=== PATIENT | female | born 1980 | race Caucasian/White ===

== ENCOUNTER → 2017-10-07 | Outpatient (CLI) | payer BC ==
--- NOTE | 2017-10-12 18:01 | US ---
EXAMINATION TYPE: US abdomen complete DATE OF EXAM: 10/07/2017 COMPARISON: NONE CLINICAL HISTORY: R94.5 Abnormal Results of Liver Function Studies. no symptoms, abn LFT's, cholecyst ectomy EXAM MEASUREMENTS: Liver Length: 15.8 cm Gallbladder Wall: Surgically absent CBD: 0.7 cm Spleen: 10.9 cm Right Kidney: 10.0 x 3.8 x 4.1 cm Left Kidney: 11.9 x 4.8 x 6.0 cm Pancreas: wnl Liver: wnl Gallbladder: Surgically absent Evidence for sonographic Flor's sign: no CBD: wnl Spleen: wnl Right Kidney: wnl Left Kidney: wnl Upper IVC: wnl Abd Aorta: wnl The liver is homogenous. The intrahepatic portion of the IVC and proximal abdominal aorta are within normal limits. Common bile duct is unremarkable. The visualized portions of the pancreas are homog enous. The spleen is unremarkable. Kidneys are symmetric and free of hydronephrosis. No renal lesi ons are seen. IMPRESSION: No significant abnormality is appreciated.
== END | disposition home or self-care (01) ==
LOC: RADUSWWP 08:49
PROVIDERS: ATTEND Internal Medicine
DX: R94.5 Abnormal results of liver function studies (principal)
CPT/HCPCS: 76700

== ENCOUNTER → 2017-11-01 | Outpatient (CLI) | payer BC ==
[2017-11-01 14:41] VITALS: BP 121/81; PULSE 86; TEMP 98.7; BMI 32.9
--- NOTE | 2017-11-01 16:02 | P.HPOB ---
History of Present Illness H&P Date: 11/01/17 Chief Complaint: The patient is here for her routine gynecologic exam. This is a 37-year-old G0 with an LMP at 10/25/2017. She is currently not preventing . 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 She had a history of a borderline malignant left ovarian cyst which was removed by laparotomy in [place] [address] Underwood. No adjuvant treatment was necessary. She was not actively preventing and later started more actively trying to get after her marriage in 2016. She has been with her for 17 years. She had an infertility workup in 2016. She states the semen analysis was normal. Her HSG on 03/29/2016 showed some tubal blockage. She underwent laparoscopic examination on 06/10/2016 and underwent some type of adhesiolysis and some type of mesh material was placed to prevent future adhesions. She does have some left pelvic discomfort around the time of ovulation. Menses are regular every month. She does check for a hormonal surge around the time of ovulation. She has been generally waiting to have sexual intercourse until after the hormonal surge. She did have a normal pap smear on 02/25/2016. She has seen 2 different paper tube grader over the last 2 or 3 years. Most recently she was seen at [facility] for an intrauterine insemination. She did this once and was not successful. Review of Systems She has lost about 40 pounds over the last one or 2 years with diet and exercise. She denies respiratory, cardiac, or G.I. problems. Past Medical History Past Medical History: GERD/Reflux Additional Past Medical History / Comment(s): anxiety. 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 She has no history of STDs. History of Any Multi-Drug Resistant Organisms: None Reported Past Surgical History: Cholecystectomy Additional Past Surgical History / Comment(s): IUI, LAPAROSCOPY WITH FIMBROPLASTY, LAPARSCOPY WITH INTERNAL ADHESIONS. 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 Past Psychological History: Anxiety, Depression Smoking Status: Never smoker Past Alcohol Use History: Rare (20 per year.) Past Drug Use History: None Reported Additional History: She was in 2015 and has been with her partner since approximately 2000. She does not work outside the home. - Past Family History Father Family Medical History: Myocardial Infarction (NM) Mother Family Medical History: Myocardial Infarction (NM) Medications and Allergies Home Medications Medication Instructions Recorded Confirmed Type ALPRAZolam [Xanax] tab PO PRN 11/01/17 History Docusate [Colace] mg PO HS 11/01/17 History Fug-Qtst-Jxksx Acid cap PO DAILY 11/01/17 History [-U Capsule (formulary)] busPIRone HCl [Buspar] mg PO BID 11/01/17 11/01/17 History Allergies Allergy/AdvReac Type Severity Reaction Status Date / Time ciprofloxacin [From Cipro] Allergy Swelling Verified 11/01/17 14:35 ciprofloxacin HCl Allergy Swelling Verified 11/01/17 14:35 [From Cipro] Sulfa (Sulfonamide Allergy Rash/Hives Verified 11/01/17 14:35 Antibiotics) Exam - Vital Signs Vital signs: Vital Signs Temp Pulse BP 11/01/17 14:36 98.7 F 86 121/81 Intake and Output 11/01/17 11/01/17 11/01/17 06:59 14:59 22:59 Other: Weight 81.647 kg Height 5'2", BMI 32.9. This is a well-developed well-nourished white female who is alert and oriented times 3 in no acute distress. HEENT: Within normal limits. NECK: Supple without mass or thyromegaly. CHEST AND LUNGS: Clear to auscultation. HEART: Regular rate and rhythm. BREASTS: Are without mass or discharge. AXILLARY EXAM: Negative for adenopathy. BACK: Negative for CVA tenderness. ABDOMEN: Soft, nontender, without palpable masses. PELVIC EXAM: Normal external genitalia. Cervix and vagina appear normal. There is no unusual discharge. There is no evidence of prolapse. The uterus is midposition, nongravid size and nontender. There a palpable left adnexal mass which is firm and fairly fixed measure and possibly 3 x 3 cm. This is nontender. There are no other palpable adnexal masses or tenderness. RECTAL EXAM: to vaginal exam is negative for mass or tenderness and is negative for occult blood. EXTREMITIES: Nontender. IMPRESSION: 1. 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 2. History of left ovarian cyst which was of low malignant potential which was removed in 2006. 3. Left adnexal mass which seems firm and fairly fixed in measures approximately 3 x 3 cm. Differential diagnosis will include uterine fibroid, ovarian adhesions, ovarian mass and less likely a non-gynecologic mass. PLAN: 1. Pap smear from 02/25/2016 was negative and she has given me a copy of this. 2. Self breast awareness was discussed. 3. Pelvic ultrasound will be scheduled to further evaluate the left adnexal fullness. 4. I have recommended that she continue to follow up with a paper tube grader for her infertility and for her desire to achieve . 5. I have recommended that she not wait until after her LH surge to have sexual intercourse. She should estimate the time of ovulation and begin having sexual intercourse one or 2 days before ovulation. 6. She'll continue to take a multivitamin with folic acid daily. 7. She will return in one year and PRN.
--- NOTE | 2017-11-02 09:08 | P.PN ---
Progress Note - Text Progress Note Date: 11/02/17 The patient has called to let me know that she would like to have a Pap smear done. She believes her mother may have had cervical cancer that required a hysterectomy. The patient did not have a Pap smear done yesterday since she had documentation showing that her Pap smear was negative less than 2 years ago. I told her that the Pap smear she had done in January 2016 still would be considered adequate since cervical cancer is not strongly hereditary in nature. She still would like to have the Pap smear done. She will make an appointment for the Pap smear to be done.
== END | disposition home or self-care (01) ==
LOC: WWCWWP 14:10
PROVIDERS: ATTEND Obstetrics & Gynecology
DX: Z53.9 Procedure and treatment not carried out, unspecified reason (principal)

== ENCOUNTER → 2017-11-29 | Outpatient (CLI) | payer BC ==
--- NOTE | 2017-11-29 15:25 | US ---
EXAMINATION TYPE: US pelvic complete DATE OF EXAM: 11/29/2017 COMPARISON: NONE CLINICAL HISTORY: R19.00 PELVIC MASS LT. Left pelvic mass per physician, left ovarian tumor removed 2 007, 0 TECHNIQUE: . Transabdominal sonographic images of the pelvis were acquired. Transvaginal sonographi c images were medically necessary to better assess the following anatomy: endometrium and ovaries. Date of LMP: 11/24/2017 EXAM MEASUREMENTS: Uterus: 7.8 x 3.8 x 4.4 cm Endometrial Stripe: 0.4 cm Right Ovary: 4.2 x 2.4 x 1.8 cm Left Ovary: 2.0 x 1.3 x 1.5 cm 1. Uterus: anteverted, multiple nabothian cysts 2. Endometrium: wnl 3. Right Ovary: multiple follicles 4. Left Ovary: multiple follicles 5. Bilateral Adnexa: wnl 6. Posterior cul-de-sac: wnl IMPRESSION: Unremarkable pelvic ultrasound with multiple likely physiologic bilateral ovarian follicl es. No recurrent left adnexal mass.
--- NOTE | 2017-11-29 16:08 | P.PN ---
Progress Note - Text Progress Note Date: 11/29/17 The patient was recently here on 11/01/2017 for her routine gynecology exam. Her last Pap smear was negative less than 2 years ago so a Pap smear was not done on 11/01/2017. The patient found out that her mother had cervical cancer and she feels strongly that she would like to have a Pap smear done. Her LMP was 11/22/2017. She is also undergoing a workup for pelvic pain and pelvic ultrasound was done today. Physical exam: vital signs: blood pressure 123/82, height 5'2", weight 182 pounds, temperature and 98.4, pulse 78. This is a well-developed well-nourished white female who is alert and oriented times 3 in no acute distress. Cervix and vagina appeared normal. Impression: 1. 37-year-old female requesting Pap smear testing sooner than recommended because of her mother's history of cervical cancer. 2. Pelvic pain. Please refer to the 11/01/2017 H&P Plan: 1. Pap smear was performed. 2. Await pelvic ultrasound results. 3. She can use vopt-[id number]-[id number] ibuprofen or Aleve as directed PRN.
== END | disposition home or self-care (01) ==
LOC: RADUSWWP 14:09
PROVIDERS: ATTEND Obstetrics & Gynecology
DX: R19.09 Other intra-abdominal and pelvic swelling, mass and lump (principal)
CPT/HCPCS: 76830; 76856

== ENCOUNTER → 2018-02-18 | Outpatient (CLI) | payer BC | LOC: LABWHC1 10:02 | PROVIDERS: ATTEND Obstetrics & Gynecology | DX: E34.9 Endocrine disorder, unspecified (principal) | CPT/HCPCS: 36415; 83001; 83002 ==

== ENCOUNTER 2019-01-16 10:14 | Inpatient (IN) | payer MEDICARE, OTHER ==
[2019-01-16] MEDS ORDERED: CITRIC ACID-SODIUM CITRATE 15 ML CUP PO ONE (10:29)
[2019-01-16] MEDS ORDERED: LACTATED RINGERS 1,000 ML IV ONE (10:29)
[2019-01-16 10:40] VITALS: BMI 42.0
[2019-01-16 10:53] LABS: Basophils % (A) 0 %; Eosinophils # (A) 0.1 k/uL (0-0.7); Eosinophils % (A) 1 %; HCT 35.6 % (34.0-46.0); HGB 11.9 gm/dL (11.4-16.0); Lymphocytes # (A) 1.8 k/uL (1.0-4.8); Lymphocytes % (A) 21 %; MCH 28.5 pg (25.0-35.0); MCHC 33.3 g/dL (31.0-37.0); MCV 85.4 fL (80.0-100.0); Mean Platelet Volume 6.6; Monocytes # (A) 0.6 k/uL (0-1.0); Monocytes % (A) 7 %; Neutrophils # (A) 5.8 k/uL (1.3-7.7); Neutrophils % (A) 69 %; Platelet Count 365 k/uL (150-450); RBC 4.17 m/uL (3.80-5.40); RDW 13.9 % (11.5-15.5); WBC 8.5 k/uL (3.8-10.6)
[2019-01-16] MEDS ORDERED: MORPHINE SULFATE (PF) 0.3 MG/0.3 ML SYR ONE (11:57)
[2019-01-16] MEDS ORDERED: ONDANSETRON 4 MG/2 ML VIAL ONE (11:57)
[2019-01-16] MEDS ORDERED: NALBUPHINE 10 MG/ML (1 ML AMP) ONE (11:57)
[2019-01-16] MEDS ORDERED: PHENYLEPHRINE-0.9% NACL SYG 1 MG/10 ML SYRINGE ONE (11:57)
[2019-01-16] MEDS ORDERED: KETOROLAC 30 MG/ML 1 ML VIAL ONE (11:57)
[2019-01-16] MEDS ORDERED: OXYTOCIN 10 UNIT/ML 1 ML VIAL ONE (11:57)
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
[2019-01-16] MEDS ORDERED: diphenhydrAMINE 25 MG CAP PO PRN (12:52)
[2019-01-16] MEDS ORDERED: ONDANSETRON 4 MG/2 ML VIAL IVP PRN (12:52)
[2019-01-16] MEDS ORDERED: NALOXONE 0.4 MG/ML 1 ML VIAL IV PRN ×2 (12:52→13:29)
[2019-01-16] MEDS ORDERED: MEASLES-MUMPS-RUBELLA VACC/PF 12,500 UNIT/0.5 ML VIAL SQ ONE (12:52)
[2019-01-16] MEDS ORDERED: SIMETHICONE 80 MG CHEWABLE PO PRN (12:52)
[2019-01-16] MEDS ORDERED: diphenhydrAMINE 50 MG/ML 1 ML VIAL IVP PRN ×2 (12:52)
[2019-01-16] MEDS ORDERED: METOCLOPRAMIDE 5 MG/ML 2 ML VIAL IVP PRN (12:52)
[2019-01-16] MEDS ORDERED: ZOLPIDEM 5 MG TAB PO PRN (12:52)
[2019-01-16] MEDS ORDERED: diphenhydrAMINE 50 MG CAP PO PRN (12:52)
[2019-01-16] MEDS ORDERED: HYDROcodone/APAP 5-325MG 1 EACH TAB PO PRN (12:52)
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
[2019-01-16] MEDS ORDERED: OXYTOCIN 20 UNITS/1000 ML NS 1,000 ML IV SCH (13:00)
[2019-01-16] MEDS ORDERED: MORPHINE SULFATE 2 MG/ML SYRINGE IVP PRN (13:29)
[2019-01-16] MEDS ORDERED: NALBUPHINE 10 MG/ML (1 ML AMP) IV PRN (13:29)
[2019-01-16] MEDS: KETOROLAC 30 MG/ML 1 ML VIAL IVP PRN (20:27)
[2019-01-16] MEDS: LACTATED RINGERS 1,000 ML IV SCH ×2 (21:35→21:37)
[2019-01-16] MEDS: SENNOSIDES-DOCUSATE SODIUM 1 EACH TAB PO SCH (21:37)
[2019-01-17 06:50] LABS: Basophils % (A) 0 %; Eosinophils # (A) 0.1 k/uL (0-0.7); Eosinophils % (A) 1 %; Lymphocytes # (A) 1.5 k/uL (1.0-4.8); Lymphocytes % (A) 14 %; MCHC 33.6 g/dL (31.0-37.0); MCV 86.4 fL (80.0-100.0); Mean Platelet Volume 6.7; Monocytes # (A) 0.8 k/uL (0-1.0); Monocytes % (A) 7 %; Neutrophils # (A) 8.4 k/uL (1.3-7.7); Neutrophils % (A) 76 %; Platelet Count 289 k/uL (150-450); RBC 3.35 m/uL (3.80-5.40); RDW 13.9 % (11.5-15.5); WBC 11.1 k/uL (3.8-10.6)
[2019-01-17 07:02] LABS: HGB 9.7 gm/dL (11.4-16.0)
[2019-01-17] MEDS: KETOROLAC 30 MG/ML 1 ML VIAL IVP PRN (07:57)
[2019-01-17] MEDS: SENNOSIDES-DOCUSATE SODIUM 1 EACH TAB PO SCH ×2 (07:58→20:19)
[2019-01-17] MEDS: ACETAMINOPHEN TAB 325 MG TAB PO PRN ×2 (10:57→16:53)
--- NOTE | 2019-01-17 12:09 | P.PN ---
Progress Note - Text Progress Note Date: 01/17/19 Postoperative day 1 status post section under spinal anesthesia, and intrathecal morphine given for postoperative analgesia, patient doing well, there is no anesthesia related complications, Patient had no headache, vital signs stable , Assessment and plan= postop day 1 status post , doing well there is no anesthesia related complication.
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
[2019-01-17] MEDS: IBUPROFEN 600 MG TAB PO PRN ×2 (14:04→20:19)
[2019-01-17] MEDS: LACTATED RINGERS 1,000 ML IV SCH ×2 (22:00→22:01)
[2019-01-18] MEDS: IBUPROFEN 600 MG TAB PO PRN ×2 (05:01→10:51)
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
[2019-01-18 10:12] VITALS: RESP 18; TEMP 98.4
[2019-01-18] MEDS: SENNOSIDES-DOCUSATE SODIUM 1 EACH TAB PO SCH (10:12)
[2019-01-18] MEDS: ACETAMINOPHEN TAB 325 MG TAB PO PRN (14:16)
[2019-01-18 17:45] VITALS: BP 135/78; PULSE 84
== END 2019-01-18 17:49 | disposition home or self-care (01) | DRG 788 ==
LOC: 4FBP 10:14
PROVIDERS: ADMIT Obstetrics & Gynecology; ATTEND Obstetrics & Gynecology
PROC: 3E0134Z Introduction of Serum, Toxoid and Vaccine into Subcutaneous Tissue, Percutaneous Approach (ICD-10-PCS; 2019-01-16)
PROC: 10D00Z1 Extraction of Products of Conception, Low, Open Approach (ICD-10-PCS; principal; 2019-01-16 12:00)
DX: O71.89 Other specified obstetric trauma (principal); Z37.0 Single live birth; Z23 Encounter for immunization; Z28.3 Underimmunization status; Z3A.39 39 weeks gestation of pregnancy; Z62.810 Personal history of physical and sexual abuse in childhood; O99.344 Other mental disorders complicating childbirth; F43.10 Post-traumatic stress disorder, unspecified; F41.9 Anxiety disorder, unspecified; F32.9 Major depressive disorder, single episode, unspecified; O99.62 Diseases of the digestive system complicating childbirth; K21.9 Gastro-esophageal reflux disease without esophagitis; Z79.899 Other long term (current) drug therapy; Z90.49 Acquired absence of other specified parts of digestive tract; Z98.890 Other specified postprocedural states; Z88.2 Allergy status to sulfonamides; Z88.1 Allergy status to other antibiotic agents; Z82.49 Family history of ischemic heart disease and other diseases of the circulatory system
CPT/HCPCS: 85025; 86850; 86900; 86901; 90707

== ENCOUNTER 2020-04-17 10:21 | Inpatient (IN) | payer OTHER, MEDICARE ==
[2020-04-17] MEDS ORDERED: CITRIC ACID-SODIUM CITRATE 15 ML CUP PO ONE (10:31)
[2020-04-17] MEDS ORDERED: LACTATED RINGERS 1,000 ML IV ONE (10:31)
[2020-04-17] MEDS ORDERED: LIDOCAINE 1% (10MG/ML) FOR IV START INTRADERMA PRN (10:31)
[2020-04-17 12:29] LABS: Basophils % (A) 0 %; Eosinophils % (A) 1 %; HCT 36.7 % (34.0-46.0); HGB 11.8 gm/dL (11.4-16.0); Lymphocytes # (A) 1.9 k/uL (1.0-4.8); Lymphocytes % (A) 23 %; MCH 29.7 pg (25.0-35.0); MCHC 32.3 g/dL (31.0-37.0); MCV 92.1 fL (80.0-100.0); Mean Platelet Volume 6.9; Monocytes # (A) 0.5 k/uL (0-1.0); Monocytes % (A) 7 %; Neutrophils # (A) 5.6 k/uL (1.3-7.7); Neutrophils % (A) 69 %; Platelet Count 269 k/uL (150-450); RBC 3.98 m/uL (3.80-5.40); WBC 8.1 k/uL (3.8-10.6)
[2020-04-17] MEDS ORDERED: OXYTOCIN 10 UNIT/ML 1 ML VIAL ONE (15:40)
[2020-04-17] MEDS ORDERED: PHENYLEPHRINE-0.9% NACL SYG 1 MG/10 ML SYRINGE ONE (15:40)
[2020-04-17] MEDS ORDERED: MORPHINE SULFATE (PF) 0.3 MG/0.3 ML SYR ONE (15:40)
[2020-04-17] MEDS ORDERED: NALBUPHINE 10 MG/ML (1 ML AMP) ONE (15:40)
[2020-04-17] MEDS ORDERED: ONDANSETRON 4 MG/2 ML VIAL ONE (15:40)
[2020-04-17] MEDS ORDERED: KETOROLAC 15 MG/ML 1 ML VIAL ONE (15:40)
[2020-04-17] MEDS ORDERED: CELLULOSE,OXIDIZED 1 EACH EACH MISCELLANE ONE (15:55)
--- NOTE | 2020-04-17 16:50 | P.HPOB ---
History of Present Illness H&P Date: 04/17/20 Chief Complaint: Previous section This is a 40 year old 2 para 1001 woman with an estimated due date of 04/23/2020 based on LMP consistent with first trimester ultrasound. She presents for repeat low transverse section and bilateral tubal ligation. Her obstetric history is significant for a previous low transverse section done for a history of pelvic trauma. This was in December 2018. This has been uncomplicated and she and her desire surgical sterility. Laboratory data: Group B strep negative, blood type O+, antibody screen negative, rubella immune, VDRL nonreactive, hepatitis B surface antigen negative, gonorrhea and clinic cultures negative, glucose tolerance testing within normal limits. Obstetric history: Primary low transverse section 2019 at term of a female infant 7 lbs. 14 oz. Review of Systems All systems: negative Past Medical History Past Medical History: GERD/Reflux Additional Past Medical History / Comment(s): anxiety. 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 She has no history of STDs. History of Any Multi-Drug Resistant Organisms: None Reported Past Surgical History: Section (2019), Cholecystectomy Additional Past Surgical History / Comment(s): IUI, LAPAROSCOPY WITH FIMBROPLASTY, LAPARSCOPY WITH INTERNAL ADHESIONS. 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 Past Anesthesia/Blood Transfusion Reactions: No Reported Reaction Past Psychological History: Anxiety Smoking Status: Never smoker Past Alcohol Use History: Rare Past Drug Use History: None Reported - Past Family History Father Family Medical History: Myocardial Infarction ([place]) Mother Family Medical History: Myocardial Infarction ([place]) Medications and Allergies Home Medications Medication Instructions Recorded Confirmed Type Fav-Grro-Aliwe Acid 1 cap PO DAILY 11/01/17 01/16/19 History [-U Capsule (formulary)] Acetaminophen Tab [Tylenol] 650 mg PO Q4HR PRN tab 01/18/19 Rx Ibuprofen [Motrin] 600 mg PO Q6HR PRN tab 01/18/19 Rx Sennosides-Docusate Sodium 2 each PO BID@0800,2000 tab 01/18/19 Rx [Senokot-S] Allergies Allergy/AdvReac Type Severity Reaction Status Date / Time ciprofloxacin [From Cipro] Allergy Swelling Verified 01/16/19 10:29 ciprofloxacin HCl Allergy Swelling Verified 01/16/19 10:29 [From Cipro] Sulfa (Sulfonamide Allergy Rash/Hives Verified 01/16/19 10:29 Antibiotics) Exam Vital Signs Temp Pulse Resp BP 04/17/20 10:30 97.5 F L 91 14 135/86 Intake and Output 04/17/20 04/17/20 04/17/20 06:59 14:59 22:59 Other: # Voids 1 Weight 83.915 kg This is a pleasant, visibly gravid female in no apparent distress. HEENT exam is unremarkable. Her breathing is unlabored. Her heart is a regular rate and rhythm. The abdomen is gravid soft and nontender with no flank pain. Pelvic exam is deferred. heart tones are category 1 and she is not actively laboring. Results Result Diagrams: 04/17/20 11:30 Assessment and Plan (1) Advanced maternal age (AMA) in Current Visit: No Status: Acute Code(s): QKV1803 - SNOMED Code(s): 791068802 (2) History of pelvic trauma Current Visit: No Status: Acute Code(s): Z87.828 - PERSONAL HISTORY OF OTH (HEALED) PHYSICAL INJURY AND TRAUMA SNOMED Code(s): 745441772 (3) History of Current Visit: Yes Status: Acute Code(s): Z98.891 - HISTORY OF UTERINE SCAR FROM PREVIOUS SURGERY SNOMED Code(s): 865546260 Plan: 40-year-old 2 para 1 woman admitted at 39 weeks gestation for repeat low transverse section. She and her have requested and signed c onsents for bilateral tubal ligation. Alternatives for contraception have been reviewed in the office setting and declined. Risks benefits and alternatives to this procedure have been reviewed in detail and consent obtained. She is group B strep negative and Rh+. status currently reassuring by external monitoring
[2020-04-17] MEDS ORDERED: diphenhydrAMINE 50 MG/ML 1 ML VIAL IVP PRN ×2 (16:54)
[2020-04-17] MEDS ORDERED: HYDROcodone/APAP 5-325MG 1 EACH TAB PO PRN (16:54)
[2020-04-17] MEDS ORDERED: METOCLOPRAMIDE 5 MG/ML 2 ML VIAL IVP PRN (16:54)
[2020-04-17] MEDS ORDERED: diphenhydrAMINE 50 MG CAP PO PRN (16:54)
[2020-04-17] MEDS ORDERED: NALOXONE 0.4 MG/ML 1 ML VIAL IV PRN (16:54)
[2020-04-17] MEDS ORDERED: ZOLPIDEM 5 MG TAB PO PRN (16:54)
[2020-04-17] MEDS ORDERED: ONDANSETRON 4 MG/2 ML VIAL IVP PRN (16:54)
[2020-04-17] MEDS ORDERED: diphenhydrAMINE 25 MG CAP PO PRN (16:54)
--- NOTE | 2020-04-17 16:54 | P.OP ---
Date of Procedure: 04/17/20 Preoperative Diagnosis: #1 history of previous low transverse section #2 intrauterine at 39 weeks gestation #3 advanced maternal age #4 desires permanent sterility Postoperative Diagnosis: Same Procedure(s) Performed: Repeat low transverse section with bilateral tubal ligation Anesthesia: spinal Surgeon: Francine Martins Physician Scribe #1: Lenka Cardona Estimated Blood Loss (ml): 300 IV fluids (ml): 800 Urine output (ml): 25 Pathology: none sent Condition: stable Disposition: floor Indications for Procedure: History of previous low transverse section and desires permanent sterility Operative Findings: Female infant in the vertex presentation with nuchal cord 1. Apgars of 9 at 1 minute and 10 at 5 minutes weighing 7 lbs. 9 oz., 3450 g. Absence of left ovary. Otherwise normal-appearing right fallopian to ovary and left fallopian tube. Description of Procedure: After the patient was met preoperatively and all questions were answered, she was taken to the operating room where spinal anesthetic was administered without incident. She was then positioned, prepped and draped in the dorsal supine position with a leftward tilt. Judge catheter was placed. After anesthetic was confirmed adequate, a low transverse skin incision was made following the pre- existing scar. This was carried down to the underlying fascia both sharply and with the electrocautery. The fascia was then incised in the midline and extended bilaterally with the Hollins scissors. With significant scarring of the fascia as well as diastases of the rectus muscles. The superior aspect of the fascial incision was elevated and the underlying rectus muscles dissected off sharply and with the electrocautery. The inferior aspect of the fascial incision was also elevated and the underlying rectus muscles dissected off sharply. These were bluntly and the peritoneum was tented up with hemostats. The peritoneum was entered sharply with the Metzenbaum scissors. The peritoneal incision was extended inferiorly and superiorly with good visualization of the bladder. The bladder blade was placed. The low uterine segment was noted to be extremely thin. A low transverse uterine incision was then made sharply and carried down to the underlying amniotic membranes. Membranes were ruptured and clear fluid was noted. The uterine incision was extended bilaterally bluntly. The 's head was delivered from the incision without difficulty. The nose and mouth were bulb suctioned. The rest of the infant was delivered onto the field without difficulty. And cut and the was taken to the warmer. An intact, three-vessel cord placenta was then manually removed and the uterus was exteriorized. The uterus was cleared of all clot and debris. The uterine incision was delineated with Jarrett clamps. The uterine incision was then closed in a running locked fashion with 0 Vicryl suture. Additional [id number] sutures were placed where necessary along the incision for hemostasis. The right and left fallopian tubes were positively identified and carried out to the fimbriated ends. Of note the left ovary was surgically absent. Filshie clip clips were then applied in the mid ampullary portion of the tubes completely transecting each tube. The uterus was then returned to the abdomen and the gutters were cleared of all clot and debris. The uterine incision was reinspected and Bovie electrocautery was utilized were necessary for hemostasis. The fascial edges, peritoneal edges and rectus mu scles were inspected and Bovie electrocautery utilized were necessary for hemostasis. The fascia was then closed in a running fashion with 0 Vicryl suture. The subcuticular tissue was copiously suction irrigated and Bovie electrocautery utilized were necessary for hemostasis. 3-0 Vicryl suture was utilized to reapproximate the subcuticular tissue. The skin was then closed in a subcutaneous fashion with 4-0 Vicryl suture. All counts reported to me as correct by the operating room staff at the end of the procedure. The patient received antibiotics preoperatively and Pitocin following cord clamp. Mother and were both transported from the room in stable condition.
[2020-04-17] MEDS ORDERED: OXYTOCIN 20 UNITS/1000 ML NS 1,000 ML IV SCH (17:00)
[2020-04-17] MEDS: KETOROLAC 15 MG/ML 1 ML VIAL IVP PRN (22:26)
[2020-04-17] MEDS: LACTATED RINGERS 1,000 ML IV SCH ×2 (22:55→22:56)
[2020-04-17] MEDS: SENNOSIDES-DOCUSATE SODIUM 1 EACH TAB PO SCH (22:56)
[2020-04-18] MEDS: LACTATED RINGERS 1,000 ML IV SCH ×5 (00:09→23:52)
[2020-04-18] MEDS: KETOROLAC 15 MG/ML 1 ML VIAL IVP PRN (05:07)
[2020-04-18 07:00] LABS: Basophils % (A) 0 %; Eosinophils % (A) 0 %; HCT 31.4 % (34.0-46.0); HGB 10.7 gm/dL (11.4-16.0); Lymphocytes # (A) 1.4 k/uL (1.0-4.8); Lymphocytes % (A) 11 %; MCHC 34.2 g/dL (31.0-37.0); MCV 90.7 fL (80.0-100.0); Monocytes # (A) 0.7 k/uL (0-1.0); Monocytes % (A) 6 %; Neutrophils # (A) 10.6 k/uL (1.3-7.7); Neutrophils % (A) 82 %; Platelet Count 258 k/uL (150-450); RBC 3.46 m/uL (3.80-5.40); RDW 12.6 % (11.5-15.5); WBC 12.8 k/uL (3.8-10.6)
--- NOTE | 2020-04-18 07:08 | P.PN ---
Progress Note - Text 04/18/20 656am 20-year-old female status post with spinal Duramorph. Patient seen and evaluated this morning for postop pain control with his VAS of 2, patient had complains of both nausea vomiting and pruritus. Both side effects of Duramorph have subsided, patient doing much better this morning. Pain control to be managed by the art education professor
--- NOTE | 2020-04-18 08:21 | P.PNOBGPC ---
Subjective - Subjective Principal diagnosis: POD 1 Interval history: Nausea overnight, recolved, tolerating gen diet Patient reports: Reports appetite normal, Reports voiding normally (required straight cath x 1), Reports pain well controlled, Reports ambulating normally, Denies nauseated Gilchrist: doing well, bottle feeding Objective - Vital Signs Latest vital signs: Vital Signs Temp Pulse Resp BP Pulse Ox 04/18/20 04:00 98.3 F 76 18 115/79 100 04/17/20 23:00 98.1 F 81 18 129/79 98 04/17/20 18:50 68 16 112/62 98 04/17/20 18:20 71 16 125/67 96 04/17/20 17:51 85 18 120/79 95 04/17/20 17:36 76 16 152/89 100 04/17/20 17:21 84 16 109/65 04/17/20 17:06 90 16 112/61 99 04/17/20 16:51 97.7 F 92 16 122/75 99 04/17/20 10:30 97.5 F L 91 14 135/86 Intake and Output 04/17/20 04/18/20 04/18/20 22:59 06:59 14:59 Intake Total 900 Output Total 1425 900 Balance -525 -900 Intake: IV 900 Output: Urine 225 900 Uretheral (Judge) 500 Estimated Blood Loss 1200 Other: Voiding Method Indwelling Catheter - Exam Extremities: Present: normal, edema. Absent: tenderness Abdomen: Present: normal appearance, soft. Absent: distention, tenderness Incision: Present: normal, dry, dressed Uterus: Present: normal, firm. Absent: tenderness - Labs Labs: Abnormal Lab Results - Last 24 Hours (Table) 04/18/20 Range/Units 06:34 WBC 12.8 H (3.8-10.6) k/uL RBC 3.46 L (3.80-5.40) m/uL Hgb 10.7 L (11.4-16.0) gm/dL Hct 31.4 L (34.0-46.0) % Neutrophils # 10.6 H (1.3-7.7) k/uL Assessment and Plan (1) Advanced maternal age (AMA) in Current Visit: No Status: Acute Code(s): [id number] - SNOMED Code(s): 030185228 (2) History of pelvic trauma Current Visit: No Status: Acute Code(s): Z87.828 - PERSONAL HISTORY OF OTH (HEALED) PHYSICAL INJURY AND TRAUMA SNOMED Code(s): 339670873 (3) History of Current Visit: Yes Status: Acute Code(s): Z98.891 - HISTORY OF UTERINE SCAR FROM PREVIOUS SURGERY SNOMED Code(s): 662249467 (4) Family planning Current Visit: Yes Status: Acute Code(s): Z30.09 - ENCOUNTER FOR OT GENERAL CNSL AND ADVICE ON CONTRACEPTION SNOMED Code(s): 664686588 Plan: POD 1 S/P rpt LTCS and BTL. Recovering well. Routine care.
[2020-04-18] MEDS: SENNOSIDES-DOCUSATE SODIUM 1 EACH TAB PO SCH ×2 (08:24→20:04)
[2020-04-18] MEDS: IBUPROFEN 600 MG TAB PO PRN ×2 (09:40→18:32)
[2020-04-18] MEDS: ACETAMINOPHEN TAB 325 MG TAB PO PRN ×2 (13:18→23:21)
[2020-04-19] MEDS: IBUPROFEN 600 MG TAB PO PRN (04:08)
[2020-04-19 08:45] VITALS: BP 129/83; PULSE 99; RESP 15; TEMP 98
[2020-04-19] MEDS: SENNOSIDES-DOCUSATE SODIUM 1 EACH TAB PO SCH (08:45)
--- NOTE | 2020-04-19 10:58 | P.DS ---
Providers Date of admission: 04/17/20 10:22 Expected date of discharge: 04/19/20 Attending physician: Francine Martins Primary care physician: Stated None - Discharge Diagnosis(es) (1) Advanced maternal age (AMA) in Current Visit: No Status: Acute (2) History of pelvic trauma Current Visit: No Status: Acute (3) History of Current Visit: Yes Status: Acute (4) Family planning Current Visit: Yes Status: Acute Hospital Course: This is a 40-year-old 2 now para 2 woman who was admitted at 39 weeks gestation for planned repeat low transverse section with bilateral tubal ligation. She had an uncomplicated and desired permanent sterility. Please see the admission history and physical for details. Fol lowing admission she went to the operating room where she underwent an uncomplicated repeat low transverse section with bilateral tubal ligation. Findings at the time of surgery were significant for dense abdominal wall adhesions as well as absence of the left ovary. Please see the operative report for details. She had a liveborn female with Apgars of 9 at 1 minute and 10 at 5 minutes weighing 7 lbs. 9 oz. The patient's postoperative course was entirely unremarkable. She did have some difficulty voiding on after a Judge catheter was removed but this did resolve. She had some initial postoperative nausea however this again did resolve and by postoperative day #1 she was ambulating and voiding without difficulty and tolerating a general diet. By postoperative day #2 she continued to do well. Her incision was well healing and her lochia was minimal. Her vital signs were stable. She was using oral pain medications without difficulty. Is bottle feeding. She was therefore discharged home with routine instructions for postoperative care and follow-up. Procedures: Repeat low transverse section and bilateral tubal ligation Patient Condition at Discharge: Good Plan - Discharge Summary Discharge Rx Participant: No New Discharge Prescriptions: New Ibuprofen [Motrin] 600 mg PO Q6HR PRN #30 tab PRN Reason: Mild Pain Or Fever >= 100.5 Acetaminophen Tab [Tylenol] 650 mg PO Q4HR PRN tab PRN Reason: Mild Pain Or Fever >= 100.5 No Action Gsl-Yewb-Nyymx Acid [-U Capsule (formulary)] 1 cap PO DAILY Ibuprofen [Motrin] 600 mg PO Q6HR PRN tab PRN Reason: Mild Pain Or Fever >= 100.5 Sennosides-Docusate Sodium [Senokot-S] 2 each PO BID@0800,2000 tab Acetaminophen Tab [Tylenol] 650 mg PO Q4HR PRN tab PRN Reason: Mild Pain Or Fever >= 100.5 Discharge Medication List Hii-Sfmx-Zayxl Acid [-U Capsule (formulary)] 1 cap PO DAILY 11/01/17 [History] Acetaminophen Tab [Tylenol] 650 mg PO Q4HR PRN tab 01/18/19 [Rx] Ibuprofen [Motrin] 600 mg PO Q6HR PRN tab 01/18/19 [Rx] Sennosides-Docusate Sodium [Senokot-S] 2 each PO BID@0800,1999 tab 01/18/19 [Rx] Acetaminophen Tab [Tylenol] 650 mg PO Q4HR PRN tab 04/19/20 [Rx] Ibuprofen [Motrin] 600 mg PO Q6HR PRN #30 tab 04/19/20 [Rx] Follow up Appointment(s)/Referral(s): Francine Martins MD [STAFF PHYSICIAN] - 2 Weeks Activity/Diet/Wound Care/Special Instructions: Follow-up in 2 weeks after surgery in the office. Call the office with any concerning signs or symptoms including fever greater than 101, severe abdominal pain, heavy vaginal bleeding, signs of wound infection, increased swelling or redness of the lower extremities, signs of depression. No driving for 2 weeks after surgery. No heavy lifting or vigorous activity until reevaluated in the office. No intercourse for 6 weeks after delivery. Discharge Disposition: HOME SELF-CARE
== END 2020-04-19 12:45 | disposition home or self-care (01) | DRG 785 ==
LOC: 4FBP 10:22
PROVIDERS: ADMIT Obstetrics & Gynecology; ATTEND Obstetrics & Gynecology
PROC: 10D00Z1 Extraction of Products of Conception, Low, Open Approach (ICD-10-PCS; principal; 2020-04-17 16:01)
PROC: 0UL70CZ Occlusion of Bilateral Fallopian Tubes with Extraluminal Device, Open Approach (ICD-10-PCS; principal; 2020-04-17 16:01)
DX: O34.211 Maternal care for low transverse scar from previous cesarean delivery (principal); O69.81X0 Labor and delivery complicated by cord around neck, without compression, not applicable or unspecified; O99.344 Other mental disorders complicating childbirth; Z30.2 Encounter for sterilization; Z37.0 Single live birth; Z3A.39 39 weeks gestation of pregnancy; Z82.49 Family history of ischemic heart disease and other diseases of the circulatory system; K66.0 Peritoneal adhesions (postprocedural) (postinfection); F41.9 Anxiety disorder, unspecified; L29.9 Pruritus, unspecified; O99.62 Diseases of the digestive system complicating childbirth; K21.9 Gastro-esophageal reflux disease without esophagitis; Z90.49 Acquired absence of other specified parts of digestive tract; Z88.1 Allergy status to other antibiotic agents; Z88.2 Allergy status to sulfonamides
CPT/HCPCS: 85025; 86850; 86900; 86901

== ENCOUNTER → 2020-09-09 | Outpatient (CLI) | payer OTHER ==
--- NOTE | 2020-09-09 16:28 | CT ---
EXAMINATION TYPE: CT abdomen pelvis w con DATE OF EXAM: 09/09/2020 COMPARISON: None HISTORY: Generalized abdominal pain. CT DLP: 730.1 mGycm Automated exposure control for dose reduction was used. TECHNIQUE: Helical acquisition of images from the lung bases through the pelvis have been completed. CONTRAST: Performed with Oral Contrast and with IV Contrast, patient injected with 100ml mL of Isovue 300. FINDINGS: LUNG BASES: No significant abnormality is appreciated. AORTA: No significant abnormality is appreciated. LIVER/GB: No significant abnormality is appreciated, patient is post cholecystectomy. PANCREAS: No significant abnormality is seen. SPLEEN: No significant abnormality is seen. ADRENALS: No significant abnormality is seen. KIDNEYS: There are some cortical cysts associated with the kidneys, no evident hydronephrosis or asael l calculi REPRODUCTIVE ORGANS: Some cystic foci are associated with what is believed to be the right ovary, at least 2 cysts are suspected, overall measurements are 5.3 x 4 x 4.5 cm, there is likely septation, po ssible thickened wall. Fallopian tubal ligation clips are present BOWEL: Some thickening of the descending colon, sigmoid: May be due to muscular hypertrophy, difficu lt to exclude a mucosal lesion, axial image #60 in the left lower quadrant. The appendix is well aera michael. Loops of bowel present within the anterior aspect of the abdomen, there may be hernia at this le sam, possible prior surgery, somewhat thickened appearance is present along the anterior abdominal wa ll at this level, inflammatory changes or possibly scarring, surgical clip is present in the cul-de-s ac. Some diverticular change noted in the sigmoid colon. Difficult to exclude some surrounding inflam matory change, axial image #68e FREE AIR: No Free Air visible. ASCITES: None visible. PELVIC ADENOPATHY: None visualized. RETROPERITONEAL ADENOPATHY: No Retroperitoneal Adenopathy visible. URINARY BLADDER: No significant abnormality is seen. OSSEOUS STRUCTURES: No significant abnormality is seen. IMPRESSION: POSTOP CHANGES AND NONSPECIFIC FINDINGS DESCRIBED ABOVE. INDETERMINATE OVARIAN CYSTS, CONSIDER ULTRAS OUND FOLLOW-UP. DIVERTICULOSIS, DIFFICULT TO EXCLUDE DIVERTICULITIS.
== END | disposition home or self-care (01) ==
LOC: RADCTMAIN 11:38
PROVIDERS: ATTEND Family Medicine
DX: K57.30 Diverticulosis of large intestine without perforation or abscess without bleeding (principal); Z90.49 Acquired absence of other specified parts of digestive tract
CPT/HCPCS: 74177; Q9967

== ENCOUNTER → 2020-10-08 | Outpatient (CLI) | payer OTHER ==
[2020-10-08 20:14] LABS: Basophils # (A) 0.06 X 10*3/uL (0.00-0.10); Basophils % (A) 0.9 %; Eosinophils # (A) 0.09 X 10*3/uL (0.04-0.35); Eosinophils % (A) 1.4 %; HCT 38.3 % (37.2-46.3); HGB 12.4 g/dL (12.0-15.0); Lymphocytes # (A) 2.38 X 10*3/uL (0.90-5.00); MCH 29.6 pg (27.0-32.0); MCHC 32.4 g/dL (32.0-37.0); MCV 91.4 fL (80.0-97.0); Mean Platelet Volume 9.7 fL (9.5-12.2); Monocytes # (A) 0.67 X 10*3/uL (0.20-1.00); Monocytes % (A) 10.1 %; Neutrophils # (A) 3.41 X 10*3/uL (1.80-7.70); Neutrophils % (A) 51.4 %; Platelet Count 320 X 10*3/uL (140-440); RBC 4.19 X 10*6/uL (4.10-5.20); RDW 12.5 % (11.5-14.5); WBC 6.62 X 10*3/uL (4.50-10.00)
[2020-10-08 22:40] LABS: African American GFR (CKD) 124.7 (60.0-200.0); Albumin 4.4 g/dL (3.80-4.90); Albumin/Globulin Ratio 1.91 (1.60-3.17); Anion Gap 7.9 mmol/L (4.00-12.00); BUN/Creat Ratio 25.71 Ratio (12.00-20.00); Carbon Dioxide 25.1 mmol/L (21.6-31.8); Chol/HDL Ratio 3.1; Globulin 2.3 g/dL (1.6-3.3); LDL Cholesterol,Calculated 88.4 mg/dL (0.0-131.0); Non-African American GFR(CKD) 107.6 (60.0-200.0); Potassium 4.5 mmol/L (3.5-5.5); Total Bilirubin 1.9 mg/dL (0.2-1.2); Total Protein 6.7 g/dL (6.2-8.2); VLDL Calculation 12.6 mg/dL (5.00-40.00)
== END | disposition home or self-care (01) ==
LOC: LABWHC1 12:21
PROVIDERS: ATTEND Family Medicine
DX: Z00.00 Encounter for general adult medical examination without abnormal findings (principal); Z12.31 Encounter for screening mammogram for malignant neoplasm of breast; K43.2 Incisional hernia without obstruction or gangrene; L30.9 Dermatitis, unspecified
CPT/HCPCS: 36415; 80053; 80061; 85025

== ENCOUNTER 2020-11-04 06:19 | Day surgery (SDC) | payer OTHER ==
[2020-11-03 09:36] VITALS: BMI 33.5
[~2020-11-04 06:19] MED LIST: DEXAMETHASONE SOD PHOSPHATE 4 MG/ML 1 ML VIAL IV ONE; LACTATED RINGERS 1,000 ML IV SCH; LIDOCAINE 1% (10MG/ML) FOR IV START INTRADERMA PRN; MIDAZOLAM 2 MG/2 ML VIAL IV PRN; ONDANSETRON 4 MG/2 ML VIAL IVP ONE; Pre Op ABX Message 1 EACH MISC MISCELLANE ONE
[2020-11-04] MEDS ORDERED: HYDROmorphone 0.5 MG/0.5 ML SYRINGE IVP PRN (07:00)
[2020-11-04] MEDS ORDERED: SCOPOLAMINE 1.5MG/72HR PATCH TRANSDERM ONE (07:01)
[2020-11-04] MEDS ORDERED: LIDOCAINE 1% INJ 10MG/ML (20 ML MDV) ONE (07:28)
[2020-11-04] MEDS ORDERED: PROPOFOL 10 MG/ML 20 ML VIAL IV ONE (07:28)
[2020-11-04] MEDS ORDERED: MIDAZOLAM 2 MG/2 ML VIAL ONE (07:28)
[2020-11-04] MEDS ORDERED: fentaNYL (PF) 50 MCG/ML 2 ML AMP ONE (07:28)
[2020-11-04] MEDS ORDERED: KETOROLAC 15 MG/ML 1 ML VIAL ONE (07:28)
[2020-11-04] MEDS ORDERED: LIDOCAINE 1%-EPI 1:100,000 20 ML VIAL SUBMUCOSAL ONE (07:49)
--- NOTE | 2020-11-04 08:04 | P.OP ---
Date of Procedure: 11/04/20 Preoperative Diagnosis: Menorrhagia Postoperative Diagnosis: Same Procedure(s) Performed: Diagnostic hysteroscopy with D&C and NovaSure endometrial ablation Anesthesia: MAC Surgeon: Francine Martins Estimated Blood Loss (ml): 5 IV fluids (ml): 200 Urine output (ml): 200 Pathology: other (Endometrial curettings) Condition: stable Disposition: PACU Indications for Procedure: Menorrhagia Operative Findings: Fluffy endometrium with no gross intracavitary lesions noted Description of Procedure: After the patient was met in preoperative holding and all questions are answered, she was taken to the operating room where anesthetic was administered without incident. She was in positioned, prepped and draped in the dorsal lithotomy position and bimanual examination was performed. The bladder was drained for approximately 200 mL of clear urine. Speculum was placed in the vagina and the cervix was grasped anteriorly with a single-tooth tenaculum. Paracervical block with lidocaine plus epinephrine was placed. The uterus was sounded to 9.5 cm. The cervix and sequentially dilated with Hegar dilators to allow for passage of the diagnostic hysteroscope. Hysteroscope was introduced and the normal intrauterine cavity was appreciated without evidence of gross intracavitary lesions. Hysteroscope was removed and the cervix was further dilated to allow for passage of the small sharp banjo curet. The uterine cavity was 6 circumferentially curettaged to get a outreach representative sample. The curet was removed and the NovaSure ablation device was inserted. Cavity length was 5.5 cm with a width of 3.8 cm. Cavity assessment test was passed. Device was enabled for a treatment cycle of 48 seconds at a power of 115 W. Following cessation of the treatment cycle the device was removed. The hysteroscope was not reintroduced as the valve was leaking and do not provide for adequate a saline infusion. Instruments were then removed from the cervix and the cervix is observed. No active bleeding was noted. Instruments were then removed from the vagina. Patient was awoken from anesthetic and transported recovery area in stable condition. All counts reported to me as correct.
[2020-11-04 08:17] VITALS: TEMP 99.2
[2020-11-04 08:28] VITALS: RESP 16
[2020-11-04] MEDS ORDERED: ONDANSETRON 4 MG/2 ML VIAL ONE (09:42)
[2020-11-04] MEDS ORDERED: ONDANSETRON 4 MG/2 ML VIAL IVP ONE (09:46)
[2020-11-04 10:03] VITALS: BP 130/78; PULSE 85
== END 2020-11-04 11:00 | disposition home or self-care (01) ==
LOC: OR 06:19
PROVIDERS: ATTEND Obstetrics & Gynecology
DX: N92.0 Excessive and frequent menstruation with regular cycle (principal); Z88.1 Allergy status to other antibiotic agents; Z88.2 Allergy status to sulfonamides; E28.2 Polycystic ovarian syndrome; Z98.890 Other specified postprocedural states
CPT/HCPCS: 81025; 88305; 58563; J2250; J1100; J2405; J2001; J3010; J1885; J2704; J1170

== ENCOUNTER → 2020-12-30 | Outpatient (CLI) | payer OTHER ==
[2020-12-31 00:50] LABS: HCT 39.6 % (37.2-46.3); HGB 13.2 g/dL (12.0-15.0); MCHC 33.3 g/dL (32.0-37.0); Mean Platelet Volume 10.1 fL (9.5-12.2); Platelet Count 291 X 10*3/uL (140-440); WBC 7.48 X 10*3/uL (4.50-10.00)
[2020-12-31 04:30] LABS: Hemoglobin A1C 5.2 % (4.0-6.0)
[2020-12-31 06:15] LABS: African American GFR (CKD) 124.7 (60.0-200.0); BUN/Creat Ratio 21.43 Ratio (12.00-20.00); Calcium 9.3 mg/dL (8.7-10.3); Non-African American GFR(CKD) 107.6 (60.0-200.0); Potassium 4.1 mmol/L (3.5-5.5)
== END | disposition home or self-care (01) ==
LOC: LABWHC1 16:10
PROVIDERS: ATTEND Surgery
DX: Z01.818 Encounter for other preprocedural examination (principal)
CPT/HCPCS: 36415; 80048; 82652; 83036; 85027

== ENCOUNTER 2021-09-08 09:16 | Inpatient (IN) | payer OTHER, MEDICARE ==
[2021-09-08 10:12] LABS: Amphetamine Screen,Urine Not Detected (NotDetected); Barbiturate Screen,Urine Not Detected (NotDetected); Benzodiazepines Screen,Urine Not Detected (NotDetected); Cocaine Screen,Urine Not Detected (NotDetected); Methadone Screen, Urine Not Detected (NotDetected); Opiate Screen,Urine Not Detected (NotDetected); Oxycodone Screen, Urine Not Detected (NotDetected); Phencyclidine Screen,Urine Not Detected (NotDetected); Tricyclic Antidepressant,Urine Not Detected (NotDetected); Urn Cannabinoid Scrn Not Detected (NotDetected)
--- NOTE | 2021-09-08 10:41 | ED ---
General Adult HPI - General Chief complaint: Psychiatric Symptoms Stated complaint: Petition Time Seen by Provider: 09/08/21 09:20 Source: patient, police, RN notes reviewed, old records reviewed Mode of arrival: ambulatory Limitations: no limitations - History of Present Illness Initial comments: This is a 41-year-old female who presents to the emergency department because she was making statements that there were ghosts in her house and that the ghosts were moving things in communicating with her and she went to her in-laws house for making these kind of comments talking about the hallucinations and ghosts in the call the graphics artist so that she could come in and get evaluated. Patient denies any suicidal homicidal ideations. Patient also states when she goes to drive through there are spirits there the knee became with her as well and she only recently realized that. Patient denies any physical complaints today. Patient denies any chest pain difficulty breathing first breath per patient denies any fever chills or cough per patient denies abdominal pain patient denies nausea vomiting diarrhea. - Related Data Home Medications Medication Instructions Recorded Confirmed No Known Home Medications 09/08/21 09/08/21 Allergies Allergy/AdvReac Type Severity Reaction Status Date / Time ciprofloxacin [From Cipro] Allergy Swelling Verified 09/08/21 10:23 ciprofloxacin HCl Allergy Swelling Verified 09/08/21 10:23 [From Cipro] Sulfa (Sulfonamide Allergy Rash/Hives Verified 09/08/21 10:23 Antibiotics) Review of Systems ROS Statement: Those systems with pertinent positive or pertinent negative responses have been documented in the HPI. ROS Other: All systems not noted in ROS Statement are negative. Past Medical History Past Medical History: GERD/Reflux Additional Past Medical History / Comment(s): has abd. hernia that will be having surgery on History of Any Multi-Drug Resistant Organisms: None Reported Past Surgical History: Section, Cholecystectomy, Tubal Ligation Additional Past Surgical History / Comment(s): IUI, LAPAROSCOPY WITH FIMBROPLASTY, LAPARSCOPY WITH INTERNAL ADHESIONS. 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 Past Anesthesia/Blood Transfusion Reactions: Postoperative Nausea & Vomiting (PONV) Past Psychological History: Anxiety Smoking Status: Never smoker Past Alcohol Use History: None Reported Past Drug Use History: None Reported - Past Family History Father Family Medical History: Myocardial Infarction ([place]) Mother Family Medical History: Myocardial Infarction ([place]) General Exam - General Exam Comments Initial Comments: GENERAL: Patient is well-developed and well-nourished. Patient is nontoxic and well- hydrated and is in no acute distress. ENT: Neck is soft and supple. No significant lymphadenopathy is noted. Oropharynx is clear. Moist mucous membranes. Neck has full range of motion without eliciting any pain. EYES: The sclera were anicteric and conjunctiva were pink and moist. Extraocular movements were intact and pupils were equal round and reactive to light. Eyelids were unremarkable. PULMONARY: Unlabored respirations. Good breath sounds bilaterally. No audible rales rhonchi or wheezing was noted. CARDIOVASCULAR: There is a regular rate and rhythm without any murmurs gallops or rubs. ABDOMEN: Soft and nontender with normal bowel sounds. SKIN: Skin is clear with no lesions or rashes and otherwise unremarkable. NEUROLOGIC: Patient is alert and oriented x3. Cranial nerves II through XII are grossly intact. Motor and sensory are also intact. Normal speech, volume and content. Symmetrical smile. MUSCULOSKELETAL: Normal extremities with adequate strength and full range of motion. LYMPHATICS: No significant lymphadenopathy is noted PSYCHIATRIC: Patient's states that things are moving in her house because of this.. Patient states her house has coasted and she is asked him to leave nicely but they have not left. Patient also states when she goes to drive shows she now realizes there is communication going on between ghosts in the drive-through and her. Limitations: no limitations Course Vital Signs 09/08/21 09:16 Temperature 98.6 F Pulse Rate 105 H Respiratory 18 Rate Blood Pressure 126/83 O2 Sat by Pulse 100 Oximetry Medical Decision Making - Medical Decision Making EPS evaluated the patient and determined the patient needed to be admitted. Because of patient's insurance patient will have to be transferred out. I filled out a clinical certification to have the patient admitted - Lab Data Lab Results 09/08/21 09/08/21 Range/Units 09:55 09:55 Urine HCG, Qual Not Detected (Not Detectd) Urine Opiates Screen Not Detected (NotDetected) Ur Oxycodone Screen Not Detected (NotDetected) Urine Methadone Screen Not Detected (NotDetected) Ur Propoxyphene Screen Not Detected (NotDetected) Ur Barbiturates Screen Not Detected (NotDetected) U Tricyclic Antidepress Not Detected (NotDetected) Ur Phencyclidine Scrn Not Detected (NotDetected) Ur Amphetamines Screen Not Detected (NotDetected) U Methamphetamines Scrn Not Detected (NotDetected) U Benzodiazepines Scrn Not Detected (NotDetected) Urine Cocaine Screen Not Detected (NotDetected) U Marijuana (THC) Screen Not Detected (NotDetected) Disposition Clinical Impression: Acute psychosis Disposition: TRANSFER TO PSYCH HOSP/UNIT Referrals: Roberto Espinoza MD [Primary Care Provider] - 1-2 days Time of Disposition: 13:29
[2021-09-08 13:29] LABS: Basophils % (A) 0 %; Eosinophils # (A) 0.1 k/uL (0-0.7); Eosinophils % (A) 2 %; HGB 13.8 gm/dL (11.4-16.0); Lymphocytes # (A) 2.3 k/uL (1.0-4.8); Lymphocytes % (A) 30 %; MCH 30.5 pg (25.0-35.0); MCHC 33.7 g/dL (31.0-37.0); MCV 90.4 fL (80.0-100.0); Mean Platelet Volume 6.8; Monocytes # (A) 0.4 k/uL (0-1.0); Monocytes % (A) 5 %; Neutrophils # (A) 4.7 k/uL (1.3-7.7); Neutrophils % (A) 61 %; Platelet Count 312 k/uL (150-450); RBC 4.54 m/uL (3.80-5.40); RDW 12.7 % (11.5-15.5); WBC 7.7 k/uL (3.8-10.6)
[2021-09-08 13:29] LABS: Appearance,Urine Cloudy (Clear); Bacteria,Urine Many /hpf; Bilirubin,Urine Negative (Negative); Blood,Urine Small (Negative); Budding Yeast,Urine Moderate /hpf; Color,Urine Light Yellow; Glucose,Urine (UA) Negative (Negative); Ketones,Urine Negative (Negative); Leukocyte Esterase,Urine Large (Negative); Mucus,Urine Rare /hpf; Nitrite,Urine Negative (Negative); Protein,Urine Negative (Negative); RBC,Urine 15 /hpf (0-5); Specific Gravity,Urine 1.006 (1.001-1.035); Squamous Epithelial Cell,Urine 43 /hpf (0-4); Urobilinogen,Urine <2.0 mg/dL (<2.0); WBC,Urine 12 /hpf (0-5)
[2021-09-08 13:52] LABS: ALT 18 U/L (4-34); AST 24 U/L (14-36); African American GFR (CKD) >90 (>60 ml/min/1.73 sqM); Albumin 4.2 g/dL (3.5-5.0); Alkaline Phosphatase 38 U/L (38-126); Anion Gap 7 mmol/L; Blood Urea Nitrogen 8 mg/dL (7-17); Calcium 9.1 mg/dL (8.4-10.2); Carbon Dioxide 25 mmol/L (22-30); Chloride 107 mmol/L (98-107); Glucose 124 mg/dL (74-99); Non-African American GFR(CKD) >90 (>60 ml/min/1.73 sqM); Potassium 3.9 mmol/L (3.5-5.1); Sodium 139 mmol/L (137-145); Total Bilirubin 2.3 mg/dL (0.2-1.3); Total Protein 7.2 g/dL (6.3-8.2)
[2021-09-08] MEDS ORDERED: ACETAMINOPHEN TAB 325 MG TAB PO PRN (21:34)
[2021-09-08] MEDS ORDERED: HALOPERIDOL LACTATE 5 MG/ML 1 ML VIAL IM PRN (21:34)
[2021-09-08] MEDS ORDERED: LORazepam 1 MG TAB PO PRN (21:34)
[2021-09-08] MEDS ORDERED: LORazepam 2 MG/ML INJ IM PRN (21:38)
[2021-09-08] MEDS ORDERED: haloperidoL 5 MG TAB PO PRN (21:38)
[2021-09-09] MEDS ORDERED: MAG HYDROX/AL HYDROX/SIMETH 30 ML CUP PO PRN
[2021-09-09] MEDS ORDERED: MAGNESIUM HYDROXIDE 2,400 MG/10 ML CUP PO PRN (09:00)
[2021-09-09 09:38] LABS: HDL Cholesterol 49.5 mg/dL (40.00-60.00); Triglycerides 39.4 mg/dL (0.00-149.00)
[2021-09-09 09:49] LABS: Chol/HDL Ratio 2.42 Ratio; LDL Cholesterol,Direct Reflex 64.6 mg/dL (0.00-129.00)
--- NOTE | 2021-09-09 11:22 | P.HP ---
Psychiatric H&P - . H&P Date: 09/09/21 History & Physical: Allergies Allergy/AdvReac Type Severity Reaction Status Date / Time ciprofloxacin [From Cipro] Allergy Swelling Verified 09/08/21 10:23 ciprofloxacin HCl Allergy Swelling Verified 09/08/21 10:23 [From Cipro] Sulfa (Sulfonamide Allergy Rash/Hives Verified 09/08/21 10:23 Antibiotics) Vital Signs Temp 98.2 F 09/08/21 22:50 Pulse 92 09/08/21 22:50 Resp 20 09/08/21 22:50 BP 120/72 09/08/21 22:50 Pulse Ox 100 09/08/21 17:22 Intake & Output 09/08/21 09/09/21 09/09/21 18:59 06:59 18:59 Weight 74.843 kg Laboratory Last Values WBC 7.7 k/uL (3.8-10.6) 09/08/21 13:18 RBC 4.54 m/uL (3.80-5.40) 09/08/21 13:18 Hgb 13.8 gm/dL (11.4-16.0) 09/08/21 13:18 Hct 41.0 % (34.0-46.0) 09/08/21 13:18 MCV 90.4 fL (80.0-100.0) 09/08/21 13:18 MCH 30.5 pg (25.0-35.0) 09/08/21 13:18 MCHC 33.7 g/dL (31.0-37.0) 09/08/21 13:18 RDW 12.7 % (11.5-15.5) 09/08/21 13:18 Plt Count 312 k/uL (150-450) 09/08/21 13:18 MPV 6.8 09/08/21 13:18 Neutrophils % 61 % 09/08/21 13:18 Lymphocytes % 30 % 09/08/21 13:18 Monocytes % 5 % 09/08/21 13:18 Eosinophils % 2 % 09/08/21 13:18 Basophils % 0 % 09/08/21 13:18 Neutrophils # 4.7 k/uL (1.3-7.7) 09/08/21 13:18 Lymphocytes # 2.3 k/uL (1.0-4.8) 09/08/21 13:18 Monocytes # 0.4 k/uL (0-1.0) 09/08/21 13:18 Eosinophils # 0.1 k/uL (0-0.7) 09/08/21 13:18 Basophils # 0.0 k/uL (0-0.2) 09/08/21 13:18 Sodium 139 mmol/L (137-145) 09/08/21 13:18 Potassium 3.9 mmol/L (3.5-5.1) 09/08/21 13:18 Chloride 107 mmol/L (98-107) 09/08/21 13:18 Carbon Dioxide 25 mmol/L (22-30) 09/08/21 13:18 Anion Gap 7 mmol/L 09/08/21 13:18 BUN 8 mg/dL (7-17) 09/08/21 13:18 Creatinine 0.64 mg/dL (0.52-1.04) 09/08/21 13:18 Est GFR (CKD-EPI)AfAm >90 (>60 ml/min/1.73 sqM) 09/08/21 13:18 Est GFR (CKD-EPI)NonAf >90 (>60 ml/min/1.73 sqM) 09/08/21 13:18 Glucose 124 mg/dL (74-99) H 09/08/21 13:[address] Glu mg/dL 104 09/08/21 13:18 Hemoglobin A1c 5.3 % (0.0-6.0) 09/08/21 13:18 Calcium 9.1 mg/dL (8.4-10.2) 09/08/21 13:18 Total Bilirubin 2.3 mg/dL (0.2-1.3) H 09/08/21 13:18 AST 24 U/L (14-36) 09/08/21 13:18 ALT 18 U/L (4-34) 09/08/21 13:18 Alkaline Phosphatase 38 U/L (38-126) 09/08/21 13:18 Total Protein 7.2 g/dL (6.3-8.2) 09/08/21 13:18 Albumin 4.2 g/dL (3.5-5.0) 09/08/21 13:18 Triglycerides 39.40 mg/dL (0.00-149.00) 09/08/21 13:18 Cholesterol 120.00 mg/dL (0.00-200.00) 09/08/21 13:18 LDL Cholesterol Direct 64.60 mg/dL (0.00-129.00) 09/08/21 13:18 LDL Cholesterol, Calc mg/dL (0.0-131.0) 09/08/21 13:18 VLDL Cholesterol, Calc mg/dL (5.00-40.00) 09/08/21 13:18 HDL Cholesterol 49.50 mg/dL (40.00-60.00) 09/08/21 13:18 Cholesterol/HDL Ratio 2.42 Ratio 09/08/21 13:18 TSH 0.283 mIU/L (0.465-4.680) L 09/08/21 13:18 Urine Color Light Yellow 09/08/21 09:55 Urine Appearance Cloudy (Clear) H 09/08/21 09:55 Urine pH 6.0 (5.0-8.0) 09/08/21 09:55 Ur Specific [place] 1.006 (1.001-1.035) 09/08/21 09:55 Urine Protein Negative (Negative) 09/08/21 09:55 Urine Glucose (UA) Negative (Negative) 09/08/21 09:55 Urine Ketones Negative (Negative) 09/08/21 09:55 Urine Blood Small (Negative) H 09/08/21 09:55 Urine Nitrite Negative (Negative) 09/08/21 09:55 Urine Bilirubin Negative (Negative) 09/08/21 09:55 Urine Urobilinogen <2.0 mg/dL (<2.0) 09/08/21 09:55 Ur Leukocyte Esterase Large (Negative) H 09/08/21 09:55 Urine RBC 15 /hpf (0-5) H 09/08/21 09:55 Urine WBC 12 /hpf (0-5) H 09/08/21 09:55 Ur Squamous Epith Cells 43 /hpf (0-4) H 09/08/21 09:55 Urine Bacteria Many /hpf (None) H 09/08/21 09:55 Urine Mucus Rare /hpf (None) H 09/08/21 09:55 Urine Yeast (Budding) Moderate /hpf (None) H 09/08/21 09:55 Urine HCG, Qual Not Detected (Not Detectd) 09/08/21 09:55 Urine Opiates Screen Not Detected (NotDetected) 09/08/21 09:55 Ur Oxycodone Screen Not Detected (NotDetected) 09/08/21 09:55 Urine Methadone Screen Not Detected (NotDetected) 09/08/21 09:55 Ur Propoxyphene Screen Not Detected (NotDetected) 09/08/21 09:55 Ur Barbiturates Screen Not Detected (NotDetected) 09/08/21 09:55 U Tricyclic Antidepress Not Detected (NotDetected) 09/08/21 09:55 Ur Phencyclidine Scrn Not Detected (NotDetected) 09/08/21 09:55 Ur Amphetamines Screen Not Detected (NotDetected) 09/08/21 09:55 U Methamphetamines Scrn Not Detected (NotDetected) 09/08/21 09:55 U Benzodiazepines Scrn Not Detected (NotDetected) 09/08/21 09:55 Urine Cocaine Screen Not Detected (NotDetected) 09/08/21 09:55 U Marijuana (THC) Screen Not Detected (NotDetected) 09/08/21 09:55 Coronavirus (PCR) Not Detected (Not Detectd) 09/08/21 13:05 09/09/21 11:22 IDENTIFYING DATA: Patient is a , unemployed, 41-year-old female with a significant history of anxiety and depression who presents to the hospital for psychotic symptoms. HPI: Patient presented to the hospital on 09/08/2021, brought into the hospital by the [facility] for psychiatric evaluation. The patient was noted to be very anxious and emergency department. She did endorse significant psychotic symptoms to the EPS nurse including hearing and seeing ghosts in her home. She also reported that she was able to communicate with angels and ghosts. As per petition filled out by the mobile crisis team, "Iliana states things were mainly around her home in the middle of the night. She has seen a versus stop. She felt like she was not safe. She has reportedly not slept for over 24 hours. She appeared to be quite disorganized and delusional." The patient was certified and subsequently admitted to the psychiatric unit. Upon admission on the psychiatric unit, the patient has been noted to be very disorganized and responding to internal stimuli by staff. When evaluated by this provider, the patient is grossly disorganized and a poor historian of events leading up to this hospitalization. She reports that she has a difficult time explaining what is going on and instead wishes to "write it out." However, the patient just draws nonsensical shapes and arrows on her paper. The patient does admit that she has been hearing angels and communicating with them. She is currently denying any suicidal or homicidal ideation, intention, and/or plan. She reports no paranoia however does endorse sabianist preoccupation and bizarre delusions. When asked about any previous psychiatric medications, the patient is only able to identify Ativan and Xanax in the past. However the patient's MAPS reveals no medication being prescribed of the last 2 years. The patient is now certified and will continue with inpatient psychiatric hospitalization. As per team meeting, the patient reportedly began experiencing psychotic symptoms after the of her first child. Her psychotic symptoms have been gradually worsening over the last 2 years PAST PSYCHIATRIC HISTORY: Patient states that she has been previously diagnosed with depression and anxiety. The patient is only able to recall being pursued prescribed Ativan and Xanax. Reported prior psychiatric hospitalization here approximately 10 years ago. Patient denies any psychiatric outpatient follow- up. Patient denies any history of suicide attempts in the past. PMH: Past Medical History: GERD/Reflux Additional Past Medical History / Comment(s): has abd. hernia that will be having surgery on History of Any Multi-Drug Resistant Organisms: None Reported Past Surgical History: Section, Cholecystectomy, Tubal Ligation Additional Past Surgical History / Comment(s): IUI, LAPAROSCOPY WITH FIMBROPLASTY, LAPARSCOPY WITH INTERNAL ADHESIONS. 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 Past Anesthesia/Blood Transfusion Reactions: Postoperative Nausea & Vomiting (PONV) Past Psychological History: Anxiety Smoking Status: Never smoker Past Alcohol Use History: None Reported Past Drug Use History: None Reported ALLERGIES: Ciprofloxacin, sulfa CHEMICAL DEPENDENCY HISTORY: Patient denies any tobacco, alcohol, marijuana, or illicit drug use. FAMILY PSYCHIATRIC/SUBSTANCE USE HISTORY: Unable to assess. SOCIAL HISTORY: Patient is to her since 2016. They have 2 children together. Unable to elicit any more information at this time. MENTAL STATUS EXAM: General Appearance: Patient appears to be stated age is alert, directable, and attempts to cooperate. Patient appears to have poor hygiene and grooming. Behavior: Patient is seated without any agitated behavior. Speech: Patient's speech is fluent and nonpressured. Mood/Affect: Patient reports their mood is depressed, affect is congruent and constricted. Suicidality/Homicidality: Patient denies having any homicidal ideation intent or plan. Denies any suicidal ideations intent or plan Perceptions: Patient denies any visual hallucinations and denies any auditory hallucinations Though content/process: There is no evidence of any delusional thought content and thought process is linear and goal-directed. Memory and concentration: AOX3, grossly intact for the purposes of this session. Can spell "WORLD" backwards Judgment and insight: poor STRENGTHS/WEAKNESSES: Strength is that the patient has a duty to children and supportive family. Weakness is that the patient appears to be psychotic with limited insight and judgment. INTELLECT: average IMPRESSIONS: Acute psychosis Rule out schizophrenia PLAN: -Patient is admitted under involuntary status to MHU for stabilization of psychiatric symptoms and safety. A second certification was completed and along with petition will be filed for court. -Medications : We'll start the patient on Invega 3 mg by mouth at bedtime for acute psychosis -Ativan and Haldol PRN for agitation/aggression -Patient was unable to engage in the informed consent conversation regarding her medications due to her overt psychotic symptoms. -Internal Medicine consult to perform medical evaluation and physical. -SW on board for discharge planning. Encourage patient to participate in groups to work on coping skills. 09/09/21 11:22
[2021-09-10] MEDS: PALIPERIDONE 3 MG TAB.ER.24 PO SCH (00:06)
--- NOTE | 2021-09-10 07:17 | P.MDCNMH ---
History of Present Illness H&P Date: 09/09/21 HISTORY OF PRESENT ILLNESS This is a 41-year-old female patient with past medical history of gastro- esophageal reflux disease. She was recently in the hospital on 08/25/2021 which time she presented with chest pain was to follow-up with cardiology appointment on September 07 for stress test and follow-up appointment with Dr. Galdamez on September 14. Patient presented to the emergency center yesterday with complaints of seeing ghosts in her house and that the ghost were moving things and communicating with her. No suicidal or homicidal ideation. Patient was seen in the office last week and also follows regularly with psychologist and discussed need for medications but patient stated that she wanted to wait to a later date. Patient was afebrile and vital signs were stable. Urine drug screen was negative. HCG negative. CBC unremarkable. Electrolytes normal. Renal function normal. Bilirubin 2.3 and other Liver function tests normal. Blood sugar 124. TSH 0.283. Triglycerides 39, cholesterol 120, LDL 64, HDL 49. Urinalysis was a contaminated specimen. Coronavirus PCR not detected. Patient is seen today on the mental health unit. Patient is having difficulty s taying on topic she is complaining of tremors inside but not in her physical body. When asked about taking medications which was discussed in the office she states at a later date. She also complains of her feet hurting in the heels and the balls of the feet bilaterally. REVIEW OF SYSTEMS Constitutional: No fever, no chills, no night sweats. No weight change. No weakness, fatigue or lethargy. No daytime sleepiness. EENT: No headache. No blurred vision or double vision, no loss of vision. No loss of Hearing, no ringing in the ears, no dizziness. No nasal drainage or congestion. No epistaxis. No sore throat. Lungs: No shortness of breath, cough, no sputum production. No wheezing. Cardiovascular: Denies chest pain, no lower extremity edema. No palpitations. No paroxysmal nocturnal dyspnea. No orthopnea. No lightheadedness or dizziness. No syncopal episodes. Abdominal: No abdominal pain. No nausea, vomiting. No diarrhea. No constipation. No bloody or tarry stools. No loss of appetite. Genitourinary: No dysuria, increased frequency, urgency. No urinary retention. Musculoskeletal: No myalgias. No muscle weakness, no gait dysfunction, no fr equent falls. No back pain. No neck pain. Integumentary: No wounds, no lesions. No rash or pruritus. No unusual bruising. No change in hair or nails. Neurologic: No aphasia. No facial droop. No change in mentation. No head injury. No headache. No paralysis. No paresthesia. Psychiatric: No depression. Reports increased anxiety. No mood swings. Reported hallucinations. Endocrine: No abnormal blood sugars. No weight change. No excessive sweating or thirst. No cold intolerance. 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 She was at home with her and 2 young children. FAMILY HISTORY Father at age 62 with history of possible coronary artery disease. Mother is alive in her 60s and patient does not know her mother's medical history. Patient has 1 brother with no major medical problems. She does not have any sisters. She has 2 daughters one year old and 2-year-old. PHYSICAL EXAMINATION Gen: This is a 41-year-old female. Patient is sitting on the edge of the bed in no acute distress. No respiratory distress noted HEENT: Head is atraumatic, normocephalic. Pupils equal, round. Sclerae is anicteric. NECK: Supple. No JVD. No lymphadenopathy. No thyromegaly. LUNGS: Clear to auscultation. No wheezes or rhonchi. No intercostal retractions. HEART: Regular rate and rhythm. No murmur. ABDOMEN: Soft. Bowel sounds are present. No masses. No tenderness. EXTREMITIES: No pedal edema. No calf tenderness. process pedis +2 bilaterally. NEUROLOGICAL: Patient is awake, alert and oriented x3. Cranial nerves 2 through 12 are grossly intact. Patient is currently contact. ASSESSMENT AND PLAN 1. Acute psychosis, rule out schizophrenia. Continue current plan per psychiatry. 2. Recent hospital stay for Chest pain, acute coronary syndrome ruled out, most likely secondary to anxiety. 3. Gastroesophageal reflux disease. 4. Generalized anxiety disorder. DISCHARGE PLAN Home and follow-up in the office one week after discharge. Impression and plan of care have been directed as dictated by the signing physician. Jackie Aguilar nurse practitioner acting as scribe for signing physician. Past Medical History Past Medical History: GERD/Reflux Additional Past Medical History / Comment(s): has abd. hernia that will be having surgery on History of Any Multi-Drug Resistant Organisms: None Reported Past Surgical History: Section, Cholecystectomy, Tubal Ligation Additional Past Surgical History / Comment(s): IUI, LAPAROSCOPY WITH FIMBROPLASTY, LAPARSCOPY WITH INTERNAL ADHESIONS. 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 Past Anesthesia/Blood Transfusion Reactions: Postoperative Nausea & Vomiting (PONV) Past Psychological History: Anxiety Smoking Status: Never smoker Past Alcohol Use History: None Reported Past Drug Use History: None Reported - Past Family History Father Family Medical History: Myocardial Infarction ([place]) Mother Family Medical History: Myocardial Infarction ([place]) Medications and Allergies Home Medications Medication Instructions Recorded Confirmed Type No Known Home Medications 09/08/21 09/08/21 History Allergies Allergy/AdvReac Type Severity Reaction Status Date / Time ciprofloxacin [From Cipro] Allergy Swelling Verified 09/08/21 10:23 ciprofloxacin HCl Allergy Swelling Verified 09/08/21 10:23 [From Cipro] Sulfa (Sulfonamide Allergy Rash/Hives Verified 09/08/21 10:23 Antibiotics) Physical Exam Vitals: Vital Signs Temp Pulse Pulse Resp BP BP Pulse Ox 09/08/21 22:50 98.2 F 92 20 120/72 09/08/21 17:22 98.1 F 92 18 122/79 100 Cranial Nerve Examination - Cranial Nerves Cranial Nerve I- Olfactory: Intact Cranial Nerve II- Optic: Intact Cranial Nerve III- Oculomotor: Intact Cranial Nerve IV- Trochlear: Intact Cranial Nerve V- Trigeminal: Intact Cranial Nerve - Abducens: Intact Cranial Nerve VII- Facial: Intact Cranial Nerve VIII- Auditory: Intact Cranial Nerve IX- Glossopharyngeal: Intact Cranial Nerve X- Vagus: Intact Cranial Nerve XI- Accessory: Intact Cranial Nerve XII- Hypoglossal: Intact Results CBC & Chem 7: 09/08/21 13:18 09/08/21 13:18 Labs: Abnormal Lab Results - Last 24 Hours (Table) 09/08/21 09/08/21 09/08/21 Range/Units 09:55 13:18 13:18 Glucose 124 H (74-99) mg/dL Total Bilirubin 2.3 H (0.2-1.3) mg/dL TSH 0.283 L (0.465-4.680) mIU/L Urine Appearance Cloudy H (Clear) Urine Blood Small H (Negative) Ur Leukocyte Esterase Large H (Negative) Urine RBC 15 H (0-5) /hpf Urine WBC 12 H (0-5) /hpf Ur Squamous Epith Cells 43 H (0-4) /hpf Urine Bacteria Many H (None) /hpf Urine Mucus Rare H (None) /hpf Urine Yeast (Budding) Moderate H (None) /hpf Microbiology - Last 24 Hours (Table) 09/08/21 09:55 Urine Culture - Preliminary Urine,Clean Catch
--- NOTE | 2021-09-10 11:59 | P.PN ---
Progress Note - Text Progress Note Date: 09/10/21 Interval History: Patient was seen wandering the hallways and was directable and agreeable to speak with grant writer in the office. The patient continues to be grossly disorganized. He she is a poor historian of events leading up to this hospitalization. She does admit to auditory and visual hallucinations however remains guarded and does not wish to expand on her symptoms. She appears to be grossly disorganized and has problems comprehending what is told her. She is currently requesting a change in provider as she does not want to take any medications. She as per staff, the patient continues to present as somewhat bizarre. She does continue to present with elevated anxiety and is often apologetic. She has not been taking any medications. She reports no issues regarding her sleep or her appetite. The patient is also endorsing significant paranoia towards her family members. She reports that her mother, , and "external forces" have been acting against her and preventing her from being with her children. Mental Status Exam: General Appearance: Patient appears to be stated age is alert, directable, and cooperative. Behavior: Patient is calmly seated without any agitated behavior. Patient does appear to respond to internal stimuli. Speech: Patient often stutters, is nonsensical. Difficult to follow. Mood/Affect: Mood is anxious. Affect is congruent and nervous. Suicidality/Homicidality: Patient denies any suicidal or homicidal ideation, intention, and/or plan. Perceptions: Patient admits to auditory and visual hallucinations. Though content/process: Patient appears to be grossly disorganized. She also is somewhat paranoid. Memory and concentration: Patient is grossly disorganized and concentration is poor. Judgment and insight: Very poor. Vital Signs Temp 97.8 F 09/10/21 06:50 Pulse 101 H 09/10/21 06:50 Resp 16 09/10/21 06:50 BP 131/71 09/10/21 06:50 Pulse Ox 97 09/10/21 06:50 Assessment Acute psychosis Rule out schizophrenia Plan: -Patient continues to meet criteria for inpatient psychiatric admission for symptom stabilization and safety. The patient has been petitioned and certified. -Medications: Continue Invega 3 mg at bedtime. Patient is currently refusing this medication. We will likely have to wait for a court order. -When necessary Ativan and Haldol for agitation/aggression. -SW on board for discharge planning. Encouraged the patient to participate in milieu.
[2021-09-10 15:20] LABS: T4, Free (Free Thyroxine) 1.56 ng/dL (0.800-1.800)
[2021-09-11] MEDS: PALIPERIDONE 3 MG TAB.ER.24 PO SCH ×2 (01:17→20:58)
--- NOTE | 2021-09-11 11:24 | P.PN ---
Progress Note - Text Progress Note Date: 09/11/21 Interval History: Patient was seen wandering the hallways and was directable and agreeable to speak with commercial lines underwriter in the office. The patient continues to ask for discharge. She continues to state that she is going to work things out with her counselors at [facility] and that she does not need to be admitted. She refuses to acknowledge that she is disorganized and psychotic. She wished to "draw" the events leading up to this hospitalization. During her attempt to do so, she non-sensically lucia two houses and multiple lines between them. She continues to refuse any medications. She reports no suicidal or homicidal ideation. She denies any auditory or visual hallucinations. She reports no issues regarding her sleep or appetite. Mental Status Exam: General Appearance: Patient appears to be stated age is alert, directable, and cooperative. Behavior: Patient is calmly seated without any agitated behavior. Patient does appear to respond to internal stimuli. Speech: Patient speech is nonspontaneous, is nonsensical and difficult to follow. Mood/Affect: Mood is anxious. Affect is congruent and nervous. Suicidality/Homicidality: Patient denies any suicidal or homicidal ideation, intention, and/or plan. Perceptions: Patient denies current auditory or visual hallucinations. Though content/process: Patient appears to be grossly disorganized. Paranoid. Memory and concentration: Patient is grossly disorganized and concentration is poor. Judgment and insight: Very poor. Vital Signs Temp 97.9 F 09/11/21 06:49 Pulse 95 09/11/21 08:56 Resp 20 09/11/21 08:56 BP 116/74 09/11/21 08:56 Pulse Ox 98 09/11/21 06:49 Laboratory Results - Last 24 Hours 09/08/21 13:18 Free T4 1.560 Free T3 pg/mL 3.80 Assessment Acute psychosis Rule out schizophrenia Plan: -Patient continues to meet criteria for inpatient psychiatric admission for symptom stabilization and safety. The patient has been petitioned and certified. -Medications: Continue Invega 3 mg at bedtime. Patient is currently refusing this medication. We will likely have to wait for a court order. -When necessary Ativan and Haldol for agitation/aggression. -SW on board for discharge planning. Encouraged the patient to participate in milieu.
--- NOTE | 2021-09-12 13:22 | P.PN ---
Progress Note - Text Interval history: Patient was seen in the TV room and was directable and agreeable to speak with teletypewriter installer. Continues to report anxiety.. At this time patient denies any suicidal or homicidal ideations intent or plan. Denies any Auditory or visual hallucinations. Patient denies any side effects from the medications and has not been compliant with meds. She was strongly encouraged to take medications, but at this time she is refusing. Mental status exam: General Appearance: [Patient appears to be stated age is alert, directable, and cooperative.] Behavior: [No agitated behavior. Patient is calm and directable] Speech: Patient's speech is fluent and nonpressured. Mood/Affect: Mood is "good", affect is congruent and full range Suicidality/Homicidality: Patient denies having any suicidal or homicidal ideation intent or plan. Perceptions: Patient denies any auditory or visual hallucinations. Though content/process: [There is no evidence of any delusional thought content and thought process is linear and goal-directed.] Memory and concentration: AOX3, grossly intact for the purposes of this session Judgment and insight: Poor Assessment/Plan: Continue with current diagnosis. Patient continues to meet criteria for inpatient psychiatric admission for symptom stabilization and safety.[Patient will be maintained on current psychotropic medication regimen.] Monitor for medication compliance and for any psychotropic medication side effects. Will continue to monitor ongoing response to treatment. Encouraged participation in milieu.
[2021-09-12] MEDS: PALIPERIDONE 3 MG TAB.ER.24 PO SCH (21:13)
--- NOTE | 2021-09-13 14:27 | P.PN ---
Progress Note - Text Interval history: Patient was seen [wandering the hallways] and was directable and agreeable to speak with television script writer. During the interview, she made multiple bizarre and abstract statements. At this time patient denies any suicidal or homicidal ideations intent or plan. Denies any Auditory or visual hallucinations. She was strongly encouraged to take medications but she continues to refuse. She was resistant of walking out of the office and going back to her room. She appeared to be suspicious of her own room. Mental status exam: General Appearance: Seen carrying around abandonment of papers and folders in the hallway. At one point, she was seen lying under her sheets on chairs in the hallway. At another time she was seen sitting in the hallway and crying. Behavior: Bizarre, intrusive Speech: Low volume Mood/Affect: Mood is "really good" affect is not congruent with mood, constricted affect Suicidality/Homicidality: Patient denies having any suicidal or homicidal ideation intent or plan. Perceptions: Patient denies any auditory or visual hallucinations. Though content/process: Appears to have multiple delusions Memory and concentration: AOX3, grossly intact for the purposes of this session Judgment and insight: Poor Assessment/Plan: Continue with current diagnosis. Patient continues to meet criteria for inpatient psychiatric admission for symptom stabilization and safety.[Patient will be maintained on current psychotropic medication regimen.] Monitor for medication compliance and for any psychotropic medication side effects. Will continue to monitor ongoing response to treatment. Encouraged participation in milieu.
[2021-09-13] MEDS: PALIPERIDONE 3 MG TAB.ER.24 PO SCH (21:15)
--- NOTE | 2021-09-14 11:28 | P.PN ---
Progress Note - Text Progress Note Date: 09/14/21 Interval History: Patient was seen wandering the hallways and was directable and agreeable to speak with science writer in the office. The patient continues to present with poor insight, endorsing bizarre delusions, making loose associations (stating her house is in some connection to herself which is why her brought her here), and with a disorganized thought process. She has been noted by staff to respond to internal stimuli. She continues to refuse medications. She firmly believes she is not mentally ill. She is currently denying any suicidal or homicidal ideation, intention, and/or plan. She reports no auditory or visual hallucinations. She continues to state that there are ghosts in her home and that the real crime here is her being brought to the hospital. She is scheduled to meet with her advertising sales executive today. Mental Status Exam: General Appearance: Patient appears to be stated age is alert, directable, and cooperative. Behavior: Patient is calmly seated without any agitated behavior. Patient does appear to respond to internal stimuli. Speech: Patient speech is more spontaneous, however hyperverbal. Nonsensical in speech and difficult to follow. Mood/Affect: Mood is anxious. Affect is congruent and nervous. Suicidality/Homicidality: Patient denies any suicidal or homicidal ideation, intention, and/or plan. Perceptions: Patient denies current auditory or visual hallucinations. Though content/process: Patient appears to be grossly disorganized. Paranoid. L oose associations. Memory and concentration: Patient is grossly disorganized and concentration is poor. Judgment and insight: Very poor. Vital Signs Temp 97.9 F 09/14/21 06:42 Pulse 88 09/14/21 06:42 Resp 18 09/14/21 06:42 BP 132/76 09/14/21 06:42 Pulse Ox 98 09/14/21 06:42 Intake & Output 09/13/21 09/14/21 09/14/21 18:59 06:59 18:59 Weight 71.2 kg Assessment Acute psychosis Rule out schizophrenia Plan: -Patient continues to meet criteria for inpatient psychiatric admission for symptom stabilization and safety. The patient has been petitioned and certified. Scheduled to meet with advertising sales executive today. -Medications: Continue Invega 3 mg at bedtime. Patient is currently refusing this medication. We will likely have to wait for a court order. -When necessary Ativan and Haldol for agitation/aggression. -SW on board for discharge planning. Encouraged the patient to participate in milieu.
[2021-09-14] MEDS: PALIPERIDONE 3 MG TAB.ER.24 PO SCH (22:00)
--- NOTE | 2021-09-15 10:58 | P.PN ---
Progress Note - Text Progress Note Date: 09/15/21 Interval History: Patient was seen wandering the hallways and was directable and agreeable to speak with database report writer in the office. The patient deferred mental health Court however is choosing to not take any medications. She also firmly believes that she is not psychotic. She was informed that we will have to follow demand for court hearing. The patient continues to be quite disorganized and is unable to comprehend what is being told to her. She continues to request a different provider despite this provider asking Dr. Valdez who has declined to change in provider for this patient. She is currently denying any suicidal or homicidal ideation, intention, and/or plan. She is denying any auditory or visual hallucinations. She reports no paranoia or other delusions. As per discussion with the patient's , the patient has been presenting with psychotic symptoms for the past 2 years. He reports that it started with mild paranoia however later progressed to significant concerns for people monitoring her, following her, as well as fear of ghosts. He also reports that she was also experiencing tactile hallucinations of things touching her. The patient is currently refusing medications and we will continue to await a court order. Mental Status Exam: General Appearance: Patient appears to be stated age is alert, directable, and cooperative. Behavior: Patient is calmly seated without any agitated behavior. When observed on the unit, she does appear to respond to internal stimuli. Speech: Patient speech is spontaneous and hyperverbal. Nonsensical in speech and difficult to follow. Mood/Affect: Mood is anxious. Affect is congruent and nervous. Suicidality/Homicidality: Patient denies any suicidal or homicidal ideation, intention, and/or plan. Perceptions: Patient denies current auditory or visual hallucinations. Though content/process: Patient appears to be grossly disorganized. Paranoid. Loose associations. Memory and concentration: Patient is grossly disorganized and concentration is poor. Judgment and insight: Very poor. Vital Signs Temp 98.2 F 09/15/21 07:11 Pulse 79 09/15/21 07:11 Resp 18 09/14/21 06:42 BP 133/76 09/15/21 07:11 Pulse Ox 98 09/15/21 07:11 Assessment Acute psychosis Rule out schizophrenia Plan: -Patient continues to meet criteria for inpatient psychiatric admission for symptom stabilization and safety. The patient has been petitioned and cer tified. The patient deferred however we will follow demand for court hearing as patient continues to refuse medications. -Medications: Continue Invega 3 mg at bedtime. Patient is currently refusing this medication. We will likely have to wait for a court order. -When necessary Ativan and Haldol for agitation/aggression. -SW on board for discharge planning. Encouraged the patient to participate in milieu.
[2021-09-15] MEDS: PALIPERIDONE 3 MG TAB.ER.24 PO SCH (21:47)
--- NOTE | 2021-09-16 12:07 | P.PN ---
Progress Note - Text Progress Note Date: 09/16/21 Interval History: Patient was seen wandering the hallways and was directable and agreeable to speak with designer writer in the office. The patient deferred mental health court however is choosing to not take any medications or participate in psychiatric treatment. Her new court date is scheduled for 09/23/2021. Currently, the patient continues to report that she does not believe she is psychotic. She maintains that she is only anxious. She continues to be nonsensical in her conversation and speech she is difficult to follow and her reasoning does not make sense to this provider. She continues to draw various shapes and homes on the paper in front of her and states that this is the reason why she does not want this provider as her provider. Despite numerous attempts to educate the patient on why she is being treated for psychosis and the symptoms that she has presented with an continues to present with, the patient has poor ability to grasp what is being told to her. She continues to display some response to internal stimuli during the interview. Despite the patient's being present on a conference call with the patient, the patient vehemently denies any need for any psychiatric care for psychosis. Mental Status Exam: General Appearance: Patient appears to be stated age is alert, directable, and cooperative. Behavior: Patient presented with elevated psychomotor activity. The patient appeared to respond to internal stimuli during the interview. Speech: Patient speech is spontaneous and hyperverbal. Nonsensical in speech and difficult to follow. Word finding difficulty. Mood/Affect: Mood is anxious. Affect is congruent and nervous. Suicidality/Homicidality: Patient denies any suicidal or homicidal ideation, intention, and/or plan. Perceptions: Patient denies current auditory or visual hallucinations. Though content/process: Patient appears to be grossly disorganized. Paranoid. Loose associations. Memory and concentration: Patient is grossly disorganized and concentration is poor. Judgment and insight: Very poor Vital Signs Temp 98.3 F 09/16/21 06:37 Pulse 95 09/16/21 06:37 Resp 16 09/16/21 06:37 BP 128/74 09/16/21 06:37 Pulse Ox 98 09/15/21 07:11 Assessment Acute psychosis Rule out schizophrenia Plan: -Patient continues to meet criteria for inpatient psychiatric admission for symptom stabilization and safety. The patient has been petitioned and certifie d. The patient is scheduled for for court hearing on 09/23/2021. -Medications: Continue Invega 3 mg at bedtime. Patient is currently refusing this medication. We continue to wait for a court order. -When necessary Ativan and Haldol for agitation/aggression. -SW on board for discharge planning. Encouraged the patient to participate in milieu.
[2021-09-16] MEDS: PALIPERIDONE 3 MG TAB.ER.24 PO SCH (22:30)
--- NOTE | 2021-09-17 11:27 | P.PN ---
Progress Note - Text Progress Note Date: 09/17/21 Interval History: Patient was seen wandering the hallways and was directable and agreeable to speak with card writer hand in the office. The patient continues to refuse any medications. She continues to display gross disorganization. She has numerous papers with her and states to this provider "do I need a police escort everywhere?" The patient then states that she needs protections in her own home as well as outside her home as she feels multiple family members have been speaking on her behalf "wrongfully." The patient maintains that she does not need any psychiatric care for any psychosis. She reports that her main issue is her anxiety. She continues to refuse any medications. She is otherwise denying any suicidal or homicidal ideation, and/or plan. She is denying any auditory or visual hallucinations. She reports no issues regarding her sleep or her appetite. She continues to refuse any medications. She does report that "Adela speaks to me." She reports that she may try it tonight. Mental Status Exam: General Appearance: Patient appears to be stated age is alert, directable, and cooperative. Behavior: Patient presented with normal psychomotor activity. Continues to draw nonsensically on papers to try to prove a point to this provider. Speech: Patient speech is spontaneous and hyperverbal. Nonsensical in speech and difficult to follow. Word finding difficulty. Mood/Affect: Mood is anxious. Affect is congruent and nervous. Suicidality/Homicidality: Patient denies any suicidal or homicidal ideation, intention, and/or plan. Perceptions: Patient denies current auditory or visual hallucinations. Though content/process: Patient appears to be grossly disorganized. Paranoid. Loose associations. Memory and concentration: Patient is grossly disorganized and concentration is poor. Judgment and insight: Very poor Vital Signs Temp 98.1 F 09/17/21 06:37 Pulse 84 09/17/21 06:37 Resp 16 09/17/21 06:37 BP 127/82 09/17/21 06:37 Pulse Ox 98 09/15/21 07:11 Assessment Acute psychosis Rule out schizophrenia Plan: -Patient continues to meet criteria for inpatient psychiatric admission for symptom stabilization and safety. The patient has been petitioned and certified. The patient is scheduled for for court hearing on 09/23/2021. -This provider asked Dr. Valdez if he was willing to take the patient on as his own patient. Dr Valdez has declined at this time. -Medications: Discontinue Invega. Start Seroquel 100 mg by mouth at bedtime for that process. -When necessary Ativan and Haldol for agitation/aggression. -SW on board for discharge planning. Encouraged the patient to participate in [facility].
[2021-09-17] MEDS: QUEtiapine 100 MG TAB PO SCH (20:54)
--- NOTE | 2021-09-18 11:24 | P.PN ---
Progress Note - Text Progress Note Date: 09/18/21 Interval History: Patient was seen wandering the hallways and was directable and agreeable to speak with technical document writer in the office. The patient continues to refuse any medications. The patient continues to be disorganized. She has difficulty comprehending what is said to her. The patient was informed that she is scheduled for court on Tuesday. However, the patient continues to refuse the idea that she will be having to go to court. She states that she will find other alternatives and other avenues of treatment. She continues to deny the diagnosis of acute psychosis. She firmly believes that she does not need any medications. Mental Status Exam: General Appearance: Patient appears to be stated age is alert, directable, and cooperative. Behavior: Patient presented with normal psychomotor activity. Speech: Patient speech is spontaneous and hyperverbal. Nonsensical in speech and difficult to follow. Word finding difficulty. Mood/Affect: Mood is nervous. Affect is irritable and frustrated. Suicidality/Homicidality: Patient denies any suicidal or homicidal ideation, intention, and/or plan. Perceptions: Patient denies current auditory or visual hallucinations. Though content/process: Patient appears to be grossly disorganized. Paranoid. Loose associations. Memory and concentration: Patient is grossly disorganized and concentration is poor. Judgment and insight: Very poor Vital Signs Temp 97.6 F 09/18/21 06:19 Pulse 81 09/18/21 06:19 Resp 16 09/18/21 06:19 BP 131/86 09/18/21 06:19 Pulse Ox 98 09/18/21 06:19 Intake & Output 09/17/21 09/18/21 09/18/21 18:59 06:59 18:59 Weight 71.2 kg Assessment Acute psychosis Rule out schizophrenia Plan: -Patient continues to meet criteria for inpatient psychiatric admission for symptom stabilization and safety. The patient has been petitioned and certified. The patient is scheduled for for court hearing on 09/23/2021. -This provider asked Dr. Valdez if he was willing to take the patient on as his own patient. Dr. Valdez has respectively declined. -Medications: Continue Seroquel 100 mg at bedtime for mood stabilization. Patient continues to refuse. We will likely have to wait for court order. -When necessary Ativan and Haldol for agitation/aggression. -SW on board for discharge planning. Encouraged the patient to participate in milieu.
[2021-09-18] MEDS: QUEtiapine 100 MG TAB PO SCH (21:00)
--- NOTE | 2021-09-19 19:33 | P.PN ---
Progress Note - Text Progress Note Date: 09/19/21 Interval History: Patient was seen in the conference room. She comes to the assessment with a pile of books and papers, and has made notes. She continues to refuse the Seroquel, and she reports this is because she is open for suggestions to other medications such as medications for anxiety, such as Xanax. She first says she is cautious about taking medications and driving, but later states she doesn't like taking pills at all. She requests a medication that can help her for sleep. She reports she has tried quite a few medications in the past, but has not taken any medications in over a year. She speaks in a soft almost inaudible voice. Her thoughts are disorganized, at times moving to irrelevant topics, and she starts to talk about the unit, about being discrete (her , mother).Thoughts are difficult to follow at times. She was reminded she is scheduled for court on Tuesday. She continues to deny the diagnosis of acute psychosis or schizophrenia. She believes she has a mental illness that is PTSD, but not psychosis. She does not believe she needs medications because she can control her actions. Mental Status Exam: General Appearance: Patient appears to be stated age with average hygiene. Orientation: She is alert, oriented to person, place, time and situation. Behavior: Patient presented with normal psychomotor activity. She is cooperative and polite. Speech: Patient speech is spontaneous with very low tone, almost a whisper. Mood/Affect: Mood is anxious. Affect is congruent. Suicidality/Homicidality: Patient denies any suicidal or homicidal ideation, intention, and/or plan. Perceptions: Patient denies current auditory or visual hallucinations. Though content/process: Poorly disorganized. Paranoid. Loose associations. Memory and concentration: Patient is grossly disorganized and concentration is poor. Judgment and insight: Poor Vital Signs (72 hours) 09/17/21 09/18/21 06:37 06:19 Temperature 98.1 F 97.6 F Pulse Rate [ 84 81 Left] Respiratory 16 16 Rate Blood Pressure 127/82 131/86 [Right Arm] O2 Sat by Pulse 98 Oximetry Assessment: Acute psychosis Rule out schizophrenia Plan: -Patient continues to meet criteria for inpatient psychiatric admission for symptom stabilization and safety. The patient has been petitioned and certified. The patient is scheduled for for court hearing on 09/23/2021. -Medications: Continue Seroquel 100 mg at bedtime for mood stabilization. Patient continues to refuse, but she was encouraged to try the medication for her PTSD. We discussed we will not prescribe Xanax due to the side effects and risk of dependency. -When necessary Ativan and Haldol for agitation/aggression. -SW on board for discharge planning. Encouraged the patient to participate in milieu.
[2021-09-19] MEDS: QUEtiapine 100 MG TAB PO SCH (21:38)
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
[2021-09-20] MEDS: QUEtiapine 100 MG TAB PO SCH (21:32)
--- NOTE | 2021-09-21 11:17 | P.PN ---
Progress Note - Text Progress Note Date: 09/21/21 Interval History: Patient was seen wandering the hallways and was directable and agreeable to speak with marketing writer in her room. The patient continues to refuse any medications. She continues to state that she does not wish to see this provider. Attempts to discuss the patient's diagnosis and care with her are met with resistance as the patient continues to firmly believed that she does not need to be on any medications or need to attend court. The patient continues to state that it is her family that needs to be psychiatrically evaluated and not her. Despite frequent attempts at redirection and education, the patient is unable to be redirected. The patient is not endorsing any suicidal or homicidal ideation, intention, and/or plan. She does however endorse significant paranoia and did admit that she was hearing voices when she was at home. Mental Status Exam: General Appearance: Patient appears to be stated age is alert, directable, and cooperative. Behavior: Patient presented with normal psychomotor activity. Speech: Patient speech is spontaneous and hyperverbal. Mood/Affect: Mood is nervous. Affect is anxious. Suicidality/Homicidality: Patient denies any suicidal or homicidal ideation, intention, and/or plan. Perceptions: Patient denies current auditory or visual hallucinations. Though content/process: Patient appears to be grossly disorganized. Paranoid. Memory and concentration: Patient is grossly disorganized and concentration is poor. Judgment and insight: Very poor Vital Signs Temp 98 F 09/20/21 06:40 Pulse 85 09/20/21 06:40 Resp 16 09/20/21 06:40 BP 126/77 09/20/21 06:40 Pulse Ox 98 09/20/21 06:40 Intake & Output 09/20/21 09/21/21 09/21/21 18:59 06:59 18:59 Weight 72.3 kg Assessment Acute psychosis Rule out schizophrenia Plan: -Patient continues to meet criteria for inpatient psychiatric admission for symptom stabilization and safety. The patient has been petitioned and certified. The patient is scheduled for for court hearing on 09/23/2021. -This provider asked Dr. Valdez if he was willing to take the patient on as his own patient. Dr. Valdez has respectively declined. -Medications: Continue Seroquel 100 mg at bedtime for mood stabilization. Patient continues to refuse. We will likely have to wait for court order. -When necessary Ativan and Haldol for agitation/aggression. -SW on board for discharge planning. Encouraged the patient to participate in milieu.
[2021-09-21] MEDS: QUEtiapine 100 MG TAB PO SCH (20:08)
--- NOTE | 2021-09-22 11:05 | P.PN ---
Progress Note - Text Progress Note Date: 09/22/21 Interval History: Patient was seen wandering the hallways and was directable and agreeable to speak with data analyst report writer in her room. The patient continues to refuse any medications. She continues to report that she does not want to see this psychiatrist despite numerous times being told that no other provider is available. The patient continues to make bizarre connections and loose associations regarding protocols and events around her. She reportedly told therapy staff that she does not want to see this provider due to some connection with Augusto Jacobo. She denies any suicidal or homicidal ideation, intention, and/or plan. She reports no auditory or visual hallucinations. She reports no issues regarding sleep or appetite. Mental Status Exam: General Appearance: Patient appears to be stated age is alert, directable, and cooperative. Behavior: Patient presented with normal psychomotor activity. Speech: Patient speech is spontaneous and minimal today. Refuses any further elaboration. Mood/Affect: Mood is nervous. Affect is anxious. Suicidality/Homicidality: Patient denies any suicidal or homicidal ideation, intention, and/or plan. Perceptions: Patient denies current auditory or visual hallucinations. Though content/process: Patient appears to be grossly disorganized. Paranoid. Memory and concentration: Patient is grossly disorganized and concentration is poor. Judgment and insight: Very poor Vital Signs Temp 98 F 09/20/21 06:40 Pulse 85 09/20/21 06:40 Resp 16 09/20/21 06:40 BP 126/77 09/20/21 06:40 Pulse Ox 98 09/20/21 06:40 Assessment Acute psychosis Rule out schizophrenia Plan: -Patient continues to meet criteria for inpatient psychiatric admission for symptom stabilization and safety. The patient has been petitioned and certified. The patient is scheduled for for court hearing on 09/23/2021. -This provider asked Dr. Valdez if he was willing to take the patient on as his own patient yesterday. Dr. Valdez has respectively declined. -Medications: Continue Seroquel 100 mg at bedtime for mood stabilization. Patient continues to refuse. We will likely have to wait for court order. Consider medication that can be transitioned to SANTA due to patient likely not being adherent with medications in the outpatient setting. -When necessary Ativan and Haldol for agitation/aggression. -SW on board for discharge planning. Encouraged the patient to participate in milieu.
[2021-09-22] MEDS: QUEtiapine 100 MG TAB PO SCH (20:48)
--- NOTE | 2021-09-23 12:51 | P.PN ---
Progress Note - Text Progress Note Date: 09/23/21 Interval History: Patient was seen wandering the hallways however refused to speak to this provider. She attended court this morning. She continues to deny the need for psychiatric care for her psychosis. She denies any psychosis. We will re-attempt to discuss treatment options with the patient tomorrow morning. Mental Status Exam: General Appearance: Patient appears to be stated age is alert however uncooperative. Behavior: Patient presented with normal psychomotor activity. Speech: Patient speech is nonspontaneous and minimal today. Refuses any further elaboration. Mood/Affect: Mood is not assessed. Affect is blunted. Suicidality/Homicidality: Unable to assess. Perceptions: Unable to assess. Though content/process: Unable to assess. Memory and concentration: Unable to assess. Judgment and insight: Very poor Vital Signs Temp 97 F L 09/23/21 07:08 Pulse 85 09/23/21 07:08 Resp 16 09/23/21 07:08 BP 120/73 09/23/21 07:08 Pulse Ox 98 09/20/21 06:40 Assessment Acute psychosis Rule out schizophrenia Plan: -Patient continues to meet criteria for inpatient psychiatric admission for symptom stabilization and safety. The patient has been petitioned and certified. Patient attended court this morning. Awaiting paper work. -This provider asked Dr. Valdez if he was willing to take the patient on as his own patient. Dr. Valdez has respectively declined. -Medications: Discontinue seroquel and start invega for psychosis. Will transition to SANTA invega sustenna. We will await court-order paper work prior to placing IM medications should she refuse her oral meds. -When necessary Ativan and Haldol for agitation/aggression. -SW on board for discharge planning. Encouraged the patient to participate in milieu.
[2021-09-23] MEDS: PALIPERIDONE 3 MG TAB.ER.24 PO SCH (21:28)
[2021-09-24] MEDS ORDERED: flUPHENAZine 2.5 MG/ML (MDV) 10 ML VIAL IM PRN (09:24)
--- NOTE | 2021-09-24 11:53 | P.PN ---
Progress Note - Text Progress Note Date: 09/24/21 Interval History: Patient was seen wandering the hallways and was agreeable to speak with the hand sign writer. The patient continues to be grossly disorganized. She was informed that she is now court ordered for medications however does not appear to grasp the fact that she is now on an order for medications. The patient refuses to participate in the psychiatric interview and terminates the interview early. She did report she did not have any sleep. Mental Status Exam: General Appearance: Patient appears to be stated age is alert however uncooperative. Behavior: Patient presented with normal psychomotor activity. Speech: Patient speech is nonspontaneous and minimal today. Refuses any further elaboration. Mood/Affect: Mood is not assessed. Affect is blunted. Suicidality/Homicidality: Unable to assess. Perceptions: Unable to assess. Though content/process: Unable to assess. Memory and concentration: Unable to assess. Judgment and insight: Very poor. Vital Signs Temp 97.8 F 09/24/21 06:42 Pulse 78 09/24/21 06:42 Resp 16 09/24/21 06:42 BP 137/82 09/24/21 06:42 Pulse Ox 98 09/24/21 06:42 Assessment Acute psychosis Rule out schizophrenia Plan: -Patient continues to meet criteria for inpatient psychiatric admission for symptom stabilization and safety. The patient has been petitioned and certified. Patient attended court this morning. -Medications: Start invega 3 mg at bedtime. Patient is on court-order. If patient refuses, administer prolixin lactate 2.5 mg IM. -When necessary Ativan and Haldol for agitation/aggression. -SW on board for discharge planning. Encouraged the patient to participate in milieu.
[2021-09-25] MEDS: PALIPERIDONE 3 MG TAB.ER.24 PO SCH ×3 (02:08→21:53)
[2021-09-25] MEDS ORDERED: flUPHENAZine 2.5 MG/ML (MDV) 10 ML VIAL IM PRN (10:17)
--- NOTE | 2021-09-25 11:24 | P.PN ---
Progress Note - Text Progress Note Date: 09/25/21 Interval History: Patient was seen resting in bed and was agreeable to speak with data analyst report writer in her room. Currently, the patient is not reporting any suicidal or homicidal ideation, intention, and/or plan. She is denying any auditory or visual hallucinations. She does recall that this is why she was brought to the hospital. She does acknowledge that she was experiencing some psychotic symptoms however continues to firmly believes that she does not require any treatment. Despite informing her that she is under court order for mental health treatment including the initiation medications, the patient continues to deny the need for any antipsychotic medications. She continues to desire a different provider. Mental Status Exam: General Appearance: Patient appears to be stated age is alert, intimately cooperative, and directable. Behavior: Patient presented with normal psychomotor activity. Speech: Patient speech is more fluent, linear, and spontaneous today. Less word finding difficulty. Mood/Affect: Mood is "anxious." Affect is congruent and nervous. Suicidality/Homicidality: Patient denies any suicidal or homicidal ideation. Perceptions: Patient denies any auditory or visual hallucinations. Though content/process: More linear and logical today. Memory and concentration: Grossly intact for the purposes of this session. Judgment and insight: Very poor. Vital Signs Temp 97.8 F 09/24/21 06:42 Pulse 78 09/24/21 06:42 Resp 16 09/24/21 06:42 BP 137/82 09/24/21 06:42 Pulse Ox 98 09/24/21 06:42 Assessment Acute psychosis Rule out schizophrenia Plan: -Patient continues to meet criteria for inpatient psychiatric admission for symptom stabilization and safety. The patient has been petitioned and certified. Patient has been court ordered for mental health treatment. -Medications: Continue invega 3 mg at bedtime. Patient is on court-order. Patient continues to refuse Invega. We will increase the when necessary Prolixin to 5 mg IM should she refuse the Invega. If she is compliant with her oral Invega, consider titration of Invega over the weekend to 6 mg at bedtime. Plan is to transition the patient to a long-acting injectable medication. -When necessary Ativan and Haldol for agitation/aggression. -SW on board for discharge planning. Encouraged the patient to participate in milieu.
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
[2021-09-26] MEDS: PALIPERIDONE 3 MG TAB.ER.24 PO SCH (20:27)
--- NOTE | 2021-09-27 10:43 | P.PN ---
Subjective Progress Note Date: 09/27/21 Principal diagnosis: Psychotic disorder Rule out schizophrenia Rule out bipolar disorder Subjective data: I feel that the in Munoz is making me very depressed and anxious I was like that before also but I believe that the medication may be doing it No I do not want to take any other medication either U can lower the dose of Seroquel [patient is currently not on Seroquel] Objective data: Patient remains in a denial Patient is casually dressed and groomed Affect at this time remains flat Patient denies any suicidal or homicidal ideations or plans Patient remains projective and exhibits limited insight into her problem Problem-solving skills are poor Patient remains very intrusive and continues to knock on the office wanting to talk more about her issues Plan: Patient continues to meet the criteria for inpatient psychiatric hospitalization for safety and stabilization Patient is currently on the petition and certification Patient is not exhibiting any side effects from her current medications and has been started on oral inVega Support and direction given reassurance given about taking the Invega as prescribed and the benefits that we also have from an intramuscular form once the oral dosages established Continue current can support Andres Boston M.D. 09/26/2021 Objective - Vital Signs Vital signs: Vital Signs Temp 98.0 F 09/26/21 07:00 Pulse 97 09/26/21 07:00 Resp 14 09/26/21 07:00 BP 130/64 09/26/21 07:00 Pulse Ox 98 09/24/21 06:42 Intake & Output 09/26/21 09/27/21 09/27/21 18:59 06:59 18:59 Weight 70.1 kg - Labs CBC & Chem 7: 09/08/21 13:18 09/08/21 13:18
[2021-09-27] MEDS: PALIPERIDONE 3 MG TAB.ER.24 PO SCH (20:49)
--- NOTE | 2021-09-28 12:52 | P.PN ---
Progress Note - Text Progress Note Date: 09/28/21 Interval History: Patient was seen resting in bed and was agreeable to speak with inspector automatic typewriter in her room. Currently, the patient expresses that she feels like the medication is causing her to feel more depressed. He reports that she is less optimistic and understands that being in this hospital for so long is causing her to feel very sad. She otherwise denies any suicidal or homicidal ideation, intention, and/or plan. She reports no auditory or visual hallucinations at this time. She denies any overt paranoia however continues to firmly believe that she did not require any medication and that she is not psychotic. She expresses a strong desire to not be placed on any antipsychotic medications. Mental Status Exam: General Appearance: Patient appears to be stated age is alert, cooperative, and directable. Behavior: Patient presented with normal psychomotor activity. Speech: Patient speech is fluent, linear, and spontaneous. Mood/Affect: Mood is "I really do not need to be here." Range of affect has improved. Affect does appear to be anxious. Suicidality/Homicidality: Patient denies any suicidal or homicidal ideation. Perceptions: Patient denies any auditory or visual hallucinations. Though content/process: More linear and logical today. Memory and concentration: Grossly intact for the purposes of this session. Judgment and insight: Very poor. Vital Signs Temp 97.7 F 09/28/21 06:47 Pulse 86 09/28/21 06:47 Resp 16 09/28/21 06:47 BP 126/77 09/28/21 06:47 Pulse Ox 99 09/28/21 06:47 Intake & Output 09/27/21 09/28/21 09/28/21 18:59 06:59 18:59 Weight 70.1 kg Assessment Acute psychosis Rule out schizophrenia Plan: -Patient continues to meet criteria for inpatient psychiatric admission for symptom stabilization and safety. The patient has been petitioned and certified. Patient has been court ordered for mental health treatment. -Medications: Continue invega 3 mg at bedtime which we'll increase to 6 mg with plans to transition her to a long-acting Invega Sustenna. Patient is on court-order. If patient refuses Invega, administer Prolixin 5 mg IM. -When necessary Ativan and Haldol for agitation/aggression. -SW on board for discharge planning. Encouraged the patient to participate in milieu.
[2021-09-28] MEDS ORDERED: PALIPERIDONE 3 MG TAB.ER.24 PO SCH (21:00)
--- NOTE | 2021-09-29 11:42 | P.PN ---
Progress Note - Text Progress Note Date: 09/29/21 Interval History: Patient was seen attending group and was agreeable to speak with automobile service writer in the office. The patient reports that she is feeling tired. She expresses to this provider that she is upset that she is unable to access her psychic diego and that her third eyes closed. She reports that she was piercing able to engage in "guided imagery" and "enter" the beach murals that are present on the unit. The patient however is denying any suicidal or homicidal ideation, intention, and/or plan. She is denying any auditory or visual hallucinations. She is not endorsing any overt paranoia. The patient does express that she feels like she is losing her social supports in the outpatient setting however does acknowledge that she feels less anxious as she is able to socialize with peers on the unit. Mental Status Exam: General Appearance: Patient appears to be stated age is alert, cooperative, and directable. Behavior: Patient presented with normal psychomotor activity. Speech: Patient speech is fluent, linear, and spontaneous. Mood/Affect: Mood is "just tired" Range of affect has improved. Affect is appeared to be somewhat somnolent. Suicidality/Homicidality: Patient denies any suicidal or homicidal ideation. Perceptions: Patient denies any auditory or visual hallucinations. Though content/process: More linear and logical today. Patient does acknowledge some delusional thought processes. Memory and concentration: Grossly intact for the purposes of this session. Judgment and insight: Very poor. Vital Signs Temp 98.2 F 09/29/21 07:08 Pulse 86 09/29/21 07:08 Resp 16 09/28/21 06:47 BP 134/75 09/29/21 07:08 Pulse Ox 100 09/29/21 07:08 Assessment Acute psychosis Rule out schizophrenia Plan: -Patient continues to meet criteria for inpatient psychiatric admission for symptom stabilization and safety. The patient has been petitioned and certified. Patient has been court ordered for mental health treatment. -Medications: Continue Invega 6 mg daily at bedtime plans to transition her to Invega Sustenna. Patient is on court-order. If patient refuses Invega, administer Prolixin 5 mg IM. -When necessary Ativan and Haldol for agitation/aggression. -SW on board for discharge planning. Encouraged the patient to participate in milieu.
[2021-09-29] MEDS ORDERED: PALIPERIDONE 3 MG TAB.ER.24 PO SCH (21:00)
[2021-09-29] MEDS ORDERED: PALIPERIDONE 6 MG TAB.ER.24 PO SCH (21:00)
[2021-09-30 06:40] VITALS: BP 110/66; PULSE 114; RESP 14; TEMP 97.3
[2021-09-30] MEDS ORDERED: PALIPERIDONE IM 234 MG/1.5 ML SYG IM STA (09:58)
--- NOTE | 2021-09-30 10:03 | P.PN ---
Progress Note - Text Progress Note Date: 09/30/21 Interval History: Patient was seen attending group and was agreeable to speak with fiction writer in the office. Currently, the patient is not reporting any suicidal or homicidal ideation, intention, and/or plan. She is not reporting any auditory or visual hallucinations. She denies any paranoia or delusions. She states that she was able to speak with and states that the conversation went well. She remains future oriented and states that she is hoping that she and her can eventually go on vacation. She is currently denying any issues regarding paranoia or ghosts or any other bizarre delusional thought processes. The patient is also able to display improved insight and judgment stating that she was experiencing some bizarre thoughts prior to this admission. Mental Status Exam: General Appearance: Patient appears to be stated age is alert, cooperative, and directable. Behavior: Patient presented with normal psychomotor activity. Speech: Patient speech is fluent, linear, and spontaneous. Mood/Affect: Mood is "feeling pretty good" Range of affect has improved. Affect is euthymic but constricted. Suicidality/Homicidality: Patient denies any suicidal or homicidal ideation. Perceptions: Patient denies any auditory or visual hallucinations. Though content/process: More linear and logical today. No delusional thought content today. Memory and concentration: Grossly intact for the purposes of this session. Judgment and insight: Improving Vital Signs Temp 97.3 F L 09/30/21 06:39 Pulse 114 H 09/30/21 06:39 Resp 14 09/30/21 06:39 BP 110/66 09/30/21 06:39 Pulse Ox 100 09/29/21 07:08 Assessment Schizophrenia Plan: -Patient continues to meet criteria for inpatient psychiatric admission for symptom stabilization and safety. The patient has been petitioned and certified. Patient has been court ordered for mental health treatment. -Medications: We will administer Invega Sustenna 234 mg IM today and discontinue oral Invega. -When necessary Ativan and Haldol for agitation/aggression. -SW on board for discharge planning. Encouraged the patient to participate in milieu.
[2021-10-01 08:27] LABS: Basophils # (A) 0.1 k/uL (0-0.2); Basophils % (A) 1 %; Eosinophils # (A) 0.1 k/uL (0-0.7); Eosinophils % (A) 2 %; HCT 39.6 % (34.0-46.0); HGB 12.8 gm/dL (11.4-16.0); Lymphocytes # (A) 2.2 k/uL (1.0-4.8); Lymphocytes % (A) 27 %; MCH 30.4 pg (25.0-35.0); MCHC 32.2 g/dL (31.0-37.0); MCV 94.5 fL (80.0-100.0); Mean Platelet Volume 7.1; Monocytes # (A) 0.6 k/uL (0-1.0); Monocytes % (A) 7 %; Neutrophils # (A) 5.1 k/uL (1.3-7.7); Neutrophils % (A) 62 %; Platelet Count 268 k/uL (150-450); RBC 4.19 m/uL (3.80-5.40); RDW 12.2 % (11.5-15.5); WBC 8.2 k/uL (3.8-10.6)
[2021-10-01 08:39] LABS: ALT 13 U/L (4-34); AST 17 U/L (14-36); African American GFR (CKD) >90 (>60 ml/min/1.73 sqM); Albumin 3.8 g/dL (3.5-5.0); Alkaline Phosphatase 42 U/L (38-126); Anion Gap 6 mmol/L; Blood Urea Nitrogen 13 mg/dL (7-17); Calcium 8.8 mg/dL (8.4-10.2); Carbon Dioxide 30 mmol/L (22-30); Chloride 101 mmol/L (98-107); Glucose 82 mg/dL (74-99); Non-African American GFR(CKD) >90 (>60 ml/min/1.73 sqM); Potassium 4.4 mmol/L (3.5-5.1); Sodium 137 mmol/L (137-145); Total Protein 6.6 g/dL (6.3-8.2)
[2021-10-01 10:54] VITALS: BMI 28.3
--- NOTE | 2021-10-01 12:06 | P.DS ---
Providers Date of admission: 09/08/21 21:25 Expected date of discharge: 10/01/21 Attending physician: Josue Odom MD Consults: 09/08/21 21:34 Consult Physician Routine Consulting Provider: Roberto Espinoza Consult Reason/Comments: H&P and medical Do you want consulting provider notified?: Yes Primary care physician: Roberto Espinoza - Discharge Diagnosis(es) (1) Schizophrenia Current Visit: Yes Status: Acute Priority: High Hospital Course: Admission HPI: Patient is a , unemployed, 41-year-old female with a significant history of anxiety and depression who presents to the hospital for psychotic symptoms. HPI: Patient presented to the hospital on 09/08/2021, brought into the hospital by the [facility] for psychiatric evaluation. The patient was noted to be very anxious and emergency department. She did endorse significant psychotic symptoms to the EPS nurse including hearing and seeing ghosts in her home. She also reported that she was able to communicate with angels and ghosts. As per petition filled out by the mobile crisis team, "Iliana states things were mainly around her home in the middle of the night. She has seen a versus stop. She felt like she was not safe. She has reportedly not slept for over 24 hours. She appeared to be quite disorganized and delusional." The patient was certified and subsequently admitted to the psychiatric unit. Upon admission on the psychiatric unit, the patient has been noted to be very disorganized and responding to internal stimuli by staff. When evaluated by this provider, the patient is grossly disorganized and a poor historian of events leading up to this hospitalization. She reports that she has a difficult time explaining what is going on and instead wishes to "write it out." However, the patient just draws nonsensical shapes and arrows on her paper. The patient does admit that she has been hearing angels and communicating with them. She is currently denying any suicidal or homicidal ideation, intention, and/or plan. She reports no paranoia however does endorse restoration preoccupation and bizarre delusions. When asked about any previous psychiatric medications, the patient is only able to identify Ativan and Xanax in the past. However the patient's MAPS reveals no medication being prescribed of the last 2 years. The patient is now certified and will continue with inpatient psychiatric hospitalization. As per team meeting, the patient reportedly began experiencing psychotic symptoms after the of her first child. Her psychotic symptoms have been gradually worsening over the last 2 years Patient states that she has been previously diagnosed with depression and anxiety. The patient is only able to recall being pursued prescribed Ativan and Xanax. Reported prior psychiatric hospitalization here approximately 10 years ago. Patient denies any psychiatric outpatient follow-up. Patient denies any history of suicide attempts in the past. Hospital course: Upon admission to the unit patient was initially presenting as grossly di sorganized, responding to internal stimuli, and uncooperative with treatment. The patient was subsequently certified. Despite being certified, the patient continued to refuse any medications and continued to display significant psychotic symptoms while in the milieu. She ended up differing mental health court initially however did not recognize that by refusing her diagnosis and medication, a demand for mental health court had been filed. On 09/23/2021, the patient was court ordered for mental health treatment. She was then started on a regimen of Invega. Initially, the patient refused the oral medication and was administered Prolixin IM. However, the patient then became more adherent with the Invega. Once adherent on the Invega, the patient displayed significant improvement in regards to her target symptoms of psychosis, disorganization, paranoia, and response to internal stimuli. The patient also further developed better insight and judgment regarding her care and her treatment. The patient was that she transition to Invega Sustenna and received her first dose on 09/30/2021. On the day of discharge, the patient is not reporting any suicidal or homicidal ideation, intention, or plan. She is not reporting any auditory or visualizations. She denies any access to firearms or other weapons. She reports no paranoia or other delusions. The patient is not endorsing any significant side effects from medication. Patient was counseled at length on the importance of medication adherence appropriate outpatient follow-up. Although the patient does not have a significant history of substance abuse, she was counseled on abstaining from all substances including alcohol and marijuana. Prior to discharge, family meeting will be arranged by social media campaign manager to answer any depression symptoms should safety. Mental status exam: General Appearance: Patient appears to be stated age is alert, pleasant, and cooperative. Patient is in no acute distress and has fair hygiene and grooming Behavior: Patient is calmly seated without any agitated behavior. Speech: Patient's speech is fluent and nonpressured. Mood/Affect: Patient reports their mood is "much better", affect is congruent and euthymic to bright. Suicidality/Homicidality: Patient denies having any suicidal or homicidal ideation intent or plan. Perceptions: Patient denies any auditory or visual hallucinations. Though content/process: There is no evidence of any delusional thought content and thought process is linear and goal-directed. The patient is future oriented. Memory and concentration: AOX3, grossly intact for the purposes of this session. Can spell "WORLD" backwards correctly. Judgment and insight: Improved with guarded prognosis Vital Signs Temp 97.3 F L 09/30/21 06:39 Pulse 114 H 09/30/21 06:39 Resp 14 09/30/21 06:39 BP 110/66 09/30/21 06:39 Pulse Ox 100 09/29/21 07:08 Intake & Output 09/30/21 10/01/21 10/01/21 18:59 06:59 18:59 Weight 70.1 kg Laboratory Results WBC 8.2 k/uL (3.8-10.6) 10/01/21 07:23 RBC 4.19 m/uL (3.80-5.40) 10/01/21 07:23 Hgb 12.8 gm/dL (11.4-16.0) 10/01/21 07:23 Hct 39.6 % (34.0-46.0) 10/01/21 07:23 MCV 94.5 fL (80.0-100.0) 10/01/21 07:23 MCH 30.4 pg (25.0-35.0) 10/01/21 07:23 MCHC 32.2 g/dL (31.0-37.0) 10/01/21 07:23 RDW 12.2 % (11.5-15.5) 10/01/21 07:23 Plt Count 268 k/uL (150-450) 10/01/21 07:23 MPV 7.1 10/01/21 07:23 Neutrophils % 62 % 10/01/21 07:23 Lymphocytes % 27 % 10/01/21 07:23 Monocytes % 7 % 10/01/21 07:23 Eosinophils % 2 % 10/01/21 07:23 Basophils % 1 % 10/01/21 07:23 Neutrophils # 5.1 k/uL (1.3-7.7) 10/01/21 07:23 Lymphocytes # 2.2 k/uL (1.0-4.8) 10/01/21 07:23 Monocytes # 0.6 k/uL (0-1.0) 10/01/21 07:23 Eosinophils # 0.1 k/uL (0-0.7) 10/01/21 07:23 Basophils # 0.1 k/uL (0-0.2) 10/01/21 07:23 Sodium 137 mmol/L (137-145) 10/01/21 07:23 Potassium 4.4 mmol/L (3.5-5.1) 10/01/21 07:23 Chloride 101 mmol/L (98-107) 10/01/21 07:23 Carbon Dioxide 30 mmol/L (22-30) 10/01/21 07:23 Anion Gap 6 mmol/L 10/01/21 07:23 BUN 13 mg/dL (7-17) 10/01/21 07:23 Creatinine 0.62 mg/dL (0.52-1.04) 10/01/21 07:23 Est GFR (CKD-EPI)AfAm >90 (>60 ml/min/1.73 sqM) 10/01/21 07:23 Est GFR (CKD-EPI)NonAf >90 (>60 ml/min/1.73 sqM) 10/01/21 07:23 Glucose 82 mg/dL (74-99) 10/01/21 07:[address] Glu mg/dL 104 09/08/21 13:18 Hemoglobin A1c 5.3 % (0.0-6.0) 09/08/21 13:18 Calcium 8.8 mg/dL (8.4-10.2) 10/01/21 07:23 Total Bilirubin 1.0 mg/dL (0.2-1.3) 10/01/21 07:23 AST 17 U/L (14-36) 10/01/21 07:23 ALT 13 U/L (4-34) 10/01/21 07:23 Alkaline Phosphatase 42 U/L (38-126) 10/01/21 07:23 Total Protein 6.6 g/dL (6.3-8.2) 10/01/21 07:23 Albumin 3.8 g/dL (3.5-5.0) 10/01/21 07:23 Triglycerides 39.40 mg/dL (0.00-149.00) 09/08/21 13:18 Cholesterol 120.00 mg/dL (0.00-200.00) 09/08/21 13:18 LDL Cholesterol Direct 64.60 mg/dL (0.00-129.00) 09/08/21 13:18 LDL Cholesterol, Calc mg/dL (0.0-131.0) 09/08/21 13:18 VLDL Cholesterol, Calc mg/dL (5.00-40.00) 09/08/21 13:18 HDL Cholesterol 49.50 mg/dL (40.00-60.00) 09/08/21 13:18 Cholesterol/HDL Ratio 2.42 Ratio 09/08/21 13:18 TSH 0.283 mIU/L (0.465-4.680) L 09/08/21 13:18 Free T4 1.560 ng/dL (0.800-1.800) 09/08/21 13:18 Free T3 pg/mL 3.80 pg/mL (2.30-4.20) 09/08/21 13:18 Urine Color Light Yellow 09/08/21 09:55 Urine Appearance Cloudy (Clear) H 09/08/21 09:55 Urine pH 6.0 (5.0-8.0) 09/08/21 09:55 Ur Specific [place] 1.006 (1.001-1.035) 09/08/21 09:55 Urine Protein Negative (Negative) 09/08/21 09:55 Urine Glucose (UA) Negative (Negative) 09/08/21 09:55 Urine Ketones Negative (Negative) 09/08/21 09:55 Urine Blood Small (Negative) H 09/08/21 09:55 Urine Nitrite Negative (Negative) 09/08/21 09:55 Urine Bilirubin Negative (Negative) 09/08/21 09:55 Urine Urobilinogen <2.0 mg/dL (<2.0) 09/08/21 09:55 Ur Leukocyte Esterase Large (Negative) H 09/08/21 09:55 Urine RBC 15 /hpf (0-5) H 09/08/21 09:55 Urine WBC 12 /hpf (0-5) H 09/08/21 09:55 Ur Squamous Epith Cells 43 /hpf (0-4) H 09/08/21 09:55 Urine Bacteria Many /hpf (None) H 09/08/21 09:55 Urine Mucus Rare /hpf (None) H 09/08/21 09:55 Urine Yeast (Budding) Moderate /hpf (None) H 09/08/21 09:55 Urine HCG, Qual Not Detected (Not Detectd) 09/08/21 09:55 Urine Opiates Screen Not Detected (NotDetected) 09/08/21 09:55 Ur Oxycodone Screen Not Detected (NotDetected) 09/08/21 09:55 Urine Methadone Screen Not Detected (NotDetected) 09/08/21 09:55 Ur Propoxyphene Screen Not Detected (NotDetected) 09/08/21 09:55 Ur Barbiturates Screen Not Detected (NotDetected) 09/08/21 09:55 U Tricyclic Antidepress Not Detected (NotDetected) 09/08/21 09:55 Ur Phencyclidine Scrn Not Detected (NotDetected) 09/08/21 09:55 Ur Amphetamines Screen Not Detected (NotDetected) 09/08/21 09:55 U Methamphetamines Scrn Not Detected (NotDetected) 09/08/21 09:55 U Benzodiazepines Scrn Not Detected (NotDetected) 09/08/21 09:55 Urine Cocaine Screen Not Detected (NotDetected) 09/08/21 09:55 U Marijuana (THC) Screen Not Detected (NotDetected) 09/08/21 09:55 Coronavirus (PCR) Not Detected (Not Detectd) 09/08/21 13:05 Impression: Schizophrenia Plan: -Continue with discharge today as patient has improved and stabilized psychiatrically and is not currently an imminent threat to herself and/or others. Patient will remain at chronically elevated risk for harm to self and/or others due to her severity of mental illness. -Continue medications: Invega Sustenna 234 mg IM was administered on 09/30/2021. Next loading dose 156 mg IM is due on 10/07/2021. -Patient was counseled on the need for medication compliance and appropriate follow-up at mental health and also primary care for medical issues. Patient verbalized understanding and agreed. -Social work to arrange for and conduct family meeting to ensure safety upon discharge and answer any questions/concerns. Social work also to arrange for patients follow up appointments with [facility] for psychiatric care along with follow up with primary care provider. -Patient counseled on abstaining from recreational drugs and marijuana and alcohol. Was informed/educated on the adverse effects on their physical and mental health. Patient verbally agreed and understood. -Patient was instructed to return to the hospital or seek immediate medical care if their psychiatric or medical symptoms do worsen or reoccur. -Psychoeducation and supportive therapy provided to patient. Risks and benefits of pharmacological treatment versus the risks and benefits of nontreatment weight and discussed. Informed consent discussion held. Common side effects of psychotropics discussed such as, but not limited to headache, GI disturbance, sexual dysfunction, movement disorders, sedation, and orthostatic hypotension. Life threatening and blackbox warnings of prescribed medications also discussed. Potential risks of operating a vehicle or heavy machinery discussed with patient at length. Advised on importance of compliance and a reliable and responsible manner. Patient advised to review FDA consumer labeling of all medications prior to taking. Patient verbalized understanding of potential risks, and agrees with current treatment plan. Patient advised to medically contact physician/emergency personnel if any acute changes in condition occur. Allergies Allergy/AdvReac Type Severity Reaction Status Date / Time ciprofloxacin [From Cipro] Allergy Swelling Verified 09/08/21 10:23 ciprofloxacin HCl Allergy Swelling Verified 09/08/21 10:23 [From Cipro] Sulfa (Sulfonamide Allergy Rash/Hives Verified 09/08/21 10:23 Antibiotics) Patient Condition at Discharge: Stable Plan - Discharge Summary New Discharge Prescriptions: New Paliperidone IM [Invega Sustenna] 156 mg IM QMONTHLY #1 each Discharge Medication List Paliperidone IM [Invega Sustenna] 156 mg IM QMONTHLY #1 each 10/01/21 [Rx] Follow up Appointment(s)/Referral(s): [facility] [Outside] - 10/06/21 12:00 pm (10/06 @ 12pm- Intake with [facility] at [facility]) Roberto Espinoza MD [Primary Care Provider] - 1 Week Patient Instructions/Handouts: Mood Disorders (DC) Activity/Diet/Wound Care/Special Instructions: Activity and diet as tolerated. Avoid the use of street drugs and alcohol. Take all medications as prescribed. When you are in need of refills on your medications please contact your medical provider and/or outpatient psychiatrist to have this done. Please go to scheduled outpatient appointment for aftercare treatment. If symptoms return or become worse, call the crisis line at and/or go to the nearest emergency room for evaluation Discharge Disposition: HOME SELF-CARE
== END 2021-10-01 12:16 | disposition home or self-care (01) | DRG 885 ==
LOC: EC 09:16 → 3MHU 21:25
PROVIDERS: ADMIT Psychiatry & Neurology Psychiatry; ATTEND Psychiatry & Neurology Psychiatry
DX: F20.9 Schizophrenia, unspecified (principal); F41.9 Anxiety disorder, unspecified; Z82.49 Family history of ischemic heart disease and other diseases of the circulatory system; Z91.14 Patient's other noncompliance with medication regimen; Z20.822 Contact with and (suspected) exposure to COVID-19
CPT/HCPCS: 36415; 80053; 80061; 80306; 81001; 81025; 82075; 83036; 83721; 84439; 84443; 84481; 85025; 87086; 87635; 99285

== ENCOUNTER 2021-10-10 04:56 | Emergency (ER) | payer MEDICARE, OTHER ==
[2021-10-10 05:05] VITALS: BP 128/91; PULSE 88; RESP 18; TEMP 98
--- NOTE | 2021-10-10 05:48 | ED ---
Anxiety HPI - General Chief Complaint: Anxiety Stated Complaint: Anxiety Time Seen by Provider: 10/10/21 05:34 Source: patient Mode of arrival: ambulatory - History of Present Illness Initial Comments: This patient's 41-year-old woman who presents with complaint of amount of anxiety and accompanying insomnia. She states this been going on intermittently for some time though worse tonight. She did try some alcohol but that did not really help. Patient denies having suicidal ideation. Patient occasionally depressed but more concerned with inability to sleep today. MD Complaint: anxiety, other -: days(s) Place: home Previous History of Same: Yes Severity: moderate Quality: similar to prior episodes Provoking factors: none known Improves With: nothing Worsens With: nothing - Related Data Home Medications: Home Medications Medication Instructions Recorded Confirmed Ascorbic Acid [Vitamin C] 500 mg PO DAILY 10/14/21 10/14/21 Previous Rx's Medication Instructions Recorded Paliperidone IM [Invega Sustenna] 156 mg IM QMONTHLY #1 each 10/02/21 Melatonin 3 mg PO HS #15 tablet 10/10/21 Allergies/Adverse Reactions: Allergies Allergy/AdvReac Type Severity Reaction Status Date / Time ciprofloxacin [From Cipro] Allergy Swelling Verified 10/14/21 07:08 ciprofloxacin HCl Allergy Swelling Verified 10/14/21 07:08 [From Cipro] Sulfa (Sulfonamide Allergy Rash/Hives Verified 10/14/21 07:08 Antibiotics) Review of Systems ROS Statement: Those systems with pertinent positive or pertinent negative responses have been documented in the HPI. ROS Other: All systems not noted in ROS Statement are negative. Constitutional: Denies: fever, chills Respiratory: Denies: cough, dyspnea Cardiovascular: Denies: chest pain, palpitations Gastrointestinal: Denies: abdominal pain, vomiting Musculoskeletal: Denies: back pain Neurological: Denies: headache, weakness Psychiatric: Reports: anxiety, depression. Denies: auditory hallucinations, visual hallucinations, homicidal thoughts, suicidal thoughts Past Medical History Past Medical History: GERD/Reflux Additional Past Medical History / Comment(s): has abd. hernia that will be having surgery on History of Any Multi-Drug Resistant Organisms: None Reported Past Surgical History: Section, Cholecystectomy, Tubal Ligation Additional Past Surgical History / Comment(s): IUI, LAPAROSCOPY WITH FIMBROPLASTY, LAPARSCOPY WITH INTERNAL ADHESIONS. 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 Past Anesthesia/Blood Transfusion Reactions: Postoperative Nausea & Vomiting (PONV) Past Psychological History: Anxiety Smoking Status: Never smoker Past Alcohol Use History: None Reported Past Drug Use History: None Reported - Past Family History Father Family Medical History: Myocardial Infarction ([place]) Mother Family Medical History: Myocardial Infarction ([place]) General Exam General appearance: alert, in no apparent distress Head exam: Present: atraumatic, normocephalic Eye exam: Present: normal appearance. Absent: scleral icterus, conjunctival injection Neck exam: Present: normal inspection Respiratory exam: Present: normal lung sounds bilaterally. Absent: respiratory distress, wheezes, rales, rhonchi, stridor Cardiovascular Exam: Present: regular rate, normal rhythm, normal heart sounds. Absent: systolic murmur, diastolic murmur, rubs, gallop GI/Abdominal exam: Present: soft. Absent: distended, tenderness, guarding, re bound, rigid, mass Extremities exam: Present: normal inspection, normal capillary refill. Absent: pedal edema, calf tenderness Back exam: Present: normal inspection. Absent: CVA tenderness (R), CVA tenderness (L) Neurological exam: Present: alert Psychiatric exam: Absent: depressed, agitated, anxious, flat affect, manic, homicidal ideation, suicidal ideation Skin exam: Present: warm, dry, intact, normal color. Absent: rash Course Vital Signs 10/10/21 05:00 Temperature 98 F Pulse Rate 88 Respiratory 18 Rate Blood Pressure 128/91 O2 Sat by Pulse 100 Oximetry Disposition Clinical Impression: Insomnia Disposition: HOME SELF-CARE Condition: Good Instructions (If sedation given, give patient instructions): Insomnia (ED) Prescriptions: Melatonin 3 mg PO HS #15 tablet Is patient prescribed a controlled substance at d/c from ED?: No Referrals: Roberto Espinoza MD [Primary Care Provider] - 1-2 days
== END 2021-10-10 05:52 | disposition home or self-care (01) ==
LOC: EC 04:56
DX: G47.00 Insomnia, unspecified (principal); Z88.1 Allergy status to other antibiotic agents; Z88.2 Allergy status to sulfonamides
CPT/HCPCS: 99283

== ENCOUNTER 2021-10-14 04:50 | Inpatient (IN) | payer OTHER, MEDICARE ==
--- NOTE | 2021-10-14 07:03 | ED ---
General Adult HPI - General Chief complaint: Altered Mental Status Stated complaint: Nausea Time Seen by Provider: 10/14/21 06:07 Source: patient, RN notes reviewed Mode of arrival: wheelchair Limitations: no limitations - History of Present Illness Initial comments: 41-year-old female presents emergency Department with chief complaint of needing psychiatric help. Patient states that she was resent 3 W. Patient states she just doesn't feel right. She isn't having weird thoughts, states that she feels depressed may be anxious. Patient does admit to some alcohol use. Denies any drug abuse. Patient states she did receive invega when She was admitted before. - Related Data Home Medications Medication Instructions Recorded Confirmed Ascorbic Acid [Vitamin C] 500 mg PO DAILY 10/14/21 10/14/21 Previous Rx's Medication Instructions Recorded Paliperidone IM [Invega Sustenna] 156 mg IM QMONTHLY #1 each 10/02/21 Melatonin 3 mg PO HS #15 tablet 10/10/21 Allergies Allergy/AdvReac Type Severity Reaction Status Date / Time ciprofloxacin [From Cipro] Allergy Swelling Verified 10/14/21 07:08 ciprofloxacin HCl Allergy Swelling Verified 10/14/21 07:08 [From Cipro] Sulfa (Sulfonamide Allergy Rash/Hives Verified 10/14/21 07:08 Antibiotics) Review of Systems ROS Statement: Those systems with pertinent positive or pertinent negative responses have been documented in the HPI. ROS Other: All systems not noted in ROS Statement are negative. Past Medical History Past Medical History: GERD/Reflux Additional Past Medical History / Comment(s): has abd. hernia that will be having surgery on History of Any Multi-Drug Resistant Organisms: None Reported Past Surgical History: Section, Cholecystectomy, Tubal Ligation Additional Past Surgical History / Comment(s): IUI, LAPAROSCOPY WITH FIMBROPLASTY, LAPARSCOPY WITH INTERNAL ADHESIONS. 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 Past Anesthesia/Blood Transfusion Reactions: Postoperative Nausea & Vomiting (PONV) Past Psychological History: Anxiety Smoking Status: Never smoker Past Alcohol Use History: None Reported Past Drug Use History: None Reported - Past Family History Father Family Medical History: Myocardial Infarction ([place]) Mother Family Medical History: Myocardial Infarction ([place]) General Exam Limitations: no limitations General appearance: alert, in no apparent distress Head exam: Present: atraumatic, normocephalic, normal inspection Eye exam: Present: normal appearance, PERRL, EOMI. Absent: scleral icterus, conjunctival injection, periorbital swelling ENT exam: Present: normal exam, normal oropharynx, mucous membranes moist Neck exam: Present: normal inspection, full ROM. Absent: tenderness, meningismus, lymphadenopathy Respiratory exam: Present: normal lung sounds bilaterally. Absent: respiratory distress, wheezes, rales, rhonchi, stridor Cardiovascular Exam: Present: regular rate, normal rhythm, normal heart sounds. Absent: systolic murmur, diastolic murmur, rubs, gallop, clicks Neurological exam: Present: alert Psychiatric exam: Present: flat affect Skin exam: Present: warm, dry, intact, normal color. Absent: rash Course Vital Signs 10/14/21 10/14/21 10/14/21 04:52 06:21 07:28 Temperature 98.1 F 98 F Pulse Rate 97 85 83 Respiratory 18 18 16 Rate Blood Pressure 136/84 141/80 126/83 O2 Sat by Pulse 99 98 97 Oximetry Medical Decision Making - Medical Decision Making eps evaluated will be admitted for psychiatric treatment - Lab Data Lab Results 10/14/21 Range/Units 07:08 Urine Opiates Screen Not Detected (NotDetected) Ur Oxycodone Screen Not Detected (NotDetected) Urine Methadone Screen Not Detected (NotDetected) Ur Propoxyphene Screen Not Detected (NotDetected) Ur Barbiturates Screen Not Detected (NotDetected) U Tricyclic Antidepress Not Detected (NotDetected) Ur Phencyclidine Scrn Not Detected (NotDetected) Ur Amphetamines Screen Not Detected (NotDetected) U Methamphetamines Scrn Not Detected (NotDetected) U Benzodiazepines Scrn Not Detected (NotDetected) Urine Cocaine Screen Not Detected (NotDetected) U Marijuana (THC) Screen Not Detected (NotDetected) Disposition Clinical Impression: Psychosis, Schizophrenia Disposition: TRANSFER TO PSYCH HOSP/UNIT Condition: Fair Referrals: Roberto Espinoza MD [Primary Care Provider] - 1-2 days Time of Disposition: 13:55
[2021-10-14 07:25] LABS: Amphetamine Screen,Urine Not Detected (NotDetected); Barbiturate Screen,Urine Not Detected (NotDetected); Benzodiazepines Screen,Urine Not Detected (NotDetected); Cocaine Screen,Urine Not Detected (NotDetected); Methadone Screen, Urine Not Detected (NotDetected); Opiate Screen,Urine Not Detected (NotDetected); Oxycodone Screen, Urine Not Detected (NotDetected); Phencyclidine Screen,Urine Not Detected (NotDetected); Tricyclic Antidepressant,Urine Not Detected (NotDetected); Urn Cannabinoid Scrn Not Detected (NotDetected)
[2021-10-14] MEDS ORDERED: HALOPERIDOL LACTATE 5 MG/ML 1 ML VIAL IM PRN (16:01)
[2021-10-14] MEDS ORDERED: MAG HYDROX/AL HYDROX/SIMETH 30 ML CUP PO PRN (16:01)
[2021-10-14] MEDS ORDERED: LORazepam 1 MG TAB PO PRN (16:01)
[2021-10-14] MEDS ORDERED: MAGNESIUM HYDROXIDE 2,400 MG/10 ML CUP PO PRN (16:01)
[2021-10-14] MEDS ORDERED: ACETAMINOPHEN TAB 325 MG TAB PO PRN (16:01)
[2021-10-14] MEDS ORDERED: LORazepam 2 MG/ML INJ IV PRN (16:07)
[2021-10-14] MEDS ORDERED: PALIPERIDONE IM 156 MG/ML SYG IM SCH (16:30)
[2021-10-15] MEDS: MELATONIN 3 MG TABLET PO PRN ×2 (00:12→20:07)
[2021-10-15 07:14] VITALS: RESP 16
[2021-10-15 07:28] LABS: Basophils % (A) 1 %; Eosinophils # (A) 0.2 k/uL (0-0.7); Eosinophils % (A) 3 %; HCT 36.6 % (34.0-46.0); HGB 11.4 gm/dL (11.4-16.0); Lymphocytes # (A) 2.4 k/uL (1.0-4.8); Lymphocytes % (A) 37 %; MCH 28.9 pg (25.0-35.0); MCHC 31.1 g/dL (31.0-37.0); MCV 92.9 fL (80.0-100.0); Mean Platelet Volume 6.8; Monocytes # (A) 0.4 k/uL (0-1.0); Monocytes % (A) 7 %; Neutrophils # (A) 3.2 k/uL (1.3-7.7); Neutrophils % (A) 50 %; Platelet Count 301 k/uL (150-450); RBC 3.95 m/uL (3.80-5.40); RDW 12.3 % (11.5-15.5); WBC 6.4 k/uL (3.8-10.6)
[2021-10-15 07:44] LABS: ALT 17 U/L (4-34); AST 20 U/L (14-36); African American GFR (CKD) >90 (>60 ml/min/1.73 sqM); Albumin 3.5 g/dL (3.5-5.0); Alkaline Phosphatase 47 U/L (38-126); Anion Gap 4 mmol/L; Blood Urea Nitrogen 14 mg/dL (7-17); Calcium 8.4 mg/dL (8.4-10.2); Carbon Dioxide 29 mmol/L (22-30); Chloride 106 mmol/L (98-107); Glucose 84 mg/dL (74-99); Non-African American GFR(CKD) >90 (>60 ml/min/1.73 sqM); Potassium 4.2 mmol/L (3.5-5.1); Sodium 139 mmol/L (137-145); Total Bilirubin 0.7 mg/dL (0.2-1.3)
[2021-10-15] MEDS: ASCORBIC ACID 500 MG TAB PO SCH (08:30)
[2021-10-15] MEDS: MULTIVITAMINS, THERA 1 EACH TAB PO SCH (08:30)
[2021-10-15] MEDS ORDERED: PALIPERIDONE 3 MG TAB.ER.24 PO STA (09:28)
[2021-10-15] MEDS ORDERED: OLANZapine 10 MG VIAL IM PRN (09:29)
[2021-10-15 11:30] LABS: Chol/HDL Ratio 2.49 Ratio; LDL Cholesterol,Calculated 58.2 mg/dL (0.0-131.0); VLDL Calculation 13.68 mg/dL (5.00-40.00)
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
--- NOTE | 2021-10-15 14:21 | P.MDCNMH ---
History of Present Illness H&P Date: 10/15/21 HISTORY OF PRESENT ILLNESS This is a 41-year-old female patient with past medical history of gastro- esophageal reflux disease and schizophrenia. She was recently hospitalized on the [facility] September 08 through October 01 at which time she was treated for schizophrenia. Patient was now brought in the hospital on court order initiated by her . Patient states that she brought herself to the hospital because she has been arguing with her and she did not want kids to hear their argument. She states she follows in [facility] with Shahida and Dr. Navarrete and that she wants to get off injection and take oral medication for schizophrenia. Note patient was found to be afebrile, heart rate 97, blood pressure 136/84, pulse ox 99% on room air. Urine drug screen was negative. Coronal virus PCR not detected. Triglycerides 60, cholesterol 120, LDL 58, HDL 48. Electrolytes renal function and liver function tests all normal. CBC normal. Patient is seen today on the mental health unit. Patient denies any medical concerns at this time. REVIEW OF SYSTEMS Constitutional: No fever, no chills, no night sweats. No weight change. No weakness, fatigue or lethargy. No daytime sleepiness. EENT: No headache. No blurred vision or double vision, no loss of vision. No loss of Hearing, no ringing in the ears, no dizziness. No nasal drainage or congestion. No epistaxis. No sore throat. Lungs: No shortness of breath, cough, no sputum production. No wheezing. Cardiovascular: Denies chest pain, no lower extremity edema. No palpitations. No paroxysmal nocturnal dyspnea. No orthopnea. No lightheadedness or dizziness. No syncopal episodes. Abdominal: No abdominal pain. No nausea, vomiting. No diarrhea. No constipation. No bloody or tarry stools. No loss of appetite. Genitourinary: No dysuria, increased frequency, urgency. No urinary retention. Musculoskeletal: No myalgias. No muscle weakness, no gait dysfunction, no f requent falls. No back pain. No neck pain. Integumentary: No wounds, no lesions. No rash or pruritus. No unusual bruising. No change in hair or nails. Neurologic: No aphasia. No facial droop. No change in mentation. No head injury. No headache. No paralysis. No paresthesia. Psychiatric: No depression. Reports increased anxiety. No mood swings. Does not state hallucinations. Endocrine: No abnormal blood sugars. No weight change. No excessive sweating or thirst. No cold intolerance. 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 She was at home with her and 2 young children. FAMILY HISTORY Father at age 62 with history of possible coronary artery disease. Mother is alive in her 60s and patient does not know her mother's medical history. Patient has 1 brother with no major medical problems. She does not have any sisters. She has 2 daughters one year old and 2-year-old. PHYSICAL EXAMINATION Gen: This is a 41-year-old female. Patient is sitting in a chair. No respiratory distress noted HEENT: Head is atraumatic, normocephalic. Pupils equal, round. Sclerae is anicteric. NECK: Supple. No JVD. No lymphadenopathy. No thyromegaly. LUNGS: Clear to auscultation. No wheezes or rhonchi. No intercostal retractions. HEART: Regular rate and rhythm. No murmur. ABDOMEN: Soft. Bowel sounds are present. No masses. No tenderness. EXTREMITIES: No pedal edema. No calf tenderness. process pedis +2 bilaterally. NEUROLOGICAL: Patient is awake, alert and oriented x3. Cranial nerves 2 through 12 are grossly intact. ASSESSMENT AND PLAN 1. Acute psychosis, schizophrenia. Continue current plan per psychiatry. 2. Gastroesophageal reflux disease. 3. Generalized anxiety disorder. DISCHARGE PLAN Home and follow-up in the office one week after discharge. Impression and plan of care have been directed as dictated by the signing physician. Jackie Aguilar nurse practitioner acting as scribe for signing physician. Past Medical History Past Medical History: GERD/Reflux Additional Past Medical History / Comment(s): has abd. hernia that will be having surgery on History of Any Multi-Drug Resistant Organisms: None Reported Past Surgical History: Section, Cholecystectomy, Tubal Ligation Additional Past Surgical History / Comment(s): IUI, LAPAROSCOPY WITH FIMBROPLASTY, LAPARSCOPY WITH INTERNAL ADHESIONS. 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 Past Anesthesia/Blood Transfusion Reactions: Postoperative Nausea & Vomiting (PONV) Past Psychological History: Anxiety Smoking Status: Never smoker Past Alcohol Use History: None Reported Past Drug Use History: None Reported - Past Family History Father Family Medical History: Myocardial Infarction ([place]) Mother Family Medical History: Myocardial Infarction ([place]) Medications and Allergies Home Medications Medication Instructions Recorded Confirmed Type Paliperidone IM [Invega Sustenna] 156 mg IM QMONTHLY #1 each 10/02/21 10/14/21 Rx Melatonin 3 mg PO HS #15 tablet 10/10/21 10/14/21 Rx Ascorbic Acid [Vitamin C] 500 mg PO DAILY 10/14/21 10/14/21 History Allergies Allergy/AdvReac Type Severity Reaction Status Date / Time ciprofloxacin [From Cipro] Allergy Swelling Verified 10/14/21 07:08 ciprofloxacin HCl Allergy Swelling Verified 10/14/21 07:08 [From Cipro] Sulfa (Sulfonamide Allergy Rash/Hives Verified 10/14/21 07:08 Antibiotics) Physical Exam Vitals: Vital Signs Temp Pulse Resp BP Pulse Ox 10/15/21 07:14 97.8 F 71 16 95/53 99 10/14/21 17:13 97.8 F 75 12 136/88 100 Intake and Output 10/14/21 10/15/21 10/15/21 22:59 06:59 14:59 Other: Weight 76.7 kg Cranial Nerve Examination - Cranial Nerves Cranial Nerve I- Olfactory: Intact Cranial Nerve II- Optic: Intact Cranial Nerve III- Oculomotor: Intact Cranial Nerve IV- Trochlear: Intact Cranial Nerve V- Trigeminal: Intact Cranial Nerve - Abducens: Intact Cranial Nerve VII- Facial: Intact Cranial Nerve VIII- Auditory: Intact Cranial Nerve IX- Glossopharyngeal: Intact Cranial Nerve X- Vagus: Intact Cranial Nerve XI- Accessory: Intact Cranial Nerve XII- Hypoglossal: Intact Results CBC & Chem 7: 10/15/21 06:32 10/15/21 06:32 Labs: Abnormal Lab Results - Last 24 Hours (Table) 10/15/21 Range/Units 06:32 Total Protein 6.0 L (6.3-8.2) g/dL
[2021-10-16 06:52] VITALS: BP 121/73; PULSE 100; TEMP 97.6
[2021-10-16] MEDS: MULTIVITAMINS, THERA 1 EACH TAB PO SCH (08:28)
[2021-10-16] MEDS: ASCORBIC ACID 500 MG TAB PO SCH (08:28)
[2021-10-16] MEDS ORDERED: PALIPERIDONE 3 MG TAB.ER.24 PO SCH (09:00)
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
== END 2021-10-16 15:16 | disposition home or self-care (01) | DRG 885 ==
LOC: EC 04:50 → 3MHU 15:46
PROVIDERS: ADMIT Psychiatry & Neurology Psychiatry; ATTEND Psychiatry & Neurology Psychiatry
DX: F20.9 Schizophrenia, unspecified (principal); F41.9 Anxiety disorder, unspecified; Z82.49 Family history of ischemic heart disease and other diseases of the circulatory system; Z20.822 Contact with and (suspected) exposure to COVID-19
CPT/HCPCS: 80053; 80061; 80306; 82075; 83036; 84443; 85025; 87635; 99285

== ENCOUNTER 2021-12-08 14:00 | Emergency (ER) | payer OTHER ==
[2021-12-08 14:07] VITALS: RESP 18; TEMP 98.2
--- NOTE | 2021-12-08 15:21 | ED ---
Anxiety HPI - General Chief Complaint: Anxiety Stated Complaint: Anxiety Time Seen by Provider: 12/08/21 14:27 Source: patient Mode of arrival: ambulatory - History of Present Illness Initial Comments: Patient is a 41-year-old female presenting with chief complaint of anxiety. Patient has history of psychosis for which she takes Invega, this is also court- ordered. Patient states that since starting this new medication, she has had increased anxiety. This includes insomnia, restlessness, nightmares. She denies any suicidal or homicidal ideation. Patient is hoping that by coming to the ER today she is able to have her medication switched. Patient follows with [facility], states that she is unable to get a sooner appointment and wants to switch the provider she sees. Denies chest pain, shortness of breath, fever, chills, nausea, vomiting, headache, vision changes, abdominal pain, recent illness or injury. - Related Data Home Medications: Home Medications Medication Instructions Recorded Confirmed Ascorbic Acid [Vitamin C] 500 mg PO DAILY 10/14/21 10/14/21 Previous Rx's Medication Instructions Recorded Melatonin 3 mg PO HS #15 tablet 10/10/21 Paliperidone IM [Invega Sustenna] 156 mg IM QMONTHLY #1 each 10/16/21 Paliperidone [Invega] 9 mg PO DAILY 6 Days 10/16/21 diphenhydrAMINE [Benadryl] 25 mg PO HS PRN #20 capsule 12/08/21 Allergies/Adverse Reactions: Allergies Allergy/AdvReac Type Severity Reaction Status Date / Time ciprofloxacin [From Cipro] Allergy Swelling Verified 12/08/21 14:07 ciprofloxacin HCl Allergy Swelling Verified 12/08/21 14:07 [From Cipro] Sulfa (Sulfonamide Allergy Rash/Hives Verified 12/08/21 14:07 Antibiotics) Review of Systems ROS Statement: Those systems with pertinent positive or pertinent negative responses have been documented in the HPI. ROS Other: All systems not noted in ROS Statement are negative. Past Medical History Past Medical History: GERD/Reflux Additional Past Medical History / Comment(s): has abd. hernia that will be having surgery on History of Any Multi-Drug Resistant Organisms: None Reported Past Surgical History: Section, Cholecystectomy, Tubal Ligation Additional Past Surgical History / Comment(s): IUI, LAPAROSCOPY WITH FIMBROPLASTY, LAPARSCOPY WITH INTERNAL ADHESIONS. 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 Past Anesthesia/Blood Transfusion Reactions: Postoperative Nausea & Vomiting (PONV) Past Psychological History: Anxiety Smoking Status: Never smoker Past Alcohol Use History: None Reported Past Drug Use History: None Reported - Past Family History Father Family Medical History: Myocardial Infarction (VT) Mother Family Medical History: Myocardial Infarction (VT) General Exam Limitations: no limitations General appearance: alert, in no apparent distress Head exam: Present: atraumatic, normocephalic, normal inspection Eye exam: Present: normal appearance, EOMI. Absent: scleral icterus, periorbital swelling Neck exam: Present: normal inspection Respiratory exam: Present: normal lung sounds bilaterally. Absent: respiratory distress, wheezes, rales, rhonchi, stridor Cardiovascular Exam: Present: regular rate, normal rhythm, normal heart sounds. Absent: systolic murmur, diastolic murmur, rubs, gallop, clicks Neurological exam: Present: alert, oriented X3, CN II-XII intact Psychiatric exam: Present: normal affect, normal mood Skin exam: Present: warm, dry, intact, normal color. Absent: rash Course Vital Signs 12/08/21 12/08/21 14:02 16:44 Temperature 98.2 F Pulse Rate 68 70 Respiratory 18 18 Rate Blood Pressure 114/82 116/81 O2 Sat by Pulse 99 98 Oximetry Medical Decision Making - Medical Decision Making Patient is a 41-year-old female presenting with chief complaint of anxiety. Patient states that this started after starting Invega. She is unable to get into [facility] sooner. She denies any suicidal or homicidal ideation. Physical examination is WNL. Patient is provided with prescription for Benadryl for anxiety. Instructed to take in the evening, may cause drowsiness do not take before driving or operating heavy machinery. Patient is instructed to call her provider at [facility] and her electro mechanical technologist in order to get her appointment moved up sooner. Report back to ER with any new or worsening symptoms. Discussed return parameters answered all questions. Patient conveyed verbal understanding and agreed to the plan. My attending is Dr. Castro Disposition Clinical Impression: Anxiety Disposition: HOME SELF-CARE Condition: Good Instructions (If sedation given, give patient instructions): Generalized Anxiety Disorder (ED), Insomnia (ED) Additional Instructions: Follow-up with PCP in one to 2 days. Follow up with [facility] as soon as possible, patient currently sees Augie Brenner, but states that she is working with her manager case management to switch providers, patient should follow up as soon as possible. Report back to ER with any new or worsening symptoms, including but not limited to thoughts of harming yourself or others. Take medication as prescribed. Medication may cause drowsiness, do not take before driving or operating heavy machinery. Prescriptions: diphenhydrAMINE [Benadryl] 25 mg PO HS PRN #20 capsule PRN Reason: Anxiety Is patient prescribed a controlled substance at d/c from ED?: No Referrals: Roberto Espinoza MD [Primary Care Provider] - 1-2 days Time of Disposition: 15:21
[2021-12-08 17:12] VITALS: BP 116/81; PULSE 70
== END 2021-12-08 16:44 | disposition home or self-care (01) ==
LOC: EC 14:00
DX: F41.9 Anxiety disorder, unspecified (principal); Z82.49 Family history of ischemic heart disease and other diseases of the circulatory system; Z88.2 Allergy status to sulfonamides; Z88.1 Allergy status to other antibiotic agents
CPT/HCPCS: 82075

== ENCOUNTER 2021-12-10 12:19 | Emergency (ER) | payer OTHER ==
--- NOTE | 2021-12-10 14:18 | ED ---
General Adult HPI - General Chief complaint: Psychiatric Symptoms Stated complaint: Anxiety Time Seen by Provider: 12/10/21 13:43 Source: patient, RN notes reviewed Mode of arrival: ambulatory Limitations: no limitations - History of Present Illness Initial comments: Patient is a pleasant 41-year-old female presenting to the emergency department with concerns with anxiety. Patient has chronic anxiety. Patient states she also has chronic palpitations. Patient states she never told before that she has palpitations. Patient states they have overall been mild and remained mild at this time. Patient states palpitations usually worsen when her anxiety worsens. No chest pain. No dyspnea. Patient has been trying new medication for anxiety and does have follow-up appointment with [facility]. Patient did try Benadryl without much improvement. Patient denies suicidal thoughts - Related Data Home Medications Medication Instructions Recorded Confirmed Ascorbic Acid [Vitamin C] 500 mg PO DAILY 10/14/21 10/14/21 Previous Rx's Medication Instructions Recorded Melatonin 3 mg PO HS #15 tablet 10/10/21 Paliperidone IM [Invega Sustenna] 156 mg IM QMONTHLY #1 each 10/16/21 Paliperidone [Invega] 9 mg PO DAILY 6 Days 10/16/21 diphenhydrAMINE [Benadryl] 25 mg PO HS PRN #20 capsule 12/08/21 Allergies Allergy/AdvReac Type Severity Reaction Status Date / Time ciprofloxacin [From Cipro] Allergy Swelling Verified 12/10/21 13:27 ciprofloxacin HCl Allergy Swelling Verified 12/10/21 13:27 [From Cipro] Sulfa (Sulfonamide Allergy Rash/Hives Verified 12/10/21 13:27 Antibiotics) Review of Systems ROS Statement: Those systems with pertinent positive or pertinent negative responses have been documented in the HPI. ROS Other: All systems not noted in ROS Statement are negative. Constitutional: Denies: fever Eyes: Denies: eye pain ENT: Denies: ear pain Respiratory: Denies: cough Cardiovascular: Reports: as per HPI, palpitations. Denies: chest pain Endocrine: Denies: fatigue Gastrointestinal: Denies: abdominal pain Genitourinary: Denies: dysuria Skin: Denies: rash Neurological: Denies: weakness Psychiatric: Reports: as per HPI, anxiety. Denies: homicidal thoughts, suicidal thoughts Past Medical History Past Medical History: GERD/Reflux Additional Past Medical History / Comment(s): has abd. hernia that will be having surgery on History of Any Multi-Drug Resistant Organisms: None Reported Past Surgical History: Section, Cholecystectomy, Tubal Ligation Additional Past Surgical History / Comment(s): IUI, LAPAROSCOPY WITH FIM BROPLASTY, LAPARSCOPY WITH INTERNAL ADHESIONS. 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 Past Anesthesia/Blood Transfusion Reactions: Postoperative Nausea & Vomiting (PONV) Past Psychological History: Anxiety Smoking Status: Never smoker Past Alcohol Use History: None Reported Past Drug Use History: None Reported - Past Family History Father Family Medical History: Myocardial Infarction ([place]) Mother Family Medical History: Myocardial Infarction ([place]) General Exam Limitations: no limitations General appearance: alert, in no apparent distress Head exam: Present: atraumatic Eye exam: Present: normal appearance Neck exam: Present: normal inspection Respiratory exam: Present: normal lung sounds bilaterally Cardiovascular Exam: Present: regular rate, normal rhythm, normal heart sounds. Absent: bradycardia, tachycardia, irregular rhythm GI/Abdominal exam: Present: soft. Absent: tenderness Extremities exam: Present: normal inspection. Absent: calf tenderness Neurological exam: Present: alert Psychiatric exam: Present: normal affect, normal mood Skin exam: Present: normal color Course Vital Signs 12/10/21 13:25 Temperature 98.2 F Pulse Rate 82 Respiratory 16 Rate Blood Pressure 120/77 O2 Sat by Pulse 99 Oximetry EKG Findings - EKG Comments: EKG Findings:: Sinus rhythm with rate of 85. NM 164. QRS 92. QT 343. QTC 386. Normal axis. Normal QRS. No acute ST change. Medical Decision Making - Medical Decision Making Patient seen by mental health services who agrees with plan with discharge. Mobile crisis will follow up with patient tomorrow. - Lab Data Lab Results 12/10/21 12/10/21 Range/Units 13:30 13:30 Urine Color Yellow Urine Appearance Cloudy H (Clear) Urine pH 6.5 (5.0-8.0) Ur Specific Ald[place] 1.018 (1.001-1.035) Urine Protein Negative (Negative) Urine Glucose (UA) Negative (Negative) Urine Ketones Negative (Negative) Urine Blood Trace H (Negative) Urine Nitrite Negative (Negative) Urine Bilirubin Negative (Negative) Urine Urobilinogen <2.0 (<2.0) mg/dL Ur Leukocyte Esterase Large H (Negative) Urine RBC 5 (0-5) /hpf Urine WBC 99 H (0-5) /hpf Urine WBC Clumps Rare H (None) /hpf Ur Squamous Epith Cells 6 H (0-4) /hpf Amorphous Sediment Rare H (None) /hpf Urine Bacteria Rare H (None) /hpf Urine Mucus Rare H (None) /hpf Urine HCG, Qual Not Detected (Not Detectd) Urine Opiates Screen Not Detected (NotDetected) Ur Oxycodone Screen Not Detected (NotDetected) Urine Methadone Screen Not Detected (NotDetected) Ur Propoxyphene Screen Not Detected (NotDetected) Ur Barbiturates Screen Not Detected (NotDetected) U Tricyclic Antidepress Not Detected (NotDetected) Ur Phencyclidine Scrn Not Detected (NotDetected) Ur Amphetamines Screen Not Detected (NotDetected) U Methamphetamines Scrn Not Detected (NotDetected) U Benzodiazepines Scrn Not Detected (NotDetected) Urine Cocaine Screen Not Detected (NotDetected) U Marijuana (THC) Screen Not Detected (NotDetected) Disposition Clinical Impression: Acute anxiety Disposition: HOME SELF-CARE Condition: Stable Instructions (If sedation given, give patient instructions): Generalized Anxiety Disorder (ED) Additional Instructions: Please follow-up tomorrow with crisis unit. Please follow-up with primary care physician in the next couple days for recheck. Return for thoughts of self- harm, worsening or changing symptoms or other concerns. Is patient prescribed a controlled substance at d/c from ED?: No Referrals: Roberto Espinoza MD [Primary Care Provider] - 1-2 days Time of Disposition: 18:06
[2021-12-10 14:37] LABS: Amorphous Sediment,Urine Rare /hpf; Appearance,Urine Cloudy (Clear); Bacteria,Urine Rare /hpf; Bilirubin,Urine Negative (Negative); Blood,Urine Trace (Negative); Color,Urine Yellow; Glucose,Urine (UA) Negative (Negative); Ketones,Urine Negative (Negative); Leukocyte Esterase,Urine Large (Negative); Mucus,Urine Rare /hpf; Nitrite,Urine Negative (Negative); PH, Urine 6.5 (5.0-8.0); Protein,Urine Negative (Negative); RBC,Urine 5 /hpf (0-5); Specific Gravity,Urine 1.018 (1.001-1.035); Squamous Epithelial Cell,Urine 6 /hpf (0-4); Urobilinogen,Urine <2.0 mg/dL (<2.0); WBC,Urine 99 /hpf (0-5)
[2021-12-10 14:52] LABS: Amphetamine Screen,Urine Not Detected (NotDetected); Barbiturate Screen,Urine Not Detected (NotDetected); Benzodiazepines Screen,Urine Not Detected (NotDetected); Cocaine Screen,Urine Not Detected (NotDetected); Methadone Screen, Urine Not Detected (NotDetected); Opiate Screen,Urine Not Detected (NotDetected); Oxycodone Screen, Urine Not Detected (NotDetected); Phencyclidine Screen,Urine Not Detected (NotDetected); Tricyclic Antidepressant,Urine Not Detected (NotDetected); Urn Cannabinoid Scrn Not Detected (NotDetected)
[2021-12-10] MEDS ORDERED: LORazepam 1 MG TAB PO STA (18:06)
[2021-12-10 18:22] VITALS: BP 122/78; PULSE 78; RESP 18; TEMP 98.3
== END 2021-12-10 18:21 | disposition home or self-care (01) ==
LOC: EC 12:19
DX: F41.9 Anxiety disorder, unspecified (principal); Z88.2 Allergy status to sulfonamides; Z88.5 Allergy status to narcotic agent; Z88.6 Allergy status to analgesic agent
CPT/HCPCS: 80306; 81001; 81025; 82075; 87086; 93005; 99285

== ENCOUNTER 2021-12-30 15:26 | Emergency (ER) | payer OTHER ==
[2021-12-30 15:36] VITALS: BP 120/85; RESP 16; TEMP 98
[2021-12-30 18:54] VITALS: PULSE 74
[2021-12-30 19:03] LABS: Basophils # (A) 0.1 k/uL (0-0.2); Basophils % (A) 1 %; Eosinophils # (A) 0.1 k/uL (0-0.7); Eosinophils % (A) 2 %; HCT 40.4 % (34.0-46.0); HGB 13.2 gm/dL (11.4-16.0); Lymphocytes # (A) 2.7 k/uL (1.0-4.8); Lymphocytes % (A) 36 %; MCH 28.9 pg (25.0-35.0); MCHC 32.6 g/dL (31.0-37.0); MCV 88.7 fL (80.0-100.0); Mean Platelet Volume 6.7; Monocytes # (A) 0.5 k/uL (0-1.0); Monocytes % (A) 6 %; Neutrophils # (A) 4.2 k/uL (1.3-7.7); Neutrophils % (A) 54 %; Platelet Count 308 k/uL (150-450); RBC 4.55 m/uL (3.80-5.40); RDW 12.5 % (11.5-15.5); WBC 7.7 k/uL (3.8-10.6)
[2021-12-30 19:11] LABS: Partial Thromboplastin Time 24.2 sec (22.0-30.0)
[2021-12-30 19:14] LABS: ALT 15 U/L (4-34); AST 21 U/L (14-36); African American GFR (CKD) >90 (>60 ml/min/1.73 sqM); Albumin 4.7 g/dL (3.5-5.0); Alkaline Phosphatase 75 U/L (38-126); Anion Gap 10 mmol/L; Blood Urea Nitrogen 13 mg/dL (7-17); Calcium 9.7 mg/dL (8.4-10.2); Carbon Dioxide 26 mmol/L (22-30); Chloride 102 mmol/L (98-107); Glucose 116 mg/dL (74-99); Lipase 67 U/L (23-300); Non-African American GFR(CKD) >90 (>60 ml/min/1.73 sqM); Potassium 3.8 mmol/L (3.5-5.1); Sodium 138 mmol/L (137-145); Total Protein 7.7 g/dL (6.3-8.2)
--- NOTE | 2021-12-30 19:46 | XR ---
EXAMINATION TYPE: XR chest 2V DATE OF EXAM: 12/30/2021 COMPARISON: 08/24/2021 HISTORY: Chest pain TECHNIQUE: FINDINGS: Heart and mediastinum are normal. Lungs are clear. Diaphragm is normal. Bony thorax appears normal. IMPRESSION: Normal chest. No change.
--- NOTE | 2021-12-30 21:09 | ED ---
General Adult HPI - General Chief complaint: Chest Pain Stated complaint: Chest Pain Time Seen by Provider: 12/30/21 18:29 Source: patient, RN notes reviewed, old records reviewed Mode of arrival: wheelchair Limitations: no limitations - History of Present Illness Initial comments: 41 -year-old female presenting with anxiety, and chest pain. Patient's states that she's been having some arguments with her . She has been seeing [facility] regarding her anxiety and depression. She's not suicidal. She states the chest pain comes when she is having an argument with her . She does feel safe at home. She has an appointment to see a psychiatrist on Tuesday regarding possible medications. She is currently started on Wellbutrin 2 days prior. - Related Data Home Medications Medication Instructions Recorded Confirmed Ascorbic Acid [Vitamin C] 500 mg PO DAILY 10/14/21 10/14/21 Previous Rx's Medication Instructions Recorded Melatonin 3 mg PO HS #15 tablet 10/10/21 Paliperidone IM [Invega Sustenna] 156 mg IM QMONTHLY #1 each 10/16/21 Paliperidone [Invega] 9 mg PO DAILY 6 Days 10/16/21 diphenhydrAMINE [Benadryl] 25 mg PO HS PRN #20 capsule 12/08/21 Allergies Allergy/AdvReac Type Severity Reaction Status Date / Time ciprofloxacin [From Cipro] Allergy Swelling Verified 12/30/21 15:36 ciprofloxacin HCl Allergy Swelling Verified 12/30/21 15:36 [From Cipro] Sulfa (Sulfonamide Allergy Rash/Hives Verified 12/30/21 15:36 Antibiotics) Review of Systems ROS Statement: Those systems with pertinent positive or pertinent negative responses have been documented in the HPI. ROS Other: All systems not noted in ROS Statement are negative. Past Medical History Past Medical History: GERD/Reflux Additional Past Medical History / Comment(s): has abd. hernia that will be having surgery on History of Any Multi-Drug Resistant Organisms: None Reported Past Surgical History: Section, Cholecystectomy, Tubal Ligation Additional Past Surgical History / Comment(s): IUI, LAPAROSCOPY WITH FIMBROPLASTY, LAPARSCOPY WITH INTERNAL ADHESIONS. 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 Past Anesthesia/Blood Transfusion Reactions: Postoperative Nausea & Vomiting (PONV) Past Psychological History: Anxiety Smoking Status: Never smoker Past Alcohol Use History: None Reported Past Drug Use History: None Reported - Past Family History Father Family Medical History: Myocardial Infarction ([place]) Mother Family Medical History: Myocardial Infarction ([place]) General Exam Limitations: no limitations General appearance: alert, in no apparent distress Head exam: Present: atraumatic, normocephalic Eye exam: Present: normal appearance, PERRL ENT exam: Present: normal exam Neck exam: Present: normal inspection. Absent: tenderness, meningismus Respiratory exam: Present: normal lung sounds bilaterally. Absent: respiratory distress, wheezes Cardiovascular Exam: Present: regular rate, normal rhythm GI/Abdominal exam: Present: soft. Absent: distended, tenderness, guarding Extremities exam: Present: normal inspection, normal capillary refill. Absent: pedal edema Neurological exam: Present: alert, oriented X3, CN II-XII intact. Absent: motor sensory deficit Psychiatric exam: Present: depressed, flat affect. Absent: suicidal ideation Skin exam: Present: warm, dry, intact. Absent: cyanosis, diaphoretic Course Vital Signs 12/30/21 12/30/21 15:34 18:48 Temperature 98 F Pulse Rate 85 Pulse Rate [ 74 Stator Tester ] Respiratory 16 Rate Blood Pressure 120/85 O2 Sat by Pulse 98 Oximetry EKG Findings - EKG Comments: EKG Findings:: EKG sinus rhythm, rate of 89, NC interval 175, QRS duration 89, QTC [address] segment elevation. Medical Decision Making - Medical Decision Making 41-year-old female presenting with anxiety and depression. Patient is not suicidal. She did voice some chest pain associated with her symptoms. I did obtain EKG, chest x-ray, laboratory testing. This workup is negative. I discussed the possibility of being evaluated by the EPS nurse and the patient declines at this time. She does not voice any suicidal thoughts or or plan. She states she has an appointment with her psychiatrist on Tuesday. She's given strict return parameters. - Lab Data Result diagrams: 12/30/21 18:46 12/30/21 18:46 Lab Results 12/30/21 12/30/21 12/30/21 Range/Units 18:46 18:46 18:46 WBC 7.7 (3.8-10.6) k/uL RBC 4.55 (3.80-5.40) m/uL Hgb 13.2 (11.4-16.0) gm/dL Hct 40.4 (34.0-46.0) % MCV 88.7 (80.0-100.0) fL MCH 28.9 (25.0-35.0) pg MCHC 32.6 (31.0-37.0) g/dL RDW 12.5 (11.5-15.5) % Plt Count 308 (150-450) k/uL MPV 6.7 Neutrophils % 54 % Lymphocytes % 36 % Monocytes % 6 % Eosinophils % 2 % Basophils % 1 % Neutrophils # 4.2 (1.3-7.7) k/uL Lymphocytes # 2.7 (1.0-4.8) k/uL Monocytes # 0.5 (0-1.0) k/uL Eosinophils # 0.1 (0-0.7) k/uL Basophils # 0.1 (0-0.2) k/uL PT 11.0 (9.0-12.0) sec INR 1.0 (<1.2) APTT 24.2 (22.0-30.0) sec Sodium 138 (137-145) mmol/L Potassium 3.8 (3.5-5.1) mmol/L Chloride 102 (98-107) mmol/L Carbon Dioxide 26 (22-30) mmol/L Anion Gap 10 mmol/L BUN 13 (7-17) mg/dL Creatinine 0.57 (0.52-1.04) mg/dL Est GFR (CKD-EPI)AfAm >90 (>60 ml/min/1.73 sqM) Est GFR (CKD-EPI)NonAf >90 (>60 ml/min/1.73 sqM) Glucose 116 H (74-99) mg/dL Calcium 9.7 (8.4-10.2) mg/dL Magnesium 2.0 (1.6-2.3) mg/dL Total Bilirubin 1.0 (0.2-1.3) mg/dL AST 21 (14-36) U/L ALT 15 (4-34) U/L Alkaline Phosphatase 75 (38-126) U/L Troponin I (0.000-0.034) ng/mL NT-Pro-B Natriuret Pep pg/mL Total Protein 7.7 (6.3-8.2) g/dL Albumin 4.7 (3.5-5.0) g/dL Lipase 67 (23-300) U/L 12/30/21 12/30/21 Range/Units 18:46 18:46 WBC (3.8-10.6) k/uL RBC (3.80-5.40) m/uL Hgb (11.4-16.0) gm/dL Hct (34.0-46.0) % MCV (80.0-100.0) fL MCH (25.0-35.0) pg MCHC (31.0-37.0) g/dL RDW (11.5-15.5) % Plt Count (150-450) k/uL MPV Neutrophils % % Lymphocytes % % Monocytes % % Eosinophils % % Basophils % % Neutrophils # (1.3-7.7) k/uL Lymphocytes # (1.0-4.8) k/uL Monocytes # (0-1.0) k/uL Eosinophils # (0-0.7) k/uL Basophils # (0-0.2) k/uL PT (9.0-12.0) sec INR (<1.2) APTT (22.0-30.0) sec Sodium (137-145) mmol/L Potassium (3.5-5.1) mmol/L Chloride (98-107) mmol/L Carbon Dioxide (22-30) mmol/L Anion Gap mmol/L BUN (7-17) mg/dL Creatinine (0.52-1.04) mg/dL Est GFR (CKD-EPI)AfAm (>60 ml/min/1.73 sqM) Est GFR (CKD-EPI)NonAf (>60 ml/min/1.73 sqM) Glucose (74-99) mg/dL Calcium (8.4-10.2) mg/dL Magnesium (1.6-2.3) mg/dL Total Bilirubin (0.2-1.3) mg/dL AST (14-36) U/L ALT (4-34) U/L Alkaline Phosphatase (38-126) U/L Troponin I <0.012 (0.000-0.034) ng/mL NT-Pro-B Natriuret Pep 34 pg/mL Total Protein (6.3-8.2) g/dL Albumin (3.5-5.0) g/dL Lipase (23-300) U/L Disposition Clinical Impression: Anxiety Disposition: HOME SELF-CARE Condition: Fair Instructions (If sedation given, give patient instructions): Anxiety (ED) Is patient prescribed a controlled substance at d/c from ED?: No Referrals: Roberto Espinoza MD [Primary Care Provider] - 1-2 days Time of Disposition: 21:09
== END 2021-12-30 21:36 | disposition home or self-care (01) ==
LOC: EC 15:26
DX: F41.9 Anxiety disorder, unspecified (principal); K21.9 Gastro-esophageal reflux disease without esophagitis; Z88.1 Allergy status to other antibiotic agents; Z88.2 Allergy status to sulfonamides; Z79.899 Other long term (current) drug therapy
CPT/HCPCS: 36415; 71046; 80053; 83690; 83735; 83880; 84484; 85025; 85610; 85730; 93005; 99285

== ENCOUNTER 2023-01-01 15:16 | Inpatient (IN) | payer OTHER, MEDICARE ==
--- NOTE | 2023-01-01 15:40 | ED ---
General Adult HPI - General Chief complaint: Psychiatric Symptoms Stated complaint: Mental health eval Time Seen by Provider: 01/01/23 15:27 Source: patient, EMS, RN notes reviewed Mode of arrival: EMS Limitations: no limitations - History of Present Illness Initial comments: 42-year-old female presents to the emergency department for psychiatric evalua tion. She states that she has had increased anxiety and depression recently. She states that her is telling her that she has to listen to her 2 and 3-year-old children. She reports hearing voices that are not there. She denies suicidal ideation, homicidal ideation. She states that she has previously been hospitalized for her mental health. She is not currently taking any medications for her mental health. - Related Data Home Medications Medication Instructions Recorded Confirmed Semaglutide [Wegovy] 1.7 mg SQ LANDAVERDE 01/01/23 01/01/23 Triamcinolone 0.1% Cream [Kenalog 1 applicatio TOPICAL BID PRN 01/01/23 01/01/23 0.1% Cream] Allergies Allergy/AdvReac Type Severity Reaction Status Date / Time ciprofloxacin [From Cipro] Allergy Swelling Verified 01/01/23 20:21 ciprofloxacin HCl Allergy Swelling Verified 01/01/23 20:21 [From Cipro] Sulfa (Sulfonamide Allergy Rash/Hives Verified 01/01/23 20:21 Antibiotics) Review of Systems ROS Statement: Those systems with pertinent positive or pertinent negative responses have been documented in the HPI. ROS Other: All systems not noted in ROS Statement are negative. Past Medical History Past Medical History: GERD/Reflux Additional Past Medical History / Comment(s): has abd. hernia that will be having surgery on History of Any Multi-Drug Resistant Organisms: None Reported Past Surgical History: Section, Cholecystectomy, Tubal Ligation Additional Past Surgical History / Comment(s): IUI, LAPAROSCOPY WITH FIMBROPLASTY, LAPARSCOPY WITH INTERNAL ADHESIONS. 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 Past Anesthesia/Blood Transfusion Reactions: Postoperative Nausea & Vomiting (PONV) Past Psychological History: Anxiety Smoking Status: Never smoker Past Alcohol Use History: None Reported Past Drug Use History: None Reported - Past Family History Father Family Medical History: Myocardial Infarction ([place]) Mother Family Medical History: Myocardial Infarction ([place]) General Exam Limitations: no limitations General appearance: alert, in no apparent distress, anxious Head exam: Present: atraumatic, normocephalic, normal inspection Eye exam: Present: normal appearance, PERRL, EOMI. Absent: scleral icterus, conjunctival injection, periorbital swelling ENT exam: Present: normal exam, mucous membranes moist Neck exam: Present: normal inspection. Absent: tenderness, meningismus, lymphadenopathy Respiratory exam: Present: normal lung sounds bilaterally. Absent: respiratory distress, wheezes, rales, rhonchi, stridor Cardiovascular Exam: Present: regular rate, normal rhythm, normal heart sounds. Absent: systolic murmur, diastolic murmur, rubs, gallop, clicks GI/Abdominal exam: Present: soft, normal bowel sounds. Absent: distended, tenderness, guarding, rebound, rigid Extremities exam: Present: normal inspection, full ROM, normal capillary refill. Absent: tenderness, pedal edema, joint swelling, calf tenderness Back exam: Present: normal inspection Neurological exam: Present: alert, oriented X3 Psychiatric exam: Present: normal affect, normal mood Skin exam: Present: warm, dry, intact, normal color. Absent: rash Course Vital Signs 01/01/23 15:18 Temperature 98.7 F Pulse Rate 105 H Respiratory 18 Rate Blood Pressure 134/95 O2 Sat by Pulse 98 Oximetry Medical Decision Making - Medical Decision Making Was pt. sent in by a medical professional or institution ([facility], SPECIMEN PROCESSOR, urgent care, hospital, or shelter...) When possible be specific @ -No Did you speak to anyone other than the patient for history (EMS, parent, family, police, friend...)? What history was obtained from this source @ -No Did you review nursing and triage notes (agree or disagree)? Why? @ -I reviewed and agree with nursing and triage notes Were old charts reviewed (outside hosp., previous admission, EMS record, old EKG, old radiological studies, urgent care reports/EKG's, shelter records)? Report findings @ -No old charts were reviewed Differential Diagnosis (chest pain, altered mental status, abdominal pain women, abdominal pain men, vaginal bleeding, weakness, fever, dyspnea, syncope, headache, dizziness, GI bleed, back pain, seizure, CVA, palpatations, mental health, musculoskeletal)? @ -Differential Mental Health Depression, anxiety, bipolar, psychosis, schizophrenia, borderline personality, situational depression, adjustment disorder, behavioral disorder, brain tumor, malingering, substance abuse, encephalopathy, medication reaction, dementia, hypothyroidism, degenerative neurologic disorder, lupus.... This is not meant to be all-inclusive list EKG interpreted by me (3pts min.). @ -None X-rays interpreted by me (1pt min.). @ -None done CT interpreted by me (1pt min.). @ -None done U/S interpreted by me (1pt. min.). @ -None done What testing was considered but not performed or refused? (CT, X-rays, U/S, labs)? Why? @ -None What meds were considered but not given or refused? Why? @ -None Did you discuss the management of the patient with other professionals (professionals i.e. , PA, SPECIMEN PROCESSOR, lab, RT, psych nurse, high school social science teacher, mobile patrol officer, teacher, development officer, case management rn)? Give summary @ -No Was smoking cessation discussed for >3mins.? @ -No Was critical care preformed (if so, how long)? @ -No Were there social determinants of health that impacted care today? How? (Homelessness, low income, unemployed, alcoholism, drug addiction, transportation, low edu. Level, literacy, decrease access to med. care, care home, rehab)? @ -No Was there de-escalation of care discussed even if they declined (Discuss DNR or withdrawal of care, Hospice)? DNR status @ -No What co-morbidities impacted this encounter? (DM, HTN, Smoking, COPD, CAD, Cancer, CVA, ARF, Chemo, Hep., AIDS, mental health diagnosis, sleep apnea, morbid obesity)? @ -None Was patient admitted / discharged? Hospital course, mention meds given and route, prescriptions, significant lab abnormalities, going to OR and other p ertinent info. @ -Admitted. Patient presented emergency department with chief complaint of needing a psychiatric evaluation. Upon evaluation, patient is to be hearing voices that are not present. Patient denies suicidal, homicidal ideation. Patient evaluated by EPS nurse and inpatient admission was recommended. Undiagnosed new problem with uncertain prognosis? @ -No Drug Therapy requiring intensive monitoring for toxicity (Heparin, Nitro, Insulin, Cardizem)? @ -No Were any procedures done? @ -No Diagnosis/symptom? @ -Hallucinations Acute, or Chronic, or Acute on Chronic? @ -Acute Uncomplicated (without systemic symptoms) or Complicated (systemic symptoms)? @ -default Side effects of treatment? @ -No Exacerbation, Progression, or Severe Exacerbation? @ -No Poses a threat to life or bodily function? How? (Chest pain, [place], [place], pneumonia, PE, COPD, DKA, ARF, appy, cholecystitis, CVA, Diverticulitis, Homicidal, Suicidal, threat to staff... and all critical care pts) @ -No - Lab Data Lab Results 01/01/23 01/01/23 Range/Units 18:13 21:58 Urine Opiates Screen Not Detected (NotDetected) Ur Oxycodone Screen Not Detected (NotDetected) Urine Methadone Screen Not Detected (NotDetected) Ur Propoxyphene Screen Not Detected (NotDetected) Ur Barbiturates Screen Not Detected (NotDetected) U Tricyclic Antidepress Not Detected (NotDetected) Ur Phencyclidine Scrn Not Detected (NotDetected) Ur Amphetamines Screen Not Detected (NotDetected) U Methamphetamines Scrn Not Detected (NotDetected) U Benzodiazepines Scrn Not Detected (NotDetected) Urine Cocaine Screen Not Detected (NotDetected) U Marijuana (THC) Screen Not Detected (NotDetected) Coronavirus (PCR) Not Detected (Not Detectd) Disposition Clinical Impression: Auditory hallucinations Disposition: ADMITTED IP TO THIS [facility] Condition: Stable
[2023-01-01 18:35] LABS: Amphetamine Screen,Urine Not Detected (NotDetected); Barbiturate Screen,Urine Not Detected (NotDetected); Benzodiazepines Screen,Urine Not Detected (NotDetected); Cocaine Screen,Urine Not Detected (NotDetected); Methadone Screen, Urine Not Detected (NotDetected); Opiate Screen,Urine Not Detected (NotDetected); Oxycodone Screen, Urine Not Detected (NotDetected); Phencyclidine Screen,Urine Not Detected (NotDetected); Tricyclic Antidepressant,Urine Not Detected (NotDetected); Urn Cannabinoid Scrn Not Detected (NotDetected)
[2023-01-01] MEDS ORDERED: diphenhydrAMINE 25 MG CAP PO PRN (23:43)
[2023-01-01] MEDS ORDERED: HALOPERIDOL LACTATE 5 MG/ML 1 ML VIAL IM PRN (23:43)
[2023-01-01] MEDS ORDERED: MAGNESIUM HYDROXIDE 2,400 MG/30 ML CUP PO PRN (23:43)
[2023-01-01] MEDS ORDERED: IBUPROFEN 600 MG TAB PO PRN (23:43)
[2023-01-01] MEDS ORDERED: haloperidoL 5 MG TAB PO PRN (23:43)
[2023-01-01] MEDS ORDERED: LORazepam 2 MG/ML INJ IM PRN (23:51)
[2023-01-02 04:42] LABS: Amorphous Sediment,Urine Few /hpf; Appearance,Urine Turbid (Clear); Bilirubin,Urine Negative (Negative); Blood,Urine Negative (Negative); Color,Urine Light Red; Glucose,Urine (UA) Negative (Negative); Ketones,Urine 1+ (Negative); Leukocyte Esterase,Urine Small (Negative); Mucus,Urine Many /hpf; Nitrite,Urine Negative (Negative); PH, Urine 5.5 (5.0-8.0); Protein,Urine 1+ (Negative); Specific Gravity,Urine 1.027 (1.001-1.035); Urobilinogen,Urine <2.0 mg/dL (<2.0); WBC,Urine 3 /hpf (0-5)
[2023-01-02 13:13] LABS: Basophils % (A) 1 %; Eosinophils # (A) 0.1 k/uL (0-0.7); Eosinophils % (A) 1 %; HCT 37.7 % (34.0-46.0); HGB 13.5 gm/dL (11.4-16.0); Lymphocytes # (A) 2.2 k/uL (1.0-4.8); Lymphocytes % (A) 24 %; MCH 30.4 pg (25.0-35.0); MCHC 35.8 g/dL (31.0-37.0); MCV 84.9 fL (80.0-100.0); Mean Platelet Volume 8.3; Monocytes # (A) 0.7 k/uL (0-1.0); Monocytes % (A) 8 %; Neutrophils # (A) 5.9 k/uL (1.3-7.7); Neutrophils % (A) 66 %; Platelet Count 286 k/uL (150-450); RBC 4.44 m/uL (3.80-5.40); RDW 13.3 % (11.5-15.5); WBC 8.9 k/uL (3.8-10.6)
[2023-01-02 13:29] LABS: ALT 45 U/L (4-34); AST 34 U/L (14-36); African American GFR (CKD) >90 (>60 ml/min/1.73 sqM); Albumin 4.9 g/dL (3.5-5.0); Alkaline Phosphatase 63 U/L (38-126); Anion Gap 12 mmol/L; Bilirubin, Delta 0.3 mg/dL (0.0-0.2); Bilirubin,Unconjugated 1.2 mg/dL (0.0-1.1); Blood Urea Nitrogen 12 mg/dL (7-17); Calcium 9.3 mg/dL (8.4-10.2); Carbon Dioxide 22 mmol/L (22-30); Chloride 107 mmol/L (98-107); Glucose 114 mg/dL (74-99); Non-African American GFR(CKD) >90 (>60 ml/min/1.73 sqM); Potassium 3.5 mmol/L (3.5-5.1); Sodium 141 mmol/L (137-145); Total Bilirubin 1.5 mg/dL (0.2-1.3); Total Protein 8.1 g/dL (6.3-8.2)
--- NOTE | 2023-01-02 14:50 | P.CONS ---
History of Present Illness - Reason for Consult Consult date: 01/02/23 - History of Present Illness This is a 42-year-old female with medical history of acid reflux, abdominal hernia with surgical repair, and also has a gynecological history, has anxiety denies any smoking history and reports occasional alcohol use. She presents to Hospital for psychiatric evaluation reporting increased anxiety and depression. Patient describes feeling overwhelmed and not having a social life for herself a nd also her and her together without her children. She feels their family support and also her are overbearing and tell her what to do. Patient stays home with her 2 and 3 year old children and reports rarely getting any alone time for herself. Per medical record, patient reports hearing voices that she feels are not there. She is denying any suicidal or homicidal ideations. Patient has been hospitalized previously for her mental health in the past. During assessment patient is vague not wanting to elaborate further when asked about hearing voices. Patient does appear to be staring off and looking up at the ceiling during examination. She usually sees Dr. Espinoza and discussed with patient if she prefers to speak to her PCP he is back tomorrow. CBC is normal. Glucose is 114, total bili elevated at 1.5, ALT of 45. Urinalysis is turbid with 1+ protein 1+ ketones and small leukocyte esterase. Urine for toxicology is negative Covid is negative. REVIEW OF SYSTEMS: CONSTITUTIONAL: No fever, no malaise, no fatigue. HEENT: No recent visual problems or hearing problems. Denied any sore throat. CARDIOVASCULAR: No chest pain, orthopnea, PND, no palpitations, no syncope. PULMONARY: No shortness of breath, no cough, no hemoptysis. GASTROINTESTINAL: No diarrhea, no nausea, no vomiting, no abdominal pain. NEUROLOGICAL: No headaches, no weakness, no numbness. HEMATOLOGICAL: Denies any bleeding or petechiae. GENITOURINARY: Denies any burning micturition, frequency, or urgency. MUSCULOSKELETAL/RHEUMATOLOGICAL: Denies any joint pain, swelling, or any muscle pain. ENDOCRINE: Denies any polyuria or polydipsia. The rest of the 14-point review of systems is negative. PHYSICAL EXAMINATION: GENERAL: The patient is alert and oriented x3, not in any acute distress. Well developed, well nourished. HEENT: Pupils are round and equally reacting to light. EOMI. No scleral icterus. No conjunctival pallor. Normocephalic, atraumatic. No pharyngeal erythema. No thyromegaly. CARDIOVASCULAR: S1 and S2 present. No murmurs, rubs, or gallops. PULMONARY: Chest is clear to auscultation, no wheezing or crackles. ABDOMEN: Soft, nontender, nondistended, normoactive bowel sounds. No palpable organomegaly. MUSCULOSKELETAL: No joint swelling or deformity. EXTREMITIES: No cyanosis, clubbing, or pedal edema. NEUROLOGICAL: Gross neurological examination did not reveal any focal deficits. SKIN: No rashes. Assessment Anxiety and depression Psychoses with auditory hallucinations History of gastroesophageal reflux disease Abdominal hernia with surgical repair Hyperbilirubinemia GI prophylaxis Early ambulation Full Code Plan Resume appropriate home medications Follow up Bilirubin level Labs and medical history reviewed Pending psychiatric evaluation Thank you for this consultation we will follow along as needed this hospital stay The impression and plan of care has been dictated by Melissa Israel, Nurse Practitioner as directed. Dr. Anjelica MD I have performed a history and physical examination and medical decision making of this patient, discussed the same with the dictator, and agree with the dictators assessment and plan as written, documented as a scribe. Based on total visit time, I have performed more than 50% of this visit. Past Medical History Past Medical History: GERD/Reflux Additional Past Medical History / Comment(s): has abd. hernia that will be having surgery on History of Any Multi-Drug Resistant Organisms: None Reported Past Surgical History: Section, Cholecystectomy, Hernia Repair, Tubal Ligation Additional Past Surgical History / Comment(s): IUI, LAPAROSCOPY WITH FIMBROPLASTY, LAPARSCOPY WITH INTERNAL ADHESIONS. 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 Past Anesthesia/Blood Transfusion Reactions: Postoperative Nausea & Vomiting (PONV) Past Psychological History: Anxiety Smoking Status: Never smoker Past Alcohol Use History: Occasional Past Drug Use History: None Reported - Past Family History Father Family Medical History: Myocardial Infarction ([place]) Mother Family Medical History: Myocardial Infarction ([place]) Medications and Allergies Home Medications Medication Instructions Recorded Confirmed Type Semaglutide [Wegovy] 1.7 mg SQ LANDAVERDE 01/01/23 01/01/23 History Triamcinolone 0.1% Cream [Kenalog 1 applicatio TOPICAL BID PRN 01/01/23 01/01/23 History 0.1% Cream] Allergies Allergy/AdvReac Type Severity Reaction Status Date / Time ciprofloxacin [From Cipro] Allergy Swelling Verified 01/01/23 20:21 ciprofloxacin HCl Allergy Swelling Verified 01/01/23 20:21 [From Cipro] Sulfa (Sulfonamide Allergy Rash/Hives Verified 01/01/23 20:21 Antibiotics) Physical Exam Vitals: Vital Signs Temp Pulse Pulse Resp BP BP Pulse Ox 01/02/23 03:26 97.9 F 105 H 18 162/80 99 01/02/23 01:02 106 H 18 137/87 100 01/01/23 15:18 98.7 F 105 H 18 134/95 98 Intake and Output 01/01/23 01/02/23 01/02/23 22:59 06:59 14:59 Other: Weight 90.718 kg 90.2 kg 90.3 kg Results CBC & Chem 7: 01/02/23 12:00 01/02/23 12:00 Labs: Abnormal Lab Results - Last 24 Hours (Table) 01/01/23 01/02/23 Range/Units 18:13 12:00 Glucose 114 H (74-99) mg/dL Total Bilirubin 1.5 H (0.2-1.3) mg/dL Unconjugated Bilirubin 1.2 H (0.0-1.1) mg/dL Delta Bilirubin 0.3 H (0.0-0.2) mg/dL ALT 45 H (4-34) U/L Urine Appearance Turbid H (Clear) Urine Protein 1+ H (Negative) Urine Ketones 1+ H (Negative) Ur Leukocyte Esterase Small H (Negative) Amorphous Sediment Few H (None) /hpf Urine Mucus Many H (None) /hpf Assessment and Plan Time with Patient: Less than 30
--- NOTE | 2023-01-02 16:21 | P.HP ---
Psychiatric H&P - . H&P Date: 01/02/23 History & Physical: Allergies Allergy/AdvReac Type Severity Reaction Status Date / Time ciprofloxacin [From Cipro] Allergy Swelling Verified 01/01/23 20:21 ciprofloxacin HCl Allergy Swelling Verified 01/01/23 20:21 [From Cipro] Sulfa (Sulfonamide Allergy Rash/Hives Verified 01/01/23 20:21 Antibiotics) Vital Signs Temp 97.9 F 01/02/23 03:26 Pulse 105 H 01/02/23 03:26 Resp 18 01/02/23 03:26 BP 162/80 01/02/23 03:26 Pulse Ox 99 01/02/23 03:26 FiO2 Intake & Output 01/01/23 01/02/23 01/02/23 18:59 06:59 18:59 Weight 90.718 kg 90.2 kg 90.3 kg Laboratory Last Values WBC 8.9 k/uL (3.8-10.6) 01/02/23 12:00 RBC 4.44 m/uL (3.80-5.40) 01/02/23 12:00 Hgb 13.5 gm/dL (11.4-16.0) 01/02/23 12:00 Hct 37.7 % (34.0-46.0) 01/02/23 12:00 MCV 84.9 fL (80.0-100.0) 01/02/23 12:00 MCH 30.4 pg (25.0-35.0) 01/02/23 12:00 MCHC 35.8 g/dL (31.0-37.0) 01/02/23 12:00 RDW 13.3 % (11.5-15.5) 01/02/23 12:00 Plt Count 286 k/uL (150-450) 01/02/23 12:00 MPV 8.3 01/02/23 12:00 Neutrophils % 66 % 01/02/23 12:00 Lymphocytes % 24 % 01/02/23 12:00 Monocytes % 8 % 01/02/23 12:00 Eosinophils % 1 % 01/02/23 12:00 Basophils % 1 % 01/02/23 12:00 Neutrophils # 5.9 k/uL (1.3-7.7) 01/02/23 12:00 Lymphocytes # 2.2 k/uL (1.0-4.8) 01/02/23 12:00 Monocytes # 0.7 k/uL (0-1.0) 01/02/23 12:00 Eosinophils # 0.1 k/uL (0-0.7) 01/02/23 12:00 Basophils # 0.0 k/uL (0-0.2) 01/02/23 12:00 Sodium 141 mmol/L (137-145) 01/02/23 12:00 Potassium 3.5 mmol/L (3.5-5.1) 01/02/23 12:00 Chloride 107 mmol/L (98-107) 01/02/23 12:00 Carbon Dioxide 22 mmol/L (22-30) 01/02/23 12:00 Anion Gap 12 mmol/L 01/02/23 12:00 BUN 12 mg/dL (7-17) 01/02/23 12:00 Creatinine 0.62 mg/dL (0.52-1.04) 01/02/23 12:00 Est GFR (CKD-EPI)AfAm >90 (>60 ml/min/1.73 sqM) 01/02/23 12:00 Est GFR (CKD-EPI)NonAf >90 (>60 ml/min/1.73 sqM) 01/02/23 12:00 Glucose 114 mg/dL (74-99) H 01/02/23 12:00 Calcium 9.3 mg/dL (8.4-10.2) 01/02/23 12:00 Total Bilirubin 1.5 mg/dL (0.2-1.3) H 01/02/23 12:00 Conjugated Bilirubin 0.0 mg/dL (0.0-0.3) 01/02/23 12:00 Unconjugated Bilirubin 1.2 mg/dL (0.0-1.1) H 01/02/23 12:00 Delta Bilirubin 0.3 mg/dL (0.0-0.2) H 01/02/23 12:00 AST 34 U/L (14-36) 01/02/23 12:00 ALT 45 U/L (4-34) H 01/02/23 12:00 Alkaline Phosphatase 63 U/L (38-126) 01/02/23 12:00 Total Protein 8.1 g/dL (6.3-8.2) 01/02/23 12:00 Albumin 4.9 g/dL (3.5-5.0) 01/02/23 12:00 TSH Cancelled 01/02/23 12:00 Urine Color Light Red 01/01/23 18:13 Urine Appearance Turbid (Clear) H 01/01/23 18:13 Urine pH 5.5 (5.0-8.0) 01/01/23 18:13 Ur Specific Darby 1.027 (1.001-1.035) 01/01/23 18:13 Urine Protein 1+ (Negative) H 01/01/23 18:13 Urine Glucose (UA) Negative (Negative) 01/01/23 18:13 Urine Ketones 1+ (Negative) H 01/01/23 18:13 Urine Blood Negative (Negative) 01/01/23 18:13 Urine Nitrite Negative (Negative) 01/01/23 18:13 Urine Bilirubin Negative (Negative) 01/01/23 18:13 Urine Urobilinogen <2.0 mg/dL (<2.0) 01/01/23 18:13 Ur Leukocyte Esterase Small (Negative) H 01/01/23 18:13 Urine WBC 3 /hpf (0-5) 01/01/23 18:13 Amorphous Sediment Few /hpf (None) H 01/01/23 18:13 Urine Mucus Many /hpf (None) H 01/01/23 18:13 Urine HCG, Qual Not Detected (Not Detectd) 01/01/23 18:13 Urine Opiates Screen Not Detected (NotDetected) 01/01/23 18:13 Ur Oxycodone Screen Not Detected (NotDetected) 01/01/23 18:13 Urine Methadone Screen Not Detected (NotDetected) 01/01/23 18:13 Ur Propoxyphene Screen Not Detected (NotDetected) 01/01/23 18:13 Ur Barbiturates Screen Not Detected (NotDetected) 01/01/23 18:13 U Tricyclic Antidepress Not Detected (NotDetected) 01/01/23 18:13 Ur Phencyclidine Scrn Not Detected (NotDetected) 01/01/23 18:13 Ur Amphetamines Screen Not Detected (NotDetected) 01/01/23 18:13 U Methamphetamines Scrn Not Detected (NotDetected) 01/01/23 18:13 U Benzodiazepines Scrn Not Detected (NotDetected) 01/01/23 18:13 Urine Cocaine Screen Not Detected (NotDetected) 01/01/23 18:13 U Marijuana (THC) Screen Not Detected (NotDetected) 01/01/23 18:13 Coronavirus (PCR) Not Detected (Not Detectd) 01/01/23 21:58 01/02/23 15:22 42-year-old female presents to the emergency department for psychiatric evaluation. She states that she has had increased anxiety and depression recently. However when I talked to her she didn't emphasize anxiety but rambles softly in peculiar ways. When I went to see her she asked if she might go on use the bathroom. It didn't me almost a minute to figure out what she was saying because she talks of softly and asked his in peculiar way. I said that was fine but come right back and leave the door open 10 minutes later to go looking for her she had wandered off and was talking to one of the staff. Subjective: She states that her is telling her that she has to, " list en to her 2 and 3-year-old children." (I think this means that he noticed she wasn't paying attention to them and their needs because she was spacey and per She reports hearing voices that are not there. When I tried to clarify what she means by voices she gets soft spoken and can't seem to adjust that, she uses words in peculiar ways and says that the voices are giving her information about her true self but could not explain what she meant by that. She could not say whether the voices troubled her not whether they told her to do things or not whether they were her own voice or someone else. She denies suicidal ideation, homicidal ideation. She states that she has previously been hospitalized for her mental health. She is not currently taking any medications for her mental health. Substance use: denies any smoking history and reports occasional alcohol use. She presents to Hospital for psychiatric evaluation reporting increased anxiety and depression. Patient describes feeling overwhelmed and not having a social life for herself and also her and her together without her children. She feels their family support and also her are overbearing and tell her wha t to do. Patient stays home with her 2 and 3 year old children and reports rarely getting any alone time for herself. Per medical record, patient reports hearing voices that she feels are not there. She is denying any suicidal or homicidal ideations. Patient has been hospitalized previously for her mental health in the past. During assessment patient is vague not wanting to elaborate further when asked about hearing voices. Patient does appear to be staring off and looking up at the ceiling during examination. Past medications include: She acknowledges that she has been on multiple medication but when I gave a list of possibilities she said, "does sound possibly familiar." She could not tell me about any past hospitalizations but eluded to vaguely to things happening like that. I asked if she had been taking medicines recently and maybe stop them and got a vague answer of maybe a few months ago she might have. She does not want to take medicine at this time she thinks that she has simply undersocialized and needs time. Social history: The patient reports that her dad at 62 but she doesn't know why. Her parents when she was in high school. They have 2 children the patient and a younger brother ,she gets along well with her mother ,does not talk to her brother much. She is and has 2 children daughters 3 and 2. He works as a fire alarm person. She says she does not know she had a normal or early development. She finished high school no she lives with her and children in a house with finish she does not work outside the h ome she does not have friends or hobbies although she does make some crafts for around the house. Mental status exam: She could remember one of 3 objects after 3 minutes seems have a lot of trouble keeping her mind on anything issue task or questions. When her asked her the name the Libretto she made confabulatory, answers about not watching TV and being focused on the children so she does not know politics. When asked to name the Libretto she had no idea. When asked her to subtract 7 from 93 she could not and made excuses about being poor at math in school. She could subtract 7 from 10 I had her spell world forward and she did okay when I asked her to spell it backwards she did not even start. Cats and snakes she thought for a while and said their animals and then mumbled something about tales . When asked her how we should apply the saying the grass looks greener on the other side of the fence. She said "don't limit her options" this very abstract answer which doesn't fit with the fact that she can't remember basic information. Eye contact is poor she's a student softly to be hurting can't seem to quit gait and station is fine self-care is minimal she has a lot of trouble staying on topic. Assessment: This is hard to establish the patient has peculiar mix of cognitive function problems that seem more organic but she is so vague is hard to determine the nature of her possibly psychotic experiences and then she gives a great abstract answer to a proverb.. She denies having used any kind of drugs or substances that could explain the peculiar symptoms. And no question she needs to be in a safe in prior meant be observed protective and evaluated if she is clearly out of tune with what is going on around her and what is expected of her. Diagnosis: psychosis NOS I think she needs an antipsychotic it would he helpful to know what is been tried in the past if anything helped. And was side effects she had. Currently she refuses medication saying she just needs to socialize. I think it's okay to observe her for another day to see if being in this environment socializing and sleeping and needing if the symptoms start to clear and also to give us a chance to talk her into taking a medicine.
[2023-01-02] MEDS: LORazepam 1 MG TAB PO PRN (18:34)
[2023-01-03] MEDS: LORazepam 1 MG TAB PO PRN (07:55)
[2023-01-03] MEDS: ARIPiprazole 5 MG TAB PO SCH (12:10)
--- NOTE | 2023-01-03 13:23 | P.PN ---
Subjective Progress Note Date: 01/03/23 This is a 42-year-old female with medical history of acid reflux, abdominal hernia with surgical repair, and also has a gynecological history, has anxiety denies any smoking history and reports occasional alcohol use. She presents to Hospital for psychiatric evaluation reporting increased anxiety and depression. Patient describes feeling overwhelmed and not having a social life for herself and also her and her together without her children. She feels their family support and also her are overbearing and tell her what to do. Patient stays home with her 2 and 3 year old children and reports rarely getting any alone time for herself. Per medical record, patient reports hearing voices that she feels are not there. She is denying any suicidal or homicidal ideations. Patient has been hospitalized previously for her mental health in the past. During assessment patient is vague not wanting to elaborate further when asked about hearing voices. Patient does appear to be staring off and looking up at the ceiling during examination. She usually sees Dr. Espinoza and discussed with patient if she prefers to speak to her PCP he is back tomorrow. CBC is normal. Glucose is 114, total bili elevated at 1.5, ALT of 45. Urinalysis is turbid with 1+ protein 1+ ketones and small leukocyte esterase. Urine for toxicology is negative Covid is negative. Patient is seen today in follow-up on the mental health unit. She has been seen by psychiatry and medications have been adjusted. Blood pressure 134/80, heart rate 105, afebrile, pulse ox 99% on room air. Hemoglobin A1c 5.2. TSH 0.849. PHYSICAL EXAMINATION: GENERAL: The patient is alert and oriented x3, not in any acute distress. Well developed, well nourished. HEENT: Pupils are round and equally reacting to light. EOMI. No scleral icterus. No conjunctival pallor. Normocephalic, atraumatic. No pharyngeal erythema. No thyromegaly. CARDIOVASCULAR: S1 and S2 present. No murmurs, rubs, or gallops. PULMONARY: Chest is clear to auscultation, no wheezing or crackles. ABDOMEN: Soft, nontender, nondistended, normoactive bowel sounds. No palpable organomegaly. MUSCULOSKELETAL: No joint swelling or deformity. EXTREMITIES: No cyanosis, clubbing, or pedal edema. NEUROLOGICAL: Gross neurological examination did not reveal any focal deficits. SKIN: No rashes. Assessment Anxiety and depression Psychoses with auditory hallucinations History of gastroesophageal reflux disease Abdominal hernia with surgical repair Hyperbilirubinemia GI prophylaxis Early ambulation Full Code Plan Continue current plan per psychiatry At time of discharge, patient will follow-up in the office in one to 2 weeks. Impression and plan of care have been directed as dictated by the signing physician. Jackie Aguilar nurse practitioner acting as scribe for signing physician. Objective - Vital Signs Vital signs: Vital Signs Temp 97.9 F 01/02/23 03:26 Pulse 105 H 01/03/23 05:03 Resp 18 01/03/23 05:03 BP 134/80 01/03/23 05:03 Pulse Ox 99 01/03/23 05:03 FiO2 Intake & Output 01/02/23 01/03/23 01/03/23 18:59 06:59 18:59 Weight 90.3 kg - Labs CBC & Chem 7: 01/02/23 12:00 01/02/23 12:00 Labs: Abnormal Lab Results - Last 24 Hours (Table) 01/02/23 Range/Units 12:00 Glucose 114 H (74-99) mg/dL Total Bilirubin 1.5 H (0.2-1.3) mg/dL Unconjugated Bilirubin 1.2 H (0.0-1.1) mg/dL Delta Bilirubin 0.3 H (0.0-0.2) mg/dL ALT 45 H (4-34) U/L
--- NOTE | 2023-01-03 13:36 | P.PN ---
Progress Note - Text Progress Note Date: 01/03/23 Interval History: Patient was seen wandering the hallways and was directable and agreeable to sp eak with functional tester typewriters in the office. Patient was fairly persistent in speaking with functional tester typewriters in the office today. She appeared to have fairly poor insight and poor judgment. She spoke about not wanting to take medications and wanting to "see how things shoe turner". She states that the over the weekend doctor did not recommend medication for her. She spoke about having "bizarre thoughts" and also racing thoughts and intrusive thoughts as well however is fairly vague and minimize them. She did admit to having heard voices that were intrusive to her however when asked more about them she states that "they were just like my thoughts". She was agreeable to try Abilify today and trazodone at nighttime for poor sleep, appetite is fair. At this time patient denies any suicidal or homical ideations, intent or plan. Patient denies any current auditory, visual hallucinations. Patient denies any side effects from the medications and has been compliant with meds. Mental Status Exam: General Appearance: Patient appears to be mildly overweight, stated age is alert, directable, and superficially cooperative. Behavior: Patient is calmly seated without any agitated behavior. Superficial and guarded Speech: Patient's speech is fluent and nonpressured. Mood/Affect: Mood is improving mildly, affect is congruent and constricted. Suicidality/Homicidality: Patient denies having any suicidal or homicidal ideation intent or plan. Perceptions: Patient denies any visual hallucinations and denies any auditory hallucinations Though content/process: There is no evidence of any delusional thought content and thought process is linear and goal-directed. Focused on her symptoms and minimizing them. Memory and concentration: AOX3, grossly intact for the purposes of this session Judgment and insight: Poor Assessment Psychosis unspecified Plan: -Patient continues to meet criteria for inpatient psychiatric admission for symptom stabilization and safety. Patient has not signed medication consent and was placed in patient's chart. she is voluntary on the unit currently. -Medications: Start Abilify by mouth 2.5 mg daily for mood stabilization/psychosis, trazodone 50 mg daily at bedtime for insomnia/mood. -When necessary Ativan and Haldol for agitation/aggression. -NRT - not needed as patient does not smoke -SW on board for discharge planning. Encouraged the patient to participate in milieu.
[2023-01-03] MEDS: traZODone HCL 50 MG TAB PO SCH (22:59)
[2023-01-04] MEDS: ARIPiprazole 5 MG TAB PO SCH (09:24)
--- NOTE | 2023-01-04 13:06 | P.PN ---
Progress Note - Text Progress Note Date: 01/04/23 Interval History: Patient was seen wandering the hallways and was directable and agreeable to sp eak with proposal writer in the office. Patient continues to be fairly persistent in speaking with proposal writer today. She was carrying around her belongings with her in a bed in. She claims that she expressed concerns about her medications and when asked what she states that "my therapist didn't talk to me yesterday enough and he left the room". He she made several bizarre statements, was illogical and loose associations. She appeared to have very poor insight into her condition and need for treatment. She refused her medications this morning and believes that she does not need medications. She claims that she is "working my on my abilities to communicate with people" and beleives that hse has a special power. she also was endorsing hearing voices however was fairly gaurded about what it was saying to her. she claims that her poor sleep, appetite is fair. At this time patient denies any suicidal or homical ideations, intent or plan. Patient denies any current auditory, visual hallucinations. Patient denies any side effects from the medications and has been compliant with meds. Mental Status Exam: General Appearance: Patient appears to be mildly overweight, stated age is alert, directable, and superficially cooperative. Behavior: Patient is calmly seated without any agitated behavior. Superficial and guarded Speech: Patient's speech is fluent and nonpressured. Mood/Affect: Mood is improving mildly, affect is congruent and constricted. Suicidality/Homicidality: Patient denies having any suicidal or homicidal ideation intent or plan. Perceptions: Patient denies any current visual hallucinations and denies any auditory hallucinations Though content/process: bizarre, loose associtations, delusional. Memory and concentration: AOX3, grossly intact for the purposes of this session Judgment and insight: Poor Assessment Psychosis unspecified Plan: -Patient continues to meet criteria for inpatient psychiatric admission for symptom stabilization and safety. Patient has not signed medication consent and was placed in patient's chart. she is voluntary on the unit currently. -Medications: increase Abilify by mouth 5 mg daily for mood stabilization/psychosis, trazodone 50 mg daily at bedtime for insomnia/mood. patient is refusing medications. -When necessary Ativan and Haldol for agitation/aggression. -NRT - not needed as patient does not smoke -SW on board for discharge planning. Encouraged the patient to participate in milieu. due to patient not agreeing to treatment and refusing meds and having poor insight and judgment will go ahead and file for involutary today.
[2023-01-04] MEDS ORDERED: TRIAMCINOLONE 0.1% CREAM 80 GM TUBE TOPICAL PRN (19:45)
[2023-01-04] MEDS: traZODone HCL 50 MG TAB PO SCH (20:59)
[2023-01-04] MEDS: LORazepam 1 MG TAB PO PRN (23:31)
[2023-01-05] MEDS: ARIPiprazole 5 MG TAB PO SCH (08:01)
[2023-01-05] MEDS ORDERED: traZODone HCL 50 MG TAB PO PRN (09:11)
--- NOTE | 2023-01-05 09:19 | P.PN ---
Progress Note - Text Progress Note Date: 01/05/23 Interval History: Patient was seen wandering the hallways carrying her items/belongings with her and was directable and agreeable to speak with entry writer in the office. Patient claims that she was in goal setting this morning. she continues to ramble, loose associations, continues to have limited insight/superficial. she states that she slept a bit better last night. we spoke about the court process and deferral as well. she states that she staretd taking the medications last night and this mo rning. she continues beleives that hse has a special power. At this time patient denies any suicidal or homical ideations, intent or plan. Patient denies any current auditory, visual hallucinations. Patient denies any side effects from the medications and has been compliant with meds. Mental Status Exam: General Appearance: Patient appears to be mildly overweight, stated age is alert, directable, and superficially cooperative. Behavior: Patient is calmly seated without any agitated behavior. Superficial. bizarre. Speech: Patient's speech is fluent and nonpressured. rambling Mood/Affect: Mood is improving mildly, affect is congruent and constricted. Suicidality/Homicidality: Patient denies having any suicidal or homicidal ideation intent or plan. Perceptions: Patient denies any current visual hallucinations and denies any auditory hallucinations Though content/process: bizarre, loose associtations, delusional, improving mildly Memory and concentration: AOX3, grossly intact for the purposes of this session Judgment and insight: Poor, improving mildly Assessment: Psychosis unspecified likely schizophrenia Plan: -Patient continues to meet criteria for inpatient psychiatric admission for symptom stabilization and safety. Patient has not signed medication consent and was placed in patient's chart.currently. -Medications: Abilify by mouth 5 mg daily for mood stabilization/psychosis, trazodone 50 mg daily at bedtime for insomnia/mood + 50 mg prn -When necessary Ativan and Haldol for agitation/aggression. -NRT - not needed as patient does not smoke -SW on board for discharge planning. Encouraged the patient to participate in milieu. currently awaiting court date and deferral date with contract attorney as pt is currently involuntary.
--- NOTE | 2023-01-05 10:21 | P.PN ---
Progress Note - Text Progress Note Date: 01/05/23 Interval History: Patient was seen wandering the hallways carrying her items/belongings with her and was directable and agreeable to speak with service writer in the office. Patient claims that she was in goal setting this morning. she continues to ramble, loose associations, continues to have limited insight/superficial. she states that she slept a bit better last night. we spoke about the court process and deferral as well. she states that she staretd taking the medications last night and this mo rning. she continues beleives that hse has a special power and continues to ramble, bizarre content. she was focused on discharge and minimizing her need for treatment and to be in the hospital. At this time patient denies any suicidal or homical ideations, intent or plan. Patient denies any current auditory, visual hallucinations. Patient denies any side effects from the medications and has been compliant with meds. Mental Status Exam: General Appearance: Patient appears to be mildly overweight, stated age is alert, directable, and superficially cooperative. Behavior: Patient is calmly seated without any agitated behavior. Superficial. bizarre. Speech: Patient's speech is fluent and nonpressured. rambling Mood/Affect: Mood is improving mildly, affect is congruent and constricted. Suicidality/Homicidality: Patient denies having any suicidal or homicidal ideation intent or plan. Perceptions: Patient denies any current visual hallucinations and denies any auditory hallucinations Though content/process: bizarre, loose associtations, delusional, improving mildly. minimizing Memory and concentration: AOX3, grossly intact for the purposes of this session Judgment and insight: Poor, improving mildly Assessment: Psychosis unspecified likely schizophrenia Plan: -Patient continues to meet criteria for inpatient psychiatric admission for symptom stabilization and safety. Patient has not signed medication consent and was placed in patient's chart.currently. -Medications: Abilify by mouth 5 mg daily for mood stabilization/psychosis, trazodone 50 mg daily at bedtime for insomnia/mood + 50 mg prn -When necessary Ativan and Haldol for agitation/aggression. -NRT - not needed as patient does not smoke -SW on board for discharge planning. Encouraged the patient to participate in milieu. currently awaiting court date and deferral date with corporate associate attorney as pt is currently involuntary.
[2023-01-05] MEDS: traZODone HCL 50 MG TAB PO SCH ×2 (20:00→21:40)
[2023-01-06] MEDS: ARIPiprazole 5 MG TAB PO SCH (07:44)
--- NOTE | 2023-01-06 13:02 | P.PN ---
Progress Note - Text Progress Note Date: 01/06/23 Interval History: Patient was seen wandering the hallways carrying her items/belongings with her and was directable and agreeable to speak with technical proposal writer in the office. Patient was also noted to be fairly bizarre and hallways, covering her face with pieces of paper and standing in the hallway bizarrely. Patient continues to ramble, was tangential and loose associations. She continues to have very poor insight and judgment. She also has a fairly hesitant in her speech and not able to fully communicate how she is feeling. She brought up a concern about possibly wanting to move "closer to the nurse's desk". She continues to state that she believes that she has special diego. she was focused on discharge and minimizing her need for treatment and to be in the hospital however did state that she still able to take her medications. At this time patient denies any suicidal or homical ideations, intent or plan. Patient denies any current auditory, visual hallucinations. Patient denies any side effects from the medications and has been compliant with meds. Mental Status Exam: General Appearance: Patient appears to be mildly overweight, stated age is alert, directable, and superficially cooperative. Behavior: Patient is calmly seated without any agitated behavior. Superficial. bizarre. Speech: Patient's speech is fluent and nonpressured. rambling Mood/Affect: Mood is improving mildly, affect is congruent and constricted. Suicidality/Homicidality: Patient denies having any suicidal or homicidal ideation intent or plan. Perceptions: Patient denies any current visual hallucinations and denies any auditory hallucinations Though content/process: bizarre, loose associtations, delusional, improving mildly. minimizing Memory and concentration: AOX3, grossly intact for the purposes of this session Judgment and insight: Poor Assessment: Psychosis unspecified likely schizophrenia Plan: -Patient continues to meet criteria for inpatient psychiatric admission for symptom stabilization and safety. Patient has not signed medication consent and was placed in patient's chart.currently. -Medications: increase Abilify by mouth 10 mg daily for mood stabilization/psychosis, increase trazodone 100 mg daily at bedtime for insomnia/mood -When necessary Ativan and Haldol for agitation/aggression. -NRT - not needed as patient does not smoke -SW on board for discharge planning. Encouraged the patient to participate in milieu. patient deferred with her physician support coordinator.
[2023-01-06] MEDS ORDERED: traZODone HCL 100 MG TAB PO SCH (21:00)
[2023-01-06] MEDS: LORazepam 1 MG TAB PO PRN (22:41)
[2023-01-07] MEDS ORDERED: ARIPiprazole 5 MG TAB PO SCH (09:00)
[2023-01-07] MEDS ORDERED: ARIPiprazole 10 MG TAB PO SCH (09:00)
--- NOTE | 2023-01-07 11:22 | P.PN ---
Progress Note - Text Progress Note Date: 01/07/23 Interval History: Patient was seen near the nurses desk and was directable and agreeable to speak with technical writer in the office. Patient continues to demonstrate bizarre behaviors in the hallways and yesterday was seen holding a folder covering her face standing in the corner. She states that she is having a difficult time on the unit and states that the medications are making her feel nauseous. She claims that she wants to go home and states that she does not believe that she needs medications. She continues to focus on her outpatient provider claiming that she does not need anything. She continues to be fairly hesitant and soft tone in her speech. Denying any depression or anxiety at this time. Continues to believe that she has "special abilities" her first fairly guarded and vague when trying to explain them. states that she needed to take an ativan last night for sleep. At this time patient denies any suicidal or homical ideations, intent or plan. Patient denies any current auditory, visual hallucinations. Patient denies any side effects from the medications and has been compliant with meds. Mental Status Exam: General Appearance: Patient appears to be mildly overweight, stated age is alert, directable, and superficially cooperative. Behavior: Patient is calmly seated without any agitated behavior. Superficial. bizarre. Speech: Patient's speech is fluent and nonpressured. rambling Mood/Affect: Mood is improving mildly, affect is congruent and constricted. Suicidality/Homicidality: Patient denies having any suicidal or homicidal ideation intent or plan. Perceptions: Patient denies any current visual hallucinations and denies any auditory hallucinations Though content/process: bizarre, loose associtations, delusional, improving mildly. minimizing Memory and concentration: AOX3, grossly intact for the purposes of this session Judgment and insight: Poor Assessment: Psychosis unspecified likely schizophrenia Plan: -Patient continues to meet criteria for inpatient psychiatric admission for symptom stabilization and safety. Patient has not signed medication consent and was placed in patient's chart.currently. -Medications: d/c Abilify due to possible nausea and poor efficacy and replace with prolixin po 2.5 mg bid for mood stabilization/psychosis and increase as tolerated, plan will be to transition patient onto a SANTA to ensure compliance, increase trazodone 150 mg daily at bedtime for insomnia/mood -When necessary Ativan and Haldol for agitation/aggression. -NRT - not needed as patient does not smoke -SW on board for discharge planning. Encouraged the patient to participate in milieu. patient deferred with her litigation attorney, if patient is refusing treatment again then will need to go ahead and file demand for hearing. patient will need to be transitioned onto SANTA prior to d/c
[2023-01-07] MEDS: traZODone HCL 50 MG TAB PO SCH (22:42)
[2023-01-08] MEDS: LORazepam 1 MG TAB PO PRN (01:06)
[2023-01-08] MEDS: traZODone HCL 50 MG TAB PO SCH (01:38)
--- NOTE | 2023-01-08 18:02 | P.PN ---
Progress Note - Text Progress Note Date: 01/08/23 Interval history: Patient was seen wandering the hallways while carrying a pink bucket of her belongings. She speaks in a very soft tone, appears suspicious and paranoid, however she denies this and claims she is doing "really well". When asked about auditory or visual hallucinations, she deflects and states she just wants to talk to her outpatient psychiatrist. There is concern she may be attending to internal stimuli but is trying to minimize this. She has been noncompliant with her oral Prolixin, and reports she would like "more discussion" about the medication with her outpatient psychiatrist (Dr. Lee Vela). We discussed that since today is a weekend it is unlikely she can get in touch with Dr. Vela until Tuesday. Her thought process is perseverative and she appears to fixate on contacting Dr. Vela. We reviewed the indication and side effects of Prolixin. We discussed that since she deferred, if she continues to refuse her oral medications then a demand for hearing will be filed. At this time patient denies any suicidal or homicidal ideation, intent or plan. Mental status exam: General Appearance: Patient appears to be stated age, is alert, directable, and superficially cooperative. Behavior: No agitated behavior. Patient appears suspicious and paranoid. She is walking in the hallways carrying a bucket of her belongings. Speech: Patient's speech is fluent, speaks is soft low tone and non-pressured. Mood/Affect: Mood is "really well", affect is congruent and constricted. Suicidality/Homicidality: Patient denies having any suicidal or homicidal ideation intent or plan. Perceptions: Unable to fully assess due to lack of cooperation with this questions, however there is concern she is attending to internal stimuli. Though content/process: There is evidence of paranoid delusional thought content and thought process is perseverative. Memory and concentration: AOX3, grossly intact for the purposes of this session Judgment and insight: poor Assessment/Plan: Continue with current diagnosis. Patient continues to meet criteria for inpatient psychiatric admission for symptom stabilization and safety. Patient will be maintained on current psychotropic medication regimen. Encouraged compliance with oral Prolixin. If she continues to be noncompliant with her Prolixin, then demand for hearing can be filed on Tuesday. Monitor for medication compliance and for any psychotropic medication side effects. Will continue to monitor ongoing response to treatment. Encouraged participation in milieu.] []
[2023-01-09] MEDS: traZODone HCL 50 MG TAB PO SCH ×2 (05:41→22:16)
[2023-01-09] MEDS: SEMAGLUTIDE 1.7 MG/0.75 ML SQ SCH (09:45)
--- NOTE | 2023-01-09 18:50 | P.PN ---
Progress Note - Text Progress Note Date: 01/09/23 Interval history: Patient was seen isolating to her room and was agreeable to speak with headline writer. She speaks in a very soft tone, appears suspicious and paranoid, however she claims she is "really well" again today. She denies SI/HI, and when asked about auditory or visual hallucinations she does not answer the question and deflects to talking about "dialect" with her outpatient psychiatrist. She was reminded that today is Tuesday and we would likely be unable to reach her outpatient psychiatrist at [facility]. There is concern she may be attending to internal stimuli but is trying to minimize this. She continues to be noncompliant with her oral Prolixin. Her thought process is perseverative. Mental status exam: General Appearance: Patient appears to be stated age, is alert, directable, and superficially cooperative. Behavior: No agitated behavior. Patient appears suspicious and paranoid. Isolates to her room. Speech: Patient's speech is fluent, speaks is soft low tone and non-pressured. Mood/Affect: Mood is "really well", affect is congruent and constricted. Suicidality/Homicidality: Patient denies having any suicidal or homicidal ideation intent or plan. Perceptions: Unable to fully assess due to lack of cooperation with this question, however there is concern she is attending to internal stimuli. Though content/process: There is evidence of paranoid delusional thought content and thought process is perseverative. Memory and concentration: AOX3, grossly intact for the purposes of this session Judgment and insight: poor Assessment/Plan: Continue with current diagnosis. Patient continues to meet criteria for inpatient psychiatric admission for symptom stabilization and safety. Patient will be maintained on current psychotropic medication regimen. Encouraged compliance with oral Prolixin. If she continues to be noncompliant with her Prolixin, then demand for hearing can be filed on Tuesday. Monitor for medication compliance and for any psychotropic medication side effects. Will continue to monitor ongoing response to treatment. Encouraged participation in milieu.
[2023-01-09] MEDS ORDERED: MELATONIN 5 MG TABLET PO PRN (22:11)
--- NOTE | 2023-01-10 14:05 | P.PN ---
Progress Note - Text Progress Note Date: 01/10/23 Interval history: Patient was seen isolating to her room and was agreeable to speak with telegraphic typewriter installer. She continues to be noncompliant with medications, speaks in a very soft tone, appears suspicious and paranoid. She appears to be attending to internal stimuli at times, with concern for thought blocking. When asked about auditory and visual hallucinations today, she continues to talk around the question without answering it, states "I've been told to speak .... stated unnatural... I don't know who to share with.... learning new capabilities... prefer to stay in the hear and now." She denies SI/HI. She reports her has not been letting her speak to their children and he hangs up the phone on her. Her insight continues to be poor; she claims she does not have a mental illness. She continues to talk about wanting "dialect" with her outpatient psychiatrist, who she claims told her previously she does not need mental health medications. Mental status exam: General Appearance: Patient appears to be stated age, is alert, directable. Behavior: No agitated behavior. Patient appears suspicious and paranoid. Isolates to her room. Speech: Patient's speech is fluent, speaks is soft low tone and non-pressured. Mood/Affect: Mood is "really well", affect is congruent and constricted. Suicidality/Homicidality: Patient denies having any suicidal or homicidal ideation intent or plan. Perceptions: She appears to be attending to internal stimuli with concern for thought blocking, however she continues to avoid directly answering whether she is having AVH. Though content/process: There is evidence of paranoid delusional thought content and thought process is perseverative. Memory and concentration: AOX3, grossly intact for the purposes of this session Judgment and insight: poor Assessment/Plan: Continue with current diagnosis. Patient continues to meet criteria for inpatient psychiatric admission for symptom stabilization and safety. Patient will be maintained on current psychotropic medication regimen. Encouraged compliance with oral Prolixin. Demand for hearing to be filed with the court due to noncompliance with treatment. Monitor for medication compliance and for any psychotropic medication side effects. Will continue to monitor ongoing response to treatment. Encouraged participation in milieu.
[2023-01-10] MEDS: traZODone HCL 50 MG TAB PO SCH ×2 (21:21→21:23)
--- NOTE | 2023-01-11 15:01 | P.PN ---
Progress Note - Text Progress Note Date: 01/11/23 Interval history: Patient was seen at the nurse's station today and was agreeable to speak with pattern chart writer. She continues to be noncompliant with medications, speaks in a very soft tone, appears suspicious and paranoid. She appears to be attending to internal stimuli at times, with perseverative and concrete thought process. She answers most questions, except when asked about auditory and visual hallucinations again today, she again is vague and deflects, and says I don't know who to talk about that to..." She denies SI/HI. Her insight continues to be poor; she claims she does not have a mental illness and is noncompliant with her antipsychotics, states she only wants to take melatonin. Mental status exam: General Appearance: Patient appears to be stated age, is alert, directable. Behavior: No agitated behavior. Patient appears suspicious and paranoid. Speech: Patient's speech is fluent, speaks is soft low tone and non-pressured. Mood/Affect: Mood is "really well", affect is congruent and blunted. Suicidality/Homicidality: Patient denies having any suicidal or homicidal ideation intent or plan. Perceptions: She appears to be attending to internal stimuli with concern for thought blocking, however she continues to avoid directly answering whether she is having AVH. Though content/process: There is evidence of paranoid delusional thought content and thought process is perseverative, somewhat concrete. Memory and concentration: AOX3, grossly intact for the purposes of this session Judgment and insight: poor Assessment/Plan: Continue with current diagnosis. Patient continues to meet criteria for inpatient psychiatric admission for symptom stabilization and safety. Patient will be maintained on current psychotropic medication regimen. Encouraged compliance with oral Prolixin. Demand for hearing has been filed with the court due to noncompliance with treatment. Awaiting court date. Monitor for medication compliance and for any psychotropic medication side effects. Will continue to monitor ongoing response to treatment. Encouraged participation in milieu.
[2023-01-11] MEDS: traZODone HCL 50 MG TAB PO SCH (21:45)
[2023-01-12] MEDS ORDERED: LORazepam 1 MG TAB PO STA (13:29)
--- NOTE | 2023-01-12 15:43 | P.PN ---
Progress Note - Text Progress Note Date: 01/12/23 Interval history: Patient was seen isolating to her room today, was laying in bed and appeared to be in distress. She appears paranoid and attending to internal stimuli. She reports tactile hallucinations of "sensations of cutting her hands and arms". She abruptly gets up to go to the bathroom and repeatedly washes her arms and legs. She asks me to stay back. She continues to be noncompliant with medications, speaks in a very soft tone, appears suspicious and paranoid. She denies SI/HI. Her insight continues to be poor. She was given Ativan 2mg po x 1 for anxious distress. She refused the Haldol 5 mg po. She slept only 4 hours last night. Mental status exam: General Appearance: Patient appears to be stated age, is alert. Behavior: No appears distress, paranoid and suspicious. Speech: Patient's speech is fluent, speaks is soft low tone and non-pressured. Mood/Affect: Mood is anxious, affect is congruent and blunted. Suicidality/Homicidality: Patient denies having any suicidal or homicidal ideation intent or plan. Perceptions: She appears to be attending to internal stimuli, and is reporting tactile hallucinations of sensations of being cut on her arms and legs. Though content/process: There is evidence of paranoid delusional thought content and thought process is perseverative, somewhat concrete. Memory and concentration: AOX3, grossly intact for the purposes of this session Judgment and insight: poor Assessment/Plan: Continue with current diagnosis. Patient continues to meet criteria for inpatient psychiatric admission for symptom stabilization and safety. Patient will be maintained on current psychotropic medication regimen. Encouraged compliance with oral Prolixin. Haldol/Ativan PRN for agitation, severe psychosis or severe anxiety. Demand for hearing has been filed with the court due to noncompliance with treatment. Awaiting court date. Monitor for medication compliance and for any psychotropic medication side effects. Will continue to monitor ongoing response to treatment. Encouraged participation in milieu.
[2023-01-12] MEDS: traZODone HCL 50 MG TAB PO SCH (21:55)
[2023-01-13] MEDS: MAG HYDROX/AL HYDROX/SIMETH 30 ML CUP PO PRN (08:41)
--- NOTE | 2023-01-13 09:43 | P.PN ---
Progress Note - Text Progress Note Date: 01/13/23 Interval History: Patient was seen near the nurses desk and was fairly persistent wanting to speak to copywriter this morning and was directable and agreeable to speak with copywriter in the office. Patient continues to ramble at times, continues to be focused on not needing medications and wanting to go home. She continues to minimize her need for treatment. She states that she is going to miss her daughter's birthday. She continues to state that her outpatient psychiatrist does not believe she needs medications. Continues to ramble at times, loose associations. Very poor insight and judgment. Patient has been refusing medications. Denying any depression or anxiety at this time. Continues to believe that she has "special abilities". states that she needed to take an ativan last night for sleep or for his refusing other medications. At this time patient denies any suicidal or homical ideations, intent or plan. Patient denies any current auditory, visual hallucinations. Patient denies any side effects from the medications and has been compliant with meds. Mental Status Exam: General Appearance: Patient appears to be mildly overweight, stated age is alert, directable, and superficially cooperative. Behavior: Patient is calmly seated without any agitated behavior. Superficial. bizarre. Speech: Patient's speech is fluent and nonpressured. rambling Mood/Affect: Mood is improving mildly, affect is congruent and constricted. Suicidality/Homicidality: Patient denies having any suicidal or homicidal ideation intent or plan. Perceptions: Patient denies any current visual hallucinations and denies any auditory hallucinations Though content/process: bizarre, loose associtations, delusional. minimizing need for treatment. Memory and concentration: AOX3, grossly intact for the purposes of this session Judgment and insight: Poor Assessment: Schizophrenia Plan: -Patient continues to meet criteria for inpatient psychiatric admission for symptom stabilization and safety. Patient has not signed medication consent and was placed in patient's chart.currently. -Medications: continue prolixin po 2.5 mg bid for mood stabilization/psychosis, will be to transition patient onto a SANTA to ensure compliance, trazodone 150 mg daily at bedtime for insomnia/mood. patient is refusing medications -When necessary Ativan and Haldol for agitation/aggression. -NRT - not needed as patient does not smoke -SW on board for discharge planning. Encouraged the patient to participate in milieu. awaiting court hearing date set for jan 19. patient will need to be transitioned onto [facility] prior to d/c
[2023-01-13] MEDS: traZODone HCL 50 MG TAB PO SCH (20:45)
--- NOTE | 2023-01-14 10:11 | P.PN ---
Progress Note - Text Progress Note Date: 01/14/23 Interval History: Patient was seen near the nurses desk and in group earlier this morning and was directable and agreeable to speak with business writer in the office. Patient continues to ramble and speak in a soft tone of voice. Patient continues to state that she does not need medications and has been refusing meds at this time. she continues to focus on her phone priviledges and for now states that she is worried about her kids well being. she states that she did not sleep well last night. she c ontinues to ramble at times, loose associations. Very poor insight and judgment. Continues to believe that she has "special abilities". At this time patient denies any suicidal or homical ideations, intent or plan. Patient denies any current auditory, visual hallucinations. Patient denies any side effects from the medications and has been compliant with meds. Mental Status Exam: General Appearance: Patient appears to be mildly overweight, stated age is alert, directable, and superficially cooperative. Behavior: Patient is calmly seated without any agitated behavior. Superficial. bizarre. Speech: Patient's speech is fluent and nonpressured. rambling, soft tone of voice. Mood/Affect: Mood is improving mildly, affect is congruent and constricted. Suicidality/Homicidality: Patient denies having any suicidal or homicidal ideation intent or plan. Perceptions: Patient denies any current visual hallucinations and denies any auditory hallucinations Though content/process: bizarre, loose associtations, delusional. minimizing need for treatment. Memory and concentration: AOX3, grossly intact for the purposes of this session Judgment and insight: chronically poor Assessment: Schizophrenia Plan: -Patient continues to meet criteria for inpatient psychiatric admission for symptom stabilization and safety. Patient has not signed medication consent and was placed in patient's chart.currently. -Medications: continue prolixin po 2.5 mg bid for mood stabilization/psychosis, will be to transition patient onto a SANTA to ensure compliance, trazodone 150 mg daily at bedtime for insomnia/mood. patient is refusing medications -When necessary Ativan and Haldol for agitation/aggression. -NRT - not needed as patient does not smoke -SW on board for discharge planning. Encouraged the patient to participate in milieu. awaiting court hearing date set for jan 19. patient will need to be transitioned onto [facility] prior to d/c
[2023-01-14] MEDS: LORazepam 1 MG TAB PO PRN ×2 (11:46→21:50)
[2023-01-14] MEDS: MAG HYDROX/AL HYDROX/SIMETH 30 ML CUP PO PRN (20:03)
[2023-01-14] MEDS: traZODone HCL 50 MG TAB PO SCH (20:49)
--- NOTE | 2023-01-15 12:12 | P.PN ---
Subjective Progress Note Date: 01/15/23 Principal diagnosis: Assessment: Schizophrenia Rule out personality disorder unspecified Rule out obsessive-compulsive disorder Patient Name: Iliana Blanton Date of : 78 Patient Status: Inpatient Attending Provider: Grady Valdez Date: 01/15/23 Follow-up by Andres Boston M.D. Interval History: Patient was seen where she was initially seated in the group room and was brought out for an assessment Patient continues to ramble and speak in a soft tone of voice. Patient continues to show a long sheet of the notes that she has taken down which was about how the psychiatrist and the nursing staff and improvement in interaction with the staff and that she admits several suggestions about the changes that we should be making on the unit She is in wanted to have her phone privileges changed and states that they were restricted Patient is unable to focus on any questions asked and continues to only demand response to the notes she had written about the changes that needs to be made she continues to focus on her phone priviledges and for now . she continues to ramble at times, loose associations. Very poor insight and judgment. . At this time patient denies any suicidal or homical ideations, intent or plan. Patient denies any current auditory, visual hallucinations. Patient denies any side effects from the medications and has been compliant with meds. Mental Status Exam: General Appearance: Patient appears to be mildly overweight, stated age is alert, directable, and superficially cooperative. Behavior: Patient is calmly seated without any agitated behavior. Speech: Patient's speech is fluent and nonpressured. rambling, soft tone of voice. Mood/Affect: Mood is flat, affect is congruent and constricted. Suicidality/Homicidality: Patient denies having any suicidal or homicidal ideation intent or plan. Perceptions: Patient denies any current visual hallucinations and denies any auditory hallucinations Though content/process: bizarre, loose associtations, delusional. minimizing need for treatment. Memory and concentration: AOX3, grossly intact for the purposes of this session Judgment and insight: chronically poor Assessment: Schizophrenia Plan: -Patient continues to meet criteria for inpatient psychiatric admission for symptom stabilization and safety. Patient has not signed medication consent and was placed in patient's chart.currently. -Medications: continue prolixin po 2.5 mg bid for mood stabilization/psychosis, will be to transition patient onto a SANTA to ensure compliance, trazodone 150 mg daily at bedtime for insomnia/mood. patient is refusing medications -When necessary Ativan and Haldol for agitation/aggression. -NRT - not needed as patient does not smoke -SW on board for discharge planning. Encouraged the patient to participate in milieu. awaiting court hearing date set for jan 19. patient will need to be transitioned onto [facility] prior to d/c Andres Boston M.D. 01/15/2023 Objective - Vital Signs Vital signs: Vital Signs Temp 97.2 F L 01/14/23 12:45 Pulse 102 H 01/15/23 05:40 Resp 18 01/14/23 21:56 BP 145/85 01/15/23 05:40 Pulse Ox 98 01/14/23 21:56 FiO2 - Labs CBC & Chem 7: 01/02/23 12:00 01/02/23 12:00
[2023-01-15] MEDS: MAG HYDROX/AL HYDROX/SIMETH 30 ML CUP PO PRN (12:18)
[2023-01-15] MEDS: traZODone HCL 50 MG TAB PO SCH (22:24)
[2023-01-16] MEDS: MAG HYDROX/AL HYDROX/SIMETH 30 ML CUP PO PRN (06:01)
[2023-01-16] MEDS: SEMAGLUTIDE 1.7 MG/0.75 ML SQ SCH (08:44)
--- NOTE | 2023-01-16 09:28 | P.PN ---
Subjective Progress Note Date: 01/16/23 Principal diagnosis: Assessment: Schizophrenia Rule out personality disorder unspecified Rule out obsessive-compulsive disorder Patient Name: Iliana Blanton Date of : 78 Patient Status: Inpatient Attending Provider: Grady Valdez Date: 01/16/23 Follow-up by Andres Boston M.D. Interval History: Patient was standing in the group room by herself stating out of the window when she was approach for this discussion Patient continues to whisper and seemed to be suspicious anxious and worried about someone hearing the conversation When asked about her phone privileges issue patient stated that she was calling the wellness check people on her 2 children because she was concerned about their safety Patient however continues to rationalize intellectualize She continues to whisper and was difficult to follow the conversation She is in wanted to have her phone privileges changed and states that they were restricted Patient is unable to focus on any questions asked and continues to only demand response to the notes she had written about the changes that needs to be made she continues to focus on her phone priviledges and for now . she continues to ramble at times, loose associations. Very poor insight and judgment. . At this time patient denies any suicidal or homical ideations, intent or plan. Patient denies any current auditory, visual hallucinations. Patient denies any side effects from the medications and has been compliant with meds. Mental Status Exam: General Appearance: Patient appears to be mildly overweight, stated age is alert, directable, and superficially cooperative. Behavior: Patient is calmly seated without any agitated behavior. Speech: Patient's speech is fluent and nonpressured. rambling, soft tone of voice. Mood/Affect: Mood is flat, affect is congruent and constricted. Suicidality/Homicidality: Patient denies having any suicidal or homicidal ideation intent or plan. Perceptions: Patient denies any current visual hallucinations and denies any auditory hallucinations Though content/process: bizarre, loose associtations, delusional. minimizing nee d for treatment. Memory and concentration: AOX3, grossly intact for the purposes of this session Judgment and insight: chronically poor Assessment: Schizophrenia Plan: -Patient continues to meet criteria for inpatient psychiatric admission for symptom stabilization and safety. Patient has not signed medication consent and was placed in patient's chart.currently. -Medications: continue prolixin po 2.5 mg bid for mood stabilization/psychosis, will be to transition patient onto a SANTA to ensure compliance, trazodone 150 mg daily at bedtime for insomnia/mood. patient is refusing medications -When necessary Ativan and Haldol for agitation/aggression. -NRT - not needed as patient does not smoke -SW on board for discharge planning. Encouraged the patient to participate in milieu. awaiting court hearing date set for jan 19. patient will need to be transitioned onto [facility] prior to d/c Andres Boston M.D. 01/16/2023 Objective - Vital Signs Vital signs: Vital Signs Temp 97.7 F 01/16/23 06:03 Pulse 94 01/16/23 06:03 Resp 18 01/16/23 06:03 BP 112/75 01/16/23 06:03 Pulse Ox 98 01/14/23 21:56 FiO2 - Labs CBC & Chem 7: 01/02/23 12:00 01/02/23 12:00
[2023-01-16] MEDS: traZODone HCL 50 MG TAB PO SCH (23:09)
[2023-01-17] MEDS: MAG HYDROX/AL HYDROX/SIMETH 30 ML CUP PO PRN ×2 (00:33→09:37)
[2023-01-17] MEDS ORDERED: LORazepam 0.5 MG TAB PO PRN (10:19)
--- NOTE | 2023-01-17 12:12 | P.PN ---
Progress Note - Text Progress Note Date: 01/17/23 Interval History: Patient was seen near the nurses desk this morning and was directable and agre eable to speak with repairer typewriter in the office. Patient states that she talk with the patient's right advocate about her phone privileges. She continues to be focused on calling her family however did not explain why. She continues to have very poor insight and judgment. He continues to refuse medications and believe that she does not need treatment. She continues to focus on discharge as well. Soft tone of voice and rambling. Patient continues to exhibit as are behaviors and gestures in the hallway. At this time patient denies any suicidal or homical ideations, intent or plan. Patient denies any current auditory, visual hallucinations. Patient denies any side effects from the medications and has been compliant with meds. Mental Status Exam: General Appearance: Patient appears to be mildly overweight, stated age is alert, directable, and superficially cooperative. Behavior: Patient is calmly seated without any agitated behavior. Superficial. bizarre. Speech: Patient's speech is fluent and nonpressured. rambling, soft tone of voice. Mood/Affect: Mood is improving mildly, affect is congruent and constricted. Suicidality/Homicidality: Patient denies having any suicidal or homicidal ideation intent or plan. Perceptions: Patient denies any current visual hallucinations and denies any auditory hallucinations Though content/process: bizarre, loose associtations, delusional. minimizing need for treatment. Memory and concentration: AOX3, grossly intact for the purposes of this session Judgment and insight: chronically poor Assessment: Schizophrenia Plan: -Patient continues to meet criteria for inpatient psychiatric admission for symptom stabilization and safety. Patient has not signed medication consent and was placed in patient's chart.currently. -Medications: continue prolixin po 2.5 mg bid for mood stabilization/psychosis, will be to transition patient onto a SANTA to ensure compliance, trazodone 150 mg daily at bedtime for insomnia/mood. patient is refusing medications -When necessary Ativan and Haldol for agitation/aggression. -NRT - not needed as patient does not smoke -SW on board for discharge planning. Encouraged the patient to participate in milieu. awaiting court hearing date set for tuejan 19. patient will need to be transitioned onto [facility] prior to d/c
[2023-01-17] MEDS: traZODone HCL 50 MG TAB PO SCH (21:46)
--- NOTE | 2023-01-18 09:25 | P.PN ---
Progress Note - Text Progress Note Date: 01/18/23 Interval History: Patient was seen near the nurses desk this morning and was directable and agre eable to speak with comic writer in the office. Patient claims that she slept fairly last night and denied any overnight issues. She continues to speak quietly and carries all her belongings with her. she continues to be vague about hearing voices and does not answer the question directly. She continues to be focused on calling her family however did not explain why. She continues to have very poor insight and judgment. sHe continues to refuse medications and believe that she does not need treatment. Soft tone of voice and rambling. Patient continues to exhibit as are behaviors and gestures in the hallway. At this time patient denies any suicidal or homical ideations, intent or plan. Patient denies any current auditory, visual hallucinations. Patient denies any side effects from the medications and has been compliant with meds. Mental Status Exam: General Appearance: Patient appears to be mildly overweight, stated age is alert, directable, and superficially cooperative. Behavior: Patient is calmly seated without any agitated behavior. Superficial. bizarre. Speech: Patient's speech is fluent and nonpressured. rambling, soft tone of voice. Mood/Affect: Mood is "anxious", affect is congruent and constricted. Suicidality/Homicidality: Patient denies having any suicidal or homicidal ideation intent or plan. Perceptions: Patient denies any current visual hallucinations and denies any auditory hallucinations Though content/process: bizarre, loose associtations, delusional. minimizing need for treatment. Memory and concentration: AOX3, grossly intact for the purposes of this session Judgment and insight: chronically poor Assessment: Schizophrenia Plan: -Patient continues to meet criteria for inpatient psychiatric admission for symptom stabilization and safety. Patient has not signed medication consent and was placed in patient's chart.currently. -Medications: continue prolixin po 2.5 mg bid for mood stabilization/psychosis, will be to transition patient onto a SANTA to ensure compliance, trazodone 150 mg daily at bedtime for insomnia/mood. patient is refusing medications -When necessary Ativan and Haldol for agitation/aggression. -NRT - not needed as patient does not smoke -SW on board for discharge planning. Encouraged the patient to participate in milieu. awaiting court hearing date set for tuejan 19. patient will need to be transitioned onto [facility] prior to d/c
[2023-01-18] MEDS: traZODone HCL 50 MG TAB PO SCH (20:15)
[2023-01-19] MEDS ORDERED: flUPHENAZine 2.5 MG/ML (MDV) 10 ML VIAL IM PRN (10:42)
--- NOTE | 2023-01-19 11:55 | P.PN ---
Progress Note - Text Progress Note Date: 01/19/23 Interval History: Patient was seen near the nurses desk this morning and was covering her ears and facing the dunbar. she attended court and then was directable and agreeable to speak with keno writer / runner in the office. She continues to demonstrate very poor insight and judgment about her treatment and medications. she beelived that the curriculum coach only told her to go to [facility]. She continues to focus on a misdiagnosis and not needing medications. Patient claims that she slept fairly last night and denied any overnight issues. she continues to refuse the meds. Soft tone of voice and rambling. Patient continues to exhibit as are behaviors and gestures in the hallway. At this time patient denies any suicidal or homical ideations, intent or plan. Patient denies any current auditory, visual hallucinations. Patient denies any side effects from the medications and has been compliant with meds. Mental Status Exam: General Appearance: Patient appears to be mildly overweight, stated age is alert, directable, and superficially cooperative. Behavior: Patient is calmly seated without any agitated behavior. Superficial. bizarre. Speech: Patient's speech is fluent and nonpressured. rambling, soft tone of voice. Mood/Affect: Mood is "the same", affect is congruent and constricted. Suicidality/Homicidality: Patient denies having any suicidal or homicidal ideation intent or plan. Perceptions: Patient denies any current visual hallucinations and denies any auditory hallucinations Though content/process: bizarre, loose associations, delusional. minimizing need for treatment. Memory and concentration: AOX3, grossly intact for the purposes of this session Judgment and insight: chronically poor Assessment: Schizophrenia Plan: -Patient continues to meet criteria for inpatient psychiatric admission for symptom stabilization and safety. Patient has not signed medication consent and was placed in patient's chart -Medications: continue prolixin po 2.5 mg bid for mood stabilization/psychosis. If patient refuses PO then will give IM prolixin as per court order. will eventually transition patient onto a SANTA to ensure compliance, trazodone 100 mg daily at bedtime for insomnia/mood -When necessary Ativan and Haldol for agitation/aggression. -NRT - not needed as patient does not smoke -SW on board for discharge planning. Encouraged the patient to participate in milieu. patient was given court order for mental health treatment on 01/19
[2023-01-19] MEDS: traZODone HCL 100 MG TAB PO SCH ×2 (21:30→21:47)
[2023-01-20] MEDS: MAG HYDROX/AL HYDROX/SIMETH 30 ML CUP PO PRN (09:42)
--- NOTE | 2023-01-20 11:53 | P.PN ---
Progress Note - Text Progress Note Date: 01/20/23 Interval History: Patient was seen near the nurses desk holding several papers in a folder this morning and was agreeable to speak in the office. she attended court and then was directable and agreeable to speak with medical technical writer in the office. She continues to demonstrate very poor insight and judgment about her treatment and medications however did state that she begin taking the medications last night. She is not reporting any side effects at this time. Continues to be fairly focused on calling her family and states that she did get into an argument with her . She continues to be wandering around and staying near the nurse's desk. She appears to be less delusional today, mildly more focused on conversation and questions. Patient claims that she slept fairly last night and denied any overnight issues. Soft tone of voice and rambling. Patient continues to exhibit as are behaviors and gestures in the hallway. At this time patient denies any suicidal or homical ideations, intent or plan. Patient denies any current auditory, visual hallucinations. Patient denies any side effects from the medications and has been compliant with meds. Mental Status Exam: General Appearance: Patient appears to be mildly overweight, stated age is alert, directable, and superficially cooperative. Behavior: Patient is calmly seated without any agitated behavior. Superficial. bizarre. Speech: Patient's speech is fluent and nonpressured. rambling, soft tone of voice. Mood/Affect: Mood is "ok", affect is congruent and constricted, improving mildly. Suicidality/Homicidality: Patient denies having any suicidal or homicidal ideation intent or plan. Perceptions: Patient denies any current visual hallucinations and denies any auditory hallucinations Though content/process: bizarre, delusional, improving mildly. minimizing need for treatment. Memory and concentration: AOX3, grossly intact for the purposes of this session Judgment and insight: chronically poor, improving mildly Assessment: Schizophrenia Plan: -Patient continues to meet criteria for inpatient psychiatric admission for symptom stabilization and safety. Patient has not signed medication consent and was placed in patient's chart -Medications: increase prolixin po 3 mg bid for mood stabilization/psychosis. If patient refuses PO then will give IM prolixin as per court order. will eventually transition patient onto a SANTA to ensure compliance, trazodone 100 mg daily at bedtime for insomnia/mood -When necessary Ativan and Haldol for agitation/aggression. -NRT - not needed as patient does not smoke -SW on board for discharge planning. Encouraged the patient to participate in milieu. patient was given court order for mental health treatment on 01/19. patient is still psychiatrically unstable.
[2023-01-20] MEDS: traZODone HCL 100 MG TAB PO SCH (20:38)
--- NOTE | 2023-01-21 10:27 | P.PN ---
Progress Note - Text Progress Note Date: 01/21/23 Interval History: Patient was seen near the nurses desk once again this morning carrying several papers with her. She was agreeable to speak to music writer today. She was immediately concerned about her dose of Prolixin. She claims that she only took "2.5" Last night and refused to take the full dose. She states that she has several "ideas" and showed several drawings and writings to music writer. She attempted to explain them however the date did not make sense. Patient continues to ramble at times, speaks in a soft tone of voice. She continues to demonstrate very poor insight and judgment about her treatment and medications. She is not reporting any side effects at this time. Continues to be fairly focused on calling her family and states that she did get into an argument with her and wants her phone restriction lifted. patient states that she did not sleep well last night. Soft tone of voice and rambling. At this time patient denies any suicidal or homical ideations, intent or plan. Patient denies any current visual hallucinations. when asked about AH, she avoided the question and rambled illogically. Patient denies any side effects from the medications and has been compliant with meds. Mental Status Exam: General Appearance: Patient appears to be mildly overweight, stated age is alert, directable, and superficially cooperative. Behavior: Patient is calmly seated without any agitated behavior. Superficial. bizarre. Speech: Patient's speech is fluent and nonpressured. rambling, soft tone of voice. Mood/Affect: Mood is "fine", affect is congruent and constricted Suicidality/Homicidality: Patient denies having any suicidal or homicidal ideation intent or plan. Perceptions: Patient denies any current visual hallucinations and avoids responding to question about AH. Though content/process: bizarre, delusional, improving mildly. minimizing need for treatment. Memory and concentration: AOX3, grossly intact for the purposes of this session Judgment and insight: chronically poor, improving mildly Assessment: Schizophrenia Plan: -Patient continues to meet criteria for inpatient psychiatric admission for symptom stabilization and safety. Patient has not signed medication consent and was placed in patient's chart -Medications: prolixin po 3 mg bid for mood stabilization/psychosis, continue to increase over the weekend as tolerated. If patient refuses PO then will give IM prolixin as per court order. will eventually transition patient onto a SANTA to ensure compliance, increase trazodone 150 mg daily at bedtime for insomnia/mood -When necessary Ativan and Haldol for agitation/aggression. -NRT - not needed as patient does not smoke -SW on board for discharge planning. Encouraged the patient to participate in milieu. patient was given court order for mental health treatment on 01/19. patient is still psychiatrically unstable, continue to work on improving this.
[2023-01-21] MEDS: MAG HYDROX/AL HYDROX/SIMETH 30 ML CUP PO PRN ×2 (12:26→16:39)
[2023-01-21] MEDS: traZODone HCL 50 MG TAB PO SCH (20:15)
[2023-01-22] MEDS: MAG HYDROX/AL HYDROX/SIMETH 30 ML CUP PO PRN (08:34)
--- NOTE | 2023-01-22 14:03 | P.PN ---
Subjective Progress Note Date: 01/22/23 Principal diagnosis: Assessment: Schizophrenia Rule out personality disorder unspecified Rule out obsessive-compulsive disorder Patient Name: Iliana Blanton Date of : 78 Patient Status: Inpatient Attending Provider: Grady Valdez Date: 01/22/23 Follow-up by Dr. Andres Boston M.D. Patient continues to wander around and appears to be wearing the same clothes that I had seen her in from last week Although he had completed privacy in her room and there was no interruption patient continues to demand that she wanted to be seen in a private room once again this morning carrying several papers with her. Patient continues to ramble at times, speaks in a soft tone of voice. She continues to demonstrate very poor insight and judgment about her treatment and medications. Continues to be fairly focused on calling her family and states that she needs to have a ride arranged to go back home as she is being discharged Tuesday . Soft tone of voice and rambling. At this time patient denies any suicidal or homical ideations, intent or plan. Mental Status Exam: General Appearance: Patient appears to be mildly overweight, stated age is alert, directable, and superficially cooperative. Behavior: Patient is calmly seated without any agitated behavior. Superficial. bizarre. Speech: Patient's speech is fluent and nonpressured. rambling, soft tone of voice. Mood/Affect: Mood is "fine", affect is congruent and constricted Suicidality/Homicidality: Patient denies having any suicidal or homicidal ideation intent or plan. Perceptions: Patient denies any current visual hallucinations and avoids responding to question about AH. Though content/process: bizarre, delusional, improving mildly. minimizing need for treatment. Memory and concentration: AOX3, grossly intact for the purposes of this session Judgment and insight: chronically poor, improving mildly Assessment: Schizophrenia Plan: -Patient continues to meet criteria for inpatient psychiatric admission for symptom stabilization and safety. Patient has not signed medication consent and was placed in patient's chart -Medications: prolixin po 3 mg bid for mood stabilization/psychosis, continue to increase over the weekend as tolerated. If patient refuses PO then will give IM prolixin as per court order. will eventually transition patient onto a SANTA to ensure compliance, increase trazodone 150 mg daily at bedtime for insomnia/mood -When necessary Ativan and Haldol for agitation/aggression. -NRT - not needed as patient does not smoke -SW on board for discharge planning. Encouraged the patient to participate in milieu. patient was given court order for mental health treatment on 01/19. patient is still psychiatrically unstable, continue to work on improving this. Andres Boston M.D. 01/22/2023 Objective - Vital Signs Vital signs: Vital Signs Temp 97.9 F 01/22/23 06:00 Pulse 96 01/22/23 06:00 Resp 19 01/22/23 06:00 BP 126/73 01/22/23 06:00 Pulse Ox 98 01/22/23 06:00 FiO2 - Labs CBC & Chem 7: 01/02/23 12:00 01/02/23 12:00
[2023-01-22] MEDS: traZODone HCL 50 MG TAB PO SCH (20:31)
[2023-01-23] MEDS: SEMAGLUTIDE 1.7 MG/0.75 ML SQ SCH (08:00)
--- NOTE | 2023-01-23 10:15 | P.PN ---
Subjective Progress Note Date: 01/23/23 Principal diagnosis: Assessment: Schizophrenia Rule out personality disorder unspecified Rule out obsessive-compulsive disorder Patient Name: Iliana Blanton Date of : 78 Patient Status: Inpatient Attending Provider: Grady Valdez Date: 01/23/23 Follow-up by Dr. Andres Boston M.D. Subjective data: The patient appears less irritable today and was more cooperative Patient agreed to talk to his writer producer in her room Patient continues to wear the same clothes but the hygiene appears to be fair she appears to be neatly groomed Patient reports that she was never told that she was going to be discharged on Tuesday She also reports that she carries her paper work around because she is concerned about other patients wandering and coming into her room She'll however appears to be much more cooperative and less irritable and paranoid Mental Status Exam: General Appearance: Patient appears to be mildly overweight, stated age is alert, directable, and superficially cooperative. Behavior: Patient is calmly seated without any agitated behavior. Superficial. bizarre. Speech: Patient's speech is fluent and nonpressured. rambling, soft tone of voice. Mood/Affect: Mood is "fine", affect is congruent and constricted Suicidality/Homicidality: Patient denies having any suicidal or homicidal ideation intent or plan. Perceptions: Patient denies any current visual hallucinations and avoids responding to question about AH. Though content/process: bizarre, delusional, improving mildly. minimizing need for treatment. Remains paranoid and projective Memory and concentration: AOX3, grossly intact for the purposes of this session Judgment and insight: chronically poor, improving mildly Assessment: Schizophrenia Plan: -Patient continues to meet criteria for inpatient psychiatric admission for symptom stabilization and safety. Patient has not signed medication consent and was placed in patient's chart -Medications: prolixin po 3 mg bid for mood stabilization/psychosis, continue to increase over the weekend as tolerated. If patient refuses PO then will give IM prolixin as per court order. will eventually transition patient onto a SANTA to ensure compliance, increase trazodone 150 mg daily at bedtime for insomnia/mood -When necessary Ativan and Haldol for agitation/aggression. -NRT - not needed as patient does not smoke -SW on board for discharge planning. Encouraged the patient to participate in milieu. patient was given court order for mental health treatment on 01/19. patient is still psychiatrically unstable, continue to work on improving this. Andres Boston M.D. 01/23/2023 Objective - Vital Signs Vital signs: Vital Signs Temp 97.6 F 01/23/23 06:44 Pulse 100 01/23/23 06:44 Resp 16 01/23/23 06:44 BP 127/81 01/23/23 06:44 Pulse Ox 98 01/22/23 06:00 FiO2 - Labs CBC & Chem 7: 01/02/23 12:00 01/02/23 12:00
[2023-01-23] MEDS: traZODone HCL 50 MG TAB PO SCH (19:36)
[2023-01-24 07:25] VITALS: PULSE 103; TEMP 97.8
[2023-01-24] MEDS: ACETAMINOPHEN TAB 325 MG TAB PO PRN ×2 (09:37→20:11)
[2023-01-24] MEDS ORDERED: fluPHENAZine DECANOATE 25 MG/ML 5ML MDV IM ONE ×2 (10:28→12:31)
--- NOTE | 2023-01-24 10:43 | P.PN ---
Progress Note - Text Progress Note Date: 01/24/23 Interval History: Patient was seen near the nurses desk today and also wandering the hallways. She was agreeable to speak to technical writer and editor today. She denied any problems of the weekend. She appears to be more directable during conversation less bizarre and more appropriate. We spoke more about her medications and she is agreeable to "give it a chance to work". He spoke about transitioning to a long-acting injection which patient is okay with as long as she does not have to do it herself. She asked again about the phone restrictions and technical writer and editor claims that we will be discontinuing it for now. Patient appears to be talking to her and states that they're doing well. She was fairly focused on discharge today. Claims that she is sleeping fairly throughout the night. She is not reporting any side effects at this time. Soft tone of voice and rambling however this is improving. At this time patient denies any suicidal or homical ideations, intent or plan. Patient denies any current visual or auditory hallucinations. Patient denies any side effects from the medications and has been compliant with meds. Mental Status Exam: General Appearance: Patient appears to be mildly overweight, stated age is alert, directable, and more cooperative today. Behavior: Patient is calmly seated without any agitated behavior. Improving and more cooperative. Speech: Patient's speech is fluent and nonpressured. rambling, soft tone of voice, improving Mood/Affect: Mood is "good", affect is congruent Suicidality/Homicidality: Patient denies having any suicidal or homicidal ideation intent or plan. Perceptions: Patient denies any current visual hallucinations and denies any auditory hallucinations. Though content/process: More goal oriented, logical. Continues to ramble at times. Memory and concentration: AOX3, grossly intact for the purposes of this session Judgment and insight: chronically poor, improving mildly Assessment: Schizophrenia Plan: -Patient continues to meet criteria for inpatient psychiatric admission for symptom stabilization and safety. Patient has not signed medication consent and was placed in patient's chart -Medications: continue prolixin po 3 mg bid for mood stabilization/psychosis. If patient refuses PO then will give IM prolixin as per court order. will order SANTA today Prolixin D 25 mg IM to ensure compliance, trazodone 150 mg daily at bedtime for insomnia/mood -When necessary Ativan and Haldol for agitation/aggression. -NRT - not needed as patient does not smoke -SW on board for discharge planning. Encouraged the patient to participate in milieu. patient was given court order for mental health treatment on 01/19. patient is improving psychiatrically and is taking medications. will give Santa today. will d/c phone restrictions and SW to prepare for likely discharge tomorrow back home.
[2023-01-24] MEDS: traZODone HCL 50 MG TAB PO SCH (20:12)
[2023-01-25 06:54] VITALS: BP 121/73; RESP 19
[2023-01-25 08:11] VITALS: BMI 35.5
[2023-01-25] MEDS: MAG HYDROX/AL HYDROX/SIMETH 30 ML CUP PO PRN (08:52)
--- NOTE | 2023-01-25 10:03 | P.DS ---
Providers Date of admission: 01/01/23 23:29 Expected date of discharge: 01/25/23 Attending physician: Grady Valdez MD Consults: 01/01/23 23:43 Consult Physician Routine Consulting Provider: Roberto Espinoza Consult Reason/Comments: H and P and medical follow up Do you want consulting provider notified?: Yes, Notify in am Primary care physician: Roberto Espinoza - Discharge Diagnosis(es) (1) Schizophrenia Current Visit: Yes Status: Acute Priority: High Hospital Course: Admission HPI: Admission note was completed by junior technical writer "42-year-old female presents to the emergency department for psychiatric evaluation. She states that she has had increased anxiety and depression recently. However when I talked to her she didn't emphasize anxiety but rambles softly in peculiar ways. When I went to see her she asked if she might go on use the bathroom. It didn't me almost a minute to figure out what she was saying because she talks of softly and asked his in peculiar way. I said that was fine but come right back and leave the door open 10 minutes later to go looking for her she had wandered off and was talking to one of the staff. She states that her is telling her that she has to, " listen to her 2 and 3-year-old children." (I think this means that he noticed she wasn't paying attention to them and their needs because she was spacey and per She reports hearing voices that are not there. When I tried to clarify what she means by voices she gets soft spoken and can't seem to adjust that, she uses words in peculiar ways and says that the voices are giving her information about her true self but could not explain what she meant by that. She could not say whether the voices troubled her not whether they told her to do things or not whether they were her own voice or someone else. She denies suicidal ideation, homicidal ideation. She states that she has previously been hospitalized for her mental health. She is not currently taking any medications for her mental health. denies any smoking history and reports occasional alcohol use. She presents to Hospital for psychiatric evaluation reporting increased anxiety and depression. Patient describes feeling overwhelmed and not having a social life for herself and also her and her together without her children. She feels their family support and also her are overbearing and tell her what to do. Patient stays home with her 2 and 3 year old children and reports rarely getting any alone time for herself. Per medical record, patient reports hearing voices that she feels are not there. She is denying any suicidal or homicidal ideations. Patient has been hospitalized previously for her mental health in the past. During assessment patient is vague not wanting to elaborate further when asked about hearing voices. Patient does appear to be staring off and looking up at the ceiling during examination." Hospital course: Upon admission to the unit patient was admitted involuntarily on a petition and certificate and a second certificate was completed and faxed with the courts. Patient ended up going through the court process and ended up having a mental health treatment in order started while on the unit. Patient was initially bizarre, uncooperative and refusing medications however with time in treatment she got along well with other patients on the unit and followed unit protocol. Patient was compliant with the medications and denied any side effects throughout hospital course. Patient was started on trazodone and increased the dose of 150 mg daily at bedtime for insomnia/mood. Prolixin by mouth 3 mg twice a day for psychosis, was given Prolixin D 25 mg IM on 01/24 to ensure compliance and will be due for next dose on 02/07. Patient spoke of her stressors and engaged in therapy both group and individual. Patient was also seen by medical team for history and physical exam. Throughout the course of the hospitalization patient gradually improved with regards to mood, anxiety, psychosis, bizarre behaviors, sleep and returned back to their baseline level of functioning. On the day of discharge patient denied any suicidal or homicidal ideations intent or plan denied any auditory or visual hallucinations. Patient endorsed wanting to live for her health and her kids. The patient denied any access to guns or weapons. Patient denied any paranoia and did not endorse any delusions. Patient does not have a significant history of substance abuse and was counseled on abstaining from all substances including alcohol and marijuana. Patient was also counseled on the medications and need for regular compliance and was encouraged to follow-up with their outpatient appointment for mental health and also for primary care. Prior to discharge a family meeting will be arranged by director of social work to answer any questions and ensure safety upon discharge. Patient will be discharged back home today with close following and monitoring by [facility]. Mental status exam: General Appearance: Patient appears to be stated age is alert, pleasant, and cooperative. Patient is in no acute distress and has improved hygiene and grooming Behavior: Patient is calmly seated without any agitated behavior. Speech: Patient's speech is fluent and nonpressured. Mood/Affect: Patient reports their mood is "good", affect is congruent and euthymic. Suicidality/Homicidality: Patient denies having any suicidal or homicidal ideation intent or plan. Perceptions: Patient denies any auditory or visual hallucinations. Though content/process: There is no evidence of any delusional thought content and thought process is linear and goal-directed. more future oriented Memory and concentration: AOX3, grossly intact for the purposes of this session. Can spell "WORLD" backwards correctly. Judgment and insight: chronically poor, however has improved with guarded prognosis Impression: Schizophrenia Plan: -Continue with discharge today as patient has improved and stabilized psychiatrically and is not currently an imminent threat to herself and/or others. Patient will remain at chronically elevated risk for harm to self and/or others due to her chronically poor insight and judgment. -Continue medications: Trazodone 150 mg daily at bedtime for insomnia/mood, Prolixin D 25 mg IM last dose given on 01/24 and next dose to be given at [facility] on 02/07. Patient to continue on with by mouth Prolixin 2 mg twice a day for 3 more days then discontinue. -Patient was counseled on the need for medication compliance and appropriate follow-up at mental health and also primary care for medical issues. Patient verbalized understanding and agreed. -Social work to arrange for and conduct family meeting to ensure safety upon discharge and answer any questions/concerns. Social work also to arrange for patients follow up appointments with [facility] for psychiatric care along with follow up with primary care provider. -Patient counseled on abstaining from recreational drugs and marijuana and alcohol. Was informed/educated on the adverse effects on their physical and mental health. Patient verbally agreed and understood. -Patient was instructed to return to the hospital or seek immediate medical care if their psychiatric or medical symptoms do worsen or reoccur. Allergies Allergy/AdvReac Type Severity Reaction Status Date / Time ciprofloxacin [From Cipro] Allergy Swelling Verified 01/01/23 20:21 ciprofloxacin HCl Allergy Swelling Verified 01/01/23 20:21 [From Cipro] Sulfa (Sulfonamide Allergy Rash/Hives Verified 01/01/23 20:21 Antibiotics) Laboratory Results WBC 8.9 k/uL (3.8-10.6) 01/02/23 12:00 RBC 4.44 m/uL (3.80-5.40) 01/02/23 12:00 Hgb 13.5 gm/dL (11.4-16.0) 01/02/23 12:00 Hct 37.7 % (34.0-46.0) 01/02/23 12:00 MCV 84.9 fL (80.0-100.0) 01/02/23 12:00 MCH 30.4 pg (25.0-35.0) 01/02/23 12:00 MCHC 35.8 g/dL (31.0-37.0) 01/02/23 12:00 RDW 13.3 % (11.5-15.5) 01/02/23 12:00 Plt Count 286 k/uL (150-450) 01/02/23 12:00 MPV 8.3 01/02/23 12:00 Neutrophils % 66 % 01/02/23 12:00 Lymphocytes % 24 % 01/02/23 12:00 Monocytes % 8 % 01/02/23 12:00 Eosinophils % 1 % 01/02/23 12:00 Basophils % 1 % 01/02/23 12:00 Neutrophils # 5.9 k/uL (1.3-7.7) 01/02/23 12:00 Lymphocytes # 2.2 k/uL (1.0-4.8) 01/02/23 12:00 Monocytes # 0.7 k/uL (0-1.0) 01/02/23 12:00 Eosinophils # 0.1 k/uL (0-0.7) 01/02/23 12:00 Basophils # 0.0 k/uL (0-0.2) 01/02/23 12:00 Sodium 141 mmol/L (137-145) 01/02/23 12:00 Potassium 3.5 mmol/L (3.5-5.1) 01/02/23 12:00 Chloride 107 mmol/L (98-107) 01/02/23 12:00 Carbon Dioxide 22 mmol/L (22-30) 01/02/23 12:00 Anion Gap 12 mmol/L 01/02/23 12:00 BUN 12 mg/dL (7-17) 01/02/23 12:00 Creatinine 0.62 mg/dL (0.52-1.04) 01/02/23 12:00 Est GFR (CKD-EPI)AfAm >90 (>60 ml/min/1.73 sqM) 01/02/23 12:00 Est GFR (CKD-EPI)NonAf >90 (>60 ml/min/1.73 sqM) 01/02/23 12:00 Glucose 114 mg/dL (74-99) H 01/02/23 12:[address] Glu mg/dL 103 mg/dL 01/03/23 06:57 Hemoglobin A1c 5.2 % (<=6.0) 01/03/23 06:57 Calcium 9.3 mg/dL (8.4-10.2) 01/02/23 12:00 Total Bilirubin 1.5 mg/dL (0.2-1.3) H 01/02/23 12:00 Conjugated Bilirubin 0.0 mg/dL (0.0-0.3) 01/02/23 12:00 Unconjugated Bilirubin 1.2 mg/dL (0.0-1.1) H 01/02/23 12:00 Delta Bilirubin 0.3 mg/dL (0.0-0.2) H 01/02/23 12:00 AST 34 U/L (14-36) 01/02/23 12:00 ALT 45 U/L (4-34) H 01/02/23 12:00 Alkaline Phosphatase 63 U/L (38-126) 01/02/23 12:00 Total Protein 8.1 g/dL (6.3-8.2) 01/02/23 12:00 Albumin 4.9 g/dL (3.5-5.0) 01/02/23 12:00 TSH 0.849 mIU/L (0.465-4.680) 01/03/23 06:57 Urine Color Light Red 01/01/23 18:13 Urine Appearance Turbid (Clear) H 01/01/23 18:13 Urine pH 5.5 (5.0-8.0) 01/01/23 18:13 Ur Specific [place] 1.027 (1.001-1.035) 01/01/23 18:13 Urine Protein 1+ (Negative) H 01/01/23 18:13 Urine Glucose (UA) Negative (Negative) 01/01/23 18:13 Urine Ketones 1+ (Negative) H 01/01/23 18:13 Urine Blood Negative (Negative) 01/01/23 18:13 Urine Nitrite Negative (Negative) 01/01/23 18:13 Urine Bilirubin Negative (Negative) 01/01/23 18:13 Urine Urobilinogen <2.0 mg/dL (<2.0) 01/01/23 18:13 Ur Leukocyte Esterase Small (Negative) H 01/01/23 18:13 Urine WBC 3 /hpf (0-5) 01/01/23 18:13 Amorphous Sediment Few /hpf (None) H 01/01/23 18:13 Urine Mucus Many /hpf (None) H 01/01/23 18:13 Urine HCG, Qual Not Detected (Not Detectd) 01/01/23 18:13 Urine Opiates Screen Not Detected (NotDetected) 01/01/23 18:13 Ur Oxycodone Screen Not Detected (NotDetected) 01/01/23 18:13 Urine Methadone Screen Not Detected (NotDetected) 01/01/23 18:13 Ur Propoxyphene Screen Not Detected (NotDetected) 01/01/23 18:13 Ur Barbiturates Screen Not Detected (NotDetected) 01/01/23 18:13 U Tricyclic Antidepress Not Detected (NotDetected) 01/01/23 18:13 Ur Phencyclidine Scrn Not Detected (NotDetected) 01/01/23 18:13 Ur Amphetamines Screen Not Detected (NotDetected) 01/01/23 18:13 U Methamphetamines Scrn Not Detected (NotDetected) 01/01/23 18:13 U Benzodiazepines Scrn Not Detected (NotDetected) 01/01/23 18:13 Urine Cocaine Screen Not Detected (NotDetected) 01/01/23 18:13 U Marijuana (THC) Screen Not Detected (NotDetected) 01/01/23 18:13 Coronavirus (PCR) Not Detected (Not Detectd) 01/01/23 21:58 Vital Signs Temp 97.8 F 08/29/23 06:53 Pulse 103 H 01/25/23 06:53 Resp 19 01/25/23 06:53 BP 121/73 01/25/23 06:53 Pulse Ox 96 01/25/23 06:53 FiO2 Intake & Output 01/24/23 01/25/23 01/25/23 18:59 06:59 18:59 Weight 88.1 kg Patient Condition at Discharge: Stable Plan - Discharge Summary Discharge Rx Participant: No New Discharge Prescriptions: New Ibuprofen [Motrin] 600 mg PO Q6HR PRN tab PRN Reason: Moderate Pain (Scale 4 To 6) fluPHENAZine [Prolixin] 2 mg PO BID 3 Days #12 tab Melatonin 5 mg PO HS PRN 30 Days #30 tab PRN Reason: Insomnia traZODone HCL 150 mg PO HS 30 Days #30 tablet Acetaminophen Tab [Tylenol] 650 mg PO Q4HR PRN tab PRN Reason: Mild Pain (Scale 1 To 3) fluPHENAZine decanoate [Prolixin Decanoate] 0 mg IM Q14D #1 each Continue Semaglutide [Wegovy] 1.7 mg SQ [place] Triamcinolone 0.1% Cream [Kenalog 0.1% Cream] 1 applicatio TOPICAL BID PRN PRN Reason: PSORIASIS Discharge Medication List Semaglutide [Wegovy] 1.7 mg SQ LAN[place]VERDE 01/01/23 [History] Triamcinolone 0.1% Cream [Kenalog 0.1% Cream] 1 applicatio TOPICAL BID PRN 01/01/23 [History] Acetaminophen Tab [Tylenol] 650 mg PO Q4HR PRN tab 01/25/23 [Rx] Ibuprofen [Motrin] 600 mg PO Q6HR PRN tab 01/25/23 [Rx] Melatonin 5 mg PO HS PRN 30 Days #30 tab 01/25/23 [Rx] fluPHENAZine [Prolixin] 2 mg PO BID 3 Days #12 tab 01/25/23 [Rx] fluPHENAZine decanoate [Prolixin Decanoate] 0 mg IM Q14D #1 each 01/25/23 [Rx] traZODone HCL 150 mg PO HS 30 Days #30 tablet 01/25/23 [Rx] Follow up Appointment(s)/Referral(s): [facility] [Outside] - 02/01/23 9:30 am (with [facility]) Roberto Espinoza MD [Primary Care Provider] - 1-2 days Activity/Diet/Wound Care/Special Instructions: Avoid the use of street drugs and alcohol. Take all medications as prescribed. When you are in need of refills on your medications, please contact your medical provider and/or outpatient psychiatrist/provider to have this done. Please go to your scheduled outpatient appointment for aftercare treatment. If symptoms return or become worse, call the crisis line at and/or go to the nearest emergency room for evaluation. National Suicide Hotline 687. Discharge Disposition: HOME SELF-CARE
== END 2023-01-25 14:42 | disposition home or self-care (01) | DRG 885 ==
LOC: EC 15:16 → 3MHU 23:29
PROVIDERS: ADMIT Psychiatry & Neurology Psychiatry; ATTEND Psychiatry & Neurology Psychiatry
DX: F20.9 Schizophrenia, unspecified (principal); E80.6 Other disorders of bilirubin metabolism; F32.A Depression, unspecified; K21.9 Gastro-esophageal reflux disease without esophagitis; F41.9 Anxiety disorder, unspecified; T43.3X6A Underdosing of phenothiazine antipsychotics and neuroleptics, initial encounter; G47.00 Insomnia, unspecified; Z20.822 Contact with and (suspected) exposure to COVID-19; Z91.148 Patient's other noncompliance with medication regimen for other reason; Z91.128 Patient's intentional underdosing of medication regimen for other reason; Z88.2 Allergy status to sulfonamides; Z88.1 Allergy status to other antibiotic agents; Z82.49 Family history of ischemic heart disease and other diseases of the circulatory system; Z79.899 Other long term (current) drug therapy; Z28.311 Partially vaccinated for COVID-19
CPT/HCPCS: 80053; 80306; 81001; 81025; 82075; 82248; 83036; 84443; 85025; 87635; 99285

== ENCOUNTER 2023-02-17 09:17 | Emergency (ER) | payer OTHER, MEDICARE ==
[2023-02-17 09:30] VITALS: TEMP 97.9
[2023-02-17] MEDS ORDERED: SODIUM CHLORIDE 0.9% 1,000 ML IV STA (10:04)
[2023-02-17] MEDS ORDERED: ONDANSETRON 4 MG/2 ML VIAL IVP STA (10:04)
[2023-02-17 10:44] LABS: Basophils % (A) 0 %; Eosinophils % (A) 0 %; HCT 40.3 % (34.0-46.0); HGB 13.5 gm/dL (11.4-16.0); Lymphocytes # (A) 1.4 k/uL (1.0-4.8); Lymphocytes % (A) 26 %; MCH 29.1 pg (25.0-35.0); MCHC 33.5 g/dL (31.0-37.0); MCV 86.9 fL (80.0-100.0); Monocytes # (A) 0.3 k/uL (0-1.0); Monocytes % (A) 6 %; Neutrophils # (A) 3.6 k/uL (1.3-7.7); Neutrophils % (A) 65 %; Platelet Count 251 k/uL (150-450); RBC 4.64 m/uL (3.80-5.40); RDW 12.7 % (11.5-15.5); WBC 5.5 k/uL (3.8-10.6)
[2023-02-17 10:46] LABS: Appearance,Urine Cloudy (Clear); Bilirubin,Urine Negative (Negative); Blood,Urine Negative (Negative); Color,Urine Yellow; Glucose,Urine (UA) Negative (Negative); Ketones,Urine Negative (Negative); Leukocyte Esterase,Urine Negative (Negative); Mucus,Urine Many /hpf; Nitrite,Urine Negative (Negative); PH, Urine 6.5 (5.0-8.0); Protein,Urine 1+ (Negative); RBC,Urine 3 /hpf (0-5); Specific Gravity,Urine 1.034 (1.001-1.035); Squamous Epithelial Cell,Urine 8 /hpf (0-4); WBC,Urine 3 /hpf (0-5)
[2023-02-17 10:52] VITALS: RESP 18
[2023-02-17 11:03] LABS: ALT 38 U/L (4-34); AST 37 U/L (14-36); African American GFR (CKD) >90 (>60 ml/min/1.73 sqM); Albumin 4.1 g/dL (3.5-5.0); Alkaline Phosphatase 62 U/L (38-126); Anion Gap 8 mmol/L; Blood Urea Nitrogen 7 mg/dL (7-17); Calcium 9.1 mg/dL (8.4-10.2); Carbon Dioxide 28 mmol/L (22-30); Chloride 103 mmol/L (98-107); Glucose 98 mg/dL (74-99); Lipase 74 U/L (23-300); Non-African American GFR(CKD) >90 (>60 ml/min/1.73 sqM); Sodium 139 mmol/L (137-145); Total Protein 7.3 g/dL (6.3-8.2)
[2023-02-17] MEDS ORDERED: METOCLOPRAMIDE 5 MG/ML 2 ML VIAL IVP STA (11:24)
[2023-02-17 12:08] VITALS: PULSE 84
--- NOTE | 2023-02-17 13:01 | ED ---
Allergic Reaction HPI - General Chief complaint: Allergic Reaction Stated complaint: Allergic Reaction to Meds Time Seen by Provider: 02/17/23 09:40 Source: patient Mode of arrival: ambulatory Limitations: no limitations - History of Present Illness Initial Comments: Patient is a 42-year-old female who presents to the emergency department for vomiting. Patient believes she is having a reaction to a new medication Prolixin she started a couple days ago. Her last dose was yesterday morning which was a half tab. Patient reports hives on her chest yesterday which has since resolved. She has had intermittent vomiting for the past couple days, nonbloody, nonbilious. She denies abdominal pain. Denies fever and chills. Denies upper respiratory symptoms. Denies chest pain and shortness of breath. - Related Data Home Medications Medication Instructions Recorded Confirmed Semaglutide [Wegovy] 1.7 mg SQ LANDAVERDE 01/01/23 01/01/23 Triamcinolone 0.1% Cream [Kenalog 1 applicatio TOPICAL BID PRN 01/01/23 01/01/23 0.1% Cream] Previous Rx's Medication Instructions Recorded Acetaminophen Tab [Tylenol] 650 mg PO Q4HR PRN tab 01/25/23 Ibuprofen [Motrin] 600 mg PO Q6HR PRN tab 01/25/23 Melatonin 5 mg PO HS PRN 30 Days #30 tab 01/25/23 fluPHENAZine [Prolixin] 2 mg PO BID 3 Days #12 tab 01/25/23 fluPHENAZine decanoate [Prolixin 0 mg IM Q14D #1 each 01/25/23 Decanoate] traZODone HCL 150 mg PO HS 30 Days #30 tablet 01/25/23 Ondansetron Odt [Zofran Odt] 4 mg PO Q8HR PRN #10 tab 02/17/23 Allergies Allergy/AdvReac Type Severity Reaction Status Date / Time ciprofloxacin [From Cipro] Allergy Swelling Verified 02/17/23 09:26 ciprofloxacin HCl Allergy Swelling Verified 02/17/23 09:26 [From Cipro] Sulfa (Sulfonamide Allergy Rash/Hives Verified 02/17/23 09:26 Antibiotics) Review of Systems ROS Statement: Those systems with pertinent positive or pertinent negative responses have been documented in the HPI. ROS Other: All systems not noted in ROS Statement are negative. Past Medical History Past Medical History: GERD/Reflux Additional Past Medical History / Comment(s): has abd. hernia that will be having surgery on History of Any Multi-Drug Resistant Organisms: None Reported Past Surgical History: Section, Cholecystectomy, Hernia Repair, Tubal Ligation Additional Past Surgical History / Comment(s): IUI, LAPAROSCOPY WITH FIMBROPLASTY, LAPARSCOPY WITH INTERNAL ADHESIONS. 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 Past Anesthesia/Blood Transfusion Reactions: Postoperative Nausea & Vomiting (PONV) Past Psychological History: Anxiety Smoking Status: Never smoker Past Alcohol Use History: Occasional Past Drug Use History: None Reported - Past Family History Father Family Medical History: Myocardial Infarction ([place]) Mother Family Medical History: Myocardial Infarction ([place]) General Exam Limitations: no limitations General appearance: alert Eye exam: Present: normal appearance, PERRL, EOMI. Absent: scleral icterus, conjunctival injection, periorbital swelling Respiratory exam: Present: normal lung sounds bilaterally. Absent: respiratory distress, wheezes, rales, rhonchi, stridor Cardiovascular Exam: Present: regular rate, normal rhythm, normal heart sounds. Absent: systolic murmur, diastolic murmur, rubs, gallop, clicks GI/Abdominal exam: Present: soft, normal bowel sounds. Absent: distended, tenderness, guarding, rebound, rigid Neurological exam: Present: alert Psychiatric exam: Present: normal affect, normal mood Skin exam: Present: warm, dry, intact, normal color. Absent: rash Course Vital Signs 02/17/23 02/17/23 02/17/23 09:26 10:45 12:04 Temperature 97.9 F Pulse Rate 97 77 84 Respiratory 16 18 18 Rate Blood Pressure 175/93 99/79 117/81 O2 Sat by Pulse 98 97 100 Oximetry Medical Decision Making - Medical Decision Making Was pt. sent in by a medical professional or institution (, PA, COUNTER HELP, urgent care, hospital, or penitentiary...) When possible be specific @ -No Did you speak to anyone other than the patient for history (EMS, parent, family, police, friend...)? What history was obtained from this source @ -No Did you review nursing and triage notes (agree or disagree)? Why? @ -I reviewed and agree with nursing and triage notes Were old charts reviewed (outside hosp., previous admission, EMS record, old EKG, old radiological studies, urgent care reports/EKG's, penitentiary records)? Report findings @ -No old charts were reviewed Differential Diagnosis (chest pain, altered mental status, abdominal pain women, abdominal pain men, vaginal bleeding, weakness, fever, dyspnea, syncope, headache, dizziness, GI bleed, back pain, seizure, CVA, palpatations, mental health)? @ -Anaphylaxis, ALLERGIC reaction, medication reaction. This list is not meant to be all-inclusive EKG interpreted by me (3pts min.). @ -As above X-rays interpreted by me (1pt min.). @ -None done CT interpreted by me (1pt min.). @ -None done U/S interpreted by me (1pt. min.). @ -None done What testing was considered but not performed or refused? (CT, X-rays, U/S, labs)? Why? @ -None What meds were considered but not given or refused? Why? @ -None Did you discuss the management of the patient with other professionals (professionals i.e. , PA, COUNTER HELP, lab, RT, psych nurse, social scientist, batch unit treater, teacher, regulatory compliance officer, correctional case manager)? Give summary @ -No Was smoking cessation discussed for >3mins.? @ -No Was critical care preformed (if so, how long)? @ -No Were there social determinants of health that impacted care today? How? (Homelessness, low income, unemployed, alcoholism, drug addiction, transportation, low edu. Level, literacy, decrease access to med. care, residential, rehab)? @ -No Was there de-escalation of care discussed even if they declined (Discuss DNR or withdrawal of care, Hospice)? DNR status @ -No What co-morbidities impacted this encounter? (DM, HTN, Smoking, COPD, CAD, Cancer, CVA, ARF, Chemo, Hep., AIDS, mental health diagnosis, sleep apnea, morbid obesity)? @ -[None] Was patient admitted / discharged? Hospital course, mention meds given and route, prescriptions, significant lab abnormalities, going to OR and other pertinent info. @ -42-year-old presenting with vomiting after new medication. Laboratory studies obtained. There is minimal elevation of ALT and AST, 37 and 38 respectively. Patient does not have abdominal tenderness or pain. There is no leukocytosis. Patient given fluid bolus and Zofran she did not have any further episodes of vomiting but continues to feel nauseous. She was then given Reglan with improvement. Patient is stable medical condition for discharge. She is advised to not take this medication and will follow up with her primary care provider and [facility] for further management Undiagnosed new problem with uncertain prognosis? @ -[No] Drug Therapy requiring intensive monitoring for toxicity (Heparin, Nitro, Insulin, Cardizem)? @ -[No] Were any procedures done? @ -[No] Diagnosis/symptom? @ -Medication reaction, vomiting Acute, or Chronic, or Acute on Chronic? @Acute Uncomplicated (without systemic symptoms) or Complicated (systemic symptoms)? @ -[Uncomplicated Side effects of treatment? @ -[No] Exacerbation, Progression, or Severe Exacerbation? @ -[No] Poses a threat to life or bodily function? How? (Chest pain, [place], [place], pneumonia, PE, COPD, DKA, ARF, appy, cholecystitis, CVA, Diverticulitis, Homicidal, Suicidal, threat to staff... and all critical care pts) @ -[No] Dr. Hicks is my attending - Lab Data Result diagrams: 02/17/23 10:18 02/17/23 10:18 Lab Results 02/17/23 02/17/23 02/17/23 Range/Units 10:18 10:18 10:18 WBC 5.5 (3.8-10.6) k/uL RBC 4.64 (3.80-5.40) m/uL Hgb 13.5 (11.4-16.0) gm/dL Hct 40.3 (34.0-46.0) % MCV 86.9 (80.0-100.0) fL MCH 29.1 (25.0-35.0) pg MCHC 33.5 (31.0-37.0) g/dL RDW 12.7 (11.5-15.5) % Plt Count 251 (150-450) k/uL MPV 7.0 Neutrophils % 65 % Lymphocytes % 26 % Monocytes % 6 % Eosinophils % 0 % Basophils % 0 % Neutrophils # 3.6 (1.3-7.7) k/uL Lymphocytes # 1.4 (1.0-4.8) k/uL Monocytes # 0.3 (0-1.0) k/uL Eosinophils # 0.0 (0-0.7) k/uL Basophils # 0.0 (0-0.2) k/uL Sodium 139 (137-145) mmol/L Potassium 4.0 (3.5-5.1) mmol/L Chloride 103 (98-107) mmol/L Carbon Dioxide 28 (22-30) mmol/L Anion Gap 8 mmol/L BUN 7 (7-17) mg/dL Creatinine 0.60 (0.52-1.04) mg/dL Est GFR (CKD-EPI)AfAm >90 (>60 ml/min/1.73 sqM) Est GFR (CKD-EPI)NonAf >90 (>60 ml/min/1.73 sqM) Glucose 98 (74-99) mg/dL Calcium 9.1 (8.4-10.2) mg/dL Total Bilirubin 1.0 (0.2-1.3) mg/dL AST 37 H (14-36) U/L ALT 38 H (4-34) U/L Alkaline Phosphatase 62 (38-126) U/L Total Protein 7.3 (6.3-8.2) g/dL Albumin 4.1 (3.5-5.0) g/dL Lipase 74 (23-300) U/L Urine Color Yellow Urine Appearance Cloudy H (Clear) Urine pH 6.5 (5.0-8.0) Ur Specific [place]field 1.034 (1.001-1.035) Urine Protein 1+ H (Negative) Urine Glucose (UA) Negative (Negative) Urine Ketones Negative (Negative) Urine Blood Negative (Negative) Urine Nitrite Negative (Negative) Urine Bilirubin Negative (Negative) Urine Urobilinogen 4.0 (<2.0) mg/dL Ur Leukocyte Esterase Negative (Negative) Urine RBC 3 (0-5) /hpf Urine WBC 3 (0-5) /hpf Ur Squamous Epith Cells 8 H (0-4) /hpf Urine Mucus Many H (None) /hpf Urine HCG, Qual (Not Detectd) 02/17/23 Range/Units 10:18 WBC (3.8-10.6) k/uL RBC (3.80-5.40) m/uL Hgb (11.4-16.0) gm/dL Hct (34.0-46.0) % MCV (80.0-100.0) fL MCH (25.0-35.0) pg MCHC (31.0-37.0) g/dL RDW (11.5-15.5) % Plt Count (150-450) k/uL MPV Neutrophils % % Lymphocytes % % Monocytes % % Eosinophils % % Basophils % % Neutrophils # (1.3-7.7) k/uL Lymphocytes # (1.0-4.8) k/uL Monocytes # (0-1.0) k/uL Eosinophils # (0-0.7) k/uL Basophils # (0-0.2) k/uL Sodium (137-145) mmol/L Potassium (3.5-5.1) mmol/L Chloride (98-107) mmol/L Carbon Dioxide (22-30) mmol/L Anion Gap mmol/L BUN (7-17) mg/dL Creatinine (0.52-1.04) mg/dL Est GFR (CKD-EPI)AfAm (>60 ml/min/1.73 sqM) Est GFR (CKD-EPI)NonAf (>60 ml/min/1.73 sqM) Glucose (74-99) mg/dL Calcium (8.4-10.2) mg/dL Total Bilirubin (0.2-1.3) mg/dL AST (14-36) U/L ALT (4-34) U/L Alkaline Phosphatase (38-126) U/L Total Protein (6.3-8.2) g/dL Albumin (3.5-5.0) g/dL Lipase (23-300) U/L Urine Color Urine Appearance (Clear) Urine pH (5.0-8.0) Ur Specific [place] (1.001-1.035) Urine Protein (Negative) Urine Glucose (UA) (Negative) Urine Ketones (Negative) Urine Blood (Negative) Urine Nitrite (Negative) Urine Bilirubin (Negative) Urine Urobilinogen (<2.0) mg/dL Ur Leukocyte Esterase (Negative) Urine RBC (0-5) /hpf Urine WBC (0-5) /hpf Ur Squamous Epith Cells (0-4) /hpf Urine Mucus (None) /hpf Urine HCG, Qual Not Detected (Not Detectd) Disposition Clinical Impression: Medication reaction, Vomiting Disposition: HOME SELF-CARE Condition: Good Instructions (If sedation given, give patient instructions): Anaphylaxis (ED) Additional Instructions: Take medication as directed. Please follow-up with your primary care provider and H in 1-2 days. Return to the emergency department if you experience new, concerning, or worsening symptoms. Prescriptions: Ondansetron Odt [Zofran Odt] 4 mg PO Q8HR PRN #10 tab PRN Reason: Nausea Is patient prescribed a controlled substance at d/c from ED?: No Referrals: Roberto Espinoza MD [Primary Care Provider] - 1-2 days
[2023-02-17 13:17] VITALS: BP 127/87
== END 2023-02-17 13:22 | disposition home or self-care (01) ==
LOC: EC 09:17
DX: R11.10 Vomiting, unspecified (principal); T43.3X5A Adverse effect of phenothiazine antipsychotics and neuroleptics, initial encounter; Z86.59 Personal history of other mental and behavioral disorders; Z88.2 Allergy status to sulfonamides; Z88.1 Allergy status to other antibiotic agents; Z90.49 Acquired absence of other specified parts of digestive tract
CPT/HCPCS: 36415; 80053; 83690; 85025; 81001; 81025; 99283; 96374; 96375; 96361; J2765; J2405

== ENCOUNTER 2023-10-20 10:47 | Inpatient (IN) | payer OTHER, MEDICARE ==
[2023-10-20] MEDS: ZIPRASIDONE 20 MG VIAL IM STA (11:20)
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
[2023-10-20] MEDS ORDERED: LORazepam 2 MG/ML INJ IM PRN (16:31)
[2023-10-20] MEDS: ZIPRASIDONE 40 MG CAP PO SCH (20:26)
[2023-10-20] MEDS: ACETAMINOPHEN TAB 325 MG TAB PO PRN (22:56)
[2023-10-21] MEDS: LORazepam 1 MG TAB PO PRN (00:57)
[2023-10-21 08:19] LABS: Appearance,Urine Cloudy (Clear); Bacteria,Urine Rare /hpf; Bilirubin,Urine Negative (Negative); Blood,Urine Trace (Negative); Budding Yeast,Urine Few /hpf; Color,Urine Yellow; Glucose,Urine (UA) Negative (Negative); Hyaline Casts,Urine 9 /lpf (0-2); Ketones,Urine 4+ (Negative); Leukocyte Esterase,Urine Large (Negative); Mucus,Urine Many /hpf; Nitrite,Urine Negative (Negative); Protein,Urine 1+ (Negative); RBC,Urine 26 /hpf (0-5); Specific Gravity,Urine 1.039 (1.001-1.035); Squamous Epithelial Cell,Urine 24 /hpf (0-4); WBC,Urine 77 /hpf (0-5)
[2023-10-21 08:46] LABS: Amphetamine Screen,Urine Not Detected (NotDetected); Barbiturate Screen,Urine Not Detected (NotDetected); Benzodiazepines Screen,Urine Detected (NotDetected); Cocaine Screen,Urine Not Detected (NotDetected); Methadone Screen, Urine Not Detected (NotDetected); Opiate Screen,Urine Not Detected (NotDetected); Oxycodone Screen, Urine Not Detected (NotDetected); Phencyclidine Screen,Urine Not Detected (NotDetected); Tricyclic Antidepressant,Urine Not Detected (NotDetected); Urn Cannabinoid Scrn Not Detected (NotDetected)
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
[2023-10-21 09:21] LABS: ALT 33 U/L (4-34); AST 40 U/L (14-36); African American GFR (CKD) >90 (>60 ml/min/1.73 sqM); Albumin 4.2 g/dL (3.5-5.0); Alkaline Phosphatase 66 U/L (38-126); Anion Gap 8 mmol/L; Blood Urea Nitrogen 16 mg/dL (7-17); Calcium 8.8 mg/dL (8.4-10.2); Carbon Dioxide 22 mmol/L (22-30); Chloride 109 mmol/L (98-107); Glucose 83 mg/dL (74-99); Non-African American GFR(CKD) >90 (>60 ml/min/1.73 sqM); Potassium 3.4 mmol/L (3.5-5.1); Sodium 139 mmol/L (137-145); Total Bilirubin 1.2 mg/dL (0.2-1.3); Total Protein 7.2 g/dL (6.3-8.2)
[2023-10-21 09:25] LABS: Basophils % (A) 1 %; Eosinophils % (A) 1 %; HCT 37.2 % (34.0-46.0); HGB 12.3 gm/dL (11.4-16.0); Lymphocytes # (A) 0.9 k/uL (1.0-4.8); Lymphocytes % (A) 17 %; MCV 87.9 fL (80.0-100.0); Mean Platelet Volume 7.9; Monocytes # (A) 0.6 k/uL (0-1.0); Monocytes % (A) 12 %; Neutrophils # (A) 3.7 k/uL (1.3-7.7); Neutrophils % (A) 68 %; Platelet Count 231 k/uL (150-450); RBC 4.23 m/uL (3.80-5.40); RDW 12.8 % (11.5-15.5); WBC 5.4 k/uL (3.8-10.6)
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
[2023-10-21] MEDS: ZIPRASIDONE 20 MG CAP PO SCH (21:37)
--- NOTE | 2023-10-22 18:59 | P.PN ---
Progress Note - Text Progress Note Date: 10/22/23 Interval history: Patient was seen wandering the hallways and hanging around the nurse's station, and was directable and agreeable to speak with loan underwriter. She quickly derails into talking about Wellbutrin and is fixated on getting Wellbutrin, reports she has taken this before and feels it benefits her, has notes written on sheets of paper that she constantly refers to. She is currently prescribed Geodon 20 mg QHS however she feels she does not need the Geodon, and has poor insight into her psychosis. At this time patient denies any suicidal or homicidal ideation, intent or plan. Denies any auditory or visual hallucinations. Patient has been compliant with meds, denies EPS, reports some dry mouth. Mental status exam: General Appearance: Patient appears to be stated age, obese, dressed in clean casual attire Behavior: No agitated behavior. Polite, but difficult to redirect away from the topic of Wellbutrin. Speech: Patient's speech is fluent and non-pressured. Mood/Affect: Mood is "good", affect is congruent and constricted. Suicidality/Homicidality: Patient denies having any suicidal or homicidal ideation intent or plan. Perceptions: Patient denies any auditory or visual hallucinations. Though content/process: There is evidence of delusional thought content. Thought process derails and fixated on Wellbutrin. Memory and concentration: AOX3, grossly intact for the purposes of this session Judgment and insight: Very poor Assessment/Plan: Continue with current diagnosis. Patient continues to meet criteria for inpatient psychiatric admission for symptom stabilization and safety. Patient will be maintained on current psychotropic medication regimen. She is only interested in Wellbutrin which would not benefit her at this time. Continue Geodon 20 mg QHS for psychosis. Monitor for medication compliance and for any psychotropic medication side effects. Will continue to monitor ongoing response to treatment. Encouraged participation in milieu.
--- NOTE | 2023-10-23 20:48 | P.PN ---
Progress Note - Text Progress Note Date: 10/23/23 Interval history: Patient was seen isolating to her room and was directable and agreeable to speak with curriculum writer. She quickly derails into talking about her list of concerns, including having been on Wellbutrin in the past and not liking the Geodon because she doesn't think she needs it or has psychosis. She is polite, has not been agitated, however she has poor insight into her mental illness. At this time patient denies any suicidal or homicidal ideation, intent or plan. Denies any auditory or visual hallucinations. Patient has been compliant with meds, denies EPS, reports some dry mouth. Mental status exam: General Appearance: Patient appears to be stated age, obese, dressed in clean casual attire Behavior: No agitated behavior. Polite, but difficult to redirect away from the topic of Wellbutrin. Speech: Patient's speech is fluent and non-pressured. Mood/Affect: Mood is "good", affect is congruent and constricted. Suicidality/Homicidality: Patient denies having any suicidal or homicidal ideation intent or plan. Perceptions: Patient denies any auditory or visual hallucinations. Though content/process: There is evidence of delusional thought content. Thought process derails and fixated on Wellbutrin. Memory and concentration: AOX3, grossly intact for the purposes of this session Judgment and insight: Very poor Assessment/Plan: Continue with current diagnosis. Patient continues to meet criteria for inpatient psychiatric admission for symptom stabilization and safety. Patient will be maintained on current psychotropic medication regimen. She is only interested in Wellbutrin which would not benefit her at this time. Continue Geodon 20 mg QHS for psychosis; she refuses dose increase. Start Cepacol lozenges for dry mouth. Monitor for medication compliance and for any psychotropic medication side effects. Will continue to monitor ongoing response to treatment. Encouraged participation in milieu.
[2023-10-23] MEDS: [UNRECOGNIZED DRUG - OTHER] SQ SCH (23:56)
[2023-10-23] MEDS: TIRZEPATIDE SQ SCH (23:56)
--- NOTE | 2023-10-24 11:24 | P.PN ---
Progress Note - Text Progress Note Date: 10/24/23 Interval history: Patient was seen isolating to her room and was directable and agreeable to speak with sheet writer. She presents as very disorganized today. Bizarre at times, closing her eyes and stiffening out her body. She states she is good today. She was wearing earplugs, and states she makes use of tools that are provided to her by the staff. Patient has no focus, or concentration abilities today, and if very tangential. Community Theater Actor spoke with patient regarding starting her on Abilify, patient agreeable, with a plan to transition onto a SANTA. At this time patient denies any suicidal or homicidal ideation, intent or plan. Denies any auditory or visual hallucinations. Patient has been compliant with meds,denies side effects. Mental status exam: General Appearance: Patient appears to be stated age, obese, dressed in clean casual attire Behavior: No agitated behavior. Polite, but difficult to redirect bizzare. Speech: Patient's speech is fluent and non-pressured. tangential Mood/Affect: Mood is "good", affect is congruent and constricted. Suicidality/Homicidality: Patient denies having any suicidal or homicidal ideation intent or plan. Perceptions: Patient denies any auditory or visual hallucinations. Though content/process: There is evidence of delusional thought content. D isorganized, Thought process derails and fixated on Wellbutrin. Memory and concentration: AOX3, grossly intact for the purposes of this session Judgment and insight: Very poor Assessment: Schizophrenia poor compliance with medical care Plan: -Patient continues to meet criteria for inpatient psychiatric admission for symptom stabilization and safety. Patient has signed adult voluntary form and me dication consent and was placed in patient's chart. -Medications: d/c Geodon add Abilify po 5mg po for psychosis, add trazodone 50mg po qhs for sleep -When necessary Ativan and Haldol for agitation/aggression. -NRT - nonsmoker -SW on board for discharge planning. Encouraged the patient to participate in milieu. plan will be to transition patient onto SANTA to help ensure compliance
[2023-10-24] MEDS: ARIPiprazole 5 MG TAB PO SCH (12:28)
[2023-10-24] MEDS: traZODone HCL 50 MG TAB PO SCH (21:31)
[2023-10-24] MEDS: ZIPRASIDONE 20 MG VIAL IM PRN (21:45)
--- NOTE | 2023-10-25 10:20 | P.PN ---
Progress Note - Text Progress Note Date: 10/25/23 Interval history: Patient was seen in the [facility] and was directable and agreeable to speak with justin briggs. She continues to present as very disorganized. Continues to be bizarre at times, appears to be responding to internal stimuli. Picking at stuff on a blank wall, making hand gestures. She states she is good today. She was wearing earplugs, and states that they help keep her calm. Weathercaster spoke with patient regarding patient refusing her Abilify this morning, patient willing to take medication, after magnetic tape typewriter operator explained the other medication was discontinued. Plan to transition patient onto SANTA prior to discharge At this time patient denies any suicidal or homicidal ideation, intent or plan. Denies any auditory or visual hallucinations. Patient has been compliant with meds,denies side effects. Mental status exam: General Appearance: Patient appears to be stated age, obese, dressed in clean casual attire Behavior: No agitated behavior. Polite, but difficult to redirect bizarre. Speech: Patient's speech is fluent and non-pressured. tangential Mood/Affect: Mood is "good", affect is congruent and constricted. Suicidality/Homicidality: Patient denies having any suicidal or homicidal ideation intent or plan. Perceptions: Patient denies any auditory or visual hallucinations. Though content/process: There is evidence of delusional thought content. Disorganized, Thought process derails and fixated on medications. evidence of paranoia. Memory and concentration: AOX3, grossly intact for the purposes of this session Judgment and insight: Very poor Assessment: Schizophrenia poor compliance with medical care Plan: -Patient continues to meet criteria for inpatient psychiatric admission for symptom stabilization and safety. Patient has signed adult voluntary form and medication consent and was placed in patient's chart. -Medications: Abilify po 5mg po for psychosis, trazodone 50mg po qhs for sleep -When necessary Ativan and Haldol for agitation/aggression. -SW on board for discharge planning. Encouraged the patient to participate in milieu. plan will be to transition patient onto SANTA to help ensure compliance. will consider switching patient to involuntary status if she is refusing medications.
[2023-10-25 11:08] LABS: African American GFR (CKD) >90 (>60 ml/min/1.73 sqM); Anion Gap 9 mmol/L; Blood Urea Nitrogen 10 mg/dL (7-17); Calcium 9.4 mg/dL (8.4-10.2); Carbon Dioxide 23 mmol/L (22-30); Chloride 106 mmol/L (98-107); Glucose 103 mg/dL (74-99); Non-African American GFR(CKD) >90 (>60 ml/min/1.73 sqM); Potassium 3.3 mmol/L (3.5-5.1); Sodium 138 mmol/L (137-145)
[2023-10-25] MEDS: POTASSIUM CHLORIDE ER 20 MEQ TAB.ER PO STA (19:34)
[2023-10-25] MEDS: MAG HYDROX/AL HYDROX/SIMETH 355 ML BOTTLE PO PRN (22:26)
[2023-10-25 22:47] LABS: Chol/HDL Ratio 3.43 Ratio; LDL Cholesterol,Calculated 84.3 mg/dL (0.0-131.0)
[2023-10-26] MEDS ORDERED: ONDANSETRON 4 MG TAB PO PRN (11:14)
--- NOTE | 2023-10-26 11:18 | P.PN ---
Progress Note - Text Progress Note Date: 10/26/23 Interval history: Patient was seen in her room and was directable and agreeable to speak with justin briggs. Patient was sitting on the floor in a corner of her room, she stated she is utilizing her time the best way she can. She states that she is overstimulated. She continues to present as very disorganized. Continues to be bizarre at times, appears to be responding to internal stimuli. Walking around the unit at times, and appearing to watch things that are not there. She states she is good today. Yesterday, she complained of nausea, with emesis. Turret Punch Press Operator spoke with patient about changing her medications to help with the side effects. Patient agreeable. Plan to transition patient onto SANTA prior to discharge. At this time patient denies any suicidal or homicidal ideation, intent or plan. Denies any auditory or visual hallucinations. Patient has been compliant with meds. Mental status exam: General Appearance: Patient appears to be stated age, obese, dressed in clean casual attire Behavior: No agitated behavior. Polite, but difficult to redirect bizarre. bizarre at times Speech: Patient's speech is fluent and non-pressured. tangential Mood/Affect: Mood is "good", affect is congruent and constricted. Suicidality/Homicidality: Patient denies having any suicidal or homicidal ideation intent or plan. Perceptions: Patient denies any auditory or visual hallucinations. Though content/process: There is evidence of delusional thought content. Disorganized, Thought process derails and fixated on medications. evidence of paranoia. Memory and concentration: AOX3, grossly intact for the purposes of this session Judgment and insight: Very poor Assessment: Schizophrenia poor compliance with medical care Plan: -Patient continues to meet criteria for inpatient psychiatric admission for symptom stabilization and safety. Patient has signed adult voluntary form and medication consent and was placed in patient's chart. -Medications: d/c Abilify, add Haldol 2mg po bid for psychosis, add cogentin 0.5mg bid for EPS symptoms. trazodone 50mg po qhs for sleep -zofran prn for nausea -When necessary Ativan and Haldol for agitation/aggression. -SW on board for discharge planning. Encouraged the patient to participate in milieu. plan will be to transition patient onto SANTA to help ensure compliance. will consider switching patient to involuntary status if she is refusing medications.
[2023-10-26] MEDS: BENZTROPINE MESYLATE 0.5 MG TAB PO SCH (21:47)
--- NOTE | 2023-10-27 09:35 | P.PN ---
Progress Note - Text Progress Note Date: 10/27/23 Interval history: Patient was seen in the hallway and was directable and agreeable to speak with specification writer. Patient was holding some belongings stating that she is about to get into the shower. Patient has been refusing her medications, because she does not have the knowledge of the medications. Compound Machine Operator explained the medications to the patient yesterday, and reiterated to the patient how important medication compliance is. Patient verbalized understanding. Patient is still displaying disorganized thought content, and states she needs to go home because her needs to go to work. Patient has not been compliant with medications, will consider filing a second cert with the courts. Plan to transition patient onto SANTA prior to discharge. At this time patient denies any suicidal or homicidal ideation, intent or plan. Denies any auditory or visual hallucinations. Patient has not been compliant with meds. Patient denies nausea today. Patient offers no other complaints. Mental status exam: General Appearance: Patient appears to be stated age, obese, dressed in clean casual attire Behavior: No agitated behavior. Polite, but difficult to redirect bizarre. bizarre at times Speech: Patient's speech is fluent and non-pressured. tangential Mood/Affect: Mood is "ok", affect is congruent and constricted. Suicidality/Homicidality: Patient denies having any suicidal or homicidal ideation intent or plan. Perceptions: Patient denies any auditory or visual hallucinations. Though content/process: There is evidence of delusional thought content. Disorganized, Thought process derails and fixated on medications. evidence of paranoia. Memory and concentration: AOX3, grossly intact for the purposes of this session Judgment and insight: Very poor Assessment: Schizophrenia poor compliance with medical care Plan: -Patient continues to meet criteria for inpatient psychiatric admission for symptom stabilization and safety. Patient has signed adult voluntary form and medication consent and was placed in patient's chart. -Medications: Haldol 2mg po bid for psychosis, cogentin 0.5mg bid for EPS symptoms. trazodone 50mg po qhs for sleep -zofran prn for nausea -When necessary Ativan and Haldol for agitation/aggression. -SW on board for discharge planning. Encouraged the patient to participate in milieu. plan will be to transition patient onto SANTA to help ensure compliance. will consider switching patient to involuntary status if she is refusing medications.
[2023-10-27] MEDS: BENZOCAINE/MENTHOL LOZENG 1 EACH LOZENGE MUCOUS MEM PRN (10:21)
--- NOTE | 2023-10-28 10:25 | P.PN ---
Progress Note - Text Progress Note Date: 10/28/23 Interval history: Patient was seen in the hallway and was directable and agreeable to speak with investigative writer. Patient continues to ramble at times, is illogical. She answered only some questions appropriately. Continues to have disorganized thoughts. Hygiene and grooming have been improving. She continues to have very poor insight and judgment, continues to be refusing medications at this time. States that she is sleeping at nighttime. She was focused on discharge. Claims her appetite is fair. Member Of Technical Staff spoke with patient about completing the certificates and petition and awaiting deferral and court date, she was agreeable to this. At this time patient denies any suicidal or homicidal ideation, intent or plan. Denies any auditory or visual hallucinations. Patient has not been compliant with meds. Patient denies nausea today. Patient offers no other complaints. Mental status exam: General Appearance: Patient appears to be stated age, mildly obese, dressed in clean casual attire Behavior: No agitated behavior. Polite, but difficult to redirect bizarre. bizarre at times Speech: Patient's speech is fluent and non-pressured. tangential Mood/Affect: Mood is "ok", affect is congruent and constricted. Suicidality/Homicidality: Patient denies having any suicidal or homicidal andree ation intent or plan. Perceptions: Patient denies any auditory or visual hallucinations. Though content/process: There is evidence of delusional thought content. Disorganized, Thought process derails and fixated on medications. evidence of paranoia. Memory and concentration: AOX3, grossly intact for the purposes of this session Judgment and insight: Very poor Assessment: Schizophrenia poor compliance with medical care Plan: -Patient continues to meet criteria for inpatient psychiatric admission for symptom stabilization and safety. completed 2 clinical certs and petition and currently awaiting deferral and court date. -Medications: Haldol 2mg po bid for psychosis, cogentin 0.5mg bid for EPS symptoms. trazodone 50mg po qhs for sleep. She is refusing medications. -zofran prn for nausea -When necessary Ativan and Haldol for agitation/aggression. -SW on board for discharge planning. Encouraged the patient to participate in milieu. plan will be to transition patient onto [facility]A to help ensure compliance. Currently awaiting deferral and court date.
--- NOTE | 2023-10-29 14:18 | P.PN ---
Subjective Progress Note Date: 10/29/23 Principal diagnosis: Assessment: Schizophrenia Patient Name: Iliana Blanton Date of : 78 Patient Status: Inpatient Attending Provider: Grady Valdez Date: 10/29/2023 initialization Date: 10/28/23 08:42 Interval history: Patient was seen in the hallway and was directable and agreeable to speak with justin briggs. Asked about why she was in the hospital patient was unable to give any specific answers she continues to report about her filing for divorce and that she was unwilling to accept that She however could never respond to the specific questions asked Patient continues to ramble at times, is illogical. Continues to have disorganized thoughts. . She continues to have very poor insight and judgment, continues to be refusing medications at this time. She was focused on discharge. . denies any suicidal or homicidal ideation, intent or plan Denies any auditory or visual hallucinations. Mental status exam: General Appearance: Patient appears to be stated age, mildly obese, dressed in clean casual attire Behavior: No agitated behavior. Polite, but difficult to redirect bizarre. bizarre at times Speech: Patient's speech is fluent and non-pressured. tangential monotone Mood/Affect: Mood is "ok", affect is congruent and constricted. Suicidality/Homicidality: Patient denies having any suicidal or homicidal ideation intent or plan. Perceptions: Patient denies any auditory or visual hallucinations. Though content/process: There is evidence of delusional thought content. Disorganized, Thought process derails and fixated on medications. evidence of paranoia. Memory and concentration: AOX3, grossly intact for the purposes of this session Judgment and insight: Very poor Assessment: Schizophrenia poor compliance with medical care Plan: Agree with the current treatment plan -Patient continues to meet criteria for inpatient psychiatric admission for symptom stabilization and safety. completed 2 clinical certs and petition and currently awaiting deferral and court date. -Medications: Haldol 2mg po bid for psychosis, cogentin 0.5mg bid for EPS symptoms. trazodone 50mg po qhs for sleep. Of note however patient is not taking any medications -zofran prn for nausea -When necessary Ativan and Haldol for agitation/aggression. -SW on board for discharge planning. Encouraged the patient to participate in milieu. plan will be to transition patient [facility] to help ensure compliance. Currently awaiting deferral and court date. Andres Boston MD Objective - Vital Signs Vital signs: Vital Signs Temp 97.3 F L 10/29/23 06:00 Pulse 82 10/29/23 06:00 Resp 20 10/29/23 06:00 BP 138/69 10/29/23 06:00 Pulse Ox 100 10/29/23 06:00 FiO2 - Labs CBC & Chem 7: 10/21/23 08:03 10/25/23 10:24
[2023-10-29] MEDS: IBUPROFEN 600 MG TAB PO PRN (22:56)
--- NOTE | 2023-10-30 09:25 | P.PN ---
Subjective Progress Note Date: 10/30/23 Principal diagnosis: Assessment: Schizophrenia Patient Name: Iliana Blanton Date of : 78 Patient Status: Inpatient Attending Provider: Grady Valdez Date: 10/30/23 initialization Date: 10/28/23 08:42 Interval history: Patient was seen in in her room was directable and agreeable to speak with telegraphic typewriter repairer. Has much difficulty in focusing to the questions asked She was repeatedly asked about if she needs medication and treatment and that if she has any type of medical problems She only continued to talk about her and this situation related to their issues at home and her 's behavior but would not talk about her own personal issues or problems Asked about why she was in the hospital patient was unable to give any specific answers she continues to report about her filing for divorce and that she was unwilling to accept that She however could never respond to the specific questions asked Patient continues to ramble at times, is illogical. Continues to have disorganized thoughts. . She continues to have very poor insight and judgment, continues to be refusing medications at this time. She was focused on discharge. . denies any suicidal or homicidal ideation, intent or plan Denies any auditory or visual hallucinations. Mental status exam: General Appearance: Patient appears to be stated age, mildly obese, dressed in clean casual attire Behavior: No agitated behavior. Polite, but difficult to redirect bizarre. bizarre at times Speech: Patient's speech is fluent and non-pressured. tangential monotone Mood/Affect: Mood is "ok", affect is congruent and constricted. Suicidality/Homicidality: Patient denies having any suicidal or homicidal ideation intent or plan. Perceptions: Patient denies any auditory or visual hallucinations. Though content/process: There is evidence of delusional thought content. Disorganized, Thought process derails and fixated on medications. evidence of paranoia. Memory and concentration: AOX3, grossly intact for the purposes of this session Judgment and insight: Very poor Assessment: Schizophrenia poor compliance with medical care Plan: Agree with the current treatment plan -Patient continues to meet criteria for inpatient psychiatric admission for symptom stabilization and safety. completed 2 clinical certs and petition and currently awaiting deferral and court date. -Medications: Haldol 2mg po bid for psychosis, cogentin 0.5mg bid for EPS symptoms. trazodone 50mg po qhs for sleep. Of note however patient is not taking any medications -zofran prn for nausea -When necessary Ativan and Haldol for agitation/aggression. -SW on board for discharge planning. Encouraged the patient to participate in milieu. plan will be to transition patient [facility] to help ensure compliance. Currently awaiting deferral and court date. Andres Boston MD Objective - Vital Signs Vital signs: Vital Signs Temp 97.8 F 10/30/23 05:07 Pulse 109 H 10/30/23 05:07 Resp 16 10/30/23 05:07 BP 141/85 10/30/23 05:07 Pulse Ox 100 10/29/23 06:00 FiO2 - Labs CBC & Chem 7: 10/21/23 08:03 10/25/23 10:24
--- NOTE | 2023-10-31 10:05 | P.PN ---
Progress Note - Text Progress Note Date: 10/31/23 Interval history: Patient was seen in group, and was directable and agreeable to speak with software writer in the hallway. Patient states that she is "quite well" today. Patient stated that she would like to be seen by the other psychiatrist. Patient stated that her has resources that she would like to use. She states that she does not want to take the medications. She continues to have very poor insight and judgment, continues to be refusing medications at this time. States that she is sleeping at nighttime. Claims her appetite is fair. Continues to ramble at times. At this time patient denies any suicidal or homicidal ideation, intent or plan. Denies any auditory or visual hallucinations. Patient has not been compliant with meds. Patient denies nausea today. Patient offers no other complaints. Mental status exam: General Appearance: Patient appears to be stated age, mildly obese, dressed in clean casual attire Behavior: No agitated behavior. Polite, but difficult to redirect Speech: Patient's speech is fluent and non-pressured. tangential Mood/Affect: Mood is "quite well", affect is congruent and constricted. Suicidality/Homicidality: Patient denies having any suicidal or homicidal ideation intent or plan. Perceptions: Patient denies any auditory or visual hallucinations. Though content/process: There is evidence of delusional thought content. Disorganized, Thought process derails and fixated on medications. evidence of paranoia. Memory and concentration: AOX3, grossly intact for the purposes of this session Judgment and insight: Very poor Assessment: Schizophrenia poor compliance with medical care Plan: -Patient continues to meet criteria for inpatient psychiatric admission for symptom stabilization and safety. completed 2 clinical certs and petition and currently awaiting deferral and court date. -Medications: Haldol 2mg po bid for psychosis, cogentin 0.5mg bid for EPS symptoms. trazodone 50mg po qhs for sleep. She is refusing medications. -zofran prn for nausea -When necessary Ativan and Haldol for agitation/aggression. -SW on board for discharge planning. Encouraged the patient to participate in milieu. plan will be to transition patient [facility] to help ensure compliance. Currently awaiting deferral and court date.
--- NOTE | 2023-11-01 10:16 | P.PN ---
Progress Note - Text Progress Note Date: 11/01/23 Interval history: Patient was seen in the hallway, and stated that she talked to legal represen keanu, and stated that she would not talk to instructional writer today. she had her ear plugs in her ears today and was asked to remove them for a minute and complied. It has been noted by nursing staff that patient has been responding to internal stimuli. Talking to the dunbar, etc. she spoke with the corporate attorney yesterday and signed the deferral however has not since been taking any medications. Mental status exam: General Appearance: Patient appears to be stated age, mildly obese, dressed in clean casual attire Behavior: No agitated behavior. Polite, noted to be responding to internal stimuli by nursing staff Speech: Patient's speech is fluent and non-pressured. Mood/Affect: Mood is unable to be assessed. affect is congruent and constricted. Suicidality/Homicidality: unable to assess Perceptions:unable to assess Though content/process: There is evidence of delusional thought content. Disorganized, evidence of paranoia, responding to internal stimuli Memory and concentration: AOX3, grossly intact for the purposes of this session Judgment and insight: Very poor Assessment: Schizophrenia poor compliance with medical care Plan: -Patient continues to meet criteria for inpatient psychiatric admission for symptom stabilization and safety. completed 2 clinical certs and petition and currently awaiting deferral and court date. -Medications: Haldol 2mg po bid for psychosis, cogentin 0.5mg bid for EPS symptoms. trazodone 50mg po qhs for sleep. She is refusing medications. -zofran prn for nausea -When necessary Ativan and Haldol for agitation/aggression. -SW on board for discharge planning. Encouraged the patient to participate in milieu. plan will be to transition patient [facility] to help ensure compliance. Patient did defer with her corporate attorney, however, is still refusing medications. Will have SW file a demand
--- NOTE | 2023-11-02 10:30 | P.PN ---
Progress Note - Text Progress Note Date: 11/02/23 Interval history: Patient was seen in the hallway, and grant writer asked the patient if she would like to talk. Patient politely refused, and said "no thank you". Engraver Rubber reminded the patient that this was the allotted time to speak with grant writer, and patient continued to politely refuse. Patient did sign a deferral with her mergers and acquisitions attorney on 10/30/22, but has since refused all medications and assessments with grant writer since then. Patient has been seen responding to internal stimuli by staff, picking things out of the air, talking to the dunbar, and making bizarre gestures. Mental status exam: General Appearance: Patient appears to be stated age, mildly obese, dressed in clean casual attire Behavior: No agitated behavior. Polite, noted to be responding to internal stimuli by nursing staff Speech: Patient's speech is fluent and non-pressured. quiet tone Mood/Affect: Mood is unable to be assessed. affect is congruent and constricted. Suicidality/Homicidality: unable to assess Perceptions:unable to assess Though content/process: There is evidence of delusional thought content. Disorganized, evidence of paranoia, responding to internal stimuli Memory and concentration: AOX3, grossly intact for the purposes of this session Judgment and insight: Very poor Assessment: Schizophrenia poor compliance with medical care Plan: -Patient continues to meet criteria for inpatient psychiatric admission for symptom stabilization and safety. completed 2 clinical certs and petition and currently awaiting deferral and court date. -Medications: Haldol 2mg po bid for psychosis, cogentin 0.5mg bid for EPS symptoms. trazodone 50mg po qhs for sleep. She is refusing medications. -zofran prn for nausea -When necessary Ativan and Haldol for agitation/aggression. -SW on board for discharge planning. Encouraged the patient to participate in milieu. plan will be to transition patient [facility] to help ensure compliance. Patient did defer with her mergers and acquisitions attorney on 10/30, however, is still refusing medications. SW filed a demand for hearing.
--- NOTE | 2023-11-03 10:56 | P.PN ---
Progress Note - Text Progress Note Date: 11/03/23 Interval history: Patient was seen in her room, and sports writer asked the patient if she would like to talk. Patient politely refused, and stated that she has discussed issues with her legal representation, and she does not want to talk to this sports writer today. Patient did sign a deferral with her document review attorney on 10/30/22, but has since refused all medications and assessments with sports writer since then. Patient continues to respond to internal stimuli, and converses with herself, and makes bizarre facial and body movements. Patients demand for hearing was filed, and her hearing is 11/08. Mental status exam: General Appearance: Patient appears to be stated age, mildly obese, dressed in clean casual attire Behavior: No agitated behavior. Polite, noted to be responding to internal stimuli by nursing staff Speech: Patient's speech is fluent and non-pressured. quiet tone Mood/Affect: Mood is unable to be assessed. affect is congruent and constricted. Suicidality/Homicidality: unable to assess Perceptions: unable to assess Though content/process: There is evidence of delusional thought content. Diso rganized, evidence of paranoia, responding to internal stimuli Memory and concentration: AOX3, grossly intact for the purposes of this session Judgment and insight: Very poor Assessment: Schizophrenia poor compliance with medical care Plan: -Patient continues to meet criteria for inpatient psychiatric admission for symptom stabilization and safety. completed 2 clinical certs and petition and currently awaiting deferral and court date. -Medications: Haldol 2mg po bid for psychosis, cogentin 0.5mg bid for EPS symptoms. trazodone 50mg po qhs for sleep. She is refusing medications. -zofran prn for nausea -When necessary Ativan and Haldol for agitation/aggression. -SW on board for discharge planning. Encouraged the patient to participate in milieu. plan will be to transition patient [facility] to help ensure compliance. Patient did defer with her document review attorney on 10/30, however, is still refusing medications. SW filed a demand for hearing. Hearing scheduled for 11/08
[2023-11-03 16:23] LABS: Appearance,Urine Cloudy (Clear); Bacteria,Urine Few /hpf; Bilirubin,Urine Negative (Negative); Blood,Urine Negative (Negative); Budding Yeast,Urine Occasional /hpf; Color,Urine Colorless; Glucose,Urine (UA) Negative (Negative); Ketones,Urine Negative (Negative); Leukocyte Esterase,Urine Negative (Negative); Mucus,Urine Rare /hpf; Nitrite,Urine Negative (Negative); PH, Urine 7.5 (5.0-8.0); Protein,Urine Negative (Negative); RBC,Urine 5 /hpf (0-5); Squamous Epithelial Cell,Urine 7 /hpf (0-4); Urobilinogen,Urine <2.0 mg/dL (<2.0); WBC,Urine 1 /hpf (0-5)
--- NOTE | 2023-11-04 10:03 | P.PN ---
Progress Note - Text Progress Note Date: 11/04/23 Interval history: Patient was seen in the hallway, and was agreeable to briefly speak with fiction and nonfiction writer prose. Patient is talking in almost a silent whisper. She asked about talking to her curriculum developer, fiction and nonfiction writer prose let her know that her demand hearing is on the . Patient did not want to speak any more after that. She stated she had no questions. Patient did sign a deferral with her curriculum developer on 10/30/22, but has since refused all medications since then. Patient continues to respond to internal stimuli, and converses with herself, and makes bizarre facial and body movements. Patients demand for hearing was filed, and her hearing is 11/08. Mental status exam: General Appearance: Patient appears to be stated age, mildly obese, dressed in clean casual attire Behavior: No agitated behavior. Polite, noted to be responding to internal stimuli by nursing staff Speech: Patient's speech is fluent and non-pressured. quiet tone Mood/Affect: Mood is unable to be assessed. affect is congruent and constricted. Suicidality/Homicidality: denies SI/HI Perceptions: Patient denies any visual hallucinations and denies any auditory hallucinations Though content/process: There is evidence of delusional thought content. Disorganized, evidence of paranoia, responding to internal stimuli Memory and concentration: AOX3, grossly intact for the purposes of this session Judgment and insight: Very poor Assessment: Schizophrenia poor compliance with medical care Plan: -Patient continues to meet criteria for inpatient psychiatric admission for symptom stabilization and safety. -Medications: Haldol 2mg po bid for psychosis, cogentin 0.5 mg bid for EPS symptoms. trazodone 50 mg po qhs for sleep. She is refusing medications. -zofran prn for nausea -When necessary Ativan and Haldol for agitation/aggression -SW on board for discharge planning. Encouraged the patient to participate in milieu. plan will be to transition patient [facility] to help ensure compliance. Patient did defer with her curriculum developer on 10/30, however, is still refusing medications. Demand for hearing scheduled for 11/08
--- NOTE | 2023-11-05 09:35 | P.PN ---
Subjective Progress Note Date: 11/05/23 Principal diagnosis: Assessment: Schizophrenia Patient Name: Iliana Blanton Date of : 78 Patient Status: Inpatient Attending Provider: Grady Valdez Date: 11/05/23 initialization Date: 10/28/23 08:42 Interval history: Patient was seen in in the hallway and agreeable to speak with technical document writer. Has much difficulty in focusing to the questions asked Patient remains somewhat withdrawn and superficial She spoke in an extremely soft voice which was difficult to hear Patient continues to ramble at times, is illogical. Continues to have disorganized thoughts. . She continues to have very poor insight and judgment, continues to be refusing medications at this time. Again she was focused on discharge. . denies any suicidal or homicidal ideation, intent or plan Denies any auditory or visual hallucinations. Mental status exam: General Appearance: Patient appears to be stated age, mildly obese, dressed in clean casual attire Behavior: No agitated behavior. Polite, but difficult to redirect bizarre. bizarre at times Speech: Patient's speech is fluent and non-pressured. tangential monotone Mood/Affect: Mood is "ok", affect is congruent and constricted. Suicidality/Homicidality: Patient denies having any suicidal or homicidal ideation intent or plan. Perceptions: Patient denies any auditory or visual hallucinations. Though content/process: There is evidence of delusional thought content. Disorganized, Thought process derails and fixated on medications. evidence of paranoia. Memory and concentration: AOX3, grossly intact for the purposes of this session Judgment and insight: Very poor Assessment: Schizophrenia poor compliance with medical care Plan: Patient continues to meet criteria for inpatient psychiatric admission for symptom stabilization and safety. -Medications: Haldol 2mg po bid for psychosis, cogentin 0.5 mg bid for EPS symptoms. trazodone 50 mg po qhs for sleep. She is refusing medications. -zofran prn for nausea -When necessary Ativan and Haldol for agitation/aggression -SW on board for discharge planning. Encouraged the patient to participate in milieu. plan will be to transition patient [facility] to help ensure compliance. Patient did defer with her attorney lawyer on 10/30, however, is still refusing medications. Demand for hearing scheduled for 11/08 Andres Boston MD Objective - Vital Signs Vital signs: Vital Signs Temp 98.1 F 11/04/23 06:00 Pulse 95 11/05/23 06:45 Resp 16 11/04/23 06:00 BP 136/79 11/05/23 06:45 Pulse Ox 99 11/04/23 06:00 FiO2 - Labs CBC & Chem 7: 10/21/23 08:03 10/25/23 10:24
--- NOTE | 2023-11-06 09:15 | P.PN ---
Subjective Progress Note Date: 11/06/23 Principal diagnosis: Assessment: Schizophrenia Patient Name: Iliana Blanton Date of : 78 Patient Status: Inpatient Attending Provider: Grady Valdez Date: 11/06/23 initialization Date: 10/28/23 08:42 Interval history: Patient was seen in in the hallway and agreeable to speak with insurance writer. Patient was walking in the hallway and wanted to to be in a private place will be moved to the dining room Patient continues to whisper her answers and stops talking when anyone passes by Patient was very polite and cooperative she stated that she is not going to take any of her medications except as needed Ativan Patient also then asked my opinion but when suggested that she take all her other medications stated that she is not going to take them but that she will respect my opinion Patient remains passive aggressive in interaction Overall remains very polite and apologized if she took too much of my time Insight into her problem is remains poor hygiene appears to be fair Mental status exam: General Appearance: Patient appears to be stated age, mildly obese, dressed in clean casual attire Behavior: No agitated behavior. Polite, but difficult to redirect bizarre. bizarre at times Speech: Patient's speech is fluent and non-pressured. tangential monotone Mood/Affect: Mood is "ok", affect is congruent and constricted. Suicidality/Homicidality: Patient denies having any suicidal or homicidal ideation intent or plan. Perceptions: Patient denies any auditory or visual hallucinations. Though content/process: There is evidence of delusional thought content. Disorganized, Thought process derails and fixated on medications. evidence of paranoia. Memory and concentration: AOX3, grossly intact for the purposes of this session Judgment and insight: Very poor Assessment: Schizophrenia poor compliance with medical care Plan: Patient continues to meet criteria for inpatient psychiatric admission for symptom stabilization and safety. -Medications: Haldol 2mg po bid for psychosis, cogentin 0.5 mg bid for EPS symptoms. trazodone 50 mg po qhs for sleep. She is refusing medications. -zofran prn for nausea -When necessary Ativan and Haldol for agitation/aggression -SW on board for discharge planning. Encouraged the patient to participate in milieu. plan will be to transition patient [facility] to help ensure compliance. Patient did defer with her insurance attorney on 10/30, however, is still refusing medications. Demand for hearing scheduled for 11/08 Andres Boston MD Objective - Vital Signs Vital signs: Vital Signs Temp 98.1 F 11/06/23 06:25 Pulse 94 11/06/23 06:25 Resp 16 11/06/23 06:25 BP 145/84 11/06/23 06:25 Pulse Ox 99 11/06/23 06:25 FiO2 - Labs CBC & Chem 7: 10/21/23 08:03 10/25/23 10:24
--- NOTE | 2023-11-07 11:21 | P.PN ---
Progress Note - Text Progress Note Date: 11/07/23 Interval history: Patient was seen in the hallway, and was not agreeable to speak with technical proposal writer. Patient stated that she wanted to only speak with her state's attorney, and not this technical proposal writer. On approach, patient appeared to be responding to internal stimuli. Making gestures with her hands at the wall, and whispering to herself. She stated she had no questions. Patient did sign a deferral with her state's attorney on 10/30/22, but has since refused all medications since then. Patient continues to respond to internal stimuli, and converses with herself, and makes bizarre facial and body movements. Patients demand for hearing was filed, and her hearing is 11/08. Mental status exam: General Appearance: Patient appears to be stated age, mildly obese, dressed in clean casual attire Behavior: No agitated behavior. Polite, responding to internal stimuli Speech: Patient's speech is fluent and non-pressured. quiet tone Mood/Affect: Mood is unable to be assessed. affect is congruent and constricted. Suicidality/Homicidality: Unable to assess Perceptions: unable to assess Though content/process: There is evidence of delusional thought content. Disorganized, evidence of paranoia, responding to internal stimuli Memory and concentration: AOX3, grossly intact for the purposes of this session Judgment and insight: Very poor Assessment: Schizophrenia poor compliance with medical care Plan: -Patient continues to meet criteria for inpatient psychiatric admission for symptom stabilization and safety. -Medications: Haldol 2mg po bid for psychosis, cogentin 0.5 mg bid for EPS symptoms. trazodone 50 mg po qhs for sleep. She is refusing medications. -zofran prn for nausea -When necessary Ativan and Haldol for agitation/aggression -SW on board for discharge planning. Encouraged the patient to participate in milieu. plan will be to transition patient onto [facility] to help ensure compliance. Patient did defer with her state's attorney on 10/30, however, is still refusing medications. Demand for hearing scheduled for 11/08
--- NOTE | 2023-11-08 10:21 | P.PN ---
Progress Note - Text Progress Note Date: 11/08/23 Interval history: Patient was seen in the hallway, and was not agreeable to speak with curriculum writer. Patient spoke in a whisper. She only stated that she knows of her hearing tomorrow, and she does not want to speak to curriculum writer today. Patient continues to be noted to be responding to internal stimuli. Speaking to herself, and making hand gestures. She stated she had no questions. Patient did sign a deferral with her franchise manager on 10/30/22, but has since refused all medications since then. Patient continues to respond to internal stimuli, and converses with herself, and makes bizarre facial and body movements. Patients demand for hearing was filed, and her hearing is 11/08. Mental status exam: General Appearance: Patient appears to be stated age, mildly obese, dressed in clean casual attire Behavior: No agitated behavior. Polite, responding to internal stimuli Speech: Patient's speech is fluent and non-pressured. quiet tone Mood/Affect: Mood is unable to be assessed. affect is congruent and constricted. Suicidality/Homicidality: Unable to assess Perceptions: unable to assess Though content/process: There is evidence of delusional thought content. Disorganized, evidence of paranoia, responding to internal stimuli Memory and concentration: AOX3, grossly intact for the purposes of this session Judgment and insight: Very poor Assessment: Schizophrenia poor compliance with medical care Plan: -Patient continues to meet criteria for inpatient psychiatric admission for symptom stabilization and safety. -Medications: Haldol 2mg po bid for psychosis, cogentin 0.5 mg bid for EPS symptoms. trazodone 50 mg po qhs for sleep. She is refusing medications. -zofran prn for nausea -When necessary Ativan and Haldol for agitation/aggression -SW on board for discharge planning. Encouraged the patient to participate in milieu. plan will be to transition patient onto [facility] to help ensure compliance. Patient did defer with her franchise manager on 10/30, however, is still refusing medications. Demand for hearing scheduled for 11/08
[2023-11-09 09:50] LABS: Basophils % (A) 0 %; Eosinophils # (A) 0.1 k/uL (0-0.7); Eosinophils % (A) 1 %; HCT 38.1 % (34.0-46.0); HGB 12.5 gm/dL (11.4-16.0); Lymphocytes # (A) 1.8 k/uL (1.0-4.8); Lymphocytes % (A) 24 %; MCH 29.6 pg (25.0-35.0); MCHC 32.9 g/dL (31.0-37.0); MCV 89.9 fL (80.0-100.0); Mean Platelet Volume 7.3; Monocytes # (A) 0.5 k/uL (0-1.0); Monocytes % (A) 7 %; Neutrophils # (A) 4.8 k/uL (1.3-7.7); Neutrophils % (A) 66 %; Platelet Count 326 k/uL (150-450); RBC 4.24 m/uL (3.80-5.40); RDW 13.4 % (11.5-15.5); WBC 7.3 k/uL (3.8-10.6)
[2023-11-09 10:01] LABS: African American GFR (CKD) >90 (>60 ml/min/1.73 sqM); Anion Gap 8 mmol/L; Blood Urea Nitrogen 16 mg/dL (7-17); Calcium 9.3 mg/dL (8.4-10.2); Carbon Dioxide 28 mmol/L (22-30); Chloride 104 mmol/L (98-107); Glucose 125 mg/dL (74-99); Non-African American GFR(CKD) >90 (>60 ml/min/1.73 sqM); Potassium 3.8 mmol/L (3.5-5.1); Sodium 140 mmol/L (137-145)
[2023-11-09] MEDS ORDERED: traZODone HCL 50 MG TAB PO PRN (11:55)
[2023-11-09] MEDS ORDERED: OLANZapine 10 MG VIAL IM PRN (11:59)
--- NOTE | 2023-11-09 11:59 | P.PN ---
Progress Note - Text Progress Note Date: 11/09/23 Interval history: Patient was seen in the hallway after court today. Patient was given a mental health order today and will be signed by the digital analyst later on today. When asked to reflect back on the court today she was very evasive about the mental health order and wanted to speak about different details of the meeting. She claims that she is feeling "a bit clear" today. She claims that she is feeling more optimistic, was willing to speak today about medications, she was given the choice between haloperidol and Abilify due to her intolerance of other medications. She opted to try the Abilify today. She continues to whisper softly and has been noted to be responding to internal stimuli in the hallways. At this time she is denying any auditory or visual hallucinations, denying any suicidal homicidal ideations intent or plan. Mental status exam: General Appearance: Patient appears to be stated age, mildly obese, dressed in clean casual attire Behavior: No agitated behavior. Polite, responding to internal stimuli. More cooperative today. Speech: Patient's speech is fluent and non-pressured. quiet tone Mood/Affect: Mood is unable to be assessed. affect is congruent and constricted. Suicidality/Homicidality: Denies Perceptions: Denies Though content/process: There is evidence of delusional thought content. Disorganized, evidence of paranoia, improving mildly Memory and concentration: AOX3, grossly intact for the purposes of this session Judgment and insight: Very poor Assessment: Schizophrenia poor compliance with medical care Plan: -Patient continues to meet criteria for inpatient psychiatric admission for symptom stabilization and safety. -Medications: Start Abilify p.o. 2.5 mg daily for mood stabilization/psychosis. If patient refuses this then please give IM Zyprexa. Trazodone 50 mg po qhs as needed for sleep. -When necessary Ativan and Haldol for agitation/aggression -SW on board for discharge planning. Encouraged the patient to participate in milieu. plan will be to transition patient onto [facility] to help ensure compliance. Patient was placed on a court order today, 11/09/23, plan to transition onto [facility] prior to discharge to ensure compliance.
[2023-11-09] MEDS: ARIPiprazole 5 MG TAB PO SCH (12:07)
[2023-11-09] MEDS: MAGNESIUM HYDROXIDE 2,400 MG/30 ML CUP PO PRN (12:55)
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
[2023-11-09] MEDS: SENNOSIDES-DOCUSATE SODIUM 1 EACH TAB PO SCH (15:56)
[2023-11-10] MEDS: HYDROCORTISONE SUPPOSITORY 25 MG SUPP RECTAL SCH (08:33)
[2023-11-10] MEDS: ARIPiprazole 5 MG TAB PO ONE (10:29)
--- NOTE | 2023-11-10 10:29 | P.PN ---
Progress Note - Text Progress Note Date: 11/10/23 Interval history: Patient was seen in the hallway, and agreeable to speak with race and sports book writer. Patient was put on a mental health order on 11/08, and has since been compliant with medications. She continues to whisper softly and has been noted to be responding to internal stimuli in the hallways however this is mildly improving. She stated that she is good today, and "having a clarity of things". Patient has a variety of questions regarding the medication, and what she should be doing on the unit. Inspector Screen Printing answered the questions the patient had. Inspector Screen Printing informed patient that we would be increasing her abilify, patient was agreeable. Patient reports sleeping well at night, and having a good appetite. She is caring for her ADL's appropriately. Patient is attending groups. At this time she is denying any auditory or visual hallucinations, denying any suicidal homicidal ideations intent or plan. Mental status exam: General Appearance: Patient appears to be stated age, mildly obese, dressed in clean casual attire Behavior: No agitated behavior. Polite, responding to internal stimuli. More cooperative today. Speech: Patient's speech is fluent and non-pressured. quiet tone Mood/Affect: Mood is "pretty good". affect is congruent and constricted. mildly improving Suicidality/Homicidality: Denies SI/HI Perceptions: Denies AH/VH Though content/process: There is evidence of delusional thought content. Disorganized, evidence of paranoia, improving mildly Memory and concentration: AOX3, grossly intact for the purposes of this session Judgment and insight: poor, improving mildly Assessment: Schizophrenia poor compliance with medical care Plan: -Patient continues to meet criteria for inpatient psychiatric admission for symptom stabilization and safety. -Medications: increase Abilify p.o. 5 mg daily for mood stabilization/psychosis. plan to transition patient onto [facility] prior to d/c. If patient refuses this then please give IM Zyprexa. Trazodone 50 mg po qhs as needed for sleep. -When necessary Ativan and Haldol for agitation/aggression -SW on board for discharge planning. Encouraged the patient to participate in milieu. plan will be to transition patient onto [facility] to help ensure compliance. Patient was placed on a court order 11/09/23
[2023-11-11] MEDS: ARIPiprazole 5 MG TAB PO SCH (08:44)
--- NOTE | 2023-11-11 10:23 | P.PN ---
Progress Note - Text Progress Note Date: 11/11/23 Interval history: Patient was seen in the hallway, and agreeable to speak with sports writer. Patient was put on a mental health order on 11/08, and has since been compliant with medications. She continues to whisper softly. She stated that she is very well today, Patient has a variety of questions regarding the medication, and how the dosage titrates up. Steel Rigger answered her questions. Patient was agreeable. patient appears to be more logical in her thought process today. Patient reports sleeping well at night, and having a good appetite. She is concerned about her children and , and stated she wants to be home to take care of them.Patient is attending groups. At this time she is denying any auditory or visual hallucinations, denying any suicidal homicidal ideations intent or plan. Mental status exam: General Appearance: Patient appears to be stated age, mildly obese, dressed in clean casual attire Behavior: No agitated behavior. Polite, More cooperative today. Speech: Patient's speech is fluent and non-pressured. quiet tone Mood/Affect: Mood is "pretty good". affect is congruent and constricted. mildly improving Suicidality/Homicidality: Denies SI/HI Perceptions: Denies AH/VH Though content/process: There is evidence of delusional thought content improving mildly. less evidence of paranoia, improving mildly Memory and concentration: AOX3, grossly intact for the purposes of this session Judgment and insight: poor, improving mildly Assessment: Schizophrenia poor compliance with medical care Plan: -Patient continues to meet criteria for inpatient psychiatric admission for symptom stabilization and safety Medications: increase Abilify p.o. 7.5mg daily starting tomorrow for mood stabilization/psychosis. plan to transition patient onto [facility] prior to d/c. If patient refuses this then please give IM Zyprexa. Trazodone 50 mg po qhs as needed for sleep -When necessary Ativan and Haldol for agitation/aggression -SW on board for discharge planning. Encouraged the patient to participate in milieu. plan will be to transition patient onto [facility] to help ensure compliance. Patient was placed on a court order 11/09/23. Likely d/c back home next week, after transitioning onto [facility]
--- NOTE | 2023-11-12 07:43 | P.PN ---
Subjective Progress Note Date: 11/12/23 Principal diagnosis: Schizophrenia Subjective: She seems think the medicines are beneficial she wanted make sure that he was increased today the way she was told it was going to be she was wondering about using something other than Ativan but says she has tried hydroxyzine in the past and didn't do any good. She says she slept well appetite is good and no restlessness no constipation no dry mouth no concerns with the medication. Objective: The patient talks so softly that even though she is 3 feet away I can barely understand anything she sets even when I pointed this out she did not talk louder. She had good eye contact alert came readily when I asked her for an interview wanted to know who I was all which was appropriate. No evidence of responding to voices. So far as I can tell her responses fit the questions she just had this frustratingly soft voice. Assessment: I get the sense that the soft voices some form of protection. She denies paranoia or hallucinations but seems to be positive about the medications. Plan: Have patient go to groups continue medication work on post discharge plans she says that she knows she needs better coping skills that she is going to do well after discharge Objective - Vital Signs Vital signs: Vital Signs Temp 97.3 F L 11/12/23 06:00 Pulse 84 11/12/23 06:00 Resp 16 11/12/23 06:00 BP 145/81 11/12/23 06:00 Pulse Ox 100 11/12/23 06:00 FiO2 - Labs CBC & Chem 7: 11/09/23 08:43 11/09/23 08:43
[2023-11-12] MEDS: ARIPiprazole 15 MG TAB PO SCH (08:51)
[2023-11-12] MEDS: LORazepam 0.5 MG TAB PO PRN (09:18)
--- NOTE | 2023-11-13 08:02 | P.PN ---
Subjective Progress Note Date: 11/13/23 Principal diagnosis: Schizophrenia Subjective: She seems think the medicines are beneficial she wanted make sure that he was increased today the way she was told it was going to be. She was wondering about using something other than Ativan but says she has tried hydroxyzine in the past and didn't do any good. She'll be willing to try gabapentin but wanted to wait and talk to her attending about that. She says she slept well, appetite is good, and no restlessness no constipation no dry mouth no concerns with the medication. Objective: The patient talks so softly that even though she is 3 feet away. I can barely understand anything she says, even when I pointed this out she did not talk louder. Her voice was perhaps slightly louder than yesterday and she has a pleasant smile. She had good eye contact alert came readily when I asked her for an interview wanted to know who I was all which was appropriate. No evidence of responding to voices. So far as I can tell her responses fit the questions she just had this frustratingly soft voice. Assessment: I get the sense that the soft is some form of protection. She denies paranoia or hallucinations but seems to be positive about the medications she still complains of a little too much anxiety and wouldn't mind increasing the Abilify because she feels that has helped. Plan: Increase Abilify to 10. Have patient go to groups continue medication work on post discharge plans she says that she knows she needs better coping skills that she is going to do well after discharge Objective - Vital Signs Vital signs: Vital Signs Temp 97.7 F 11/13/23 06:56 Pulse 86 11/13/23 06:56 Resp 16 11/13/23 06:56 BP 147/85 11/13/23 06:56 Pulse Ox 97 11/13/23 06:56 FiO2 - Labs CBC & Chem 7: 11/09/23 08:43 11/09/23 08:43
[2023-11-13] MEDS: ARIPiprazole 10 MG TAB PO SCH (09:06)
--- NOTE | 2023-11-14 12:10 | P.PN ---
Progress Note - Text Progress Note Date: 11/14/23 Interval history: Patient was seen in the hallway, and agreeable to speak with expert medical writer. Patient was put on a mental health order on 11/08, and has since been compliant with medications. She continues to whisper softly. She stated that she is very well today. Patient was agreeable to start [facility] today. patient appears to be more logical in her thought process today. Patient reports sleeping well at night, and having a good appetite. She spoke about having some anxiety during the day, she was able to try Vistaril today. Patient is attending groups. At this time she is denying any auditory or visual hallucinations, denying any suicidal homicidal ideations intent or plan. Mental status exam: General Appearance: Patient appears to be stated age, mildly obese, dressed in clean casual attire Behavior: No agitated behavior. Polite, More cooperative today. Speech: Patient's speech is fluent and non-pressured. quiet tone Mood/Affect: Mood is "pretty good". affect is congruent and constricted. mildly improving Suicidality/Homicidality: Denies SI/HI Perceptions: Denies AH/VH Though content/process: There is no evidence of delusional thought content improving mildly. less evidence of paranoia, improving mildly. Focused on medications. Memory and concentration: AOX3, grossly intact for the purposes of this session Judgment and insight: improving mildly Assessment: Schizophrenia poor compliance with medical care Plan: -Patient continues to meet criteria for inpatient psychiatric admission for symptom stabilization and safety Medications:Abilify p.o. 10mg daily for 14 days for mood stabilization/psychosis PO end day 11/28/23. Give Abilify Maintena 400mg IM today, 11/14/23, next dose due 12/12/23. If patient refuses this then please give IM Zyprexa. Trazodone 50 mg po qhs as needed for sleep. Add visteral prn for anxiety -When necessary Ativan and Haldol for agitation/aggression -SW on board for discharge planning. Encouraged the patient to participate in milieu. Patient was placed on a court order 11/09/23. Likely d/c back home Tuesday.
[2023-11-14] MEDS: ARIPiprazole IM 400 MG VIAL (NO COST) PHARMACY STOCK IM ONE (13:13)
[2023-11-14] MEDS: ARIPiprazole IM SYRINGE 400 MG (NO CHARGE) PHARMACY STOCK IM ONE (13:40)
[2023-11-15 05:53] VITALS: RESP 18
[2023-11-15 09:01] VITALS: BMI 37.4
--- NOTE | 2023-11-15 09:04 | P.PN ---
Progress Note - Text Progress Note Date: 11/15/23 Interval history: Patient was seen in the hallway, and agreeable to speak with senior grant writer in the of [facility]. Patient was put on a mental health order on 11/08, and has since been compliant with medications. Patient received her SANTA injection on 11/13. patient appears to be more logical in her thought process today. Patient reports sleeping well at night, and having a good appetite. She spoke about having some anxiety during the day, senior grant writer encouraged patient to utilize the visteral for anxiety, because senior grant writer will not prescribe ativan for the patient to go home on. Patient verbalized understanding. appears to be improving in her thought process. Patient is attending groups. At this time she is denying any auditory or visual hallucinations, denying any suicidal homicidal ideations intent or plan. Mental status exam: General Appearance: Patient appears to be stated age, mildly obese, dressed in clean casual attire Behavior: No agitated behavior. Polite, More cooperative today. Speech: Patient's speech is fluent and non-pressured. quiet tone, mildly improving Mood/Affect: Mood is "pretty good". affect is congruent and constricted. mildly improving Suicidality/Homicidality: Denies SI/HI Perceptions: Denies AH/VH Though content/process: There is no evidence of delusional thought content improving mildly. thought process is improving Memory and concentration: AOX3, grossly intact for the purposes of this session Judgment and insight: improving mildly Assessment: Schizophrenia poor compliance with medical care Plan: -Patient continues to meet criteria for inpatient psychiatric admission for symptom stabilization and safety Medications : Abilify p.o. 10mg daily for 14 days for mood stabilization/psychosis PO end day 11/28/23. Abilify Maintena 400mg IM, 11/14/23, next dose due 12/12/23. If patient refuses this then please give IM Zyprexa. Trazodone 50 mg po qhs as needed for sleep. visteral prn for anxiety -When necessary Ativan and Haldol for agitation/aggression -SW on board for discharge planning. Encouraged the patient to participate in milieu. Patient was placed on a court order 11/09/23. Discharge back home tomorrow.
[2023-11-16 06:19] VITALS: BP 122/76; PULSE 101; TEMP 98.1
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
[2023-11-16] MEDS: hydrOXYzine pamoate 25 MG CAP PO PRN (11:27)
== END 2023-11-16 16:15 | disposition home or self-care (01) | DRG 885 ==
LOC: EC 10:47 → 3MHU 16:27
PROVIDERS: ADMIT Psychiatry & Neurology Psychiatry; ATTEND Psychiatry & Neurology Psychiatry
DX: F20.9 Schizophrenia, unspecified (principal); T74.91XA Unspecified adult maltreatment, confirmed, initial encounter; K21.00 Gastro-esophageal reflux disease with esophagitis, without bleeding; K64.9 Unspecified hemorrhoids; Y07.010 Husband, current, perpetrator of maltreatment and neglect; Z91.148 Patient's other noncompliance with medication regimen for other reason; Z91.199 Patient's noncompliance with other medical treatment and regimen due to unspecified reason; Z11.52 Encounter for screening for COVID-19
CPT/HCPCS: 80048; 80053; 80061; 80306; 81001; 81025; 82075; 83036; 84443; 85025; 87635; 96372; 99285

== ENCOUNTER 2024-01-04 00:26 | Inpatient (IN) | payer OTHER, MEDICARE ==
[2024-01-04] MEDS ORDERED: LORazepam 1 MG TAB ONE ×2 (01:19→08:49)
[2024-01-04] MEDS ORDERED: SERTRALINE 25 MG TAB ONE (12:36)
[2024-01-04] MEDS ORDERED: PROPRANOLOL 20 MG TAB ONE (12:36)
[2024-01-05] MEDS ORDERED: SERTRALINE 50 MG TAB ONE (08:10)
[2024-01-06] MEDS ORDERED: SERTRALINE 50 MG TAB ONE (08:01)
[2024-01-06] MEDS ORDERED: PROPRANOLOL 20 MG TAB ONE (08:01)
== END 2024-01-06 14:10 | disposition home or self-care (01) | DRG 885 ==
LOC: 3MHU 00:26 → UNDOADMIN 00:26 → 3NCARDOBS 00:26 → UNDODISIN 01-06 14:10
PROVIDERS: ADMIT Psychiatry & Neurology Psychiatry; ATTEND Psychiatry & Neurology Psychiatry
DX: F20.9 Schizophrenia, unspecified (principal); R45.851 Suicidal ideations; F32.A Depression, unspecified; Z88.1 Allergy status to other antibiotic agents; Z88.2 Allergy status to sulfonamides
CPT/HCPCS: 80053; 84443; 85025; 87635; 99285

== ENCOUNTER → 2024-03-09 | Outpatient (CLI) | payer OTHER, MEDICARE ==
[2024-03-09 15:24] LABS: ALT 14 U/L (8-44); AST 22 U/L (13-35); Albumin 4.8 g/dL (3.8-4.9); Albumin/Globulin Ratio 1.55 Ratio (1.60-3.17); Alkaline Phosphatase 79 U/L (41-126); BUN/Creat Ratio 20.43 Ratio (12.00-20.00); Blood Urea Nitrogen 14.3 mg/dL (9.0-27.0); Calcium 9.4 mg/dL (8.7-10.3); Carbon Dioxide 23.3 mmol/L (21.6-31.8); Chloride 106 mmol/L (96-109); Chol/HDL Ratio 4.43 Ratio; Globulin 3.1 g/dL (1.6-3.3); Glucose 81 mg/dL (70-110); LDL Cholesterol,Calculated 143.4 mg/dL (0.0-131.0); Potassium 4.2 mmol/L (3.5-5.5); Sodium 141 mmol/L (135-145); Total Bilirubin 1.2 mg/dL (0.3-1.2); Total Protein 7.9 g/dL (6.2-8.2)
[2024-03-09 15:49] LABS: Basophils # (A) 0.08 X 10*3/uL (0.00-0.10); Basophils % (A) 1.4 %; Eosinophils % (A) 1.7 %; HCT 40.4 % (37.2-46.3); HGB 13.1 g/dL (12.0-15.0); Lymphocytes # (A) 2.17 X 10*3/uL (0.90-5.00); Lymphocytes % (A) 37.2 %; MCH 28.9 pg (27.0-32.0); MCHC 32.4 g/dL (32.0-37.0); Mean Platelet Volume 9.5 FL (9.5-12.2); Monocytes # (A) 0.54 X 10*3/uL (0.20-1.00); Monocytes % (A) 9.2 %; NRBC Per 100 WBC 0 X 10*3/uL (0.00-0.01); Neutrophils # (A) 2.93 X 10*3/uL (1.80-7.70); Neutrophils % (A) 50.2 %; Platelet Count 265 X 10*3/uL (140-440); RBC 4.54 X 10*6/uL (4.10-5.20); RDW 12.8 % (11.5-14.5); WBC 5.84 X 10*3/uL (4.50-10.00)
== END | disposition home or self-care (01) ==
LOC: LABWHC1 09:08
PROVIDERS: ATTEND Internal Medicine
CPT/HCPCS: 36415; 80053; 80061; 83036; 84443; 85025

== ENCOUNTER → 2024-03-20 | Outpatient (CLI) | payer OTHER, MEDICARE ==
--- NOTE | 2024-03-21 11:10 | MM ---
Reason for Exam: Screening (asymptomatic). Last mammogram was performed 10 year(s) and 0 month(s) ago. Patient History: Menarche at age 13. Currently using Hormonal Contraceptives, beginning at age 31 for 1 year. Risk Values: Jeri 5 year model risk: 0.5%. NCI Lifetime model risk: 6.5%. Prior Study Comparison: 03/08/2013 Bilateral Diagnostic Mammogram, [facility]. 03/11/2014 Bilateral Diagnostic Mammogram, [facility]. Tissue Density: The breasts are heterogeneously dense, which may obscure small masses. Findings: Analyzed By CAD. There is no suspicious group of microcalcifications or new suspicious mass in either breast. Overall Assessment: Negative, BI-RAD 1 Management: Screening Mammogram of both breasts in 1 year. . Patient should continue monthly self-breast exams. A clinical breast exam by your physician is recommended on an annual basis. This exam should not preclude additional follow-up of suspicious palpable abnormalities. Note on Jeri scores and lifetime risk: 1. A Jeri score greater than 3% is considered moderate risk. If this is the case, consider specialist referral to assess eligibility for a risk reducing agent. 2. If overall lifetime risk for the development of breast cancer is 20% or higher, the patient may qualify for future screening with alternating mammogram and breast MRI. [facility], , 03/21/2024 11:07 AM. Electronically signed and approved by: Salazar Lamb M.D. Radiologis
== END | disposition home or self-care (01) ==
LOC: RADMAMWWP 11:28
PROVIDERS: ATTEND Internal Medicine
CPT/HCPCS: 77067

== ENCOUNTER 2024-07-31 09:26 | Emergency (ER) | payer OTHER, MEDICARE ==
[2024-07-31 09:30] VITALS: TEMP 98.2
--- NOTE | 2024-07-31 10:32 | ED ---
General Adult HPI - General Chief complaint: GI Bleed Stated complaint: rectal bleeding Time Seen by Provider: 07/31/24 09:54 Source: patient, RN notes reviewed Mode of arrival: ambulatory Limitations: no limitations - History of Present Illness Initial comments: 44-year-old female presents to the emergency department for evaluation of rectal bleeding. Patient states that this has been going on since April. She notes that it is intermittent. She denies any known triggers. She also admits to lower abdominal pain/cramping. This seems to be associated with the bleeding. She denies fever, chills, nausea, vomiting. Denies any family history of IBD. - Related Data Home Medications Medication Instructions Recorded Confirmed Atorvastatin [Lipitor] 40 mg PO DAILY 07/31/24 07/31/24 Multivitamins, Thera [Multivitamin 1 tab PO DAILY 07/31/24 07/31/24 (formulary)] Allergies Allergy/AdvReac Type Severity Reaction Status Date / Time ciprofloxacin [From Cipro] Allergy Anaphylaxis, Verified 07/31/24 09:47 tongue swelling ciprofloxacin HCl Allergy Anaphylaxis, Verified 07/31/24 09:47 [From Cipro] tongue swelling Sulfa (Sulfonamide Allergy Rash/Hives Verified 07/31/24 09:47 Antibiotics) Review of Systems ROS Statement: Those systems with pertinent positive or pertinent negative responses have been documented in the HPI. ROS Other: All systems not noted in ROS Statement are negative. Past Medical History Past Medical History: GERD/Reflux Additional Past Medical History / Comment(s): has abd. hernia that will be having surgery on History of Any Multi-Drug Resistant Organisms: None Reported Past Surgical History: Section, Cholecystectomy, Hernia Repair, Tubal Ligation, Uterine Ablation Additional Past Surgical History / Comment(s): IUI, LAPAROSCOPY WITH FIMBROPLASTY, LAPARSCOPY WITH INTERNAL ADHESIONS. 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 Past Anesthesia/Blood Transfusion Reactions: Postoperative Nausea & Vomiting (PONV) Past Psychological History: Anxiety Smoking Status: Never smoker Past Alcohol Use History: Occasional Past Drug Use History: None Reported - Past Family History Father Family Medical History: Myocardial Infarction ([place]) Mother Family Medical History: Myocardial Infarction ([place]) General Exam Limitations: no limitations General appearance: alert, in no apparent distress Head exam: Present: atraumatic, normocephalic, normal inspection Eye exam: Present: normal appearance, PERRL, EOMI. Absent: scleral icterus, conjunctival injection, periorbital swelling ENT exam: Present: normal exam, mucous membranes moist Respiratory exam: Present: normal lung sounds bilaterally. Absent: respiratory distress, wheezes, rales, rhonchi, stridor Cardiovascular Exam: Present: regular rate, normal rhythm, normal heart sounds. Absent: systolic murmur, diastolic murmur, rubs, gallop, clicks GI/Abdominal exam: Present: soft, normal bowel sounds. Absent: distended, tenderness, guarding, rebound, rigid Extremities exam: Present: normal inspection, full ROM, normal capillary refill. Absent: tenderness, pedal edema, joint swelling, calf tenderness Neurological exam: Present: alert, oriented X3 Psychiatric exam: Present: normal affect, normal mood Skin exam: Present: warm, dry, intact, normal color. Absent: rash Course Vital Signs 07/31/24 07/31/24 09:27 12:46 Temperature 98.2 F Pulse Rate 100 86 Respiratory 20 18 Rate Blood Pressure 160/110 144/87 O2 Sat by Pulse 98 100 Oximetry Medical Decision Making - Medical Decision Making Was pt. sent in by a medical professional or institution (, PA, GROCERY DEPARTMENT MANAGER, urgent care, hospital, or [place] health care facility...) When possible be specific @ -No Did you speak to anyone other than the patient for history (EMS, parent, family, police, friend...)? What history was obtained from this source @ -No Did you review nursing and triage notes (agree or disagree)? Why? @ -I reviewed and agree with nursing and triage notes Were old charts reviewed (outside hosp., previous admission, EMS record, old EKG, old radiological studies, urgent care reports/EKG's, [place] health care facility records)? Report findings @ -No old charts were reviewed Differential Diagnosis (chest pain, altered mental status, abdominal pain women, abdominal pain men, vaginal bleeding, weakness, fever, dyspnea, syncope, headache, dizziness, GI bleed, back pain, seizure, CVA, palpatations, mental health, musculoskeletal)? @ -Differential Abdominal Pain Women: Appendicitis, Cholecystitis, diverticulosis, ischemic bowel, pancreatitis, hepatitis, UTI, gastroenteritis, AAA, incarcerated hernia, bowel obstruction, constipation, inflammatory bowel, hepatitis, peptic ulcer disease, splenic infarction, perforated viscus, vulvitis, ovarian torsion, PID, kidney stone, placenta abruption, this is not meant to be an all-inclusive list EKG interpreted by me (3pts min.). @ -None X-rays interpreted by me (1pt min.). @ -None done CT interpreted by me (1pt min.). @ -CT abdomen pelvis shows no acute process, colonic diverticulosis U/S interpreted by me (1pt. min.). @ -None done What testing was considered but not performed or refused? (CT, X-rays, U/S, labs)? Why? @ -None What meds were considered but not given or refused? Why? @ -None Did you discuss the management of the patient with other professionals (professionals i.e. , PA, GROCERY DEPARTMENT MANAGER, lab, RT, psych nurse, neonatal social worker, matchbook assembler, teacher, marine safety officer, casework supervisor)? Give summary @ -No Was smoking cessation discussed for >3mins.? @ -No Was critical care preformed (if so, how long)? @ -No Were there social determinants of health that impacted care today? How? (Homelessness, low income, unemployed, alcoholism, drug addiction, transportation, low edu. Level, literacy, decrease access to med. care, prison, rehab)? @ -No Was there de-escalation of care discussed even if they declined (Discuss DNR or withdrawal of care, Hospice)? DNR status @ -No What co-morbidities impacted this encounter? (DM, HTN, Smoking, COPD, CAD, Cancer, CVA, ARF, Chemo, Hep., AIDS, mental health diagnosis, sleep apnea, morbid obesity)? @ -None Was patient admitted / discharged? Hospital course, mention meds given and route, prescriptions, significant lab abnormalities, going to OR and other pertinent info. @ -Discharge. Patient presented emergency department for evaluation of abdominal pain and rectal bleeding.Laboratory studies obtained revealing no significant leukocytosis, hemoglobin 12.9; CMP nonactionable; UA shows 2+ k etones, 21 RBCs present, [address] abdomen pelvis was obtained revealing no acute process but colonic diverticulosis was present. Advised that this was likely the cause of the bleeding. Patient will be discharged home. Patient understanding and agreeable with plan. Patient stable at time of discharge. Case discussed with Dr. Damer Undiagnosed new problem with uncertain prognosis? @ -No Drug Therapy requiring intensive monitoring for toxicity (Heparin, Nitro, Insulin, Cardizem)? @ -No Were any procedures done? @ -No Diagnosis/symptom? @ -diverticulosis, rectal bleeding Acute, or Chronic, or Acute on Chronic? @ -acute Uncomplicated (without systemic symptoms) or Complicated (systemic symptoms)? @ -uncomplicated Side effects of treatment? @ -No Exacerbation, Progression, or Severe Exacerbation? @ -No Poses a threat to life or bodily function? How? (Chest pain, [place], [place], pneumonia, PE, COPD, DKA, ARF, appy, cholecystitis, CVA, Diverticulitis, Homicidal, Suicidal, threat to staff... and all critical care pts) @ -No - Lab Data Result diagrams: 07/31/24 10:34 07/31/24 10:34 Lab Results 07/31/24 07/31/24 07/31/24 Range/Units 10:34 10:34 11:09 WBC 6.7 (3.8-10.6) k/uL RBC 4.54 (3.80-5.40) m/uL Hgb 12.9 (11.4-16.0) gm/dL Hct 39.5 (34.0-46.0) % MCV 87.1 (80.0-100.0) fL MCH 28.5 (25.0-35.0) pg MCHC 32.8 (31.0-37.0) g/dL RDW 12.9 (11.5-15.5) % Plt Count 354 (150-450) k/uL MPV 6.8 Neutrophils % 53 % Lymphocytes % 34 % Monocytes % 8 % Eosinophils % 1 % Basophils % 1 % Neutrophils # 3.6 (1.3-7.7) k/uL Lymphocytes # 2.3 (1.0-4.8) k/uL Monocytes # 0.6 (0-1.0) k/uL Eosinophils # 0.1 (0-0.7) k/uL Basophils # 0.1 (0-0.2) k/uL Sodium 138 (137-145) mmol/L Potassium 4.1 (3.5-5.1) mmol/L Chloride 103 (98-107) mmol/L Carbon Dioxide 20 L (22-30) mmol/L Anion Gap 15 mmol/L BUN 14 (7-17) mg/dL Creatinine 0.54 (0.52-1.04) mg/dL Est GFR (CKD-EPI)AfAm >90 (>60 ml/min/1.73 sqM) Est GFR (CKD-EPI)NonAf >90 (>60 ml/min/1.73 sqM) Glucose 97 (74-99) mg/dL Calcium 9.4 (8.4-10.2) mg/dL Total Bilirubin 1.9 H (0.2-1.3) mg/dL AST 37 H (14-36) U/L ALT 33 (4-34) U/L Alkaline Phosphatase 62 (38-126) U/L Total Protein 8.1 (6.3-8.2) g/dL Albumin 4.9 (3.5-5.0) g/dL Amylase 43 (30-110) U/L Lipase 66 (23-300) U/L Urine Color Yellow Urine Appearance Cloudy H (Clear) Urine pH 5.5 (5.0-8.0) Ur Specific [place] 1.037 H (1.001-1.035) Urine Protein Trace H (Negative) Urine Glucose (UA) Negative (Negative) Urine Ketones 2+ H (Negative) Urine Blood Negative (Negative) Urine Nitrite Negative (Negative) Urine Bilirubin Negative (Negative) Urine Urobilinogen <2.0 (<2.0) mg/dL Ur Leukocyte Esterase Negative (Negative) Urine RBC 21 H (0-5) /hpf Urine WBC 4 (0-5) /hpf Ur Squamous Epith Cells 16 H (0-4) /hpf Urine Bacteria Few H (None) /hpf Urine Mucus Moderate H (None) /hpf Urine Yeast (Budding) Few H (None) /hpf Urine HCG, Qual (Not Detectd) 07/31/24 Range/Units 11:09 WBC (3.8-10.6) k/uL RBC (3.80-5.40) m/uL Hgb (11.4-16.0) gm/dL Hct (34.0-46.0) % MCV (80.0-100.0) fL MCH (25.0-35.0) pg MCHC (31.0-37.0) g/dL RDW (11.5-15.5) % Plt Count (150-450) k/uL MPV Neutrophils % % Lymphocytes % % Monocytes % % Eosinophils % % Basophils % % Neutrophils # (1.3-7.7) k/uL Lymphocytes # (1.0-4.8) k/uL Monocytes # (0-1.0) k/uL Eosinophils # (0-0.7) k/uL Basophils # (0-0.2) k/uL Sodium (137-145) mmol/L Potassium (3.5-5.1) mmol/L Chloride (98-107) mmol/L Carbon Dioxide (22-30) mmol/L Anion Gap mmol/L BUN (7-17) mg/dL Creatinine (0.52-1.04) mg/dL Est GFR (CKD-EPI)AfAm (>60 ml/min/1.73 sqM) Est GFR (CKD-EPI)NonAf (>60 ml/min/1.73 sqM) Glucose (74-99) mg/dL Calcium (8.4-10.2) mg/dL Total Bilirubin (0.2-1.3) mg/dL AST (14-36) U/L ALT (4-34) U/L Alkaline Phosphatase (38-126) U/L Total Protein (6.3-8.2) g/dL Albumin (3.5-5.0) g/dL Amylase (30-110) U/L Lipase (23-300) U/L Urine Color Urine Appearance (Clear) Urine pH (5.0-8.0) Ur Specific [place] (1.001-1.035) Urine Protein (Negative) Urine Glucose (UA) (Negative) Urine Ketones (Negative) Urine Blood (Negative) Urine Nitrite (Negative) Urine Bilirubin (Negative) Urine Urobilinogen (<2.0) mg/dL Ur Leukocyte Esterase (Negative) Urine RBC (0-5) /hpf Urine WBC (0-5) /hpf Ur Squamous Epith Cells (0-4) /hpf Urine Bacteria (None) /hpf Urine Mucus (None) /hpf Urine Yeast (Budding) (None) /hpf Urine HCG, Qual Not Detected (Not Detectd) Disposition Clinical Impression: Diverticulosis, Rectal bleeding Disposition: HOME SELF-CARE Condition: Stable Instructions (If sedation given, give patient instructions): Gastrointestinal Bleeding (ED) Additional Instructions: Please follow up for a colonoscopy. Return to the emergency department for new or worsening symptoms. Is patient prescribed a controlled substance at d/c from ED?: No Referrals: Roberto Espinoza MD [Primary Care Provider] - 1-2 days Lisa Wallace MD [STAFF PHYSICIAN] - 1-2 days
[2024-07-31 10:51] LABS: Basophils # (A) 0.1 k/uL (0-0.2); Basophils % (A) 1 %; Eosinophils # (A) 0.1 k/uL (0-0.7); Eosinophils % (A) 1 %; HCT 39.5 % (34.0-46.0); HGB 12.9 gm/dL (11.4-16.0); Lymphocytes # (A) 2.3 k/uL (1.0-4.8); Lymphocytes % (A) 34 %; MCH 28.5 pg (25.0-35.0); MCHC 32.8 g/dL (31.0-37.0); MCV 87.1 fL (80.0-100.0); Mean Platelet Volume 6.8; Monocytes # (A) 0.6 k/uL (0-1.0); Monocytes % (A) 8 %; Neutrophils # (A) 3.6 k/uL (1.3-7.7); Neutrophils % (A) 53 %; Platelet Count 354 k/uL (150-450); RBC 4.54 m/uL (3.80-5.40); RDW 12.9 % (11.5-15.5); WBC 6.7 k/uL (3.8-10.6)
--- NOTE | 2024-07-31 11:08 | CT ---
EXAMINATION TYPE: CT abdomen pelvis w con CT DLP: 1443.6 mGycm, Automated exposure control for dose reduction was used. DATE OF EXAM: 07/31/2024 11:01 AM COMPARISON: CT abdomen pelvis 09/09/2020 CLINICAL INDICATION:Female, 44 years old with history of abd pain, rectal bleeding; Rectal bleeding TECHNIQUE: Standard CT of the abdomen and pelvis following the administration of 100 cc of Isovue 3 00 IV contrast material. Coronal and sagittal reformats were performed. FINDINGS: LOWER CHEST: Unremarkable ABDOMEN LIVER: Focal fatty infiltration adjacent to the falciform ligament in segment IVb GALLBLADDER AND BILE DUCTS: The gallbladder is surgically absent. No biliary ductal dilatation. PANCREAS: Unremarkable. SPLEEN: Unremarkable. ADRENAL GLANDS: Unremarkable. KIDNEYS AND URETERS: No evidence of hydronephrosis or renal calculus. The kidneys enhance symmetrical ly. Couple bilateral renal cysts. Contrast is demonstrated within both collecting systems on the nallely yed phase. PELVIS BLADDER: Unremarkable REPRODUCTIVE: Anteverted uterus with bilateral tubal ligation clips. Cystic changes within the right ovary. ABDOMEN & PELVIS STOMACH AND BOWEL: Stomach and duodenum are unremarkable. No focal bowel wall thickening or surroundi ng inflammatory changes. The appendix is within normal limits. No hyperdense material identified with in the colon to suggest active GI bleed. Few scattered colonic diverticula without evidence for acute diverticulitis. No evidence of bowel obstruction. PERITONEUM: No evidence of pneumoperitoneum or free fluid. Couple of surgical clips identified within the anterior lower abdomen. VASCULATURE: No evidence of aortic aneurysm. Pelvic phleboliths. MUSCULOSKELETAL: No acute osseous abnormalities LYMPH NODES: No evidence for lymphadenopathy. SOFT TISSUE/ABDOMINAL WALL: Post surgical changes of the lower anterior abdominal wall with scarring and suspected mesh. IMPRESSION: 1. No acute abdominal/pelvic process. 2. Colonic diverticulosis without evidence for acute diverticulitis. [facility], , 07/31/2024 11:06 AM
[2024-07-31 11:20] LABS: ALT 33 U/L (4-34); AST 37 U/L (14-36); African American GFR (CKD) >90 (>60 ml/min/1.73 sqM); Albumin 4.9 g/dL (3.5-5.0); Alkaline Phosphatase 62 U/L (38-126); Amylase 43 U/L (30-110); Anion Gap 15 mmol/L; Blood Urea Nitrogen 14 mg/dL (7-17); Calcium 9.4 mg/dL (8.4-10.2); Carbon Dioxide 20 mmol/L (22-30); Chloride 103 mmol/L (98-107); Glucose 97 mg/dL (74-99); Lipase 66 U/L (23-300); Non-African American GFR(CKD) >90 (>60 ml/min/1.73 sqM); Potassium 4.1 mmol/L (3.5-5.1); Sodium 138 mmol/L (137-145); Total Bilirubin 1.9 mg/dL (0.2-1.3); Total Protein 8.1 g/dL (6.3-8.2)
[2024-07-31 12:08] LABS: Appearance,Urine Cloudy (Clear); Bacteria,Urine Few /hpf; Bilirubin,Urine Negative (Negative); Blood,Urine Negative (Negative); Budding Yeast,Urine Few /hpf; Color,Urine Yellow; Glucose,Urine (UA) Negative (Negative); Ketones,Urine 2+ (Negative); Leukocyte Esterase,Urine Negative (Negative); Mucus,Urine Moderate /hpf; Nitrite,Urine Negative (Negative); PH, Urine 5.5 (5.0-8.0); Protein,Urine Trace (Negative); RBC,Urine 21 /hpf (0-5); Specific Gravity,Urine 1.037 (1.001-1.035); Squamous Epithelial Cell,Urine 16 /hpf (0-4); Urobilinogen,Urine <2.0 mg/dL (<2.0); WBC,Urine 4 /hpf (0-5)
[2024-07-31 12:49] VITALS: BP 144/87; PULSE 86; RESP 18
== END 2024-07-31 12:54 | disposition home or self-care (01) ==
LOC: EC 09:26
DX: K57.31 Diverticulosis of large intestine without perforation or abscess with bleeding (principal)
CPT/HCPCS: 36415; 80053; 82150; 83690; 85025; 81001; 81025; 74177; 99285; Q9967

== ENCOUNTER 2024-08-07 14:05 | Emergency (ER) | payer OTHER, MEDICARE ==
--- NOTE | 2024-08-07 16:36 | ED ---
General Adult HPI - General Chief complaint: Psychiatric Symptoms Stated complaint: Mental health eval Time Seen by Provider: 08/07/24 16:00 Source: patient, RN notes reviewed, old records reviewed Mode of arrival: ambulatory - History of Present Illness Initial comments: Patient is a 44-year-old female presents emergency department for psychiatric evaluation. States she brought herself here because her wanted her to be evaluated as well as her mother. Denies suicidal ideation, homicidal ideation, hallucinations. Patient has a history of anxiety but states she is not currently anxious. She does not want to discuss more with me at this time and seems guarded. She has no other acute complaints. Presents for psychiatric evaluation. Has not seen a therapist. - Related Data Home Medications Medication Instructions Recorded Confirmed Atorvastatin [Lipitor] 40 mg PO DAILY 07/31/24 07/31/24 Multivitamins, Thera [Multivitamin 1 tab PO DAILY 07/31/24 07/31/24 (formulary)] Allergies Allergy/AdvReac Type Severity Reaction Status Date / Time ciprofloxacin [From Cipro] Allergy Anaphylaxis, Verified 08/07/24 14:30 tongue swelling ciprofloxacin HCl Allergy Anaphylaxis, Verified 08/07/24 14:30 [From Cipro] tongue swelling Sulfa (Sulfonamide Allergy Rash/Hives Verified 08/07/24 14:30 Antibiotics) Review of Systems ROS Statement: Those systems with pertinent positive or pertinent negative responses have been documented in the HPI. Review of Systems: CONST: Denies fever EYES: Denies blurry vision ENT: Denies nasal congestion C/V: Denies Chest pain RESP: Denies shortness of breath GI: Denies abdominal pain : Denies dysuria SKIN: Denies rash. MSK: Denies joint pain. NEURO: Denies headache ROS Other: All systems not noted in ROS Statement are negative. Past Medical History Past Medical History: GERD/Reflux Additional Past Medical History / Comment(s): has abd. hernia that will be having surgery on History of Any Multi-Drug Resistant Organisms: None Reported Past Surgical History: Section, Cholecystectomy, Hernia Repair, Tubal Ligation, Uterine Ablation Additional Past Surgical History / Comment(s): IUI, LAPAROSCOPY WITH FIMBROPLASTY, LAPARSCOPY WITH INTERNAL ADHESIONS. 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 Past Anesthesia/Blood Transfusion Reactions: Postoperative Nausea & Vomiting (PONV) Past Psychological History: Anxiety Smoking Status: Never smoker Past Alcohol Use History: Occasional Past Drug Use History: None Reported - Past Family History Father Family Medical History: Myocardial Infarction ([place]) Mother Family Medical History: Myocardial Infarction ([place]) General Exam - General Exam Comments Initial Comments: General: Appears in no acute distress. HEAD: Normal with no signs of head trauma. EYES: EOMI. ENT: Hearing grossly intact. RESPIRATORY: No respiratory distress. C/V: Regular rate and rhythm. ABD: Abdomen is nondistended. EXT: No obvious deformity. SKIN: No rashes or lesions observed on exposed skin. NEURO: Alert and oriented. Course Vital Signs 08/07/24 14:23 Temperature 98.3 F Pulse Rate 85 Respiratory 16 Rate Blood Pressure 163/100 O2 Sat by Pulse 98 Oximetry Medical Decision Making - Medical Decision Making Was pt. sent in by a medical professional or institution (, PA, SUCTION PLATE ROLLER HAND, urgent care, hospital, or correction...) When possible be specific @ -No Did you speak to anyone other than the patient for history (EMS, parent, family, police, friend...)? What history was obtained from this source @ -No Did you review nursing and triage notes (agree or disagree)? Why? @ -I reviewed and agree with nursing and triage notes Were old charts reviewed (outside hosp., previous admission, EMS record, old EKG, old radiological studies, urgent care reports/EKG's, correction records)? Report findings @ -Reviewed old charts which shows that patient has been reevaluated in the past for psychiatric evaluation. Previous documented was in December 2023. Differential Diagnosis (chest pain, altered mental status, abdominal pain women, abdominal pain men, vaginal bleeding, weakness, fever, dyspnea, syncope, headache, dizziness, GI bleed, back pain, seizure, CVA, palpatations, mental health, musculoskeletal)? @ -Differential Mental Health Depression, anxiety, bipolar, psychosis, schizophrenia, borderline personality, situational depression, adjustment disorder, behavioral disorder, brain tumor, malingering, substance abuse, encephalopathy, medication reaction, dementia, hypothyroidism, degenerative neurologic disorder, lupus.... This is not meant to be all-inclusive list EKG interpreted by me (3pts min.). @ -None done X-rays interpreted by me (1pt min.). @ -None done CT interpreted by me (1pt min.). @ -None done U/S interpreted by me (1pt. min.). @ -None done What testing was considered but not performed or refused? (CT, X-rays, U/S, labs)? Why? @ -None What meds were considered but not given or refused? Why? @ -None Did you discuss the management of the patient with other professionals (professionals i.e. , PA, SUCTION PLATE ROLLER HAND, lab, RT, psych nurse, psychotherapist social worker, server administrator, teacher, operations officer trust department, employment case manager)? Give summary @ -EPS notified of the consult Was smoking cessation discussed for >3mins.? @ -No Was critical care preformed (if so, how long)? @ -No Were there social determinants of health that impacted care today? How? (Homelessness, low income, unemployed, alcoholism, drug addiction, transportation, low edu. Level, literacy, decrease access to med. care, [facility], rehab)? @ -No Was there de-escalation of care discussed even if they declined (Discuss DNR or withdrawal of care, Hospice)? DNR status @ -No What co-morbidities impacted this encounter? (DM, HTN, Smoking, COPD, CAD, Cancer, CVA, ARF, Chemo, Hep., AIDS, mental health diagnosis, sleep apnea, morbid obesity)? @ -None Was patient admitted / discharged? Hospital course, mention meds given and route, prescriptions, significant lab abnormalities, going to OR and other pertinent info. @ -Patient presents for psychiatric evaluation. Denies suicidal or homicidal ideations. Denies hallucinations. BAT is 0. UDS is pending. Vital signs are within acceptable limits. At this time, patient is medically cleared for evaluation by psychiatry. Disposition pending psychiatric evaluation. EPS notified of the consult. Patient evaluated by EPS. Patient does not meet inpatient criteria for psychiatric admission. Patient will be discharged home with a safety plan. Patient was in agreement this plan. Undiagnosed new problem with uncertain prognosis? @ -No Drug Therapy requiring intensive monitoring for toxicity (Heparin, Nitro, Insulin, Cardizem)? @ -No Were any procedures done? @ -No Diagnosis/symptom? @ -Encounter for psychiatric evaluation Acute, or Chronic, or Acute on Chronic? @ -Acute Uncomplicated (without systemic symptoms) or Complicated (systemic symptoms)? @ -Uncomplicated Side effects of treatment? @ -None Exacerbation, Progression, or Severe Exacerbation] @ -No Poses a threat to life or bodily function? @ -Unlikely at this time Disposition Clinical Impression: Encounter for psychiatric assessment Disposition: HOME SELF-CARE Condition: Good Additional Instructions: Follow safety plan. Return to the ER for any worsening symptoms or concerns. Follow-up with your PCP in the next 1 to 3 days. Is patient prescribed a controlled substance at d/c from ED?: No Referrals: Roberto Espinoza MD [Primary Care Provider] - 1-2 days Time of Disposition: 17:11
[2024-08-07 21:36] VITALS: BP 160/98; PULSE 95; RESP 17; TEMP 98.6
== END 2024-08-07 21:36 | disposition home or self-care (01) ==
LOC: EC 14:05
DX: Z04.6 Encounter for general psychiatric examination, requested by authority (principal); F41.9 Anxiety disorder, unspecified
CPT/HCPCS: 82075; 99284

== ENCOUNTER → 2024-08-07 | Outpatient (CLI) | payer OTHER, MEDICARE ==
[2024-08-07 15:02] LABS: Basophils # (A) 0.07 X 10*3/uL (0.00-0.10); Basophils % (A) 0.9 %; Eosinophils # (A) 0.06 X 10*3/uL (0.04-0.35); Eosinophils % (A) 0.8 %; HCT 34.6 % (37.2-46.3); HGB 11.6 g/dL (12.0-15.0); Lymphocytes # (A) 2.05 X 10*3/uL (0.90-5.00); MCHC 33.5 g/dL (32.0-37.0); MCV 86.5 FL (80.0-97.0); Mean Platelet Volume 9.6 FL (9.5-12.2); Monocytes # (A) 0.54 X 10*3/uL (0.20-1.00); Monocytes % (A) 7.1 %; NRBC Per 100 WBC 0 X 10*3/uL (0.00-0.01); Neutrophils # (A) 4.84 X 10*3/uL (1.80-7.70); Neutrophils % (A) 63.8 %; Platelet Count 327 X 10*3/uL (140-440); WBC 7.59 X 10*3/uL (4.50-10.00)
[2024-08-07 15:07] LABS: ALT 27 U/L (8-44); AST 33 U/L (13-35); Albumin 4.3 g/dL (3.8-4.9); Albumin/Globulin Ratio 1.65 Ratio (1.60-3.17); Alkaline Phosphatase 58 U/L (41-126); BUN/Creat Ratio 18.83 Ratio (12.00-20.00); Blood Urea Nitrogen 11.3 mg/dL (9.0-27.0); Calcium 9.4 mg/dL (8.7-10.3); Carbon Dioxide 23.5 mmol/L (21.6-31.8); Chloride 106 mmol/L (96-109); Globulin 2.6 g/dL (1.6-3.3); Glucose 113 mg/dL (70-110); Potassium 3.5 mmol/L (3.5-5.5); Sodium 141 mmol/L (135-145); Total Bilirubin 0.6 mg/dL (0.3-1.2); Total Protein 6.9 g/dL (6.2-8.2)
[2024-08-07 18:46] LABS: Cancer Antigen 125 16.1 U/mL (0.0-30.1)
== END | disposition home or self-care (01) ==
LOC: LABWHC1 12:02
PROVIDERS: ATTEND Internal Medicine
DX: Z01.89 Encounter for other specified special examinations (principal); E28.2 Polycystic ovarian syndrome
CPT/HCPCS: 36415; 80053; 85025; 86304

== ENCOUNTER 2024-08-08 01:18 | Emergency (ER) | payer OTHER, MEDICARE ==
--- NOTE | 2024-08-08 01:58 | ED ---
Psych HPI - General Source: patient, police, RN notes reviewed Mode of arrival: ambulatory <Shabana Mayorga - Last Filed: 08/08/24 02:10> - General Source: patient, police, RN notes reviewed, old records reviewed Mode of arrival: ambulatory - History of Present Illness MD Complaint: feels depressed -: unknown Associated Psychiatric Symptoms: racing thoughts Quality: constant, getting worse Improves With: none Worsens With: none Context: significant life stressor Associated Symptoms: denies other symptoms <Joe Lloyd - Last Filed: 08/11/24 15:41> - General Chief Complaint: Psychiatric Symptoms Stated Complaint: petition Time Seen by Provider: 08/08/24 01:30 - History of Present Illness Initial Comments: 44-year-old female presenting to the emergency department for a mental health evaluation from petition. Patient is presenting from [facility]. Patient was recently discharged from the emergency department and it is reported that patient was wandering and ended up at the [facility] department where she was sitting on the bench and there is concern that patient has been having abnormal behavior so she is reported to the emergency department. Currently, patient denies suicidal, homicidal ideation, auditory visual hallucinations. Patient states after she was discharged from the hospital she got into a verbal altercation with her and she is requesting assistance with coping mechanisms after stress. (Shabana Mayorga) 44 female to the ER for evaluation under petition for psychiatric evaluation and treatment (Joe Lloyd) - Related Data Home Medications Medication Instructions Recorded Confirmed Multivitamins, Thera [Multivitamin 1 tab PO DAILY 07/31/24 08/07/24 (formulary)] Allergies Allergy/AdvReac Type Severity Reaction Status Date / Time ciprofloxacin [From Cipro] Allergy Anaphylaxis, Verified 08/08/24 16:00 tongue swelling ciprofloxacin HCl Allergy Anaphylaxis, Verified 08/08/24 16:00 [From Cipro] tongue swelling Sulfa (Sulfonamide Allergy Rash/Hives Verified 08/08/24 16:00 Antibiotics) Review of Systems ROS Other: All systems not noted in ROS Statement are negative. <Shabana Mayorga - Last Filed: 08/08/24 02:10> ROS Other: All systems not noted in ROS Statement are negative. <Joe Lloyd - Last Filed: 08/11/24 15:41> ROS Statement: Those systems with pertinent positive or pertinent negative responses have been documented in the HPI. Past Medical History Past Medical History: GERD/Reflux Additional Past Medical History / Comment(s): has abd. hernia that will be having surgery on History of Any Multi-Drug Resistant Organisms: None Reported Past Surgical History: Section, Cholecystectomy, Hernia Repair, Tubal Ligation, Uterine Ablation Additional Past Surgical History / Comment(s): IUI, LAPAROSCOPY WITH FIMBROPLASTY, LAPARSCOPY WITH INTERNAL ADHESIONS. 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 Past Anesthesia/Blood Transfusion Reactions: Postoperative Nausea & Vomiting (PONV) Past Psychological History: Anxiety Smoking Status: Never smoker Past Alcohol Use History: Occasional Past Drug Use History: None Reported - Past Family History Father Family Medical History: Myocardial Infarction ([place]) Mother Family Medical History: Myocardial Infarction ([place]) <Shabana Mayorga - Last Filed: 08/08/24 02:10> General Exam Limitations: no limitations <Shabana Mayorga - Last Filed: 08/08/24 02:10> General appearance: alert, in no apparent distress Head exam: Present: atraumatic, normocephalic, normal inspection Eye exam: Present: normal appearance, PERRL, EOMI. Absent: scleral icterus, con junctival injection, periorbital swelling ENT exam: Present: normal exam, mucous membranes moist Neck exam: Present: normal inspection. Absent: tenderness, meningismus, lymphadenopathy Respiratory exam: Present: normal lung sounds bilaterally. Absent: respiratory distress, wheezes, rales, rhonchi, stridor Cardiovascular Exam: Present: regular rate, normal rhythm, normal heart sounds. Absent: systolic murmur, diastolic murmur, rubs, gallop, clicks GI/Abdominal exam: Present: soft, normal bowel sounds. Absent: distended, tenderness, guarding, rebound, rigid Extremities exam: Present: normal inspection, full ROM, normal capillary refill. Absent: tenderness, pedal edema, joint swelling, calf tenderness Back exam: Present: normal inspection Neurological exam: Present: alert, oriented X3, CN II-XII intact Psychiatric exam: Present: normal affect, normal mood Skin exam: Present: warm, dry, intact, normal color. Absent: rash <RosnicoJoe B - Last Filed: 08/11/24 15:41> Course <Joe Lloyd - Last Filed: 08/11/24 15:41> Vital Signs 08/08/24 08/08/24 01:21 03:54 Temperature 97.6 F 98.7 F Pulse Rate 113 H 98 Respiratory 18 17 Rate Blood Pressure 150/112 143/86 O2 Sat by Pulse 100 100 Oximetry - Reevaluation(s) Reevaluation #1: Medical records reviewed (Joe Lloyd) Reevaluation #2: Medically cleared for psychiatric evaluation (Joe Lloyd) Reevaluation #3: Patient seen eval by psychiatry be stable for discharge home (Joe Lloyd) Medical Decision Making <Joe Lloyd - Last Filed: 08/11/24 15:41> - Medical Decision Making 44 female will be discharged home after seen and evaluated by psychiatry here in the ER (Joe Llyod) Disposition <Shabana Mayorga - Last Filed: 08/08/24 02:10> Is patient prescribed a controlled substance at d/c from ED?: No <Joe Lloyd - Last Filed: 08/11/24 15:41> Clinical Impression: Acute psychosis, Schizophrenia, Mood disorder Disposition: HOME SELF-CARE Condition: Fair Instructions (If sedation given, give patient instructions): Mood Disorders (ED) Referrals: Roberto Espinoza MD [Primary Care Provider] - 1-2 days
[2024-08-08 03:56] VITALS: BP 143/86; PULSE 98; RESP 17; TEMP 98.7
== END 2024-08-08 05:03 | disposition home or self-care (01) ==
LOC: EC 01:18
DX: F20.9 Schizophrenia, unspecified (principal); F39 Unspecified mood [affective] disorder; Z63.0 Problems in relationship with spouse or partner; Z88.1 Allergy status to other antibiotic agents; Z88.2 Allergy status to sulfonamides
CPT/HCPCS: 82075; 99284

== ENCOUNTER 2024-08-08 15:39 | Emergency (ER) | payer OTHER, MEDICARE ==
[2024-08-08 19:31] LABS: Basophils # (A) 0.1 k/uL (0-0.2); Basophils % (A) 1 %; Eosinophils # (A) 0.1 k/uL (0-0.7); Eosinophils % (A) 1 %; HCT 35.7 % (34.0-46.0); HGB 11.3 gm/dL (11.4-16.0); Lymphocytes # (A) 2.7 k/uL (1.0-4.8); Lymphocytes % (A) 28 %; MCHC 31.8 g/dL (31.0-37.0); MCV 88.2 fL (80.0-100.0); Mean Platelet Volume 6.7; Monocytes # (A) 0.7 k/uL (0-1.0); Monocytes % (A) 7 %; Neutrophils # (A) 5.9 k/uL (1.3-7.7); Neutrophils % (A) 61 %; Platelet Count 339 k/uL (150-450); RBC 4.04 m/uL (3.80-5.40); RDW 13.4 % (11.5-15.5); WBC 9.7 k/uL (3.8-10.6)
[2024-08-08 19:58] LABS: ALT 30 U/L (4-34); AST 36 U/L (14-36); African American GFR (CKD) >90 (>60 ml/min/1.73 sqM); Albumin 4.4 g/dL (3.5-5.0); Alkaline Phosphatase 56 U/L (38-126); Anion Gap 13 mmol/L; Blood Urea Nitrogen 18 mg/dL (7-17); Calcium 9.5 mg/dL (8.4-10.2); Carbon Dioxide 24 mmol/L (22-30); Chloride 102 mmol/L (98-107); Glucose 92 mg/dL (74-99); Non-African American GFR(CKD) >90 (>60 ml/min/1.73 sqM); Potassium 3.4 mmol/L (3.5-5.1); Sodium 139 mmol/L (137-145); Total Bilirubin 0.9 mg/dL (0.2-1.3); Total Protein 7.3 g/dL (6.3-8.2)
--- NOTE | 2024-08-08 20:33 | ED ---
Psych HPI - General Chief Complaint: Psychiatric Symptoms Stated Complaint: petition Time Seen by Provider: 08/08/24 16:00 Source: patient, police Mode of arrival: ambulatory - History of Present Illness Initial Comments: 44-year-old female with past medical history of schizophrenia who presents to the emergency department with acute abiola. She is petitioned by . Patient was seen yesterday in the emergency department twice for the same complaint. states that she went home and was screaming, running in circles. She has not taken any medications since February. Previously she was court ordered to take medication but she states that she feels better without them. Patient has pressured and circular speech. states that she is only slept 6 hours in the past 5 days. No report of any suicidal or homicidal ideations. Patient denies alcohol use. No other alleviating, precipitating or modifying factors - Related Data Home Medications Medication Instructions Recorded Confirmed Multivitamins, Thera [Multivitamin 1 tab PO DAILY 07/31/24 08/07/24 (formulary)] Allergies Allergy/AdvReac Type Severity Reaction Status Date / Time ciprofloxacin [From Cipro] Allergy Anaphylaxis, Verified 08/08/24 16:00 tongue swelling ciprofloxacin HCl Allergy Anaphylaxis, Verified 08/08/24 16:00 [From Cipro] tongue swelling Sulfa (Sulfonamide Allergy Rash/Hives Verified 08/08/24 16:00 Antibiotics) Review of Systems ROS Statement: Those systems with pertinent positive or pertinent negative responses have been documented in the HPI. ROS Other: All systems not noted in ROS Statement are negative. Past Medical History Past Medical History: GERD/Reflux Additional Past Medical History / Comment(s): has abd. hernia that will be having surgery on History of Any Multi-Drug Resistant Organisms: None Reported Past Surgical History: Section, Cholecystectomy, Hernia Repair, Tubal Ligation, Uterine Ablation Additional Past Surgical History / Comment(s): IUI, LAPAROSCOPY WITH FIMBROPLASTY, LAPARSCOPY WITH INTERNAL ADHESIONS. 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 Past Anesthesia/Blood Transfusion Reactions: Postoperative Nausea & Vomiting (PONV) Past Psychological History: Anxiety Smoking Status: Never smoker Past Alcohol Use History: Occasional Past Drug Use History: None Reported - Past Family History Father Family Medical History: Myocardial Infarction ([place]) Mother Family Medical History: Myocardial Infarction ([place]) General Exam Limitations: no limitations General appearance: alert, in no apparent distress Head exam: Present: atraumatic, normocephalic, normal inspection Eye exam: Present: normal appearance, PERRL, EOMI. Absent: scleral icterus, conjunctival injection, periorbital swelling ENT exam: Present: normal exam, mucous membranes moist Neck exam: Present: normal inspection. Absent: tenderness, meningismus, lymphadenopathy Respiratory exam: Present: normal lung sounds bilaterally. Absent: respiratory distress, wheezes, rales, rhonchi, stridor Cardiovascular Exam: Present: regular rate, normal rhythm, normal heart sounds. Absent: systolic murmur, diastolic murmur, rubs, gallop, clicks GI/Abdominal exam: Present: soft, normal bowel sounds. Absent: distended, tenderness, guarding, rebound, rigid Extremities exam: Present: normal inspection, full ROM, normal capillary refill. Absent: tenderness, pedal edema, joint swelling, calf tenderness Back exam: Present: normal inspection Neurological exam: Present: alert, oriented X3, CN II-XII intact Psychiatric exam: Present: manic Skin exam: Present: warm, dry, intact, normal color. Absent: rash Course Vital Signs 08/08/24 15:57 Temperature 98.1 F Pulse Rate 94 Respiratory 18 Rate Blood Pressure 144/90 O2 Sat by Pulse 99 Oximetry Medical Decision Making - Medical Decision Making Was pt. sent in by a medical professional or institution ([facility], CRISIS MANAGER, urgent care, hospital, or assisted...) When possible be specific @ -Patient was accompanied by police Did you speak to anyone other than the patient for history (EMS, parent, family, police, friend...)? What history was obtained from this source @ -Spoke with for history Did you review nursing and triage notes (agree or disagree)? Why? @ -I reviewed and agree with nursing and triage notes Were old charts reviewed (outside hosp., previous admission, EMS record, old EKG, old radiological studies, urgent care reports/EKG's, assisted records)? Report findings @ -I reviewed the ED visits from yesterday Differential Diagnosis (chest pain, altered mental status, abdominal pain women, abdominal pain men, vaginal bleeding, weakness, fever, dyspnea, syncope, headache, dizziness, GI bleed, back pain, seizure, CVA, palpatations, mental health, musculoskeletal)? @ -Differential Mental Health Depression, anxiety, bipolar, psychosis, schizophrenia, borderline personality, situational depression, adjustment disorder, behavioral disorder, brain tumor, malingering, substance abuse, encephalopathy, medication reaction, dementia, hypothyroidism, degenerative neurologic disorder, lupus.... This is not meant to be all-inclusive list EKG interpreted by me (3pts min.). @ -Not done X-rays interpreted by me (1pt min.). @ -None done CT interpreted by me (1pt min.). @ -None done U/S interpreted by me (1pt. min.). @ -None done What testing was considered but not performed or refused? (CT, X-rays, U/S, labs)? Why? @ -None What meds were considered but not given or refused? Why? @ -None Did you discuss the management of the patient with other professionals (professionals i.e. , PA, CRISIS MANAGER, lab, RT, psych nurse, adoption social worker, holistic pulser, teacher, student liaison officer, field case manager)? Give summary @ -Spoke with EPS who does evaluate the patient Was smoking cessation discussed for >3mins.? @ -No Was critical care preformed (if so, how long)? @ -No Were there social determinants of health that impacted care today? How? (Homelessness, low income, unemployed, alcoholism, drug addiction, transportation, low edu. Level, literacy, decrease access to med. care, assisted, rehab)? @ -No Was there de-escalation of care discussed even if they declined (Discuss DNR or withdrawal of care, Hospice)? DNR status @ -No What co-morbidities impacted this encounter? (DM, HTN, Smoking, COPD, CAD, Cancer, CVA, ARF, Chemo, Hep., AIDS, mental health diagnosis, sleep apnea, morbid obesity)? @ -Schizophrenia Was patient admitted / discharged? Hospital course, mention meds given and route, prescriptions, significant lab abnormalities, going to OR and other pertinent info. @ -Upon arrival patient seen and evaluated in hallway 11. Thorough history and physical exam was performed. Patient does have tangential thoughts with pressured speech. Patient is petitioned by her . Her breathalyzer test is negative. Patient is cleared for mental health evaluation. EPS does evaluate the patient and feel that she requires transfer at this time to psychiatric facility. I did fill out the certification on the patient. Patient transferred in stable condition Undiagnosed new problem with uncertain prognosis? @ -No Drug Therapy requiring intensive monitoring for toxicity (Heparin, Nitro, Insulin, Cardizem)? @ -No Were any procedures done? @ -No Diagnosis/symptom? @ -Acute psychoses, abiola, history of schizophrenia Acute, or Chronic, or Acute on Chronic? @ -Acute on chronic Uncomplicated (without systemic symptoms) or Complicated (systemic symptoms)? @ -Complicated Side effects of treatment? @ -No Exacerbation, Progression, or Severe Exacerbation? @ -No Poses a threat to life or bodily function? How? (Chest pain, [place], PA, pneumonia, PE, COPD, DKA, ARF, appy, cholecystitis, CVA, Diverticulitis, Homicidal, Suicidal, threat to staff... and all critical care pts) @ -No - Lab Data Result diagrams: 08/08/24 19:17 08/08/24 19:17 Lab Results 08/08/24 08/08/24 08/08/24 Range/Units 19:17 19:17 19:30 WBC 9.7 (3.8-10.6) k/uL RBC 4.04 (3.80-5.40) m/uL Hgb 11.3 L (11.4-16.0) gm/dL Hct 35.7 (34.0-46.0) % MCV 88.2 (80.0-100.0) fL MCH 28.0 (25.0-35.0) pg MCHC 31.8 (31.0-37.0) g/dL RDW 13.4 (11.5-15.5) % Plt Count 339 (150-450) k/uL MPV 6.7 Neutrophils % 61 % Lymphocytes % 28 % Monocytes % 7 % Eosinophils % 1 % Basophils % 1 % Neutrophils # 5.9 (1.3-7.7) k/uL Lymphocytes # 2.7 (1.0-4.8) k/uL Monocytes # 0.7 (0-1.0) k/uL Eosinophils # 0.1 (0-0.7) k/uL Basophils # 0.1 (0-0.2) k/uL Sodium 139 (137-145) mmol/L Potassium 3.4 L (3.5-5.1) mmol/L Chloride 102 (98-107) mmol/L Carbon Dioxide 24 (22-30) mmol/L Anion Gap 13 mmol/L BUN 18 H (7-17) mg/dL Creatinine 0.63 (0.52-1.04) mg/dL Est GFR (CKD-EPI)AfAm >90 (>60 ml/min/1.73 sqM) Est GFR (CKD-EPI)NonAf >90 (>60 ml/min/1.73 sqM) Glucose 92 (74-99) mg/dL Calcium 9.5 (8.4-10.2) mg/dL Total Bilirubin 0.9 (0.2-1.3) mg/dL AST 36 (14-36) U/L ALT 30 (4-34) U/L Alkaline Phosphatase 56 (38-126) U/L Total Protein 7.3 (6.3-8.2) g/dL Albumin 4.4 (3.5-5.0) g/dL Urine Color Urine Appearance (Clear) Urine pH (5.0-8.0) Ur Specific [place] (1.001-1.035) Urine Protein (Negative) Urine Glucose (UA) (Negative) Urine Ketones (Negative) Urine Blood (Negative) Urine Nitrite (Negative) Urine Bilirubin (Negative) Urine Urobilinogen (<2.0) mg/dL Ur Leukocyte Esterase (Negative) Urine RBC (0-5) /hpf Urine WBC (0-5) /hpf Ur Squamous Epith Cells (0-4) /hpf Urine Bacteria (None) /hpf Urine Mucus (None) /hpf Urine Yeast (Budding) (None) /hpf Urine HCG, Qual (Not Detectd) Urine Opiates Screen (NotDetected) Ur Oxycodone Screen (NotDetected) Urine Methadone Screen (NotDetected) Ur Barbiturates Screen (NotDetected) U Tricyclic Antidepress (NotDetected) Ur Phencyclidine Scrn (NotDetected) Ur Amphetamines Screen (NotDetected) U Methamphetamines Scrn (NotDetected) U Benzodiazepines Scrn (NotDetected) Urine Cocaine Screen (NotDetected) U Marijuana (THC) Screen (NotDetected) SARS-CoV-2 (PCR) Not Detected (Not Detectd) 03/12/25 03/12/25 Range/Units 21:16 21:16 WBC (3.8-10.6) k/uL RBC (3.80-5.40) m/uL Hgb (11.4-16.0) gm/dL Hct (34.0-46.0) % MCV (80.0-100.0) fL MCH (25.0-35.0) pg MCHC (31.0-37.0) g/dL RDW (11.5-15.5) % Plt Count (150-450) k/uL MPV Neutrophils % % Lymphocytes % % Monocytes % % Eosinophils % % Basophils % % Neutrophils # (1.3-7.7) k/uL Lymphocytes # (1.0-4.8) k/uL Monocytes # (0-1.0) k/uL Eosinophils # (0-0.7) k/uL Basophils # (0-0.2) k/uL Sodium (137-145) mmol/L Potassium (3.5-5.1) mmol/L Chloride (98-107) mmol/L Carbon Dioxide (22-30) mmol/L Anion Gap mmol/L BUN (7-17) mg/dL Creatinine (0.52-1.04) mg/dL Est GFR (CKD-EPI)AfAm (>60 ml/min/1.73 sqM) Est GFR (CKD-EPI)NonAf (>60 ml/min/1.73 sqM) Glucose (74-99) mg/dL Calcium (8.4-10.2) mg/dL Total Bilirubin (0.2-1.3) mg/dL AST (14-36) U/L ALT (4-34) U/L Alkaline Phosphatase (38-126) U/L Total Protein (6.3-8.2) g/dL Albumin (3.5-5.0) g/dL Urine Color Yellow Urine Appearance Cloudy H (Clear) Urine pH 5.5 (5.0-8.0) Ur Specific [place] 1.028 (1.001-1.035) Urine Protein Trace H (Negative) Urine Glucose (UA) Negative (Negative) Urine Ketones 2+ H (Negative) Urine Blood Negative (Negative) Urine Nitrite Negative (Negative) Urine Bilirubin Negative (Negative) Urine Urobilinogen <2.0 (<2.0) mg/dL Ur Leukocyte Esterase Moderate H (Negative) Urine RBC 35 H (0-5) /hpf Urine WBC 10 H (0-5) /hpf Ur Squamous Epith Cells 16 H (0-4) /hpf Urine Bacteria Rare H (None) /hpf Urine Mucus Occasional H (None) /hpf Urine Yeast (Budding) Occasional H (None) /hpf Urine HCG, Qual Not Detected (Not Detectd) Urine Opiates Screen Not Detected (NotDetected) Ur Oxycodone Screen Not Detected (NotDetected) Urine Methadone Screen Not Detected (NotDetected) Ur Barbiturates Screen Not Detected (NotDetected) U Tricyclic Antidepress Not Detected (NotDetected) Ur Phencyclidine Scrn Not Detected (NotDetected) Ur Amphetamines Screen Not Detected (NotDetected) U Methamphetamines Scrn Not Detected (NotDetected) U Benzodiazepines Scrn Not Detected (NotDetected) Urine Cocaine Screen Not Detected (NotDetected) U Marijuana (THC) Screen Not Detected (NotDetected) SARS-CoV-2 (PCR) (Not Detectd) Disposition Clinical Impression: Psychosis, Poor compliance with medication Disposition: TRANSFER TO PSYCH HOSP/UNIT Condition: Stable Is patient prescribed a controlled substance at d/c from ED?: No Referrals: Roberto Espinoza MD [Primary Care Provider] - 1-2 days Time of Disposition: 20:33
[2024-08-08 21:26] LABS: Appearance,Urine Cloudy (Clear); Bacteria,Urine Rare /hpf; Bilirubin,Urine Negative (Negative); Blood,Urine Negative (Negative); Budding Yeast,Urine Occasional /hpf; Color,Urine Yellow; Glucose,Urine (UA) Negative (Negative); Ketones,Urine 2+ (Negative); Leukocyte Esterase,Urine Moderate (Negative); Mucus,Urine Occasional /hpf; Nitrite,Urine Negative (Negative); PH, Urine 5.5 (5.0-8.0); Protein,Urine Trace (Negative); RBC,Urine 35 /hpf (0-5); Specific Gravity,Urine 1.028 (1.001-1.035); Squamous Epithelial Cell,Urine 16 /hpf (0-4); Urobilinogen,Urine <2.0 mg/dL (<2.0); WBC,Urine 10 /hpf (0-5)
[2024-08-08 21:29] LABS: Amphetamine Screen,Urine Not Detected (NotDetected); Barbiturate Screen,Urine Not Detected (NotDetected); Benzodiazepines Screen,Urine Not Detected (NotDetected); Cocaine Screen,Urine Not Detected (NotDetected); Methadone Screen, Urine Not Detected (NotDetected); Opiate Screen,Urine Not Detected (NotDetected); Oxycodone Screen, Urine Not Detected (NotDetected); Phencyclidine Screen,Urine Not Detected (NotDetected); Tricyclic Antidepressant,Urine Not Detected (NotDetected); Urn Cannabinoid Scrn Not Detected (NotDetected)
[2024-08-08 23:10] VITALS: BP 143/90; PULSE 89; RESP 16; TEMP 98.9
== END 2024-08-08 23:09 ==
LOC: EC 15:39
DX: F29 Unspecified psychosis not due to a substance or known physiological condition (principal); Z91.148 Patient's other noncompliance with medication regimen for other reason; F20.9 Schizophrenia, unspecified
CPT/HCPCS: 36415; 80053; 80306; 81001; 81025; 82075; 85025; 87635; 99285

== ENCOUNTER → 2024-12-24 | Outpatient (CLI) | payer OTHER ==
[2024-12-24 15:19] LABS: Basophils # (A) 0.10 X 10*3/uL (0.00-0.10); Basophils % (A) 1.1 %; Eosinophils # (A) 0.14 X 10*3/uL (0.04-0.35); Eosinophils % (A) 1.5 %; HCT 39.2 % (37.2-46.3); HGB 12.3 g/dL (12.0-15.0); Immature Grans, Automated 0.40 %; Lymphocytes # (A) 3.01 X 10*3/uL (0.90-5.00); Lymphocytes % (A) 32.0 %; MCH 27.5 pg (27.0-32.0); MCHC 31.4 g/dL (32.0-37.0); MCV 87.5 FL (80.0-97.0); Monocytes # (A) 0.73 X 10*3/uL (0.20-1.00); Monocytes % (A) 7.7 %; NRBC Per 100 WBC 0 X 10*3/uL (0.00-0.01); Neutrophils # (A) 5.40 X 10*3/uL (1.80-7.70); Neutrophils % (A) 57.3 %; Platelet Count 315 X 10*3/uL (140-440); RBC 4.48 X 10*6/uL (4.10-5.20); RDW 13.0 % (11.5-14.5); WBC 9.42 X 10*3/uL (4.50-10.00)
[2024-12-24 15:54] LABS: ALT 23 U/L (8-44); AST 24 U/L (13-35); Albumin 4.4 g/dL (3.8-4.9); Albumin/Globulin Ratio 1.52 Ratio (1.60-3.17); Alkaline Phosphatase 78 U/L (41-126); Anion Gap 11.80 mmol/L (4.00-12.00); BUN/Creat Ratio 19.00 Ratio (12.00-20.00); Blood Urea Nitrogen 13.3 mg/dL (9.0-27.0); Calcium 9.3 mg/dL (8.7-10.3); Carbon Dioxide 24.2 mmol/L (21.6-31.8); Chloride 101 mmol/L (96-109); Cholesterol 141.00 mg/dL (0.00-200.00); Creatine Kinase 56 U/L (26-186); Globulin 2.9 g/dL (1.6-3.3); Glucose 83 mg/dL (70-110); HDL Cholesterol 41.50 mg/dL (40.00-60.00); LDL Cholesterol,Calculated 50.7 mg/dL (0.0-131.0); Potassium 4.0 mmol/L (3.5-5.5); Sodium 137 mmol/L (135-145); Total Protein 7.3 g/dL (6.2-8.2); Triglycerides 244.00 mg/dL (0.00-149.00); VLDL Calculation 48.80 mg/dL (5.00-40.00)
== END | disposition home or self-care (01) ==
LOC: LABWHC1 09:17
PROVIDERS: ATTEND Internal Medicine
DX: E55.9 Vitamin D deficiency, unspecified (principal); E78.2 Mixed hyperlipidemia; F41.1 Generalized anxiety disorder
CPT/HCPCS: 36415; 80053; 80061; 82306; 82550; 83036; 84443; 85025